=== PATIENT | female | born 1995 | race Caucasian/White ===

== ENCOUNTER 2023-10-07 15:17 | Emergency (ER) | payer OTHER, SELFPAY ==
[2023-10-07 15:45] VITALS: BP 139/85; PULSE 85; RESP 20; TEMP 37.4; O2SAT 98; BMI 28.3
--- NOTE | 2023-10-07 16:03 | ED.GENADUL1 ---
HPI - General Adult General Chief complaint: Abdominal Pain Stated complaint: Abdominal Pain, Flank Pain Time Seen by Provider: 10/07/23 15:53 Source: patient Mode of arrival: walk-in Limitations: no limitations History of Present Illness HPI narrative: Patient is a 28-year-old female who presents to the emergency department for a 4-day history of vomiting, diarrhea, intermittent side pain. She states the pain comes and goes in the bilateral flanks intermittently and changes location. She has no abdominal pain or flank pain at this time. She is unsure if she may be . She has not had any fevers, chills, cough, congestion. She has had more diarrhea than vomiting. She denies any recent travel or antibiotics. No medications taken prior to arrival today although she did take Imodium yesterday and states that her symptoms seem to be better today. Related Data Previous Rx's Medication Instructions Recorded dicyclomine 20 mg tablet 20 mg PO QID PRN abdominal pain 10/07/23 #12 tabs ondansetron 4 mg disintegrating 4 mg PO Q6H PRN nausea and 10/07/23 tablet vomiting #12 tabs Allergies Allergy/AdvReac Type Severity Reaction Status Date / Time No Known Drug Allergies Allergy Verified 10/07/23 15:49 Review of Systems ROS Constitutional Denies: fever or chills Ears, nose, mouth, and throat Denies: throat pain or neck pain Cardiovascular Denies: chest pain Respiratory Denies: shortness of breath Gastrointestinal Reports: abdominal pain, nausea, vomiting and diarrhea Genitourinary Denies: painful urination Musculoskeletal Denies: back pain Integumentary/Breast Denies: rash Neurological Denies: headache PFSH PFSH Social History Smoking status: Never smoker Exam Narrative Exam Narrative: Gen.: Awake, alert, in no distress Head: Normocephalic, atraumatic ENT: Moist mucous membranes Respiratory: No respiratory distress, lungs clear bilaterally Cardio: Regular rate and rhythm Gastrointestinal: Abdomen is soft, nondistended and nontender to palpation Extremities: Moves extremities equally Psych: Normal mood and affect Neuro: No focal neuro deficit Skin: Warm, dry, intact Constitutional Vital Signs, click to edit/add: Last Vital Signs Temp 99.3 F 10/07/23 15:45 Pulse 98 H 10/07/23 17:23 Resp 20 10/07/23 17:23 BP 127/83 10/07/23 17:23 Pulse Ox 98 10/07/23 17:23 O2 Del Method Room Air 10/07/23 17:23 Course Vital Signs Vital signs: Vital Signs Temperature 99.3 F 10/07/23 15:45 Pulse Rate 85 10/07/23 15:45 Respiratory Rate 20 10/07/23 15:45 Blood Pressure 139/85 10/07/23 15:45 Pulse Oximetry 98 10/07/23 15:45 Oxygen Delivery Method Room Air 10/07/23 15:45 Temperature 99.3 F 10/07/23 15:45 Pulse Rate 98 H 10/07/23 17:23 Respiratory Rate 20 10/07/23 17:23 Blood Pressure 127/83 10/07/23 17:23 Pulse Oximetry 98 10/07/23 17:23 Oxygen Delivery Method Room Air 10/07/23 17:23 Medical Decision Making MDM Narrative Medical decision making narrative: Medicated with IV fluids, Zofran, Levsin. Lab studies are within normal limits, test is negative and she is sent for abdominal x-rays. Abdomen is soft, benign she has no abdominal pain in the ER. She had no episodes of emesis or diarrhea in the ER. She will be discharged home with Zofran and Bentyl. Follow-up with PCP and return to the ER if symptoms change or worsen Medical Records Medical records reviewed: Yes I reviewed the patient's medical records Lab Data Lab results reviewed: Yes I reviewed the patient's lab results Labs: Lab Results 10/07/23 10/07/23 Range/Units 16:00 17:05 WBC 9.8 (4.0-11.0) 10^3/uL RBC 4.45 (4.20-5.40) 10^6/uL Hgb 13.7 (12.0-16.0) g/dL Hct 40.7 (36.0-48.0) % MCV 91.5 (81.0-99.0) fL MCH 30.8 (26.7-34.0) pg MCHC 33.7 (29.9-35.2) g/dL RDW 11.9 (11.0-15.0) % Plt Count 251 (150-450) 10^3/uL MPV 8.9 L (9.5-13.5) fL Neut % (Auto) 63.8 (43.0-75.0) % Lymph % (Auto) 27.9 (20.5-60.0) % Scurry % (Auto) 7.2 (1.7-12.0) % Eos % (Auto) 0.5 L (0.9-7.0) % Baso % (Auto) 0.4 (0.2-2.0) % Neut # (Auto) 6.2 (1.4-6.5) 10^3/uL Lymph # (Auto) 2.7 (1.2-3.8) 10^3/uL Scurry # (Auto) 0.7 (0.3-0.8) 10^3/uL Eos # (Auto) 0.1 (0.0-0.7) 10^3/uL Baso # (Auto) 0.0 (0.0-0.1) 10^3/uL Abs Immat Gran (auto) 0.02 (0.00-0.03) 10^3/uL Imm/Tot Granulo (auto) 0.2 (0.0-0.5) % Sodium 138 (136-145) mmol/L Potassium 3.2 L (3.5-5.1) mmol/L Chloride 101 (98-107) mmol/L Carbon Dioxide 30.4 (21.0-32.0) mmol/L Anion Gap 9.8 BUN 10.0 (7.0-18.0) mg/dL Creatinine 0.72 (0.55-1.02) mg/dL Est GFR ( Amer) >60 (>=60) Est GFR (Non-Af Amer) >60 (>=60) BUN/Creatinine Ratio 13.9 Glucose 115 H (74-106) mg/dL Lactate 1.2 (0.4-2.0) mmol/L Calcium 8.8 (8.5-10.1) mg/dL Total Bilirubin 0.5 (0.2-1.0) mg/dL AST 15 (15-37) U/L ALT 25 (14-59) U/L Alkaline Phosphatase 65 (46-116) U/L Total Protein 7.2 (6.4-8.2) g/dL Albumin 3.8 (3.4-5.0) g/dL Globulin 3.4 g/dL Albumin/Globulin Ratio 1.1 Lipase 23.0 (16.0-77.0) U/L Serum HCG, Qual Negative (NEGATIVE) Urine Color Lt. yellow (YELLOW) Urine Clarity Clear (CLEAR) Urine pH 7.0 (5.0-9.0) Ur Specific [place] <=1.005 A (1.005-1.025) Urine Protein Negative (NEG/TRACE) mg/dL Urine Glucose (UA) Negative (NEGATIVE) mg/dL Urine Ketones Trace A (NEGATIVE) mg/dL Urine Occult Blood Negative (NEGATIVE) Urine Nitrite Negative (NEGATIVE) Urine Bilirubin Negative (NEGATIVE) Urine Urobilinogen 0.2 (0.2-1.0) EU/dL Ur Leukocyte Esterase Negative (NEGATIVE) Imaging Data Abdominal x-ray: Attestation: I have reviewed the pertinent imaging results. Radiologist's impression: ITS Impressions Chest/Abdomen X-ray 10/07/23 16:25 IMPRESSION: No acute abnormality on radiographic exam. Electronically authenticated by: JONATAN TREVIÑO Date: 10/07/2023 17:52 Discharge Plan Discharge Chief Complaint: Abdominal Pain Clinical Impression: Abdominal pain, vomiting, and diarrhea Patient Disposition: Home, Self-Care Time of Disposition Decision: 17:58 Condition: Good Prescriptions / Home Meds: New dicyclomine 20 mg tablet 20 mg PO QID PRN (Reason: abdominal pain) Qty: 12 0RF ondansetron 4 mg tablet,disintegrating 4 mg PO Q6H PRN (Reason: nausea and vomiting) Qty: 12 0RF Instructions: Acute Nausea and Vomiting (ED), Acute Diarrhea (ED), Acute Abdominal Pain (ED) Stand Alone Forms: Portal Instructions Referrals: Jason Baez MD [Primary Care Provider] - 1 week
[2023-10-07] MEDS: 0.9 % SODIUM CHLORIDE 1,000 ML 999 ML IV (16:09)
[2023-10-07] MEDS: ONDANSETRON PF 4 MG/2 ML VIAL IV (16:09)
[2023-10-07 16:10] LABS: Basophils Percent Auto 0.4 % (0.2-2.0); Eosinophils Absolute Auto 0.1 10^3/uL (0.0-0.7); Eosinophils Percent Auto 0.5 % (0.9-7.0); Hematocrit 40.7 % (36.0-48.0); Hemoglobin 13.7 g/dL (12.0-16.0); Immature Granulocytes Abs Auto 0.02 10^3/uL (0.00-0.03); Immature Granulocytes Pct Auto 0.2 % (0.0-0.5); Lymphocytes Absolute Auto 2.7 10^3/uL (1.2-3.8); Lymphocytes Percent Auto 27.9 % (20.5-60.0); Mean Corpuscular HGB Conc 33.7 g/dL (29.9-35.2); Mean Corpuscular Hemoglobin 30.8 pg (26.7-34.0); Mean Corpuscular Volume 91.5 fL (81.0-99.0); Mean Platelet Volume 8.9 fL (9.5-13.5); Monocytes Absolute Auto 0.7 10^3/uL (0.3-0.8); Monocytes Percent Auto 7.2 % (1.7-12.0); Neutrophils Absolute Auto 6.2 10^3/uL (1.4-6.5); Neutrophils Percent Auto 63.8 % (43.0-75.0); Platelet Count 251 10^3/uL (150-450); Red Blood Count 4.45 10^6/uL (4.20-5.40); Red Cell Distribution Width 11.9 % (11.0-15.0); White Blood Count 9.8 10^3/uL (4.0-11.0)
[2023-10-07 16:22] LABS: HCG Qualitative NEGATIVE (NEGATIVE)
[2023-10-07 16:25] LABS: Alanine Aminotransferase 25 U/L (14-59); Albumin Globulin Ratio 1.1; Albumin Level 3.8 g/dL (3.4-5.0); Alkaline Phosphatase 65 U/L (46-116); Anion Gap 9.8; Aspartate Amino Transferase 15 U/L (15-37); BUN Creatinine Ratio 13.9; Bilirubin Total 0.5 mg/dL (0.2-1.0); Calcium 8.8 mg/dL (8.5-10.1); Carbon Dioxide 30.4 mmol/L (21.0-32.0); Chloride 101 mmol/L (98-107); Estimated GFR (African America >60 (>=60); Estimated GFR (Non-African Ame >60 (>=60); Globulin 3.4 g/dL; Glucose 115 mg/dL (74-106); Potassium 3.2 mmol/L (3.5-5.1); Sodium 138 mmol/L (136-145); Total Protein 7.2 g/dL (6.4-8.2)
--- NOTE | 2023-10-07 16:25 | XR_ITS ---
The [address] [address] Patient Name: ESTELLA CARRASQUILLO MRN: [id number] date: 1995 Sex: F Assigned Patient Location: ER Current Patient Location: ED.MAIN Accession/Order Number: [id number] Exam Date: 10/07/2023 17:05 Report Date: 10/07/2023 17:52 At the request of: TIEN RIVAS Procedure: XR acute abdomen series EXAM: XR acute abdomen series HISTORY: vomiting and diarrhea COMPARISON: None. TECHNIQUE: Abdominal X-ray, 1 view FINDINGS: Support devices: None. Bowel: Moderate volume colonic stool is demonstrated. No bowel dilatation. Additional findings: None. XR/XR acute abdomen series IMPRESSION: No acute abnormality on radiographic exam. Electronically authenticated by: JONATAN TREVIÑO Date: 10/07/2023 17:52
[2023-10-07 16:27] LABS: Lactate/Lactic Acid 1.2 mmol/L (0.4-2.0)
[2023-10-07] MEDS: HYOSCYAMINE SULFATE 0.125 MG TAB.SUBL SL (17:21)
[2023-10-07 17:22] LABS: Bilirubin Urine NEGATIVE (NEGATIVE); Blood Urine NEGATIVE (NEGATIVE); Clarity Urine CLEAR (CLEAR); Color Urine LT. YELLOW (YELLOW); Glucose Urine UA NEGATIVE (NEGATIVE); Ketones Urine TRACE mg/dL (NEGATIVE); Leukocyte Esterase Urine NEGATIVE (NEGATIVE); Nitrite Urine NEGATIVE (NEGATIVE); Protein Urine NEGATIVE (NEG/TRACE); Specific Gravity Urine <=1.005 (1.005-1.025); Urobilinogen Urine 0.2 EU/dL (0.2-1.0)
[2023-10-07 17:23] VITALS: BP 127/83; PULSE 98; RESP 20; O2SAT 98
[2023-10-07 17:23] LABS: Urine Microscopic Indicated NO
== END 2023-10-07 18:30 | disposition home or self-care (01) ==
PROVIDERS: Physician Assistant; Emergency Provider Emergency Medicine; PCP Family Medicine
DX: R10.9 Unspecified abdominal pain (principal); R11.10 Vomiting, unspecified; R19.7 Diarrhea, unspecified
CPT/HCPCS: 36415; 74022; 80053; 81003; 83605; 83690; 84703; 85025; 96361; 96374; 99285; J2405

== ENCOUNTER 2024-02-03 13:42 | Outpatient (OUT) | payer OTHER, SELFPAY ==
--- NOTE | 2024-02-03 13:45 | US_ITS ---
[address] [address] Patient Name: ESTELLA CARRASQUILLO MRN: [id number] date: 1995 Sex: F Assigned Patient Location: [facility] Current Patient Location: [facility] Accession/Order Number: [id number] Exam Date: 02/03/2024 13:45 Report Date: 02/03/2024 14:51 At the request of: BARBIE BRYAN Procedure: US OB transvaginal EXAMINATION: US OB transvaginal HISTORY: MISSED MENSES COMPARISON: No relevant comparison available. FINDINGS: GESTATIONAL SAC: Present and normal appearing. YOLK SAC: Present and normal appearing. POLE: Present and normal appearing. CARDIAC: Present. UTERUS: Normal size and appearance. OVARIES: Right: Normal. Left: Normal. CERVIX: 4.7 cm in length and closed. CUL-DE-SAC: Normal. OTHER: None. AGE BY LMP: 9 weeks 2 days FAROOQ BY LMP: 09/05/2024 AGE BY US CRL: 9 weeks 1 day FAROOQ BY US CRL: 09/06/2024 US/US OB transvaginal IMPRESSION: 1. Single live intrauterine . Electronically authenticated by: EULOGIO RAMOS Date: 02/03/2024 14:51
--- OUTSIDE RECORDS SUMMARY | 2024-02-03 13:48 | XMS_ITS | CCD ---
Author Organization [facility] Care Team Providers Care Utility Worker Film Processing Name Role Phone GARETH, DR STONEY Santillan Primary Care Unavailable HAY, DR DONALD Attending Unavailable HAY, DR DONALD Consulting Unavailable HAY, DR DONALD Admitting Unavailable NADERER, DR STONEY Santillan Primary Care Unavailable KARASIK, DR BAI Attending Unavailable KARASIK, DR BAI Consulting Unavailable KARASIK, DR BAI Admitting Unavailable MARKER, DR KHANNA Admitting Unavailable NADERER, DR STONEY Santillan Primary Care Unavailable MARKER, DR KHANNA Attending Unavailable MARKER, DR KHANNA Consulting Unavailable NADERER, DR STONEY Santillan Primary Care Unavailable LYLE ., CLAIR Attending Unavailable LYLE ., CLAIR Consulting Unavailable LYLE ., CLAIR Admitting Unavailable JOSÉ SANTOS Attending Unavailable NADERER, STONEY Attending Unavailable Problems Active Problems Problem Classification Problem Date Documented Da te Episodic/Chronic Other upper respiratory infections (6 sources) Acute pharyngitis, unspecified; Translations: [Streptococcal pharyngitis] Onset: 01-21-2022 Episodic Unclassified (1 source) CONTACT W/AND (SUSP) EXPOS COVID-19; Translations: [CONTACT W/AND (SUSP) EXPOS COVID-19] Onset: 06-19-2022 Past or Other Problems Problem Classification Problem Date Documented Date Episodic/Chronic Genitourinary symptoms and ill-defined conditions (1 source) Personal history of urinary (tract) infections; Translations: [PERS HX URINARY TRACT INFECTIONS] Onset: 01-21-2022 Episodic Immunizations and screening for infectious disease (4 sources) Encounter for screening for infections with a predominantly sexual mode of transmission; Translations: [ENC SCREEN INFECTIONS SEXL TRANSMS] Onset: 03-11-2022 Episodic Other ear and sense organ disorders (3 sources) Otalgia, right ear; Translations: [OTALGIA RIGHT EAR] Onset: 01-20-2022 Episodic Viral infection (1 source) Viral infection, unspecified; Translations: [VIRAL INFECTION UNSPECIFIED] Onset: 06-19-2022 Episodic Results Test Name Value Interpretation Reference Range Facil ity STREPT SCREENon 11-03-2022 STREP SCREEN A Positive Abnormal NEGATIVE [facility] Comment on above: Performed By: #### S SCRN #### [facility] [address] [address] [address] Luis Harrison Covid-19 PCR ([facility])on 05-22 SARS-CoV-2 (COVID-19) RNA KALYANI+probe Ql (Unsp spec) Not detected Normal NOT DETECTED [facility] Comment on above: Result Comment: When diagnostic testing is negative, the possibility of a false negative should be considered in the context of a patient's recent exposures and the presence of clinical signs and symptoms consistent with SARS-CoV-2. This test is not yet approved or cleared by the [place] FDA. When there are no FDA-approved or cleared tests available, and other criteria are met, FDA can make tests available under an emergency access mechanism called an Emergency Use Authorization (EUA). The EUA for this test is supported by the Clinical Support Associate of Health and Human Service's declaration that circumstances exist to justify the emergency use of in vitro diagnostics for the detection and/or diagnosis of the virus that causes COVID-19. This EUA will remain in effect for the duration of the COVID-19 declaration justifying emergency of IVDs, unless it is terminated or revoked by the FDA (after which the test may no longer be used). Performed By: #### C VDTBH #### [facility] [address] [address] [address] Luis Harrison GROUP A STREP CULTUREon 05-22 S. pyogenes Ag Ql (Unsp spec) Culture Observations: NEGATIVE FOR GROUP A STREPTOCOCCUS. Normal [facility] Comment on above: Performed By: #### G RASTCX SSCRN #### [facility] [address] [place] [address] Dr. Luis Harrison STREPT SCREENon 06-18-2022 STREP SCREEN A Negative Normal NEGATIVE [facility] Comment on above: Performed By: #### G RASTCX, SSCRN #### [facility] [address] [place] [address] Dr. Luis Harrison CHLAMYDIA/GONOCOCCUS KALYANI (SW AB/URINE/PAPon 03-13-2022 Chlamydia trachomatis, KALYANI Negative Normal Negative [facility] Comment on above: Performed By: #### C T/NGNA #### [facility] [address] [place] [address] Dr. Luis Harrison Neisseria gonorrhoeae, KALYANI Negative Normal Negative [facility] Comment on above: Performed By: #### C T/NGNA #### [facility] [address] [place] [address] Dr. Luis Harrison VAGINITIS/VAGINOSIS DNA PROB Shantanu 03-13-2022 Alysha species Negative Normal Negative [facility] Comment on above: Performed By: #### V AGINT #### [facility] [address] [place] [address] Dr. Luis Harrison Gardnerella vaginalis Negative Normal Negative [facility] Comment on above: Performed By: #### V AGINT #### [facility] [address] [place] [address] Dr. Luis Harrison Trichomonas vaginalis Negative Normal Negative [facility] Comment on above: Performed By: #### V AGINT #### [facility] [address] [place] [address] Dr. Luis Harrison CULTURE URINEon 01-20-2022 CULTURE URINE Culture Observations: No growth Normal [facility] Comment on above: Performed By: #### U RCX #### [facility] [address] [place] [address] Dr. Luis Harrison ER URINE PROFILEon Bilirubin Ql (U) Negative Normal NEGATIVE [facility] Comment on above: Performed By: #### P ABDOULAYE CUMMINGS ERUR #### [facility] [address] [place] [address] Dr. Luis Harrison Clarity (U) CLEAR Normal CLEAR [facility] Comment on above: Performed By: #### P ABDOULAYE CUMMINGS ERUR #### [facility] [address] [address] [address] Luis Harrison Color (U) LT. YELLOW Normal YELLOW [facility] Comment on above: Performed By: #### P ABDOULAYE CUMMINGS, ERUR #### [facility] [address] [place] [address] Dr. Luis PACE A micrscopic examination will be performed if indicated. Normal [facility] Comment on above: Performed By: #### P REGUMINDIICANG, ERUR #### [facility] [address] [place] [address] Dr. Luis Harrison Glucose Ql (U) Negative Normal NEGATIVE [facility] Comment on above: Performed By: #### P ABDOULAYE CUMMINGS, ERUR #### [facility] [address] [place] [address] Dr. Luis Harrison Hemoglobin Ql (U) TRACE-LYSED Abnormal NEGATIVE [facility] Comment on above: Performed By: #### P REGMINDI JuarezICRO, ERUR #### [facility] [address] [place] [address] Dr. Luis Harrison Ketones Ql (U) Negative Normal NEGATIVE [facility] Comment on above: Performed By: #### P REGUNAVARRORO, ERUR #### [facility] [address] [place] [address] Dr. Luis Harrison LEUKOCYTES Negative Normal NEGATIVE [facility] Comment on above: Performed By: #### P REGUMINDIICRO, ERUR #### [facility] [address] [place] [address] Dr. Luis Harrison Nitrite Ql (U) Negative Normal NEGATIVE [facility] Comment on above: Performed By: #### P REGUMINDIICRO, ERUR #### [facility] [address] [place] [address] Dr. Luis Harrison pH (U) 6.0 [pH] Normal 5-9 [facility] Comment on above: Performed By: #### P REGUABDOULAYE, ERUR #### [facility] [address] [place] [address] Dr. Luis Harrison SPEC GRAVITY <=1.005 Abnormal 1.005-<=1.[address] [facility] Comment on above: Performed By: #### P ABDOULAYE CUMMINGS, ERUR #### [facility] [address] [place] [address] Dr. Luis Harrison UA PROTEIN Negative Normal NEGATIVE/ TRACE [facility] Comment on above: Performed By: #### P ABDOULAYE CUMMINGS, ERUR #### [facility] [address] [place] [address] Dr. Luis Harrison UR MICRO IND INDICATED Normal [facility] Comment on above: Performed By: #### P ABDOULAYE CUMMINGS, ERUR #### [facility] [address] [place] [address] Dr. Luis Harrison Urobilinogen Qn (U) 0.2 {Maritza'U}/dL Normal 0.2 - 1. 0 [facility] Comment on above: Performed By: #### P ABDOULAYE CUMMINGS, ERUR #### [facility] [address] [place] [address] Dr. Luis Harrison GROUP A STREP CULTUREon S. pyogenes Ag Ql (Unsp spec) Culture Observations: NEGATIVE FOR GROUP A STREPTOCOCCUS. Normal [facility] Comment on above: Performed By: #### S SCRN, GRASTCX #### [facility] [address] [place] [address] Dr. Luis Harrison URon 01-20-2022 , QUAL Negative Normal NEGATIVE [facility] Comment on above: Performed By: #### S SCRN, GRASTCX #### [facility] [address] [place] [address] Dr. Luis Harrison STREPT SCREENon 01-20-2022 STREP SCREEN A Negative Normal NEGATIVE [facility] Comment on above: Performed By: #### S SCRN, GRASTCX #### [facility] [address] [place] [address] Dr. Luis Harrison URINE MICROSCOPIC ONLYon BACTERIA TRACE Abnormal NONE SEEN [facility] Comment on above: Performed By: #### S SCRN, GRASTCX #### [facility] [address] [place] [address] Dr. Luis Harrison Bacteria identified Cx Nom (U) INDICATED Normal [facility] Comment on above: Performed By: #### S SCRN, GRASTCX #### [facility] [address] [place] [address] Dr. Luis Harrison CAST NONE SEEN Normal NONE SEEN [facility] Comment on above: Performed By: #### S SCRN, GRASTCX #### [facility] [address] [place] [address] Dr. Luis Harrison Crystals LM Nom (Urine sed) NONE SEEN Normal NONE SEEN [facility] Comment on above: Performed By: #### S SCRN, GRASTCX #### [facility] [address] [place] [address] Dr. Luis Harrison Epithelial cells LM Ql (Urine sed) RARE Normal NONE SEEN /RARE [facility] Comment on above: Performed By: #### S SCRN, GRASTCX #### [facility] [address] [place] [address] Dr. Luis Harrison MUCOUS NONE SEEN Normal NONE SEEN [facility] Comment on above: Performed By: #### S SCRN, GRASTCX #### [facility] [address] [place] [address] Dr. Luis Harrison RBC 0-2 Normal 0-2 [facility] Comment on above: Performed By: #### S SCRN, GRASTCX #### [facility] [address] [place] [address] Dr. Luis Harrison WBC 0-2 Abnormal NONE SEEN [facility] Comment on above: Performed By: #### S SCRN, GRASTCX #### [facility] [address] [place] [address] Dr. Luis Harrison Encounters Encounter Date Encounter Type Care Provider Facility Start: 01-11-2024 End: 01-11-2024 ambulatory STONEY SERVIN Not Available Start: 01-07-2024 End: 01-07-2024 ambulatory JOSÉ SANTOS Not Available Start: 11-03-2022 End: 11-03-[address] STONEY SERVIN Facility:[facility] Start: 06-18-2022 End: 06-18-[address] STONEY SERVIN Facility:[facility] Start: 03-11-2022 End: 03-11-[address] STONEY SERVIN Facility:[facility] Start: 01-20-2022 End: 01-20-2022 ambulatory CLEMENCIA NICOLE Facility:[facility] Payers Date Payer Category Payer Unknown [id number] 2.16.84 [id number] 1995 Unknown [id number] 2.16.84 [id number] 1995 Unknown [id number] 2.16.84 [id number] 1995 Unknown [id number] 2.16.84 [id number] 1995 Unknown [id number] 2.16.84 [id number] 1995 Unknown [id number] 2.16.84 [id number] 1959 Unknown [id number] Summary Purpose Family History No Family History Records FoundNo Family History Records Found Advance Directives No Advanced Directives Records FoundNo Advanced Directives Records Found Additional Source Comments INFORMATION SOURCE (unrecogn ized section and content) DATE CREATED AUTHOR 11/04/2022 [facility] DATE CREATED AUTHOR [facility] FOR RECORDS PERTAINING TO PATIENTS WHO ARE OR HAVE BEEN ENROLLED IN A CHEMICAL DEPENDENCY/SUBSTANCEABUSE PROGRAM, SOME INFORMATION MAY BE OMITTED. This clinical summary was aggregated from multiple sources. Caution should be exercised in using it in the provision of clinical care. This summary normalizes information from multiple sources, and as a consequence, information in this document may materially change the coding, format and clinical context of patient data. In addition, data may be omitted in some cases. CLINICAL DECISIONS SHOULD BE BASED ON THE PRIMARY CLINICAL RECORDS. [facility]. provides no warranty or guarantee of the accuracy or completeness of information in this document.
== END 2024-02-03 13:43 | disposition home or self-care (01) ==
LOC: NOMS 13:43
PROVIDERS: PCP Family Medicine; Visit Provider Obstetrics & Gynecology
DX: Z34.91 Encounter for supervision of normal pregnancy, unspecified, first trimester (principal); Z3A.09 9 weeks gestation of pregnancy; N92.6 Irregular menstruation, unspecified
CPT/HCPCS: 76817

== ENCOUNTER 2024-02-15 20:06 | Emergency (ER) | payer OTHER, SELFPAY ==
[2024-02-15 20:09] VITALS: BP 126/68; PULSE 85; TEMP 36.6; O2SAT 98; BMI 27.6
--- OUTSIDE RECORDS SUMMARY | 2024-02-15 20:15 | XMS_ITS | CCD ---
Author Organization [facility] Team Providers Care Laborer Pole Crew Name Role Phone GARETH, DR STONEY Santillan [...] Consulting Unavailable LYLE ., CLAIR Admitting Unavailable LACONIS, JOSÉ Vazquez Attending Unavailable NADERER, STONEY Attending Unavailable Problems [...] STREP SCREEN A Positive Abnormal NEGATIVE [facility] Comment on above: Performed By: #### S SCRN #### [facility] [address] [address] [address] Luis Harrison [facility]on [facility]-22 SARS-CoV-2 (COVID-19) RNA KALYANI+probe Ql (Unsp spec) Not detected Normal NOT DETECTED [facility] Comment on above: Result Comment: When diagnostic [...] for this test is supported by the [place] of Health and Human Service's declaration that [...] Performed By: #### C VDTBH #### [facility] [address] [place] [address] Dr. Luis Harrison GROUP A STREP CULTUREon 05-22 S. pyogenes Ag Ql (Unsp spec) Culture Observations: NEGATIVE FOR GROUP A STREPTOCOCCUS. Normal [facility] Comment on above: Performed By: #### G MICKIE SSCRN #### [facility] [address] [place] [address] Luis Harrison STREPT SCREENon 06-18-2022 STREP SCREEN A Negative Normal NEGATIVE [facility] Comment on above: Performed By: #### G RASTCX, SSCRN #### [facility] [address] [place] [address] Dr. Luis Harrison CHLAMYDIA/GONOCOCCUS KALYANI (SW AB/URINE/PAPon 03-13-2022 Chlamydia trachomatis, KALYANI Negative Normal Negative [facility] Comment on above: Performed By: #### C T/NGNA #### [facility] [address] [place] [address] Dr. Luis Harrison Neisseria gonorrhoeae, KALYANI Negative Normal Negative [facility] Comment on above: Performed By: #### C T/NGNA #### [facility] [address] [place] [address] Dr. Luis Harrison VAGINITIS/VAGINOSIS DNA PROB Shantanu 03-13-2022 Alysha species Negative Normal Negative [facility] Comment on above: Performed By: #### V AGINT #### [facility] [address] [place] [address] Dr. Luis Harrison Gardnerella vaginalis Negative Normal Negative [facility] Comment on above: Performed By: #### V AGINT #### [facility] [address] [place] [address] Dr. Luis Harrison Trichomonas vaginalis Negative Normal Negative [facility] Comment on above: Performed By: #### V AGINT #### [facility] [address] [place] [address] Dr. Luis Harrison CULTURE URINEon 01-20-2022 CULTURE URINE Culture Observations: No growth Normal [facility] Comment on above: Performed By: #### U RCX #### [facility] [address] [place] [address] Dr. Luis Harrison ER URINE PROFILEon Bilirubin Ql (U) Negative Normal NEGATIVE [facility] Comment on above: Performed By: #### P ABDOULAYE CUMMINGS ERUR #### [facility] [address] [place] [address] Dr. Luis Harrison Clarity (U) CLEAR Normal CLEAR [facility] Comment on above: Performed By: #### ABDOULAYE QUISPE ERUR #### [facility] [address] [address] [address] Luis Harrison Color (U) LT. YELLOW Normal YELLOW [facility] Comment on above: Performed By: #### P ABDOULAYE CUMMINGS, ERUR #### [facility] [address] [address] [address] Luis PACE A micrscopic examination will be performed if indicated. Normal [facility] Comment on above: Performed By: #### P REGABDOULAYE Juarez, ERUR #### [facility] [address] [address] [address] Luis Harrison Glucose Ql (U) Negative Normal NEGATIVE [facility] Comment on above: Performed By: #### P REGABDOULAYE Juarez, ERUR #### [facility] [address] [address] [address] Luis Harrison Hemoglobin Ql (U) TRACE-LYSED Abnormal NEGATIVE [facility] Comment on above: Performed By: #### P REGABDOULAYE Juarez, ERUR #### [facility] [address] [address] [address] Luis Harrison Ketones Ql (U) Negative Normal NEGATIVE [facility] Comment on above: Performed By: #### P ABDOULAYE CUMMINGS, ERUR #### [facility] [address] [address] [address] Luis Harrison LEUKOCYTES Negative Normal NEGATIVE [facility] Comment on above: Performed By: #### P REGUNAVARRORO, ERUR #### [facility] [address] [address] [address] Luis Harrison Nitrite Ql (U) Negative Normal NEGATIVE [facility] Comment on above: Performed By: #### P EVERTONUABDOULAYE, ERUR #### [facility] [address] [address] [address] Luis Harrison pH (U) 6.0 [pH] Normal 5-9 [facility] Comment on above: Performed By: #### P ABDOULAYE CUMMINGS, ERUR #### [facility] [address] [address] [address] Luis Harrison SPEC GRAVITY <=1.005 Abnormal 1.005-<=1.025 [facility] Comment on above: Performed By: #### P ABDOULAYE CUMMINGS, ERUR #### [facility] [address] [place] [address] Dr. Luis Harrison UA PROTEIN Negative Normal NEGATIVE/ TRACE [facility] Comment on above: Performed By: #### P ABDOULAYE CUMMINGS, ERUR #### [facility] [address] [address] [address] Luis Harrison UR MICRO IND INDICATED Normal [facility] Comment on above: Performed By: #### P ABDOULAYE CUMMINGS, ERUR #### [facility] [address] [place] [address] Dr. Luis Harrison Urobilinogen Qn (U) 0.2 {Maritza'U}/dL Normal 0.2 - 1. 0 [facility] Comment on above: Performed By: #### P ABDOULAYE CUMMINGS, ERUR #### [facility] [address] [place] [address] Dr. Luis Harrison GROUP A STREP CULTUREon S. pyogenes Ag Ql (Unsp spec) Culture Observations: NEGATIVE FOR GROUP A STREPTOCOCCUS. Normal [facility] Comment on above: Performed By: #### S SCRN, GRASTCX #### [facility] [address] [place] [address] Dr. Luis Harrison URon 01-20-2022 , QUAL Negative Normal NEGATIVE [facility] Comment on above: Performed By: #### S SCRN, GRASTCX #### [facility] [address] [place] [address] Dr. Luis Harrison STREPT SCREENon 01-20-2022 STREP SCREEN A Negative Normal NEGATIVE [facility] Comment on above: Performed By: #### S SCRN, GRASTCX #### [facility] [address] [place] [address] Dr. Luis Harrison URINE MICROSCOPIC ONLYon BACTERIA TRACE Abnormal NONE SEEN [facility] Comment on above: Performed By: #### S SCRN, GRASTCX #### [facility] [address] [place] [address] Dr. Luis Harrison Bacteria identified Cx Nom (U) INDICATED Normal [facility] Comment on above: Performed By: #### S SCRN, GRASTCX #### [facility] [address] [place] [address] Dr. Luis Harrison CAST NONE SEEN Normal NONE SEEN [facility] Comment on above: Performed By: #### S SCRN, GRASTCX #### [facility] [address] [place] [address] Dr. Luis Harrison Crystals LM Nom (Urine sed) NONE SEEN Normal NONE SEEN [facility] Comment on above: Performed By: #### S SCRN, GRASTCX #### [facility] [address] [place] [address] Dr. Luis Harrison Epithelial cells LM Ql (Urine sed) RARE Normal NONE SEEN /RARE [facility] Comment on above: Performed By: #### S SCRN, GRASTCX #### [facility] [address] [place] [address] Dr. Luis Harrison MUCOUS NONE SEEN Normal NONE SEEN [facility] Comment on above: Performed By: #### S SCRN, GRASTCX #### [facility] [address] [place] [address] Dr. Luis Harrison RBC 0-2 Normal 0-2 [facility] Comment on above: Performed By: #### S SCRN, GRASTCX #### [facility] [address] [place] [address] Dr. Luis Harrison WBC 0-2 Abnormal NONE SEEN [facility] Comment on above: Performed By: #### S SCRN, GRASTCX #### [facility] [address] [place] [address] Dr. Luis Harrison Encounters Encounter Date Encounter Type Care Provider Facility Start: 02-03-2024 End: 02-03-2024 ambulatory JOSÉ SANTOS Not Available Start: 01-11-2024 End: 01-11-2024 ambulatory STONEY SERVIN Not Available Start: 01-07-2024 End: 01-07-2024 ambulatory JOSÉ SANTOS Not Available Start: 11-03-2022 End: 11-03-[address] STONEY SERVIN Facility:[facility] Start: 06-18-2022 End: 06-18-[address] STONEY SERVIN Facility:[facility] Start: 03-11-2022 End: 03-11-[address] STONEY SERVIN Facility:[facility] Start: 01-20-2022 End: 01-20-[address] CLEMENCIA NICOLE Facility:[facility] Payers Date Payer Category Payer Unknown [id number] 2.16.84 [id number] 1995 Unknown [id number] 2.16.84 [id number] 1995 Unknown [id number] 2.16.84 [id number] 1995 Unknown [id number] 2.16.84 [id number] 1995 Unknown [id number] 2.16.84 [id number] 1995 Unknown [id number] 2.16.84 [id number] 1995 Unknown [id number] 2.16.84 [id number] 1959 Unknown [id number] Summary Purpose Family History No Family History Records FoundNo Family History Records Found Advance Directives No Advanced Directives Records FoundNo Advanced Directives Records Found Additional Source Comments INFORMATION SOURCE (unrecogn ized section and content) DATE CREATED AUTHOR 11/04/2022 [facility] DATE CREATED AUTHOR AUTHOR'S ANDREAS ATVESNA 02/06/2024 [facility] EPIC FOR RECORDS PERTAINING TO PATIENTS WHO ARE [...] BE BASED ON THE PRIMARY CLINICAL RECORDS. [facility] [employer] [facility]. provides no warranty or guarantee of the accuracy or completeness of information in this document.
--- NOTE | 2024-02-15 20:26 | ED.GENADUL1 ---
HPI HPI - General Adult General Chief complaint: Urogenital-Female Stated complaint: UTI Time Seen by Provider: 02/15/24 20:11 Source: patient Mode of arrival: walk-in Limitations: no limitations History of Present Illness HPI narrative: 28-year-old female presents to the emergency department concerned about having urinary tract infection. Symptoms began 2 days ago that have included urinary frequency, dark urine. States she feels she needs to go and only produces a small amount. Did have some side pain on the right, but this has resolved. Patient states she is about 11 weeks . She denies any fever, chills, nausea, vomiting, back or flank pain, abdominal pain, vaginal bleeding, abdominal cramping or ashlie. 2, para 1. Quality:?As above Severity:?Mild Timing:?2 days Context: Normal setting and activity? Modifying factors:?As above Associated symptoms: None Related Data Previous Rx's ?Medication ?Instructions ?Recorded dicyclomine 20 mg tablet 20 mg PO QID PRN abdominal pain 10/07/23 #12 tabs ondansetron 4 mg disintegrating 4 mg PO Q6H PRN nausea and 10/07/23 tablet vomiting #12 tabs Allergies Allergy/AdvReac Type Severity Reaction Status Date / Time No Known Drug Allergies Allergy Verified 10/07/23 15:49 Opioid HPI Opioid Management Most Recent Opioid Data: No Data to Display Review of Systems ROS Narrative CONST: Denies fever, chills RESP: Denies cough, shortness of breath CV: Denies chest pain, palpitations GI: Denies abd pain, nausea, vomiting : + Urinary frequency, foul-smelling urine. Denies dysuria, flank pain MS: Denies back pain, myalgias PFSH PFSH Social History Smoking status: Never smoker Exam Narrative Exam Narrative: Vital signs reviewed Nurses notes noted CONST: Nontoxic, well appearing, well nourished, in no distress.? No diaphoresis.?? HENT: normocephalic, atraumatic, moist mucous membrane, no abnormalities of the nose noted, hearing normal EYES: normal appearing conjunctiva, no apparent discharge bilat NECK: normal appearance CV: normal rate, regular rhythm, no murmur RESP: normal effort, speaking in complete sentences. Lung sounds clear and equal bilat.? No wheezes, rales, rhonchi GI: normal bowel sounds, soft, no distension, nontender : no CVA tenderness MS: no edema, tenderness SKIN: no pallor NEURO: A&Ox 3, no focal findings PSYCH: normal mood, affect Constitutional Vital Signs, click to edit/add: Last Vital Signs Temp 97.9 F 02/15/24 20:09 Pulse 85 02/15/24 20:09 Resp 16 02/15/24 20:09 BP 126/68 02/15/24 20:09 Pulse Ox 98 02/15/24 20:09 O2 Del Method Room Air 02/15/24 20:09 Course Vital Signs Vital signs: Vital Signs Temperature 97.9 F 02/15/24 20:09 Pulse Rate 85 02/15/24 20:09 Respiratory Rate 16 02/15/24 20:09 Blood Pressure 126/68 02/15/24 20:09 Pulse Oximetry 98 02/15/24 20:09 Oxygen Delivery Method Room Air 02/15/24 20:09 Temperature 97.9 F 02/15/24 20:09 Pulse Rate 85 02/15/24 20:09 Respiratory Rate 16 02/15/24 20:09 Blood Pressure 126/68 02/15/24 20:09 Pulse Oximetry 98 02/15/24 20:09 Oxygen Delivery Method Room Air 02/15/24 20:09 Medical Decision Making MDM Narrative Medical decision making narrative: This is a pleasant 28-year-old female presenting to the emergency department with concern about urinary tract infection. Over the past couple days, she has had some urinary frequency, discoloration of the urine described as dark. Patient states she is about 11 weeks . She did have some right-sided flank pain, but this is resolved. Denies any fever, chills, abdominal pain, ashlie, vaginal bleeding. On arrival, afebrile, vital signs are stable. On exam, nontoxic, well-appearing patient in no distress. Heart regular rate and rhythm. Lung sounds clear and equal bilaterally. No CVA tenderness. Denies any tenderness on palpation of the abdomen. Urinalysis reveals no evidence of urinary tract infection. Urine hCG confirmed Favor nonspecific urinary frequency UTI less likely based on urinalysis Ectopic less likely based on history, physical. She has no abdominal, pelvic pain or contractions. No back pain. No vaginal bleeding. Ultrasound and further lab work was considered, but absence of signs and symptoms did not warrant. Patient remained stable during ED course Disposition ? The patient was discharged. Plan: Patient will be discharged to home. Condition at time of disposition: stable ? Advised to follow up with primary provider. Advised to return for any worsening and/or development of new, concerning signs or symptoms PLEASE NOTE: Portions of the medical record may have been produced using electronic critical care unit nurse and may contain errors with respect to translation of words which may not have been identified prior to finalization of the chart. Lab Data Lab results reviewed: Yes I reviewed the patient's lab results Labs: Lab Results 02/15/24 Range/Units 20:15 Urine Color Lt. yellow (YELLOW) Urine Clarity Clear (CLEAR) Urine pH 6.5 (5.0-9.0) Ur Specific [place] 1.020 (1.005-1.025) Urine Protein Negative (NEG/TRACE) mg/dL Urine Glucose (UA) Negative (NEGATIVE) mg/dL Urine Ketones Negative (NEGATIVE) mg/dL Urine Occult Blood Negative (NEGATIVE) Urine Nitrite Negative (NEGATIVE) Urine Bilirubin Negative (NEGATIVE) Urine Urobilinogen 0.2 (0.2-1.0) EU/dL Ur Leukocyte Esterase Negative (NEGATIVE) Urine RBC 0-2 (0-2) #/HPF Urine WBC None seen (NONE SEEN) #/HPF Ur Squamous Epith Cells Few A (NONE/RARE) #/LPF Urine Crystals None seen (None Seen) #/HPF Urine Bacteria None seen (NONE SEEN) #/HPF Urine Casts None seen (NONE SEEN) #/LPF Urine Mucus None seen (NONE SEEN) Urine HCG, Qual Positive A (NEGATIVE) Discharge Plan Discharge Stand Alone Forms: Portal Instructions Chief Complaint: Urogenital-Female Clinical Impression: Urinary frequency Qualifiers: Weeks of gestation: unspecified Qualified Code(s): Z34.90 - Encounter for supervision of normal , unspecified, unspecified trimester Patient Disposition: Home, Self-Care Time of Disposition Decision: 21:11 Mode of Transportation: Private Vehicle Prescriptions / Home Meds: No Action dicyclomine 20 mg tablet 20 mg PO QID PRN (Reason: abdominal pain) Qty: 12 0RF ondansetron 4 mg tablet,disintegrating 4 mg PO Q6H PRN (Reason: nausea and vomiting) Qty: 12 0RF Print Language: Ukrainian Instructions: Urinary Urgency and Frequency (DC) Referrals: Jason Baez MD [Primary Care Provider] - 1 week Discharge Date/Time: 02/15/24 21:33
[2024-02-15 20:31] LABS: Bilirubin Urine NEGATIVE (NEGATIVE); Blood Urine NEGATIVE (NEGATIVE); Clarity Urine CLEAR (CLEAR); Color Urine LT. YELLOW (YELLOW); Glucose Urine UA NEGATIVE (NEGATIVE); Ketones Urine NEGATIVE (NEGATIVE); Leukocyte Esterase Urine NEGATIVE (NEGATIVE); Nitrite Urine NEGATIVE (NEGATIVE); Protein Urine NEGATIVE (NEG/TRACE); Urobilinogen Urine 0.2 EU/dL (0.2-1.0); pH Urine 6.5 (5.0-9.0)
[2024-02-15 20:37] LABS: Bacteria Urine NONE SEEN #/HPF (NONE SEEN); Cast Seen? NONE SEEN #/LPF (NONE SEEN); Crystals Seen? None Seen #/HPF (None Seen); Mucus Urine NONE SEEN (NONE SEEN); RBC Urine 0-2 #/HPF (0-2); Squamous Epithelial Cell Urine FEW #/LPF (NONE/RARE); WBC Urine NONE SEEN #/HPF (NONE SEEN)
[2024-02-15 21:03] LABS: HCG Qualitative Urine* POSITIVE (NEGATIVE); Internal Control Within Normal Limits
== END 2024-02-15 21:33 | disposition home or self-care (01) ==
PROVIDERS: Physician Assistant; Emergency Provider Internal Medicine; PCP Family Medicine
DX: O26.891 Other specified pregnancy related conditions, first trimester (principal); R35.0 Frequency of micturition; Z3A.11 11 weeks gestation of pregnancy
CPT/HCPCS: 81001; 84703; 99283

== ENCOUNTER 2024-02-18 16:52 | Outpatient (OUT) | payer OTHER, SELFPAY ==
--- OUTSIDE RECORDS SUMMARY | 2024-02-18 16:57 | XMS_ITS | CCD ---
Author Organization [place] InformOn license of [facility] Care Team Providers Care Medical Records Coder Name Role Phone GARETH, DR STONEY Santillan [...] A Positive Abnormal NEGATIVE [facility] Comment on above: Performed By: #### S SCRN #### [facility] [address] [address] [address] Luis Harrison [facility]22 SARS-CoV-2 (COVID-19) RNA KALYANI+probe Ql (Unsp spec) Not detected Normal NOT DETECTED [facility] Comment on above: Result Comment: When [...] for this test is supported by the [place] of Health and Human Service's declaration that [...] used). Performed By: #### C VDTBH #### [facility] [address] [place] [address] Dr. Luis Harrison GROUP A STREP CULTUREon 05-22 S. pyogenes Ag Ql (Unsp spec) Culture Observations: NEGATIVE FOR GROUP A STREPTOCOCCUS. Normal [facility] Comment on above: Performed By: #### G MICKIE SSCRN #### [facility] [address] [place] [address] [address] [address] Luis Harrison STREPT SCREENon 06-18-2022 STREP SCREEN A Negative Normal NEGATIVE [facility] Comment on above: Performed By: #### G RASTCX, SSCRN #### [facility] [address] [place] [address] Dr. Luis Harrison CHLAMYDIA/GONOCOCCUS KALYANI (SW AB/URINE/PAPon 03-13-2022 Chlamydia trachomatis, KALYANI Negative Normal Negative [facility] Comment on above: Performed By: #### C T/NGNA #### [facility] [address] [place] [address] Dr. Luis Harrison Neisseria gonorrhoeae, KALYANI Negative Normal Negative [facility] Comment on above: Performed By: #### C T/NGNA #### [facility] [address] [place] [address] Dr. Luis Harrison VAGINITIS/VAGINOSIS DNA PROB Shantanu 03-13-2022 Alysha species Negative Normal Negative [facility] Comment on above: Performed By: #### V AGINT #### [facility] [address] [place] [address] Dr. Luis Harrison Gardnerella vaginalis Negative Normal Negative [facility] Comment on above: Performed By: #### V AGINT #### [facility] [address] [place] [address] Dr. Luis Harrison Trichomonas vaginalis Negative Normal Negative [facility] Comment on above: Performed By: #### V AGINT #### [facility] [address] [place] [address] Dr. Luis Harrison CULTURE URINEon 01-20-2022 CULTURE URINE Culture Observations: No growth Normal [facility] Comment on above: Performed By: #### U RCX #### [facility] [address] [place] [address] Dr. Luis Harrison ER URINE PROFILEon Bilirubin Ql (U) Negative Normal NEGATIVE [facility] Comment on above: Performed By: #### P ABDOULAYE CUMMINGS ERUR #### [facility] [address] [place] [address] Dr. Luis Harrison Clarity (U) CLEAR Normal CLEAR [facility] Comment on above: Performed By: #### ABDOULAYE QUISPE ERUR #### [facility] [address] [address] [address] Luis Harrison Color (U) LT. YELLOW Normal YELLOW [facility] Comment on above: Performed By: #### P ABDOULAYE CUMMINGS, ERUR #### [facility] [address] [address] [address] Luis PACE A micrscopic examination will be performed if indicated. Normal [facility] Comment on above: Performed By: #### P REGABDOULAYE Juarez, ERUR #### [facility] [address] [address] [address] Luis Harrison Glucose Ql (U) Negative Normal NEGATIVE [facility] Comment on above: Performed By: #### P REGABDOULAYE Juarez, ERUR #### [facility] [address] [address] [address] Luis Harrison Hemoglobin Ql (U) TRACE-LYSED Abnormal NEGATIVE [facility] Comment on above: Performed By: #### P REGABDOULAYE Juarez, ERUR #### [facility] [address] [address] [address] Luis Harrison Ketones Ql (U) Negative Normal NEGATIVE [facility] Comment on above: Performed By: #### P ABODULAYE CUMMINGS, ERUR #### [facility] [address] [address] [address] Luis Harrison LEUKOCYTES Negative Normal NEGATIVE [facility] Comment on above: Performed By: #### P REGUNAVARRORO, ERUR #### [facility] [address] [address] [address] Luis Harrison Nitrite Ql (U) Negative Normal NEGATIVE [facility] Comment on above: Performed By: #### P EVERTONUABDOULAYE, ERUR #### [facility] [address] [address] [address] Luis Harrison pH (U) 6.0 [pH] Normal 5-9 [facility] Comment on above: Performed By: #### P ABDOULAYE CUMMINGS, ERUR #### [facility] [address] [address] [address] Luis Harrison SPEC GRAVITY <=1.005 Abnormal 1.005-<=1.025 [facility] Comment on above: Performed By: #### P ABDOULAYE CUMMINGS, ERUR #### [facility] [address] [place] [address] Dr. Luis Harrison UA PROTEIN Negative Normal NEGATIVE/ TRACE [facility] Comment on above: Performed By: #### P ABDOULAYE CUMMINGS, ERUR #### [facility] [address] [address] [address] Luis Harrison UR MICRO IND INDICATED Normal [facility] Comment on above: Performed By: #### P ABDOULAYE CUMMINGS, ERUR #### [facility] [address] [place] [address] Dr. Luis Harrison Urobilinogen Qn (U) 0.2 {Maritza'U}/dL Normal 0.2 - 1. 0 [facility] Comment on above: Performed By: #### P ABDOULAYE CUMMINGS, ERUR #### [facility] [address] [place] [address] Dr. Luis Harrison GROUP A STREP CULTUREon S. pyogenes Ag Ql (Unsp spec) Culture Observations: NEGATIVE FOR GROUP A STREPTOCOCCUS. Normal [facility] Comment on above: Performed By: #### S SCRN, GRASTCX #### [facility] [address] [place] [address] Dr. Luis Harrison URon 01-20-2022 , QUAL Negative Normal NEGATIVE [facility] Comment on above: Performed By: #### S SCRN, GRASTCX #### [facility] [address] [place] [address] Dr. Luis Harrison STREPT SCREENon 01-20-2022 STREP SCREEN A Negative Normal NEGATIVE [facility] Comment on above: Performed By: #### S SCRN, GRASTCX #### [facility] [address] [place] [address] Dr. Luis Harrison URINE MICROSCOPIC ONLYon BACTERIA TRACE Abnormal NONE SEEN [facility] Comment on above: Performed By: #### S SCRN, GRASTCX #### [facility] [address] [place] [address] Dr. Luis Harrison Bacteria identified Cx Nom (U) INDICATED Normal [facility] Comment on above: Performed By: #### S SCRN, GRASTCX #### [facility] [address] [place] [address] Dr. Luis Hrarison CAST NONE SEEN Normal NONE SEEN [facility] Comment on above: Performed By: #### S SCRN, GRASTCX #### [facility] [address] [place] [address] Dr. Luis Harrison Crystals LM Nom (Urine sed) NONE SEEN Normal NONE SEEN [facility] Comment on above: Performed By: #### S SCRN, GRASTCX #### [facility] [address] [place] [address] Dr. Luis Harrison Epithelial cells LM Ql (Urine sed) RARE Normal NONE SEEN /RARE [facility] Comment on above: Performed By: #### S SCRN, GRASTCX #### [facility] [address] [place] [address] Dr. Luis Harrison MUCOUS NONE SEEN Normal NONE SEEN [facility] Comment on above: Performed By: #### S SCRN, GRASTCX #### [facility] [address] [place] [address] Dr. Luis Harrison RBC 0-2 Normal 0-2 [facility] Comment on above: Performed By: #### S SCRN, GRASTCX #### [facility] [address] [place] [address] Dr. Luis Harrison WBC 0-2 Abnormal NONE SEEN [facility] Comment on above: Performed By: #### S SCRN, GRASTCX #### [facility] [address] [place] [address] Dr. Luis Harrison Encounters Encounter Date Encounter [...] Facility:[facility] Payers Date Payer Category Payer Unknown [id number] 2.16.84 [id number] 1995 Unknown [id number] 2.16.84 [id number] 1995 Unknown [id number] 2.16.84 [id number] 1995 Unknown [id number] 2.16.84 [id number] 1995 Unknown [id number] 2.16.84 [id number] 1995 Unknown [id number] 2.16.84 [id number] 1995 Unknown [id number] 2.16.84 [id number] 1959 Unknown [id number] Summary Purpose Family History No Family History Records FoundNo Family History Records Found Advance Directives No Advanced Directives Records FoundNo Advanced Directives Records Found Additional Source Comments INFORMATION SOURCE (unrecogn ized section and content) DATE CREATED AUTHOR 11/04/2022 [facility] DATE CREATED AUTHOR AUTHOR'S ANDREAS ATVESNA 02/06/2024 [facility] EPIC FOR RECORDS PERTAINING [...] BE BASED ON THE PRIMARY CLINICAL RECORDS. [facility] [employer] [facility]. provides no warranty or guarantee of the accuracy or completeness of information in this document.
[2024-02-18 17:43] LABS: Estimated Average Glucose 100 mg/dL; Glycohemoglobin A1C 5.1 % (4.5-6.2)
[2024-02-18 18:17] LABS: Basophils Percent Auto 0.3 % (0.2-2.0); Eosinophils Percent Auto 0.3 % (0.9-7.0); Hematocrit 37.5 % (36.0-48.0); Hemoglobin 12.6 g/dL (12.0-16.0); Immature Granulocytes Abs Auto 0.03 10^3/uL (0.00-0.03); Immature Granulocytes Pct Auto 0.3 % (0.0-0.5); Lymphocytes Absolute Auto 2.2 10^3/uL (1.2-3.8); Lymphocytes Percent Auto 23.5 % (20.5-60.0); Mean Corpuscular HGB Conc 33.6 g/dL (29.9-35.2); Mean Corpuscular Hemoglobin 30.4 pg (26.7-34.0); Mean Corpuscular Volume 90.6 fL (81.0-99.0); Mean Platelet Volume 9.4 fL (9.5-13.5); Monocytes Absolute Auto 0.7 10^3/uL (0.3-0.8); Monocytes Percent Auto 6.9 % (1.7-12.0); Neutrophils Absolute Auto 6.5 10^3/uL (1.4-6.5); Neutrophils Percent Auto 68.7 % (43.0-75.0); Platelet Count 255 10^3/uL (150-450); Red Blood Count 4.14 10^6/uL (4.20-5.40); Red Cell Distribution Width 12.7 % (11.0-15.0); White Blood Count 9.4 10^3/uL (4.0-11.0)
[2024-02-20 08:08] LABS: HBsAg Screen Negative (Negative); HCV Ab Non Reactive (Non Reactive); HIV Ab/p24 Ag Screen Non Reactive (Non Reactive)
[2024-02-20 09:07] LABS: Rubella Antibodies, IgG 1.02 index (Immune >0.99)
[2024-02-20 12:07] LABS: Rapid Plasma Reagin, Quant Non Reactive titer (NonRea<1:1)
== END 2024-02-18 16:53 | disposition home or self-care (01) ==
LOC: LAB 16:53
PROVIDERS: PCP Family Medicine; Visit Provider Obstetrics & Gynecology
DX: Z36.0 Encounter for antenatal screening for chromosomal anomalies (principal); N92.6 Irregular menstruation, unspecified
CPT/HCPCS: 36415; 83036; 85025; 86592; 86762; 86803; 86850; 86900; 86901; 87086; 87340; 87389

== ENCOUNTER 2024-03-03 15:46 | Outpatient (OUT) | payer OTHER, SELFPAY ==
--- NOTE | 2024-03-03 15:49 | US_ITS ---
The [address] [address] Patient Name: ESTELLA CARRASQUILLO MRN: [id number] date: 1995 Sex: F Assigned Patient Location: LAB Current Patient Location: LAB Accession/Order Number: [id number] Exam Date: 03/03/2024 15:55 Report Date: 03/03/2024 17:10 At the request of: BARBIE BRYAN Procedure: US thyroid EXAM: US thyroid HISTORY: ENLARGED THYROID E04.9 COMPARISON: None. TECHNIQUE: Multiple sonographic images of the thyroid gland were obtained, supplemented with Doppler. FINDINGS: The right lobe measures 4.7 x 1.1 x 1.4 cm. Homogeneous echoes are noted throughout. No focal nodule is identified within. The left lobe measures 4.4 x 1.0 x 1.1 cm. Homogeneous echoes are noted throughout. No focal nodule is identified within. The isthmus measures 6 mm in thickness. No focal mass or abnormal fluid collection is seen surrounding the gland. US/US thyroid IMPRESSION: The thyroid gland is at the upper limits of normal in size. No focal abnormality is identified within. TI RADS 1. Electronically authenticated by: JAYESH BARNES Date: 03/03/2024 17:10
--- OUTSIDE RECORDS SUMMARY | 2024-03-03 15:52 | XMS_ITS | CCD ---
Author Organization [facility] Care Team Providers Care Paralegal Name Role Phone GARETH, DR STONEY Santillan Primary Care Unavailable HAY, DR DONALD Attending Unavailable HAY, DR ODNALD Consulting Unavailable HAY, DR DONALD Admitting Unavailable [...] Consulting Unavailable LYLE ., CLAIR Admitting Unavailable LACONIJOSÉ Monge Attending Unavailable NADERER, STONEY Attending Unavailable IRVINBARBIE VANG Attending Unavailable Problems Active Problems Problem Classification [...] STREP SCREEN A Positive Abnormal NEGATIVE [facility] Comment on above: Performed By: #### S SCRN #### [facility] [address] [address] [address] Luis Harrison Covid-19 PCR ([facility])on 05-22 SARS-CoV-2 (COVID-19) RNA KALYANI+probe Ql (Unsp spec) Not detected Normal NOT DETECTED [facility] Comment on above: Result Comment: When [...] for this test is supported by the [place] of Health and Human Service's declaration that [...] used). Performed By: #### C VDTBH #### [facility] [address] [place] [address] Dr. Luis Harrison GROUP A STREP CULTUREon 05-22 S. pyogenes Ag Ql (Unsp spec) Culture Observations: NEGATIVE FOR GROUP A STREPTOCOCCUS. Normal [facility] Comment on above: Performed By: #### G RASTCX, SSCRN #### [facility] [address] [place], [place] [address] Dr. Luis Harrison STREPT SCREENon 06-18-2022 STREP SCREEN A Negative Normal NEGATIVE [facility] Comment on above: Performed By: #### G RASTCX, SSCRN #### [facility] [address] [place] [address] Dr. Luis Harrison CHLAMYDIA/GONOCOCCUS KALYANI (SW AB/URINE/PAPon 03-13-2022 Chlamydia trachomatis, KALYANI Negative Normal Negative [facility] Comment on above: Performed By: #### C T/NGNA #### [facility] [address] [place] [address] Dr. Luis Harrison Neisseria gonorrhoeae, KALYANI Negative Normal Negative [facility] Comment on above: Performed By: #### C T/NGNA #### [facility] [address] [place] [address] Dr. Luis Harrison VAGINITIS/VAGINOSIS DNA PROB Shantanu 03-13-2022 Alysha species Negative Normal Negative [facility] Comment on above: Performed By: #### V AGINT #### [facility] [address] [place] [address] Dr. Luis Harrison Gardnerella vaginalis Negative Normal Negative [facility] Comment on above: Performed By: #### V AGINT #### [facility] [address] [place] [address] Dr. Luis Harrison Trichomonas vaginalis Negative Normal Negative [facility] Comment on above: Performed By: #### V AGINT #### [facility] [address] [place] [address] Dr. Luis Harrison CULTURE URINEon 01-20-2022 CULTURE URINE Culture Observations: No growth Normal [facility] Comment on above: Performed By: #### U RCX #### [facility] [address] [place] [address] Dr. Luis Harrison ER URINE PROFILEon Bilirubin Ql (U) Negative Normal NEGATIVE [facility] Comment on above: Performed By: #### P ABDOULAYE CUMMINGS ERUR #### [facility] [address] [place] [address] Dr. Luis Harrison Clarity (U) CLEAR Normal CLEAR [facility] Comment on above: Performed By: #### P ABDOULAYE CUMMINGS ERUR #### [facility] [address] [address] [address] Luis Harrison Color (U) LT. YELLOW Normal YELLOW [facility] Comment on above: Performed By: #### P ABDOULAYE CUMMINGS, ERUR #### [facility] [address] [address] [address] Luis PACE A micrscopic examination will be performed if indicated. Normal [facility] Comment on above: Performed By: #### P ABDOULAYE CUMMINGS, ERUR #### [facility] [address] [address] [address] Luis Harrison Glucose Ql (U) Negative Normal NEGATIVE [facility] Comment on above: Performed By: #### ABDOULAYE QUISPE, ERUR #### [facility] [address] [address] [address] Luis Harrison Hemoglobin Ql (U) TRACE-LYSED Abnormal NEGATIVE [facility] Comment on above: Performed By: #### ABDOULAYE QUISPE, ERUR #### [facility] [address] [address] [address] Luis Harrison Ketones Ql (U) Negative Normal NEGATIVE [facility] Comment on above: Performed By: #### ABDOULAYE QUISPE, ERUR #### [facility] [address] [address] [address] Luis Harrison LEUKOCYTES Negative Normal NEGATIVE [facility] Comment on above: Performed By: #### P ABODULAYE CUMMINGS, ERUR #### [facility] [address] [address] [address] Luis Harrison Nitrite Ql (U) Negative Normal NEGATIVE [facility] Comment on above: Performed By: #### P ABDOULAYE CUMMINGS, ERUR #### [facility] [address] [address] [address] Luis Harrison pH (U) 6.0 [pH] Normal 5-9 [facility] Comment on above: Performed By: #### P ABDOULAYE CUMMINGS, ERUR #### [facility] [address] [place] [address] Dr. Luis Harrison SPEC GRAVITY <=1.005 Abnormal 1.005-<=1.025 [facility] Comment on above: Performed By: #### P ABDOULAYE CUMMINGS, ERUR #### [facility] [address] [place] [address] Dr. Luis Harrison UA PROTEIN Negative Normal NEGATIVE/ TRACE [facility] Comment on above: Performed By: #### P ABDOULAYE CUMMINGS, ERUR #### [facility] [address] [place] [address] Dr. Luis Harrison UR MICRO IND INDICATED Normal [facility] Comment on above: Performed By: #### P ABDOULAYE CUMMINGS, ERUR #### [facility] [address] [place] [address] Dr. Luis Harrison Urobilinogen Qn (U) 0.2 {Maritza'U}/dL Normal 0.2 - 1. [address] [facility] Comment on above: Performed By: #### P ABDOULAYE CUMMINGS, ERUR #### [facility] [address] [place] [address] Dr. Luis Harrison GROUP A STREP CULTUREon S. pyogenes Ag Ql (Unsp spec) Culture Observations: NEGATIVE FOR GROUP A STREPTOCOCCUS. Normal [facility] Comment on above: Performed By: #### S SCRN, GRASTCX #### [facility] [address] [place] [address] Dr. Luis Harrison URon 01-20-2022 , QUAL Negative Normal NEGATIVE [facility] Comment on above: Performed By: #### S SCRN, GRASTCX #### [facility] [address] [place] [address] Dr. Luis Harrison STREPT SCREENon 01-20-2022 STREP SCREEN A Negative Normal NEGATIVE [facility] Comment on above: Performed By: #### S SCRN, GRASTCX #### [facility] [address] [place] [address] Dr. Luis Harrison URINE MICROSCOPIC ONLYon BACTERIA TRACE Abnormal NONE SEEN [facility] Comment on above: Performed By: #### S SCRN, GRASTCX #### [facility] [address] [address] [address] Luis Harrison Bacteria identified Cx Nom (U) INDICATED Normal [facility] Comment on above: Performed By: #### S SCRN, GRASTCX #### [facility] [address] [place] [address] Dr. Luis Harrison CAST NONE SEEN Normal NONE SEEN [facility] Comment on above: Performed By: #### S SCRN, GRASTCX #### [facility] [address] [address] [address] Luis Harrison Crystals LM Nom (Urine sed) NONE SEEN Normal NONE SEEN [facility] Comment on above: Performed By: #### S SCRN, GRASTCX #### [facility] [address] [place] [address] Dr. Luis Harrison Epithelial cells LM Ql (Urine sed) RARE Normal NONE SEEN /RARE [facility] Comment on above: Performed By: #### S SCRN, GRASTCX #### [facility] [address] [place] [address] Dr. Luis Harrison MUCOUS NONE SEEN Normal NONE SEEN [facility] Comment on above: Performed By: #### S SCRN, GRASTCX #### [facility] [address] [place] [address] Dr. Luis Harrison RBC 0-2 Normal 0-2 [facility] Comment on above: Performed By: #### S SCRN, GRASTCX #### [facility] [address] [place] [address] Dr. Luis Harrison WBC 0-2 Abnormal NONE SEEN [facility] Comment on above: Performed By: #### S SCRN, GRASTCX #### [facility] [address] [place] [address] Dr. Luis Harrison Encounters Encounter Date Encounter Type Care Provider Facility Start: 03-01-2024 End: 03-01-2024 ambulatory BARBIE BRYAN Not Available Start: 02-03-2024 End: 02-03-2024 ambulatory JOSÉ SANTOS [...] Facility:[facility]1 Payers Date Payer Category Payer Unknown [id number] 2.16.84 [id number] 1995 Unknown [id number] 2.16.84 [id number] 1995 Unknown [id number] 2.16.84 [id number] 1995 Unknown [id number] 2.16.84 [id number] 1995 Unknown [id number] 2.16.84 [id number] 1995 Unknown [id number] 2.16.84 [id number] 1995 Unknown [id number] 2.16.84 [id number] 1995 Unknown [id number] 2.16.84 [id number] 1959 Unknown [id number] Summary Purpose Family History No Family History Records FoundNo Family History Records Found Advance Directives No Advanced Directives Records FoundNo Advanced Directives Records Found Additional Source Comments INFORMATION SOURCE (unrecogn ized section and content) DATE CREATED AUTHOR 11/04/2022 [facility] DATE CREATED AUTHOR AUTHOR'S ORGANIZ ATION 03/03/2024 [facility] FOR RECORDS PERTAINING TO PATIENTS WHO [...] BE BASED ON THE PRIMARY CLINICAL RECORDS. [facility] provides no warranty or guarantee of the accuracy or completeness of information in this document.
[2024-03-03 17:36] LABS: Free T4 0.79 ng/dL (0.76-1.46)
[2024-03-03 17:47] LABS: Thyroid Stimulating Hormone 1.643 uIU/mL (0.358-3.740)
== END 2024-03-03 15:47 | disposition home or self-care (01) ==
LOC: LAB 15:47
PROVIDERS: PCP Family Medicine; Visit Provider Obstetrics & Gynecology
DX: E04.9 Nontoxic goiter, unspecified (principal)
CPT/HCPCS: 36415; 76536; 84439; 84443

== ENCOUNTER 2024-04-13 17:51 | Outpatient (REF) | payer OTHER, SELFPAY ==
--- OUTSIDE RECORDS SUMMARY | 2024-04-13 17:55 | XMS_ITS | CCD ---
Author Organization [facility] Care Team Providers Care Local Telephone Operator Name Role Phone GARETH, DR STONEY Santillan [...] SCREEN A Positive Abnormal NEGATIVE [facility] Comment on above: Performed By: #### S SCRN #### [facility] [address] [address] [address] Luis Harrison Covid-19 PCR (CVDTB)on 05-22 SARS-CoV-2 (COVID-19) RNA KALYANI+probe Ql (Unsp spec) Not detected Normal NOT DETECTED [facility] Comment on above: Result Comment: When diagnostic [...] for this test is supported by the [place] of Health and Human Service's declaration that [...] used). Performed By: #### C VDTBH #### [facility] [address] [place] [address] Dr. Luis Harrison GROUP A STREP CULTUREon 05-22 S. pyogenes Ag Ql (Unsp spec) Culture Observations: NEGATIVE FOR GROUP A STREPTOCOCCUS. Normal [facility] Comment on above: Performed By: #### G RASTCX, SSCRN #### [facility] [address] [place], [place] [address] Dr. Luis Harrison STREPT SCREENon 06-18-2022 STREP SCREEN A Negative Normal NEGATIVE [facility] Comment on above: Performed By: #### G RASTCX, SSCRN #### [facility] [address] [place] [address] Dr. Luis Harrison CHLAMYDIA/GONOCOCCUS KALYANI (SW AB/URINE/PAPon 03-13-2022 Chlamydia trachomatis, KALYANI Negative Normal Negative [facility] Comment on above: Performed By: #### C T/NGNA #### [facility] [address] [place] [address] Dr. Luis Harrison Neisseria gonorrhoeae, KALYANI Negative Normal Negative [facility] Comment on above: Performed By: #### C T/NGNA #### [facility] [address] [place] [address] Dr. Luis Harrison VAGINITIS/VAGINOSIS DNA PROB Shantanu 03-13-2022 Alysha species Negative Normal Negative [facility] Comment on above: Performed By: #### V AGINT #### [facility] [address] [place] [address] Dr. Luis Harrison Gardnerella vaginalis Negative Normal Negative [facility] Comment on above: Performed By: #### V AGINT #### [facility] [address] [place] [address] Dr. Luis Harrison Trichomonas vaginalis Negative Normal Negative [facility] Comment on above: Performed By: #### V AGINT #### [facility] [address] [place] [address] Dr. Luis Harrison CULTURE URINEon 01-20-2022 CULTURE URINE Culture Observations: No growth Normal [facility] Comment on above: Performed By: #### U RCX #### [facility] [address] [place] [address] Dr. Luis Harrison ER URINE PROFILEon Bilirubin Ql (U) Negative Normal NEGATIVE [facility] Comment on above: Performed By: #### P ABDOULAYE CUMMINGS ERUR #### [facility] [address] [place] [address] Dr. Luis Harrison Clarity (U) CLEAR Normal CLEAR The [facility] Comment on above: Performed By: #### P ABDOULAYE CUMMINGS ERUR #### [facility] [address] [address] [address] Luis Harrison Color (U) LT. YELLOW Normal YELLOW [facility] Comment on above: Performed By: #### P ABDOULAYE CUMMINGS, ERUR #### [facility] [address] [address] [address] Luis PACE A micrscopic examination will be performed if indicated. Normal [facility] Comment on above: Performed By: #### P ABDOULAYE CUMMINGS, ERUR #### [facility] [address] [address] [address] Luis Harrison Glucose Ql (U) Negative Normal NEGATIVE [facility] Comment on above: Performed By: #### ABDOULAYE QUISPE, ERUR #### [facility] [address] [address] [address] Luis Harrison Hemoglobin Ql (U) TRACE-LYSED Abnormal NEGATIVE [facility] Comment on above: Performed By: #### ABDOULAYE QUISPE, ERUR #### [facility] [address] [address] [address] Luis Harrison Ketones Ql (U) Negative Normal NEGATIVE [facility] Comment on above: Performed By: #### ABDOULAYE QUISPE, ERUR #### [facility] [address] [address] [address] Luis Harrison LEUKOCYTES Negative Normal NEGATIVE [facility] Comment on above: Performed By: #### P ABDOULAYE CUMMINGS, ERUR #### [facility] [address] [address] [address] Luis Harrison Nitrite Ql (U) Negative Normal NEGATIVE [facility] Comment on above: Performed By: #### P ABDOULAYE CUMMINGS, ERUR #### [facility] [address] [address] [address] Luis Harrison pH (U) 6.0 [pH] Normal 5-[address] [facility] Comment on above: Performed By: #### P ABDOULAYE CUMMINGS, ERUR #### [facility] [address] [place] [address] Dr. Luis Harrison SPEC GRAVITY <=1.005 Abnormal 1.005-<=1.[address] [facility] Comment on above: Performed By: #### P ABDOULAYE CUMMINGS, ERUR #### [facility] [address] [place] [address] Dr. Luis Harrison UA PROTEIN Negative Normal NEGATIVE/ TRACE The [facility] Comment on above: Performed By: #### P ABDOULAYE CUMMINGS, ERUR #### [facility] [address] [place] [address] Dr. Luis Harrison UR MICRO IND INDICATED Normal [facility] Comment on above: Performed By: #### P ABDOULAYE CUMMINGS, ERUR #### [facility] [address] [place] [address] Dr. Luis Harrison Urobilinogen Qn (U) 0.2 {Maritza'U}/dL Normal 0.2 - 1. [address] [facility] Comment on above: Performed By: #### P ABDOULAYE CUMMINGS, ERUR #### [facility] [address] [place] [address] Dr. Luis Harrison GROUP A STREP CULTUREon S. pyogenes Ag Ql (Unsp spec) Culture Observations: NEGATIVE FOR GROUP A STREPTOCOCCUS. Normal [facility] Comment on above: Performed By: #### S SCRN, GRASTCX #### [facility] [address] [place] [address] Dr. Luis Harrison URon 01-20-2022 , QUAL Negative Normal NEGATIVE [facility] Comment on above: Performed By: #### S SCRN, GRASTCX #### [facility] [address] [place] [address] Dr. Luis Harrison STREPT SCREENon 01-20-2022 STREP SCREEN A Negative Normal NEGATIVE [facility] Comment on above: Performed By: #### S SCRN, GRASTCX #### [facility] [address] [place] [address] Dr. Luis Harrison URINE MICROSCOPIC ONLYon BACTERIA TRACE Abnormal NONE SEEN The [facility] Comment on above: Performed By: #### S SCRN, GRASTCX #### [facility] [address] [address] [address] Luis Harrison Bacteria identified Cx Nom (U) INDICATED Normal [facility] Comment on above: Performed By: #### S SCRN, GRASTCX #### [facility] [address] [place] [address] Dr. Luis Harrison CAST NONE SEEN Normal NONE SEEN [facility] Comment on above: Performed By: #### S SCRN, GRASTCX #### [facility] [address] [address] [address] Luis Harrison Crystals LM Nom (Urine sed) NONE SEEN Normal NONE SEEN [facility] Comment on above: Performed By: #### S SCRN, GRASTCX #### [facility] [address] [place] [address] Dr. Luis Harrison Epithelial cells LM Ql (Urine sed) RARE Normal NONE SEEN /RARE [facility] Comment on above: Performed By: #### S SCRN, GRASTCX #### [facility] [address] [place] [address] Dr. Luis Harrison MUCOUS NONE SEEN Normal NONE SEEN [facility] Comment on above: Performed By: #### S SCRN, GRASTCX #### [facility] [address] [place] [address] Dr. Luis Harrison RBC 0-2 Normal 0-[address] [facility] Comment on above: Performed By: #### S SCRN, GRASTCX #### [facility] [address] [place] [address] Dr. Luis Harrison WBC 0-2 Abnormal NONE SEEN The [facility] Comment on above: Performed By: #### S SCRN, GRASTCX #### [facility] [address] [place] [address] Dr. Luis Harrison Encounters Encounter Date Encounter [...] Facility:H1 Payers Date Payer Category Payer Unknown [id number] 2.16.84 [id number] 1995 Unknown [id number] 2.16.84 [id number] 1995 Unknown [id number] 2.16.84 [id number] 1995 Unknown [id number] 2.16.84 [id number] 1995 Unknown [id number] 2.16.84 [id number] 1995 Unknown [id number] 2.16.84 [id number] 1995 Unknown [id number] 2.16.84 [id number] 1995 Unknown [id number] 2.16.84 [id number] 1959 Unknown [id number] Summary Purpose Family History No Family History Records FoundNo Family History Records Found Advance Directives No Advanced Directives Records FoundNo Advanced Directives Records Found Additional Source Comments INFORMATION SOURCE (unrecogn ized section and content) DATE CREATED AUTHOR 11/04/2022 [facility] DATE CREATED AUTHOR AUTHOR'S ORGANIZ ATION 03/03/2024 [facility]ical Specialists [facility] FOR RECORDS PERTAINING TO PATIENTS WHO ARE [...] BE BASED ON THE PRIMARY CLINICAL RECORDS. [facility]. provides no warranty or guarantee of the accuracy or completeness of information in this document.
== END 2024-04-13 17:52 | disposition home or self-care (01) ==
LOC: LAB 17:51
PROVIDERS: PCP Family Medicine; Visit Provider Physician Assistant
DX: Z01.419 Encounter for gynecological examination (general) (routine) without abnormal findings (principal)
CPT/HCPCS: 88175

== ENCOUNTER 2024-04-18 12:47 | Outpatient (OUT) | payer OTHER, SELFPAY ==
--- OUTSIDE RECORDS SUMMARY | 2024-04-18 13:12 | XMS_ITS | CCD ---
Author Organization [facility] Care Team Providers Care Gamemaster Name Role Phone GARETH, DR STONEY Santillan Primary Care Unavailable HAY, DR DONALD Attending Unavailable HAY, DR DONALD Consulting Unavailable HAY, DR DONALD Admitting Unavailable NADERER, DR STONEY Santillan Primary Care Unavailable KARASIK, DR BAI Attending Unavailable KARASIK, DR BAI Consulting Unavailable KARASIK, DR BAI Admitting Unavailable MARKER, DR KHANNA Admitting Unavailable NADERER, DR STONEY Santillan Primary Care Unavailable MARKER, DR KAHNNA Attending Unavailable MARKER, DR KHANNA Consulting Unavailable [...] STREP SCREEN A Positive Abnormal NEGATIVE [facility] Comment on above: Performed By: #### S SCRN #### [facility] [address] [address] [address] Luis Harrison Covid-19 PCR (CVDTB)on 05-22 SARS-CoV-2 (COVID-19) RNA KALYANI+probe Ql (Unsp spec) Not detected Normal NOT DETECTED [facility] Comment on above: Result Comment: When [...] for this test is supported by the [place] of Health and Human Service's declaration that [...] used). Performed By: #### C VDTBH #### [facility] [address] [place] [address] Dr. Luis Harrison GROUP A STREP CULTUREon 05-22 S. pyogenes Ag Ql (Unsp spec) Culture Observations: NEGATIVE FOR GROUP A STREPTOCOCCUS. Normal [facility] Comment on above: Performed By: #### G RASTCX, SSCRN #### [facility] [address] [place], [place] [address] Dr. Luis Harrison STREPT SCREENon 06-18-2022 STREP SCREEN A Negative Normal NEGATIVE [facility] Comment on above: Performed By: #### G RASTCX, SSCRN #### [facility] [address] [place] [address] Dr. Luis Harrison CHLAMYDIA/GONOCOCCUS KALYANI (SW AB/URINE/PAPon 03-13-2022 Chlamydia trachomatis, KALYANI Negative Normal Negative [facility] Comment on above: Performed By: #### C T/NGNA #### [facility] [address] [place] [address] Dr. Luis Harrison Neisseria gonorrhoeae, KALYANI Negative Normal Negative [facility] Comment on above: Performed By: #### C T/NGNA #### [facility] [address] [place] [address] Dr. Luis Harrison VAGINITIS/VAGINOSIS DNA PROB Shantanu 03-13-2022 Alysha species Negative Normal Negative [facility] Comment on above: Performed By: #### V AGINT #### [facility] [address] [place] [address] Dr. Luis Harrison Gardnerella vaginalis Negative Normal Negative [facility] Comment on above: Performed By: #### V AGINT #### [facility] [address] [place] [address] Dr. Luis Harrison Trichomonas vaginalis Negative Normal Negative [facility] Comment on above: Performed By: #### V AGINT #### [facility] [address] [place] [address] Dr. Luis Harrison CULTURE URINEon 01-20-2022 CULTURE URINE Culture Observations: No growth Normal [facility] Comment on above: Performed By: #### U RCX #### [facility] [address] [place] [address] Dr. Luis Harrison ER URINE PROFILEon Bilirubin Ql (U) Negative Normal NEGATIVE [facility] Comment on above: Performed By: #### P ABDOULAYE CUMMINGS ERUR #### [facility] [address] [place] [address] Dr. Luis Harrison Clarity (U) CLEAR Normal CLEAR [facility] Comment on above: Performed By: #### P ABDOULAYE CUMMINGS ERUR #### [facility] [address] [address] [address] Luis Harrison Color (U) LT. YELLOW Normal YELLOW [facility] Comment on above: Performed By: #### P ABDOULAYE CUMMINGS, ERUR #### [facility] [address] [address] [address] Luis PACE A micrscopic examination will be performed if indicated. Normal [facility] Comment on above: Performed By: #### P ABDOULAYE CUMMINGS, ERUR #### [facility] [address] [address] [address] Luis Harrison Glucose Ql (U) Negative Normal NEGATIVE [facility] Comment on above: Performed By: #### ABDOULAYE QUISPE, ERUR #### [facility] [address] [address] [address] Luis Harrison Hemoglobin Ql (U) TRACE-LYSED Abnormal NEGATIVE [facility] Comment on above: Performed By: #### ABDOULAYE QUISPE, ERUR #### [facility] [address] [address] [address] Luis Harrison Ketones Ql (U) Negative Normal NEGATIVE [facility] Comment on above: Performed By: #### ABDOULAYE QUISPE, ERUR #### [facility] [address] [address] [address] Luis Harrison LEUKOCYTES Negative Normal NEGATIVE [facility] Comment on above: Performed By: #### P ABDOULAYE CUMMINGS, ERUR #### [facility] [address] [address] [address] Luis Harrison Nitrite Ql (U) Negative Normal NEGATIVE [facility] Comment on above: Performed By: #### P ABDOULAYE CUMMINGS, ERUR #### [facility] [address] [address] [address] Luis Harrison pH (U) 6.0 [pH] Normal 5-9 [facility] Comment on above: Performed By: #### P ABDOULAYE CUMMINGS, ERUR #### [facility] [address] [place] [address] Dr. Luis Harrison SPEC GRAVITY <=1.005 Abnormal 1.005-<=1.025 [facility] Comment on above: Performed By: #### P ABDOULAYE CUMMINGS, ERUR #### [facility] [address] [place] [address] Dr. Luis Harrison UA PROTEIN Negative Normal NEGATIVE/ TRACE [facility] Comment on above: Performed By: #### P ABDOULAYE CUMMINGS, ERUR #### [facility] [address] [place] [address] Dr. Luis Harrison UR MICRO IND INDICATED Normal [facility] Comment on above: Performed By: #### P ABDOULAYE CUMMINGS, ERUR #### [facility] [address] [place] [address] Dr. Luis Harrison Urobilinogen Qn (U) 0.2 {Maritza'U}/dL Normal 0.2 - 1. 0 [facility] Comment on above: Performed By: #### P ABDOULAYE CUMMINGS, ERUR #### [facility] [address] [place] [address] Dr. Luis Harrison GROUP A STREP CULTUREon S. pyogenes Ag Ql (Unsp spec) Culture Observations: NEGATIVE FOR GROUP A STREPTOCOCCUS. Normal [facility] Comment on above: Performed By: #### S SCRN, GRASTCX #### [facility] [address] [place] [address] Dr. Luis Harrison URon 01-20-2022 , QUAL Negative Normal NEGATIVE [facility] Comment on above: Performed By: #### S SCRN, GRASTCX #### [facility] [address] [place] [address] Dr. Luis Harirson STREPT SCREENon 01-20-2022 STREP SCREEN A Negative Normal NEGATIVE [facility] Comment on above: Performed By: #### S SCRN, GRASTCX #### [facility] [address] [place] [address] Dr. Luis Harrison URINE MICROSCOPIC ONLYon BACTERIA TRACE Abnormal NONE SEEN [facility] Comment on above: Performed By: #### S SCRN, GRASTCX #### [facility] [address] [address] [address] Luis Harrison Bacteria identified Cx Nom (U) INDICATED Normal [facility] Comment on above: Performed By: #### S SCRN, GRASTCX #### [facility] [address] [place] [address] Dr. Luis Harrison CAST NONE SEEN Normal NONE SEEN [facility] Comment on above: Performed By: #### S SCRN, GRASTCX #### [facility] [address] [address] [address] Luis Harrison Crystals LM Nom (Urine sed) NONE SEEN Normal NONE SEEN [facility] Comment on above: Performed By: #### S SCRN, GRASTCX #### [facility] [address] [place] [address] Dr. Luis Harrison Epithelial cells LM Ql (Urine sed) RARE Normal NONE SEEN /RARE [facility] Comment on above: Performed By: #### S SCRN, GRASTCX #### [facility] [address] [place] [address] Dr. Luis Harrison MUCOUS NONE SEEN Normal NONE SEEN [facility] Comment on above: Performed By: #### S SCRN, GRASTCX #### [facility] [address] [place] [address] Dr. Luis Harrison RBC 0-2 Normal 0-2 [facility] Comment on above: Performed By: #### S SCRN, GRASTCX #### [facility] [address] [place] [address] Dr. Luis Harrison WBC 0-2 Abnormal NONE SEEN [facility] Comment on above: Performed By: #### S SCRN, GRASTCX #### [facility] [address] [place] [address] Dr. Luis Harrison Encounters Encounter Date Encounter [...] Facility:H1 Payers Date Payer Category Payer Unknown [id number] 2.16.84 [id number] 1995 Unknown [id number] 2.16.84 [id number] 1995 Unknown [id number] 2.16.84 [id number] 1995 Unknown [id number] 2.16.84 [id number] 1995 Unknown [id number] 2.16.84 [id number] 1995 Unknown [id number] 2.16.84 [id number] 1995 Unknown [id number] 2.16.84 [id number] 1995 Unknown [id number] 2.16.84 [id number] 1959 Unknown [id number] Summary Purpose Family History No Family History Records FoundNo Family History Records Found Advance Directives No Advanced Directives Records FoundNo Advanced Directives Records Found Additional Source Comments INFORMATION SOURCE (unrecogn ized section and content) DATE CREATED AUTHOR 11/04/2022 [facility] DATE CREATED AUTHOR AUTHOR'S ORGANIZ ATION 03/03/2024 [facility] dical Specialists [facility] FOR RECORDS PERTAINING TO PATIENTS WHO [...] BE BASED ON THE PRIMARY CLINICAL RECORDS. [facility]. provides no warranty or guarantee of the accuracy or completeness of information in this document.
[2024-04-20 16:10] LABS: AFP Value 42.4 ng/mL (.); Gest. Age on Collection Date 19.7 weeks (.); Gestat. Age Based On Ultrasound (.); Insulin Dep Diabetes No (.); Maternal Age At EDD 29.4 yr (.); OSBR Risk 1 IN 10000 (.); Results Report (.)
== END 2024-04-18 12:48 | disposition home or self-care (01) ==
LOC: LAB 12:50
PROVIDERS: PCP Family Medicine; Visit Provider Obstetrics & Gynecology
DX: Z34.92 Encounter for supervision of normal pregnancy, unspecified, second trimester (principal)
CPT/HCPCS: 36415; 82105

== ENCOUNTER 2024-04-24 11:01 | Outpatient (OUT) | payer OTHER, SELFPAY ==
--- NOTE | 2024-04-24 11:04 | US_ITS ---
[address] [address] Patient Name: ESTELLA CARRASQUILLO MRN: [facility]:[id number] date: 1995 Sex: F Assigned Patient Location: [facility] Current Patient Location: [facility] Accession/Order Number: [id number] Exam Date: 04/24/2024 11:05 Report Date: 04/24/2024 12:29 At the request of: MELVA CERDA Procedure: US OB anatomy EXAMINATION: US OB anatomy, US OB cervical length HISTORY: ANATOMY COMPARISON: Ultrasound OB transvaginal 02/03/2024 TECHNIQUE: Transabdominal sonographic examination was performed for obstetrical and evaluation. FINDINGS: Number: 1 Heart Rate: 136 bpm H.B. /min Amniotic Fluid Volume: Subjectively normal Placental Location: POSTERIOR; lower margin 5.6 cm from os. Cervix Length: 4.96 cm , closed. ANATOMY: Normal Structures -cerebellum, choroid plexus, cisterna magna, lateral cerebral ventricles, orbits, midline falx, hard palate, four-chamber heart, RVOT, LVOT, stomach, kidneys, bladder, umbilical cord insertion into abdomen, three-vessel cord, cervical spine, thoracic spine, lumbar spine, sacral spine, right upper extremity, left upper extremity, right lower extremity, left lower extremity. SUBOPTIMALLY SEEN: None ABNORMALITIES: None BIOMETRY: BPD: 4.63 cm; 20 weeks 0 days; 26 % HC: 17.67 cm; 20 weeks 1 day; 23.50 % AC: 16.47 cm; 21 weeks 4 days; 74.30 % FL: 3.61 cm; 21 weeks 3 days; 72 % EFW:376.03 g; 83 % FL/AC: 21.92 FL/BPD: 77.97 HC/AC: 1.07 GESTATIONAL AGE: Age by EDC: 20 weeks 4 days Age by current US: 20 weeks 6 days FAROOQ by current US: 2024-09-05 FAROOQ by EDC: 2024-09-07 US/US OB anatomy IMPRESSION: 1. Single live intrauterine with growth detailed above. Electronically authenticated by: EULOGIO RAMOS Date: 04/24/2024 12:29
--- NOTE | 2024-04-24 11:04 | US_ITS ---
[address] [address] Patient Name: ESTELLA CARRASQUILLO MRN: [facility]:[id number] date: 1995 Sex: F Assigned Patient Location: [facility] Current Patient Location: [facility] Accession/Order Number: [id number] Exam Date: 04/24/2024 11:05 Report Date: 04/24/2024 12:29 At the request of: MELVA CERDA Procedure: US OB cervical length EXAMINATION: US OB anatomy, US OB cervical length HISTORY: ANATOMY COMPARISON: Ultrasound OB transvaginal 02/03/2024 TECHNIQUE: Transabdominal sonographic examination was performed for obstetrical and evaluation. FINDINGS: Number: 1 Heart Rate: 136 bpm H.B. /min Amniotic Fluid Volume: Subjectively normal Placental Location: POSTERIOR; lower margin 5.6 cm from os. Cervix Length: 4.96 cm , closed. ANATOMY: Normal Structures -cerebellum, choroid plexus, cisterna magna, lateral cerebral ventricles, orbits, midline falx, hard palate, four-chamber heart, RVOT, LVOT, stomach, kidneys, bladder, umbilical cord insertion into abdomen, three-vessel cord, cervical spine, thoracic spine, lumbar spine, sacral spine, right upper extremity, left upper extremity, right lower extremity, left lower extremity. SUBOPTIMALLY SEEN: None ABNORMALITIES: None BIOMETRY: BPD: 4.63 cm; 20 weeks 0 days; 26 % HC: 17.67 cm; 20 weeks 1 day; 23.50 % AC: 16.47 cm; 21 weeks 4 days; 74.30 % FL: 3.61 cm; 21 weeks 3 days; 72 % EFW:376.03 g; 83 % FL/AC: 21.92 FL/BPD: 77.97 HC/AC: 1.07 GESTATIONAL AGE: Age by EDC: 20 weeks 4 days Age by current US: 20 weeks 6 days FAROOQ by current US: 2024-09-05 FAROOQ by EDC: 2024-09-07 US/US OB cervical length IMPRESSION: 1. Single live intrauterine with growth detailed above. Electronically authenticated by: EULOGIO RAMOS Date: 04/24/2024 12:29
--- OUTSIDE RECORDS SUMMARY | 2024-04-24 11:19 | XMS_ITS | CCD ---
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 Luis Harrison Covid-19 PCR (CVDTB)on 05-22 SARS-CoV-2 (COVID-19) RNA KALYANI+probe Ql (Unsp spec) Not detected Normal NOT DETECTED [facility] Comment on above: Result Comment: When diagnostic [...] for this test is supported by the [place] of Health and Human Service's declaration that [...] used). Performed By: #### C VDTBH #### [facility] [address] [place] [address] Dr. Luis Harrison GROUP A STREP CULTUREon 05-22 S. pyogenes Ag Ql (Unsp spec) Culture Observations: NEGATIVE FOR GROUP A STREPTOCOCCUS. Normal [facility] Comment on above: Performed By: #### G RASTCX, SSCRN #### [facility] [address] [place], [place] [address] Dr. Luis Harrison STREPT SCREENon 06-18-2022 STREP SCREEN A Negative Normal NEGATIVE [facility] Comment on above: Performed By: #### G RASTCX, SSCRN #### [facility] [address] [place] [address] Dr. Luis Harrison CHLAMYDIA/GONOCOCCUS KALYANI (SW AB/URINE/PAPon 03-13-2022 Chlamydia trachomatis, KALYANI Negative Normal Negative [facility] Comment on above: Performed By: #### C T/NGNA #### [facility] [address] [place] [address] Dr. Luis Harrison Neisseria gonorrhoeae, KALYANI Negative Normal Negative [facility] Comment on above: Performed By: #### C T/NGNA #### [facility] [address] [place] [address] Dr. Luis Harrison VAGINITIS/VAGINOSIS DNA PROB Shantanu 03-13-2022 Alysha species Negative Normal Negative [facility] Comment on above: Performed By: #### V AGINT #### [facility] [address] [place] [address] Dr. Luis Harrison Gardnerella vaginalis Negative Normal Negative [facility] Comment on above: Performed By: #### V AGINT #### [facility] [address] [place] [address] Dr. Luis Harrison Trichomonas vaginalis Negative Normal Negative [facility] Comment on above: Performed By: #### V AGINT #### [facility] [address] [place] [address] Dr. Luis Harrison CULTURE URINEon 01-20-2022 CULTURE URINE Culture Observations: No growth Normal [facility] Comment on above: Performed By: #### U RCX #### [facility] [address] [place] [address] Dr. Luis Harrison ER URINE PROFILEon Bilirubin Ql (U) Negative Normal NEGATIVE [facility] Comment on above: Performed By: #### P ABDOULAYE CUMMINGS ERUR #### [facility] [address] [place] [address] Dr. Luis Harrison Clarity (U) CLEAR Normal CLEAR [facility] Comment on above: Performed By: #### P ABDOULAYE CUMMINGS ERUR #### [facility] [address] [address] [address] Luis Harrison Color (U) LT. YELLOW Normal YELLOW [facility] Comment on above: Performed By: #### P ABDOULAYE CUMMINGS, ERUR #### [facility] [address] [address] [address] Luis PACE A micrscopic examination will be performed if indicated. Normal [facility] Comment on above: Performed By: #### P ABDOULAYE CUMMINGS, ERUR #### [facility] [address] [address] [address] Luis Harrison Glucose Ql (U) Negative Normal NEGATIVE [facility] Comment on above: Performed By: #### ABDOULAYE QUISPE, ERUR #### [facility] [address] [address] [address] Luis Harrison Hemoglobin Ql (U) TRACE-LYSED Abnormal NEGATIVE [facility] [place] Comment on above: Performed By: #### ABDOULAYE QUISPE, ERUR #### [facility] [address] [address] [address] Luis Harrison Ketones Ql (U) Negative Normal NEGATIVE [facility] Comment on above: Performed By: #### ABDOULAYE QUISPE, ERUR #### [facility] [address] [address] [address] Luis Harrison LEUKOCYTES Negative Normal NEGATIVE [facility] Comment on above: Performed By: #### P ABDOULAYE CUMMINGS, ERUR #### [facility] [address] [address] [address] Luis Harrison Nitrite Ql (U) Negative Normal NEGATIVE [facility] Comment on above: Performed By: #### P ABDOULAYE CUMMINGS, ERUR #### [facility] [address] [address] [address] Luis Harrison pH (U) 6.0 [pH] Normal 5-9 [facility] Comment on above: Performed By: #### P ABDOULAYE CUMMINGS, ERUR #### [facility] [address] [place] [address] Dr. Luis Harrison SPEC GRAVITY <=1.005 Abnormal 1.005-<=1.025 The [facility] Comment on above: Performed By: #### P ABDOULAYE CUMMINGS, ERUR #### [facility] [address] [place] [address] Dr. Luis Harrison UA PROTEIN Negative Normal NEGATIVE/ TRACE The [facility] Comment on above: Performed By: #### P ABDOULAYE CUMMINGS, ERUR #### [facility] [address] [place] [address] Dr. Luis Harrison UR MICRO IND INDICATED Normal [facility] Comment on above: Performed By: #### P ABDOULAYE CUMMINGS, ERUR #### [facility] [address] [place] [address] Dr. Luis Harrison Urobilinogen Qn (U) 0.2 {Maritza'U}/dL Normal 0.2 - 1. 0 [facility] Comment on above: Performed By: #### P ABDOULAYE CUMMINGS, ERUR #### [facility] [address] [place] [address] Dr. Luis Harrison GROUP A STREP CULTUREon S. pyogenes Ag Ql (Unsp spec) Culture Observations: NEGATIVE FOR GROUP A STREPTOCOCCUS. Normal [facility] Comment on above: Performed By: #### S SCRN, GRASTCX #### [facility] [address] [place] [address] Dr. Luis Harrison URon 01-20-2022 , QUAL Negative Normal NEGATIVE The [facility] Comment on above: Performed By: #### S SCRN, GRASTCX #### [facility] [address] [place] [address] Dr. Luis Harrison STREPT SCREENon 01-20-2022 STREP SCREEN A Negative Normal NEGATIVE [facility] Comment on above: Performed By: #### S SCRN, GRASTCX #### [facility] [address] [place] [address] Dr. Luis Harrison URINE MICROSCOPIC ONLYon BACTERIA TRACE Abnormal NONE SEEN The [facility] Comment on above: Performed By: #### S SCRN, GRASTCX #### [facility] [address] [address] [address] Luis Harrison Bacteria identified Cx Nom (U) INDICATED Normal [facility] Comment on above: Performed By: #### S SCRN, GRASTCX #### [facility] [address] [place] [address] Dr. Luis Harrison CAST NONE SEEN Normal NONE SEEN [facility] Comment on above: Performed By: #### S SCRN, GRASTCX #### [facility] [address] [address] [address] Luis Harrison Crystals LM Nom (Urine sed) NONE SEEN Normal NONE SEEN [facility] Comment on above: Performed By: #### S SCRN, GRASTCX #### [facility] [address] [place] [address] Dr. Luis Harrison Epithelial cells LM Ql (Urine sed) RARE Normal NONE SEEN /RARE [facility] Comment on above: Performed By: #### S SCRN, GRASTCX #### [facility] [address] [place] [address] Dr. Luis Harrison MUCOUS NONE SEEN Normal NONE SEEN [facility] Comment on above: Performed By: #### S SCRN, GRASTCX #### [facility] [address] [place] [address] Dr. Luis Harrison RBC 0-2 Normal 0-2 [facility] Comment on above: Performed By: #### S SCRN, GRASTCX #### [facility] [address] [place] [address] Dr. Luis Harrison WBC 0-2 Abnormal NONE SEEN [facility] Comment on above: Performed By: #### S SCRN, GRASTCX #### [facility] [address] [place] [address] Dr. Luis Harrison Encounters Encounter Date Encounter [...] Facility:[facility] Payers Date Payer Category Payer Unknown [id number] 2.16.84 [id number] 1995 Unknown [id number] 2.16.84 [id number] 1995 Unknown [id number] 2.16.84 [id number] 1995 Unknown [id number] 2.16.84 [id number] 1995 Unknown [id number] 2.16.84 [id number] 1995 Unknown [id number] 2.16.84 [id number] 1995 Unknown [id number] 2.16.84 [id number] 1995 Unknown [id number] 2.16.84 [id number] 1959 Unknown [id number] Summary Purpose Family History No Family History Records FoundNo Family History Records Found Advance Directives No Advanced Directives Records FoundNo Advanced Directives Records Found Additional Source Comments INFORMATION SOURCE (unrecogn ized section and content) DATE CREATED AUTHOR 11/04/2022 [facility] DATE CREATED AUTHOR AUTHOR'S ORGANIZ ATION 03/03/2024 [facility] dical Specialists [facility] FOR RECORDS PERTAINING TO PATIENTS WHO [...] BE BASED ON THE PRIMARY CLINICAL RECORDS. [facility]. provides no warranty or guarantee of the accuracy or completeness of information in this document.
== END 2024-04-24 11:02 | disposition home or self-care (01) ==
LOC: NOMS 11:02
PROVIDERS: PCP Family Medicine; Visit Provider Physician Assistant
DX: Z36.89 Encounter for other specified antenatal screening (principal); Z3A.20 20 weeks gestation of pregnancy
CPT/HCPCS: 76805; 76817

== ENCOUNTER 2024-06-06 12:50 | Outpatient (OUT) | payer OTHER, SELFPAY ==
--- OUTSIDE RECORDS SUMMARY | 2024-06-06 12:59 | XMS_ITS | CCD ---
Author Organization [facility] Care Team Providers Care Loss Control Engineer Name Role Phone GARETH, DR STONEY Santillan Primary Care Unavailable HAY, DR DONALD Attending Unavailable HAY, DR DONALD Consulting Unavailable HAY, DR DONALD Admitting Unavailable NADERER, DR LUA A Primary Care Unavailable KARASIK, DR BAI Attending Unavailable KARASIK, DR BAI Consulting Unavailable KARASIK, DR BAI Admitting Unavailable MARKER, DR KHANNA Admitting Unavailable NADERER, DR LUA A Primary Care Unavailable MARKER, DR KHANNA Attending Unavailable MARKER, DR KHANNA Consulting Unavailable NADERER, DR LUA A Primary Care Unavailable LYLE ., CLAIR Attending Unavailable LYLE ., CLAIR Consulting Unavailable LYLE ., CLAIR Admitting Unavailable LACONISaleem, JOSÉ Vazquez Attending Unavailable NADERER, STONEY Attending Unavailable IRVIN, BARBIE Attending Unavailable ZAIDA, MELVA Attending Unavailable IRVIN, BARBIE Attending Unavailable Problems Active Problems Problem Classification [...] STREP SCREEN A Positive Abnormal NEGATIVE [facility] Comment on above: Performed By: #### S SCRN #### [facility] [address] [place] [address] Dr. Luis Harrison Covid-19 PCR (CVDTB)on 05-22 SARS-CoV-2 (COVID-19) RNA KALYANI+probe Ql (Unsp spec) Not detected Normal NOT DETECTED [facility] Comment on above: Result Comment: When [...] for this test is supported by the [place] of Health and Human Service's declaration that [...] used). Performed By: #### C VDTBH #### [facility] [address] [place] [address] [id number] [address] Luis Harrison GROUP A STREP CULTUREon 05-22 S. pyogenes Ag Ql (Unsp spec) Culture Observations: NEGATIVE FOR GROUP A STREPTOCOCCUS. Normal [facility] Comment on above: Performed By: #### G RASTCX, SSCRN #### [facility] [address] [address] [address] Luis Harrison STREPT SCREENon 06-18-2022 STREP SCREEN A Negative Normal NEGATIVE [facility] Comment on above: Performed By: #### G RASTCX, SSCRN #### [facility] [address] [place] [address] Dr. Luis Harrison CHLAMYDIA/GONOCOCCUS KALYANI (SW AB/URINE/PAPon 03-13-2022 Chlamydia trachomatis, KALYANI Negative Normal Negative [facility] Comment on above: Performed By: #### C T/NGNA #### [facility] [address] [place] [address] Dr. Luis Harrison Neisseria gonorrhoeae, KALYANI Negative Normal Negative [facility] Comment on above: Performed By: #### C T/NGNA #### [facility] [address] [place] [address] Dr. Luis Harrison VAGINITIS/VAGINOSIS DNA PROB Shantanu 03-13-2022 Alysha species Negative Normal Negative [facility] Comment on above: Performed By: #### V AGINT #### [facility] [address] [place] [address] Dr. Luis Harrison Gardnerella vaginalis Negative Normal Negative [facility] Comment on above: Performed By: #### V AGINT #### [facility] [address] [place] [address] Dr. Luis Harrison Trichomonas vaginalis Negative Normal Negative [facility] Comment on above: Performed By: #### V AGINT #### [facility] [address] [place] [address] Dr. Luis Harrison CULTURE URINEon 01-20-2022 CULTURE URINE Culture Observations: No growth Normal [facility] Comment on above: Performed By: #### U RCX #### [facility] [address] [place] [address] Dr. Luis Harrison ER URINE PROFILEon Bilirubin Ql (U) Negative Normal NEGATIVE [facility] [place] [facility] Comment on above: Performed By: #### P REGU, UMICRO, ERUR #### [facility] [address] [place] [address] Dr. Luis Harrison Clarity (U) CLEAR Normal CLEAR [facility] Comment on above: Performed By: #### P REGU, UMICRO, ERUR #### [facility] [address] [address] [address] Luis Harrison Color (U) LT. YELLOW Normal YELLOW [facility] Comment on above: Performed By: #### P REGU, UMICRO, ERUR #### [facility] [address] [address] [address] Luis DELANEYD A micrscopic examination will be performed if indicated. Normal [facility] Comment on above: Performed By: #### P REGU, UMICRO, ERUR #### [facility] [address] [address] [address] Luis Harrison Glucose Ql (U) Negative Normal NEGATIVE [facility] Comment on above: Performed By: #### P REGU, UMICRO, ERUR #### [facility] [address] [address] [address] Luis Harrison Hemoglobin Ql (U) TRACE-LYSED Abnormal NEGATIVE [facility] Comment on above: Performed By: #### P REGU, UMICRO, ERUR #### [facility] [address] [address] [address] Luis Harrison Ketones Ql (U) Negative Normal NEGATIVE [facility] Comment on above: Performed By: #### P REGU, UMICRO, ERUR #### [facility] [address] [address] [address] Luis Harrison LEUKOCYTES Negative Normal NEGATIVE [facility] Comment on above: Performed By: #### P REGU, UMICRO, ERUR #### [facility] [address] [address] [address] Luis Harrison Nitrite Ql (U) Negative Normal NEGATIVE [facility] Comment on above: Performed By: #### P REGU, UMICRO, ERUR #### [facility] [address] [address] [address] Luis Harrison pH (U) 6.0 [pH] Normal 5-9 [facility] Comment on above: Performed By: #### P REGU, UMICRO, ERUR #### [facility] [address] [address] [address] Luis Harrison SPEC GRAVITY <=1.005 Abnormal 1.005-<=1.025 [facility] Comment on above: Performed By: #### P REGU, UMICRO, ERUR #### [facility] [address] [address] [address] Luis Harrison UA PROTEIN Negative Normal NEGATIVE/ TRACE [facility] Comment on above: Performed By: #### P REGU, UMICRO, ERUR #### [facility] [address] [place] [address] Dr. Luis Harrison UR MICRO IND INDICATED Normal [facility] Comment on above: Performed By: #### P REGU, UMICRO, ERUR #### [facility] [address] [place] [address] Dr. Luis Harrison Urobilinogen Qn (U) 0.2 {Maritza'U}/dL Normal 0.2 - 1. 0 [facility] Comment on above: Performed By: #### P REGMINDI JuarezICRO, ERUR #### [facility] [address] [place] [address] Dr. Luis Harrison GROUP A STREP CULTUREon S. pyogenes Ag Ql (Unsp spec) Culture Observations: NEGATIVE FOR GROUP A STREPTOCOCCUS. Normal [facility] Comment on above: Performed By: #### S SCRN GRASTCX #### [facility] [address] [place] [address] Dr. Luis Harrison URon 01-20-2022 , QUAL Negative Normal NEGATIVE [facility] Comment on above: Performed By: #### S SCRN GRASTCX #### [facility] [address] [place] [address] Dr. Luis Harrison STREPT SCREENon 01-20-2022 STREP SCREEN A Negative Normal NEGATIVE [facility] Comment on above: Performed By: #### S SCRN GRASTCX #### [facility] [address] [place] [address] Dr. Luis Harrison URINE MICROSCOPIC ONLYon BACTERIA TRACE Abnormal NONE SEEN [facility] Comment on above: Performed By: #### S SCRN, GRASTCX #### [facility] [address] [place] [address] Dr. Luis Harrison Bacteria identified Cx Nom (U) INDICATED Normal [facility] Comment on above: Performed By: #### S SCRN, GRASTCX #### [facility] [address] [place] [address] Dr. Luis Harrison CAST NONE SEEN Normal NONE SEEN [facility] Comment on above: Performed By: #### S SCRN, GRASTCX #### [facility] [address] [place] [address] Dr. Luis Harrison Crystals LM Nom (Urine sed) NONE SEEN Normal NONE SEEN [facility] Comment on above: Performed By: #### S SCRN, GRASTCX #### [facility] [address] [place] [address] Dr. Luis Harrison Epithelial cells LM Ql (Urine sed) RARE Normal NONE SEEN /RARE [facility] Comment on above: Performed By: #### S SCRN, GRASTCX #### [facility] [address] [place] [address] Dr. Luis Harrison MUCOUS NONE SEEN Normal NONE SEEN [facility] Comment on above: Performed By: #### S SCRN, GRASTCX #### [facility] [address] [place] [address] Dr. Luis Harrison RBC 0-2 Normal 0-2 [facility] Comment on above: Performed By: #### S SCRN, GRASTCX #### [facility] [address] [address] [address] Luis Harrison WBC 0-2 Abnormal NONE SEEN [facility] Comment on above: Performed By: #### S SCRN, GRASTCX #### [facility] [address] [place] [address] Dr. Luis Harrison Encounters Encounter Date Encounter Type Care Provider Facility Start: 05-10-2024 End: 05-10-2024 ambulatory BARBIE BRYAN Not Available Start: 04-13-2024 End: 04-13-2024 ambulatory MELVA CERDA Not Available Start: 03-01-2024 End: 03-01-2024 ambulatory BARBIE BRYAN Not Available Start: 02-03-2024 End: 02-03-2024 ambulatory JOSÉ VALERIANOMANUELSaleem Not Available Start: 01-11-2024 End: 01-11-2024 ambulatory STONEY SERVIN Not Available Start: 01-07-2024 End: 01-07-2024 ambulatory JOSÉ SANTOS Not Available Start: 11-03-2022 End: 11-03-[address] STONEY SERVIN Facility:[facility] Start: 06-18-2022 End: 06-18-[address] STONEY SERVIN Facility:[facility] Start: 03-11-2022 End: 03-11-[address] STONEY SERVIN Facility:[facility] Start: 01-20-2022 End: 01-20-[address] CLEMENCIA NICOLE Facility:[facility] Payers Date Payer Category Payer Unknown [id number] 2.16.84 [id number] 1995 Unknown [id number] 1995 Unknown [id number] 1995 Unknown [id number] [id number] 1995 Unknown [id number] 2.16.84 [id number] 1995 Unknown [id number] .16.84 [id number] 1995 Unknown [id number] .16.84 [id number] 1995 Unknown [id number] 2.16.84 [id number] 1995 Unknown [id number] 2.16.84 [id number] 1995 Unknown [id number] 2.16.84 [id number] 1959 Unknown [id number] Summary Purpose Family History No Family History Records FoundNo Family History Records Found Advance Directives No Advanced Directives Records FoundNo Advanced Directives Records Found Additional Source Comments INFORMATION SOURCE (unrecogn ized section and content) DATE CREATED AUTHOR 11/04/2022 [facility] DATE CREATED AUTHOR AUTHOR'S ANDREAS POWELL 05/12/2024 [facility] dical Specialists [facility] FOR RECORDS PERTAINING TO PATIENTS [...] BE BASED ON THE PRIMARY CLINICAL RECORDS. [employer] provides no warranty or guarantee of the accuracy or completeness of information in this document.
[2024-06-06 14:06] LABS: Basophils Percent Auto 0.3 % (0.2-2.0); Eosinophils Percent Auto 0.1 % (0.9-7.0); Hematocrit 35.9 % (36.0-48.0); Hemoglobin 11.8 g/dL (12.0-16.0); Immature Granulocytes Abs Auto 0.05 10^3/uL (0.00-0.03); Immature Granulocytes Pct Auto 0.5 % (0.0-0.5); Lymphocytes Absolute Auto 1.9 10^3/uL (1.2-3.8); Lymphocytes Percent Auto 18.6 % (20.5-60.0); Mean Corpuscular HGB Conc 32.9 g/dL (29.9-35.2); Mean Corpuscular Hemoglobin 29.9 pg (26.7-34.0); Mean Corpuscular Volume 91.1 fL (81.0-99.0); Mean Platelet Volume 9.1 fL (9.5-13.5); Monocytes Absolute Auto 0.5 10^3/uL (0.3-0.8); Monocytes Percent Auto 4.7 % (1.7-12.0); Neutrophils Absolute Auto 7.9 10^3/uL (1.4-6.5); Neutrophils Percent Auto 75.8 % (43.0-75.0); Platelet Count 202 10^3/uL (150-450); Red Blood Count 3.94 10^6/uL (4.20-5.40); Red Cell Distribution Width 13.3 % (11.0-15.0); White Blood Count 10.4 10^3/uL (4.0-11.0)
[2024-06-06 14:46] LABS: Glucose 1 Hour 169 mg/dL (<130)
== END 2024-06-06 12:51 | disposition home or self-care (01) ==
LOC: LAB 12:51
PROVIDERS: PCP Family Medicine; Visit Provider Obstetrics & Gynecology
DX: Z13.1 Encounter for screening for diabetes mellitus (principal)
CPT/HCPCS: 36415; 82950; 85025

== ENCOUNTER 2024-06-21 11:09 | Outpatient (OUT) | payer OTHER, SELFPAY ==
--- NOTE | 2024-06-21 11:13 | US_ITS ---
[address] [address] Patient Name: ESTELLA CARRASQUILLO MRN: [facility]:[id number] date: 1995 Sex: F Assigned Patient Location: [facility] Current Patient Location: [facility] Accession/Order Number: [id number] Exam Date: 06/21/2024 11:14 Report Date: 06/21/2024 11:50 At the request of: MELVA CERDA Procedure: US OB growth EXAMINATION: US OB growth HISTORY: SIZE INCONSISTENT WITH DATES COMPARISON: No relevant comparison available. FINDINGS: Heart Rate: 143 bpm Amniotic Fluid Volume: 14.1 cm, largest fluid pocket 5.6 cm Number: 1 Position: CEPHALIC BIOMETRY: BPD: 7.66 cm; 30 weeks 5 days; 89.40 % HC: 26.73 cm; 29 weeks 1 day; 24.70 % AC: 26.05 cm; 30 weeks 1 day; 81.50 % FL: 5.74 cm; 30 weeks 1 day; 70.30 % EFW: 1558.37 g; 81.50 %, 3 lbs. 5 oz. FL/AC: 22.03 FL/BPD: 74.93 HC/AC: 1.03 GESTATIONAL AGE: Age by EDC: 28 weeks 6 days FAROOQ by EDC: 2024-09-07 Age by US: 30 weeks 0 days FAROOQ by US: 2024-08-30 US/US OB growth IMPRESSION: Normal interval growth Electronically authenticated by: CAREY HUFF Date: 06/21/2024 11:50
--- OUTSIDE RECORDS SUMMARY | 2024-06-21 11:27 | XMS_ITS | CCD ---
Author Organization [facility] Care Team Providers Care Business Project Manager Name Role Phone GARETH, DR STONEY Santillan [...] MELVA Attending Unavailable IRVIN, BARBIE Attending Unavailable ZAIDA, MELVA Attending Unavailable Problems Active Problems Problem Classification [...] STREP SCREEN A Positive Abnormal NEGATIVE [facility] Comment on above: Performed By: #### S SCRN #### [facility] [address] [address] [address] Luis Harrison Covid-19 PCR ([facility])on 05-22 SARS-CoV-2 (COVID-19) RNA KALYANI+probe Ql [...] for this test is supported by the [place] of Health and Human Service's declaration that [...] #### C VDTBH #### [facility] [address], [place] [address] Dr. Luis Harrison GROUP A STREP CULTUREon 05-22 S. pyogenes Ag Ql (Unsp spec) Culture Observations: NEGATIVE FOR GROUP A STREPTOCOCCUS. Normal [facility] Comment on above: Performed By: #### G RASTCX, SSCRN #### [facility] [address], [place] [address] Dr. Luis Harrison STREPT SCREENon 06-18-2022 STREP SCREEN A Negative Normal NEGATIVE [facility] Comment on above: Performed By: #### G RASTCX, SSCRN #### [facility] [address] [place] [address] Dr. Luis Harrison CHLAMYDIA/GONOCOCCUS KALYANI (SW AB/URINE/PAPon 03-13-2022 Chlamydia trachomatis, KALYANI Negative Normal Negative [facility] Comment on above: Performed By: #### C T/NGNA #### [facility] [address] [place] [address] Dr. Luis Harrison Neisseria gonorrhoeae, KALYANI Negative Normal Negative [facility] Comment on above: Performed By: #### C T/NGNA #### [facility] [address] [place] [address] Dr. Luis Harrison VAGINITIS/VAGINOSIS DNA PROB Shantanu 03-13-2022 Alysha species Negative Normal Negative [facility] Comment on above: Performed By: #### V AGINT #### [facility] [address] [place] [address] Dr. Luis Harrison Gardnerella vaginalis Negative Normal Negative [facility] Comment on above: Performed By: #### V AGINT #### [facility] [address] [place] [address] Dr. Luis Harrison Trichomonas vaginalis Negative Normal Negative [facility] Comment on above: Performed By: #### V AGINT #### [facility] [address] [place] [address] Dr. Luis Harrison CULTURE URINEon 01-20-2022 CULTURE URINE Culture Observations: No growth Normal [facility] Comment on above: Performed By: #### U RCX #### [facility] [address] [place] [address] Dr. Luis Harrison ER URINE PROFILEon Bilirubin Ql (U) Negative Normal NEGATIVE [facility] Comment on above: Performed By: #### P REGU, UMICRO, ERUR #### [facility] [address] [place] [address] Dr. Luis Harrison Clarity (U) CLEAR Normal CLEAR [facility] Comment on above: Performed By: #### P REGU, UMICRO, ERUR #### [facility] [address] [address] [address] Luis Harrison Color (U) LT. YELLOW Normal YELLOW [facility] Comment on above: Performed By: #### P REGU, UMICRO, ERUR #### [facility] [address] [address] [address] Luis PITTSAHD A micrscopic examination will be performed if indicated. Normal [facility] Comment on above: Performed By: #### P REGU, UMICRO, ERUR #### [facility] [address] [place] [address] Dr. Luis Harrison Glucose Ql (U) Negative Normal NEGATIVE [facility] Comment on above: Performed By: #### P REGU, UMICRO, ERUR #### [facility] [address] [place] [address] Dr. Luis Harrison Hemoglobin Ql (U) TRACE-LYSED Abnormal NEGATIVE [facility] Comment on above: Performed By: #### P REGU, UMICRO, ERUR #### [facility] [address] [place] [address] Dr. Luis Harrison Ketones Ql (U) Negative Normal NEGATIVE [facility] Comment on above: Performed By: #### P REGU, UMICRO, ERUR #### [facility] [address] [address] [address] Luis Harrisno LEUKOCYTES Negative Normal NEGATIVE [facility] Comment on above: Performed By: #### P REGU, UMICRO, ERUR #### [facility] [address] [address] [address] Luis Harrison Nitrite Ql (U) Negative Normal NEGATIVE [facility] Comment on above: Performed By: #### P REGU, UMICRO, ERUR #### [facility] [address] [address] [address] Luis Harrison pH (U) 6.0 [pH] Normal 5-9 [facility] Comment on above: Performed By: #### P REGU, UMICRO, ERUR #### [facility] [address] [address] [address] Luis Harrison SPEC GRAVITY <=1.005 Abnormal 1.005-<=1.[address] [facility] Comment on above: Performed By: #### P REGU, UMICRO, ERUR #### [facility] [address] [address] [address] Luis Harrison UA PROTEIN Negative Normal NEGATIVE/ TRACE [facility] Comment on above: Performed By: #### P REGU UMICRO, ERUR #### [facility] [address] [place] [address] Dr. Luis Harrison UR MICRO IND INDICATED Normal [facility] Comment on above: Performed By: #### P REGU, UMICRO, ERUR #### [facility] [address] [place] [address] Dr. Luis Harrison Urobilinogen Qn (U) 0.2 {Maritza'U}/dL Normal 0.2 - 1. 0 [facility] Comment on above: Performed By: #### P REGMINDI JuarezICANG, ERUR #### [facility] [address] [place] [address] Dr. Luis Harrison GROUP A STREP CULTUREon S. pyogenes Ag Ql (Unsp spec) Culture Observations: NEGATIVE FOR GROUP A STREPTOCOCCUS. Normal [facility] Comment on above: Performed By: #### S SCRN GRASTCX #### [facility] [address] [place] [address] Dr. Luis Harrison URon 01-20-2022 , QUAL Negative Normal NEGATIVE [facility] Comment on above: Performed By: #### S SCRN GRASTCX #### [facility] [address] [place] [address] Dr. Luis Harrison STREPT SCREENon 01-20-2022 STREP SCREEN A Negative Normal NEGATIVE [facility] Comment on above: Performed By: #### S SCRN, GRASTCX #### [facility] [address] [address] [address] Luis Harrison URINE MICROSCOPIC ONLYon BACTERIA TRACE Abnormal NONE SEEN [facility] Comment on above: Performed By: #### S SCRN, GRASTCX #### [facility] [address] [place] [address] Dr. Luis Harrison Bacteria identified Cx Nom (U) INDICATED Normal [facility] Comment on above: Performed By: #### S SCRN, GRASTCX #### [facility] [address] [place] [address] Dr. Luis Harrison CAST NONE SEEN Normal NONE SEEN [facility] Comment on above: Performed By: #### S SCRN, GRASTCX #### [facility] [address] [place] [address] Dr. Luis Harrison Crystals LM Nom (Urine sed) NONE SEEN Normal NONE SEEN [facility] Comment on above: Performed By: #### S SCRN, GRASTCX #### [facility] [address] [place] [address] Dr. Luis Harrison Epithelial cells LM Ql (Urine sed) RARE Normal NONE SEEN /RARE [facility] Comment on above: Performed By: #### S SCRN, GRASTCX #### [facility] [address] [place] [address] Dr. Luis Harrison MUCOUS NONE SEEN Normal NONE SEEN [facility] Comment on above: Performed By: #### S SCRN, GRASTCX #### [facility] [address] [place] [address] Dr. Luis Harrison RBC 0-2 Normal 0-2 [facility] Comment on above: Performed By: #### S SCRN, GRASTCX #### [facility] [address] [address] [address] Luis Harrison WBC 0-2 Abnormal NONE SEEN [facility] Comment on above: Performed By: #### S SCRN, GRASTCX #### [facility] [address] [place] [address] Dr. Luis Harrison Encounters Encounter Date Encounter Type Care Provider Facility Start: 06-07-2024 End: 06-07-2024 ambulatory MELVA CERDA Not Available Start: 05-10-2024 End: 05-10-2024 ambulatory BARBIE MOREO Not Available Start: 04-13-2024 End: 04-13-2024 ambulatory MELVA CERDA Not Available Start: 03-01-2024 End: 03-01-2024 ambulatory BARBIE MOREO Not Available Start: 02-03-2024 End: 02-03-2024 ambulatory [...] Facility:[facility] Payers Date Payer Category Payer Unknown [id number] .. [id number] 1995 Unknown [id number] ..[id number] 1995 Unknown [id number] .. [id number] 1995 Unknown [id number] ..[id number] [id number] 1995 Unknown [id number] ..[id number] [id number] 1995 Unknown [id number] .16.84 0.1.799748.3.579.2.1259 1995 Unknown [id number] ..[id number] [id number] 1995 Unknown [id number] .16.84 [id number] 1995 Unknown [id number] 2.16.84 [id number] 1995 Unknown [id number] 2.16.84 0.1.012953.3.579.2.9 1995 Unknown [id number] 2.16.84 [id number] 1959 Unknown [id number] Summary Purpose Family History No Family History Records FoundNo Family History Records Found Advance Directives No Advanced Directives Records FoundNo Advanced Directives Records Found Additional Source Comments INFORMATION SOURCE (unrecogn ized section and content) DATE CREATED AUTHOR 11/04/2022 [facility] DATE CREATED AUTHOR AUTHORSherrill POWELL 06/09/2024 [facility] d[facility] Specialists EPIC FOR RECORDS PERTAINING TO [...] BE BASED ON THE PRIMARY CLINICAL RECORDS. [employer] provides no warranty or guarantee of the accuracy or completeness of information in this document.
== END 2024-06-21 11:10 | disposition home or self-care (01) ==
LOC: NOMS 11:09
PROVIDERS: PCP Family Medicine; Visit Provider Physician Assistant
DX: O26.843 Uterine size-date discrepancy, third trimester (principal); Z3A.30 30 weeks gestation of pregnancy
CPT/HCPCS: 76816

== ENCOUNTER 2024-06-22 08:20 | Outpatient (OUT) | payer OTHER, SELFPAY ==
--- OUTSIDE RECORDS SUMMARY | 2024-06-22 08:27 | XMS_ITS | CCD ---
Author Organization [facility] Care Team Providers Care Die Tester Name Role Phone GARETH, DR STONEY Santillan [...] STREP SCREEN A Positive Abnormal NEGATIVE [facility] Comment on above: Performed By: #### S SCRN #### [facility] [address] [address] [address] Luis Harrison Covid-19 PCR ([facility])on 05-22 SARS-CoV-2 (COVID-19) RNA KALYANI+probe Ql (Unsp spec) Not detected Normal NOT DETECTED [facility] Comment on above: Result Comment: [...] for this test is supported by the [place] of Health and Human Service's declaration that [...] used). Performed By: #### C VDTBH #### [facility] [address] [place], [place] [address] Dr. Luis Harrison GROUP A STREP CULTUREon 05-22 S. pyogenes Ag Ql (Unsp spec) Culture Observations: NEGATIVE FOR GROUP A STREPTOCOCCUS. Normal [facility] Comment on above: Performed By: #### G RASTCX, SSCRN #### [facility] [address] [place], [place] [address] Dr. Luis Harrison STREPT SCREENon 06-18-2022 STREP SCREEN A Negative Normal NEGATIVE [facility] Comment on above: Performed By: #### G RASTCX, SSCRN #### [facility] [address] [place] [address] Dr. Luis Harrison CHLAMYDIA/GONOCOCCUS KALYANI (SW AB/URINE/PAPon 03-13-2022 Chlamydia trachomatis, KALYANI Negative Normal Negative [facility] Comment on above: Performed By: #### C T/NGNA #### [facility] [address] [place] [address] Dr. Luis Harrison Neisseria gonorrhoeae, KALYANI Negative Normal Negative [facility] Comment on above: Performed By: #### C T/NGNA #### [facility] [address] [place] [address] Dr. Luis Harrison VAGINITIS/VAGINOSIS DNA PROB Shantanu 03-13-2022 Alysha species Negative Normal Negative [facility] Comment on above: Performed By: #### V AGINT #### [facility] [address] [place] [address] Dr. Luis Harrison Gardnerella vaginalis Negative Normal Negative [facility] [place] [facility] Comment on above: Performed By: #### V AGINT #### [facility] [address] [place] [address] Dr. Luis Harrison Trichomonas vaginalis Negative Normal Negative [facility] Comment on above: Performed By: #### V AGINT #### [facility] [address] [place] [address] Dr. Luis Harrison CULTURE URINEon 01-20-2022 CULTURE URINE Culture Observations: No growth Normal [facility] Comment on above: Performed By: #### U RCX #### [facility] [address] [place] [address] Dr. Luis Harrison ER URINE PROFILEon Bilirubin Ql (U) Negative Normal NEGATIVE [facility] Comment on above: Performed By: #### P REGU, UMICRO, ERUR #### [facility] [address] [place] [address] Dr. uLis Harrison Clarity (U) CLEAR Normal CLEAR [facility] Comment on above: Performed By: #### P REGU, UMICRO, ERUR #### [facility] [address] [address] [address] Luis Harrison Color (U) LT. YELLOW Normal YELLOW [facility] [place] [facility] Comment on above: Performed By: #### P REGU, UMICRO, ERUR #### [facility] [address] [address] [address] Luis PITTSAHD A micrscopic examination will be performed if indicated. Normal [facility] Comment on above: Performed By: #### P REGU, UMICRO, ERUR #### [facility] [address] [place] [address] Dr. Luis Harrison Glucose Ql (U) Negative Normal NEGATIVE [facility] Comment on above: Performed By: #### P REGU, UMICRO, ERUR #### [facility] [address] [place] [address] Dr. Luis Harrison Hemoglobin Ql (U) TRACE-LYSED Abnormal NEGATIVE [facility] Comment on above: Performed By: #### P REGU, UMICRO, ERUR #### [facility] [address] [place] [address] Dr. Luis Harrison Ketones Ql (U) Negative Normal NEGATIVE [facility] Comment on above: Performed By: #### P REGU, UMICRO, ERUR #### [facility] [address] [address] [address] Luis Harrison LEUKOCYTES Negative Normal NEGATIVE [facility] [place] [facility] Comment on above: Performed By: #### P REGU, UMICRO, ERUR #### [facility] [address] [address] [address] Luis Harrison Nitrite Ql (U) Negative Normal NEGATIVE [facility] Comment on above: Performed By: #### P REGU, UMICRO, ERUR #### [facility] [address] [address] [address] Luis Harrison pH (U) 6.0 [pH] Normal 5-9 [facility] [place] [facility] Comment on above: Performed By: #### P REGU, UMICRO, ERUR #### [facility] [address] [address] [address] Luis Harrison SPEC GRAVITY <=1.005 Abnormal 1.005-<=1.025 [facility] Comment on above: Performed By: #### P REGU, UMICRO, ERUR #### [facility] [address] [address] [address] Luis Harrison UA PROTEIN Negative Normal NEGATIVE/ TRACE [facility] Comment on above: Performed By: #### P REGU UMICRO, ERUR #### [facility] [address] [place] [address] Dr. Luis Harrison UR MICRO IND INDICATED Normal [facility] [place] [facility] Comment on above: Performed By: #### P REGU, UMICRO, ERUR #### [facility] [address] [place] [address] Dr. Luis Harrison Urobilinogen Qn (U) 0.2 {Maritza'U}/dL Normal 0.2 - 1. 0 [facility] [place] [facility] Comment on above: Performed By: #### P REGMINDI JuarezICANG, ERUR #### [facility] [address] [place] [address] Dr. Luis Harrison GROUP A STREP CULTUREon S. pyogenes Ag Ql (Unsp spec) Culture Observations: NEGATIVE FOR GROUP A STREPTOCOCCUS. Normal [facility] Comment on above: Performed By: #### S SCRN GRASTCX #### [facility] [address] [place] [address] Dr. Luis Harrison URon 01-20-2022 , QUAL Negative Normal NEGATIVE [facility] Comment on above: Performed By: #### S SCRN GRASTCX #### [facility] [address] [place] [address] Dr. Luis Harrison STREPT SCREENon 01-20-2022 STREP SCREEN A Negative Normal NEGATIVE [facility] Comment on above: Performed By: #### S SCRN, GRASTCX #### [facility] [address] [address] [address] Luis Harrison URINE MICROSCOPIC ONLYon BACTERIA TRACE Abnormal NONE SEEN [facility] Comment on above: Performed By: #### S SCRN, GRASTCX #### [facility] [address] [place] [address] Dr. Luis Harrison Bacteria identified Cx Nom (U) INDICATED Normal [facility] Comment on above: Performed By: #### S SCRN, GRASTCX #### [facility] [address] [place] [address] Dr. Luis Harrison CAST NONE SEEN Normal NONE SEEN [facility] Comment on above: Performed By: #### S SCRN, GRASTCX #### [facility] [address] [place] [address] Dr. Luis Harrison Crystals LM Nom (Urine sed) NONE SEEN Normal NONE SEEN [facility] Comment on above: Performed By: #### S SCRN, GRASTCX #### [facility] [address] [place] [address] Dr. Luis Harrison Epithelial cells LM Ql (Urine sed) RARE Normal NONE SEEN /RARE [facility] Comment on above: Performed By: #### S SCRN, GRASTCX #### [facility] [address] [place] [address] Dr. Luis Harrison MUCOUS NONE SEEN Normal NONE SEEN [facility] Comment on above: Performed By: #### S SCRN, GRASTCX #### [facility] [address] [place] [address] Dr. Luis Harrison RBC 0-2 Normal 0-2 [facility] Comment on above: Performed By: #### S SCRN, GRASTCX #### [facility] [address] [address] [address] Luis Harrison WBC 0-2 Abnormal NONE SEEN [facility] Comment on above: Performed By: #### S SCRN, GRASTCX #### [facility] [address] [place] [address] Dr. Luis Harrison Encounters Encounter Date Encounter [...] Facility:[facility] Payers Date Payer Category Payer Unknown [id number] .. [id number] 1995 Unknown [id number] ..[id number] [id number] 1995 Unknown [id number] .. [id number] 1995 Unknown [id number] ..[id number] [id number] 1995 Unknown [id number] ..[id number] 0.1.367818.3.579.2.1259 1995 Unknown [id number] .16.84 0.1.251252.3.579.2.1259 1995 Unknown [id number] ..[id number] 0.1.127464.3.579.2.1259 1995 Unknown [id number] .16.84 0.1.731355.3.579.2.1259 1995 Unknown [id number] 2.16.84 0.1.403890.3.579.2.1258 1995 Unknown [id number] 2.16.84 0.1.981735.3.579.2.9 1995 Unknown [id number] 2.16.84 0.1.764709.3.579.2.1259 1959 Unknown [id number] Summary Purpose Family History No Family History Records FoundNo Family History Records Found Advance Directives No Advanced Directives Records FoundNo Advanced Directives Records Found Additional Source Comments INFORMATION SOURCE (unrecogn ized section and content) DATE CREATED AUTHOR 11/04/2022 [facility] DATE CREATED AUTHOR AUTHORSherrill POWELL 06/09/2024 [facility]ical Specialists EPIC FOR RECORDS PERTAINING [...] BE BASED ON THE PRIMARY CLINICAL RECORDS. [employer] provides no warranty or guarantee of the accuracy or completeness of information in this document.
== END 2024-06-22 11:45 | disposition home or self-care (01) ==
LOC: FBCO 08:22
PROVIDERS: PCP Family Medicine; Visit Provider Obstetrics & Gynecology
DX: O24.419 Gestational diabetes mellitus in pregnancy, unspecified control (principal)
CPT/HCPCS: G0109

== ENCOUNTER 2024-07-17 07:12 | Outpatient (OUT) | payer OTHER, SELFPAY ==
--- OUTSIDE RECORDS SUMMARY | 2024-07-17 07:16 | XMS_ITS | CCD ---
Author Organization [facility] Care Team Providers Care Hospital Coordinator Name Role Phone DR JASON SERVIN Primary Care Unavailable HAY, DR DONALD Attending Unavailable HAY, DR DONALD Consulting Unavailable HAY, DR DONALD Admitting Unavailable NADERETaylor, DR JASON Santillan Primary Care Unavailable KARASIK, DR BAI Attending Unavailable KARASIK, DR BAI Consulting Unavailable KARASIK, DR BAI Admitting Unavailable MARKER, DR KHANNA Admitting Unavailable NADERER, DR JASON Santillan Primary Care Unavailable MARKER, DR KHANNA Attending Unavailable MARKER, DR KHANNA Consulting Unavailable NADERETaylor, DR JASON Santillan Primary Care Unavailable LYLE ., CLAIR Attending Unavailable LYLE ., CLAIR Consulting Unavailable LYLE ., CLAIR Admitting Unavailable Jason Servin MD Primary Care Provider Jason Servin MD Unavailable JOSÉ SANTOS Attending Unavailable GARETH, JASON Attending Unavailable KAYLYN, BARBIE Attending Unavailable ZAIDA, HANNAH Attending Unavailable KAYLYN, BARBIE Attending Unavailable ZAIDA, HANNAH Attending Unavailable KAYLYN, BARBIE Attending Unavailable ZAIDA, HANNAH Attending Unavailable Medications Current Medications Medication Drug Class(es) Dates Sig (Normalized) Sig (Original) Blood Glucose Monitoring Suppl (D-Care Glucometer) w/Device kit (5 sources) Start: 06-07-2024 End: 06-07-2025 Blood Glucose Monitoring Suppl (D-Care Glucometer) w/Device kit Indications: Elevated glucose tolerance test , Gestational diabetes mellitus (GDM), antepartum, gestational diabetes method of control unspecified 1 kit Daily Use four times daily to check FSBS. In the morning prior to breakfast & 1 hour after each meal for a total of 4times daily. 1 kit 06/07/2024 06/07/2025 Active isopropyl alcohol 0.7 ml/ml medicated pad (5 sources) Start: 06-07-2024 Alcohol Swabs (Alcohol Prep Pad) 70 % pads Indications: Elevated glucose tolerance test , Gestational diabetes mellitus (GDM), antepartum, gestational diabetes method of control unspecified Apply 1 Pad topically Daily Use four times daily to check FSBS. 150 each 3 06/07/2024 Active ondansetron 4 mg disintegrating oral tablet (5 sources) Serotonin-3 Receptor Antagonist Start: 05-16-2024 ondansetron ODT (Zofran-ODT) 4 MG disintegrating tablet Indications: Vomiting of , unspecified DISSOLVE 1 TABLET UNDER TONGUE EVERY 6 HOURS IF NEEDED FOR NAUSEA OR VOMITING 30 tablet 3 05/16/2024 Active Vit-Fe Fumarate-FA ( Plus/Iron) 27-1 MG tablet (5 sources) Start: 03-01-2024 End: 03-01-2025 take 1 tablet by mouth once daily Vit-Fe Fumarate-FA ( Plus/Iron) 27-1 MG tablet Indications: First trimester Take 1 tablet by mouth Daily 90 tablet 2 03/01/2024 03/01/2025 Active valACYclovir 1000 mg oral tablet (5 sources) Herpesvirus Nucleoside Analog DNA Polymerase Inhibitor, Herpes Simplex Virus Nucleoside Analog DNA Polymerase Inhibitor, Herpes Zoster Virus Nucleoside Analog DNA Polymerase Inhibitor Start: 12-22-2023 take 1 tablet by mouth once daily valACYclovir (Valtrex) 1 g tablet Indications: Herpes genitalis in women TAKE 1 TABLET BY MOUTH EVERY DAY 90 tablet 2 12/22/2023 Active Problems Active Problems Problem Classification Problem Date Documented Da te Episodic/Chronic Anxiety disorders (5 sources) Generalized anxiety disorder; Translations: [Generalized anxiety disorder] Onset: 01-11-2024 01-11-2024 Chronic Asthma (5 sources) Mild intermittent asthma; Translations: [Mild intermittent asthma, uncomplicated] Onset: 01-11-2024 01-11-2024 Chronic Diabetes or abnormal glucose tolerance complicating ; childbirth; or the puerperium (4 sources) Gestational diabetes mellitus; Translations: [Gestational diabetes mellitus in , diet controlled] 06-21-2024 Episodic Other nervous system disorders (5 sources) Bilateral carpal tunnel syndrome; Translations: [Carpal tunnel syndrome, bilateral upper limbs] Onset: 01-11-2024 01-11-2024 Chronic Other and delivery including normal (4 sources) Third trimester ; Translations: [Encounter for supervision of normal , unspecified, third trimester] 06-21-2024 Episodic Other upper respiratory disease (5 sources) Allergic rhinitis due to pollen; Translations: [Allergic rhinitis due to pollen] Onset: 01-11-2024 01-11-2024 Chronic Other upper respiratory infections (6 sources) Acute pharyngitis, unspecified; Translations: [Streptococcal pharyngitis] Onset: 01-21-2022 Episodic Residual codes; unclassified (2 sources) Gestation period, 28 weeks; Translations: [28 weeks gestation of ] 06-21-2024 Episodic Thyroid disorders (5 sources) Goiter; Translations: [Iodine-deficiency related diffuse (endemic) goiter] Onset: 01-11-2024 01-11-2024 Chronic Unclassified (1 source) CONTACT W/AND (SUSP) EXPOS COVID-19; Translations: [CONTACT W/AND (SUSP) EXPOS COVID-19] Onset: 06-19-2022 Viral infection (5 sources) Herpes simplex of female genitalia; Translations: [Herpesviral infection of other urogenital tract] Onset: 01-11-2024 01-11-2024 Chronic Past or Other Problems Problem Classification Problem Date Documented Date Episodic/Chronic Abdominal hernia (5 sources) Umbilical hernia; Translations: [Umbilical hernia without obstruction or gangrene] Onset: 01-11-2024 01-11-2024 Episodic Genitourinary symptoms and ill-defined conditions (1 source) Personal history of urinary (tract) infections; Translations: [PERS HX URINARY TRACT INFECTIONS] Onset: 01-21-2022 Episodic Immunizations and screening for infectious disease (4 sources) Encounter for screening for infections with a predominantly sexual mode of transmission; Translations: [ENC SCREEN INFECTIONS SEXL TRANSMS] Onset: 03-11-2022 Episodic Inflammation; infection of eye (except that caused by tuberculosis or sexually transmitteddisease) (10 sources) Blepharitis of left upper eyelid; Translations: [Unspecified blepharitis left upper eyelid] Onset: 01-11-2024 01-11-2024 Episodic Other and unspecified benign neoplasm (5 sources) Melanocytic nevus; Translations: [Melanocytic nevi, unspecified] Onset: 01-11-2024 01-11-2024 Episodic Other complications of (5 sources) Vomiting of , unspecified; Translations: [Unspecified vomiting of , unspecified as to episode of care or not applicable] Onset: 01-11-2024 01-11-2024 Episodic Other ear and sense organ disorders (3 sources) Otalgia, right ear; Translations: [OTALGIA RIGHT EAR] Onset: 01-20-2022 Episodic Viral infection (1 source) Viral infection, unspecified; Translations: [VIRAL INFECTION UNSPECIFIED] Onset: 06-19-2022 Episodic Results Test Name Value Interpretation Reference Range Facil ity Urinalysis macro (dipstick) panel (U)on 06-21-2024 Bilirubin, UA Negative Negative - 4(70) +++ mg/dL [facility] Blood, UA Negative Negative - 50 Jackson/mcL [facility] Clarity, UA Clear [facility] Color, UA Yellow [facility] Glucose, UA Negative Negative - 1999(110) ++++ mg/dL [facility] Interpretation and review of laboratory results Normal [facility] Ketones, UA Negative Negative - 160(16) ++++ mg/dL [facility] Leukocytes, UA Negative Negative - 500+++ Rosana/mcL [facility] Nitrite, UA Negative Negative - Positive [facility] pH, UA 6.5 5 - 9 [facility] e Protein, UA Negative Negative - 1999(20) ++++ mg/dL [facility] Spec Grav, UA 1.010 1 - 1.03 [facility] Urobilinogen, UA 0.2 0.2 - 12 mg/dL [facility] STREPT SCREENon 11-03-2022 STREP SCREEN A Positive Abnormal NEGATIVE [facility] Comment on above: Performed By: #### S SCRN #### [facility] [address] [address] [address] Luis Harrison Covid-19 PCR ([facility]on 05-22 SARS-CoV-2 (COVID-19) RNA KALYANI+probe Ql (Unsp spec) Not detected Normal NOT DETECTED [facility] Comment on above: Result Comment: When [...] for this test is supported by the Event Producer of Health and Human Service's declaration that [...] used). Performed By: #### C VDTBH #### [facility] [address] [place] [address] Dr. Luis Harrison GROUP A STREP CULTUREon 05-22 S. pyogenes Ag Ql (Unsp spec) Culture Observations: NEGATIVE FOR GROUP A STREPTOCOCCUS. Normal [facility] Comment on above: Performed By: #### G RASTCX, SSCRN #### [facility] [address] [place] [address] Dr. Luis Harrison STREPT SCREENon 06-18-2022 STREP SCREEN A Negative Normal NEGATIVE [facility] Comment on above: Performed By: #### G RASTCX, SSCRN #### [facility] [address] [place] [address] Dr. Luis Harrison CHLAMYDIA/GONOCOCCUS KALYANI (SW AB/URINE/PAPon 03-13-2022 Chlamydia trachomatis, KALYANI Negative Normal Negative [facility] Comment on above: Performed By: #### C T/NGNA #### [facility] [address] [place] [address] Dr. Luis Harrison Neisseria gonorrhoeae, KALYANI Negative Normal Negative [facility] Comment on above: Performed By: #### C T/NGNA #### [facility] [address] [place] [address] Dr. Luis Harrison VAGINITIS/VAGINOSIS DNA PROB Shantanu 03-13-2022 Alysha species Negative Normal Negative [facility] Comment on above: Performed By: #### V AGINT #### [facility] [address] [place] [address] Dr. Luis Harrison Gardnerella vaginalis Negative Normal Negative [facility] Comment on above: Performed By: #### V AGINT #### [facility] [address] [place] [address] Dr. Luis Harrison Trichomonas vaginalis Negative Normal Negative [facility] Comment on above: Performed By: #### V AGINT #### [facility] [address] [place] [address] Dr. Luis Harrison CULTURE URINEon 01-20-2022 CULTURE URINE Culture Observations: No growth Normal [facility] Comment on above: Performed By: #### U RCX #### [facility] [address] [place] [address] Dr. Luis Harrison ER URINE PROFILEon Bilirubin Ql (U) Negative Normal NEGATIVE [facility] Comment on above: Performed By: #### P ABDOULAYE CUMMINGS, ERUR #### [facility] [address] [place] [address] Dr. Luis Harrison Clarity (U) CLEAR Normal CLEAR [facility] Comment on above: Performed By: #### P ABDOULAYE CUMMINGS, ERUR #### [facility] [address] [place] [address] Dr. Luis Harrison Color (U) LT. YELLOW Normal YELLOW [facility] Comment on above: Performed By: #### P ABDOULAYE CUMMINGS, ERUR #### [facility] [address] [place] [address] Dr. Luis PACE A micrscopic examination will be performed if indicated. Normal [facility] Comment on above: Performed By: #### P ABDOULAYE CUMMINGS, ERUR #### [facility] [address] [place] [address] Dr. Luis Harrison Glucose Ql (U) Negative Normal NEGATIVE [facility] Comment on above: Performed By: #### P ABDOULAYE CUMMINGS, ERUR #### [facility] [address] [place] [address] Dr. Luis Harrison Hemoglobin Ql (U) TRACE-LYSED Abnormal NEGATIVE [facility] Comment on above: Performed By: #### P REGU, UMICRO, ERUR #### [facility] [address] [place] [address] Dr. Luis Harrison Ketones Ql (U) Negative Normal NEGATIVE [facility] Comment on above: Performed By: #### P REGU, UMICRO, ERUR #### [facility] [address] [place] [address] Dr. Luis Harrsion LEUKOCYTES Negative Normal NEGATIVE [facility] Comment on above: Performed By: #### P REGU, UMICRO, ERUR #### [facility] [address] [place] [address] Dr. Luis Harrison Nitrite Ql (U) Negative Normal NEGATIVE [facility] Comment on above: Performed By: #### P REGU, UMICRO, ERUR #### [facility] [address] [place] [address] Dr. Luis Harrison pH (U) 6.0 [pH] Normal 5-9 [facility] Comment on above: Performed By: #### P REGU, UMICRO, ERUR #### [facility] [address] [place] [address] Dr. Luis Harrison SPEC GRAVITY <=1.005 Abnormal 1.005-<=1.025 [facility] Comment on above: Performed By: #### P REGU, UMICRO, ERUR #### [facility] [address] [place] [address] Dr. Luis Harrison UA PROTEIN Negative Normal NEGATIVE/ TRACE [facility] Comment on above: Performed By: #### P REGU, UMICRO, ERUR #### [facility] [address] [place] [address] Dr. Luis Harrison UR MICRO IND INDICATED Normal [facility] Comment on above: Performed By: #### P REGU, UMICRO, ERUR #### [facility] [address] [place] [address] Dr. Luis Harrison Urobilinogen Qn (U) 0.2 {Maritza'U}/dL Normal 0.2 - 1. 0 [facility] Comment on above: Performed By: #### P EVERTONUABDOULAYE, ERUR #### [facility] [address] [address] [address] Luis Harrison GROUP A STREP CULTUREon S. pyogenes Ag Ql (Unsp spec) Culture Observations: NEGATIVE FOR GROUP A STREPTOCOCCUS. Normal [facility] Comment on above: Performed By: #### S SCRN, GRASTCX #### [facility] [address] [place] [address] Dr. Luis Harrison URon 01-20-2022 , QUAL Negative Normal NEGATIVE [facility] Comment on above: Performed By: #### S SCRN, GRASTCX #### [facility] [address] [place] [address] Dr. Luis Harrison STREPT SCREENon 01-20-2022 STREP SCREEN A Negative Normal NEGATIVE [facility] Comment on above: Performed By: #### S SCRN, GRASTCX #### [facility] [address] [place] [address] Dr. Luis Harrison URINE MICROSCOPIC ONLYon BACTERIA TRACE Abnormal NONE SEEN [facility] Comment on above: Performed By: #### S SCRN, GRASTCX #### [facility] [address] [place] [address] Dr. Luis Harrison Bacteria identified Cx Nom (U) INDICATED Normal [facility] Comment on above: Performed By: #### S SCRN, GRASTCX #### [facility] [address] [place] [address] Dr. Luis Harrison CAST NONE SEEN Normal NONE SEEN [facility] Comment on above: Performed By: #### S SCRN, GRASTCX #### [facility] [address] [place] [address] Dr. Luis Harrison Crystals LM Nom (Urine sed) NONE SEEN Normal NONE SEEN [facility] Comment on above: Performed By: #### S SCRN, GRASTCX #### [facility] [address] [place] [address] Dr. Luis Harrison Epithelial cells LM Ql (Urine sed) RARE Normal NONE SEEN /RARE [facility] Comment on above: Performed By: #### S SCRN, GRASTCX #### [facility] [address] [place] [address] Dr. Luis Harrison MUCOUS NONE SEEN Normal NONE SEEN [facility] Comment on above: Performed By: #### S SCRN, GRASTCX #### [facility] [address] [place] [address] Dr. Luis Harrison RBC 0-2 Normal 0-2 [facility] Comment on above: Performed By: #### S SCRN, GRASTCX #### [facility] [address] [place] [address] Dr. Luis Harrison WBC 0-2 Abnormal NONE SEEN [facility] Comment on above: Performed By: #### S SCRN, GRASTCX #### [facility] [address] [place] [address] Dr. Luis Harrison Vital Signs Date Time Vital Sign Value Performing Clinician Faci lity 06-21-2024 11:48-0400 Body mass index (BMI) [Ratio] 30.6 kg/m2 Push IO Work Phone: [facility] 06-21-2024 11:48-0400 Body weight 78.36 kg Push IO Work Phone: [facility] 06-21-2024 11:48-0400 Diastolic blood pressure 76 mm[Hg] BarbieDispop Work Phone: [facility] 06-21-2024 11:48-0400 Systolic blood pressure 112 mm[Hg] BarbieDispop Work Phone: [facility] Healthcare Encounters Encounter Date Encounter Type Care Provider Facility Start: 07-05-2024 End: 07-05-2024 ambulatory HANNAH CERDA Not Available Start: 07-05-2024 End: 07-05-2024 Office outpatient visit 15 minutes Hannah Cerda PA Work Phone: [facility] Comment on above: Third trimester preg otis; Gestational diabetes mellitus (GDM), antepartum, gestational diabetes method of control unspecified Start: 06-21-2024 End: 06-21-2024 Bamboo flowsheet Barbie Kaylyn DO Work Phone: [facility] Start: 06-21-2024 End: 06-21-2024 Bamboo flowsheet Barbie Kalyyn DO Work Phone: [facility] Start: 06-21-2024 End: 06-21-2024 ambulatory BARBIE KAYLYN Not Available Start: 06-21-2024 End: 06-21-2024 Office outpatient visit 15 minutes Barbie Kaylyn DO Work Phone: [facility] Comment on above: 28 weeks gestation o f ; Third trimester ; Diet controlled gestational diabetes mellitus (GDM) in third trimester Start: 06-07-2024 End: 06-07-2024 ambulatory HANNAH CERDA Not Available Start: 05-10-2024 End: 05-10-2024 ambulatory BARBIE KAYLYN Not Available Start: 04-13-2024 End: 04-13-2024 ambulatory HANNAH CERDA Not Available Start: 03-01-2024 End: 03-01-2024 ambulatory BARBIE KAYLYN Not Available Start: 02-03-2024 End: 02-03-2024 ambulatory JOSÉ SANTOS Not Available Start: 01-11-2024 End: 01-11-2024 ambulatory JASON SERVIN Not Available Start: 01-07-2024 End: 01-07-2024 ambulatory JOSÉ SANTOS Not Available Start: 11-03-2022 End: 11-03-[address] JASON SERVIN Facility:[facility] Start: 06-18-2022 End: 06-18-[address] JASON SERVIN Facility:[facility] Start: 03-11-2022 End: 03-11-[address] JASON SERVIN Facility:[facility] Start: 01-20-2022 End: 01-20-[address] CLEMENCIA NICOLE Facility:[facility] Procedures Date Procedure Procedure Detail Performing Clinician Start: 06-21-2024 Urnls dip stick/tabl et rgnt non-auto w/o micrscp Barbie Kaylyn DO Work Phone: Plan of Treatment Date Care Activity Detail Author Start: 07-19-2024 End: 07-19-2024 Professional / ancillary services management 07/19/2024 1:00 PM EDT Ancillary Procedure [facility] [address] [place] [address] [facility] Start: 07-18-2024 End: 07-18-2024 Patient encounter procedure 07/18/2024 2:20 PM EDT Routine [facility] [address] [place] [id number] Hannah Cerda PA [address], [place] [id number] [facility] Start: 07-18-2024 End: 07-18-2024 Professional / ancillary services management 07/18/2024 1:00 PM EDT Ancillary Procedure [facility] [address] [place] [address] [facility] Start: 07-05-2024 End: 07-05-2025 US biophysical profile w non stress test US biophysical profile w non stress test Imaging Routine Gestational diabetes mellitus (GDM), antepartum, gestational diabetes method of control unspecified Expected: 07/05/2024 (Approximate), Expires: 07/05/2025 [facility] Work Phone: Comment on above: Expected: 07/05/2024 (Approximate), Expires: 07/05/2025 Start: 07-05-2024 End: 07-05-2024 Patient encounter procedure 07/05/2024 1:20 PM EDT Routine [facility] [address] [place] [address] Hannah Cerda, PA [address], [place] [id number] [facility] Start: 06-21-2024 End: 06-21-2025 US for US OB SCAN FOR GROWTH Imaging Routine Diet controlled gestational diabetes mellitus (GDM) in third trimester Expected: 06/21/2024 (Approximate), Expires: 06/21/2025 [facility] Work Phone: Comment on above: Expected: 06/21/2024 (Approximate), Expires: 06/21/2025 Start: 05-21-2024 Influenza vaccination Influenza Vacc ine (#1) [facility] Payers Date Payer Category Payer Medicaid [employer] [place] [employer] [id number] 2017-Present [address] [place] [id number] 2017 Medicaid (Managed Care) [facility] MEDICAID [id number] 1995 Unknown [id number]. 593 1995 Unknown [id number] [id number]. 593 1995 Unknown [id number] [id number]. 593 1995 Unknown [id number] [id number]. 593 1995 Unknown [id number] [id number]. 1259 1995 Unknown [id number] [id number]. 1258 1995 Unknown [id number] [id number]. 1258 1995 Unknown [id number] [id number]. 1258 1995 Unknown [id number] [id number]. 1258 1995 Unknown [id number] [id number]. 1258 1995 Unknown [id number] [id number]. 1258 1995 Unknown [id number] [id number]. 1258 1995 Unknown [id number] [id number]. 1259 1959 Unknown [id number] Social History Date Type Detail Facility Start: 01-07-2024 Tobacco smoking status [facility] Never sm oked tobacco [facility] Start: 01-07-2024 Tobacco use and exposure Smoke less tobacco non-user [facility] Start: 06-07-2024 End: 07-05-2024 Alcoholic beverage intake Lifetime non-drinker (finding) [facility] Start: 01-11-2024 History of Social function [facility] Start: 01-11-2024 Social connection an d isolation panel [facility] Do you belong to any clubs or organizations such as restorationist groups, unions, fraternal or athletic groups, or school groups? No [facility] Are you now , , , , never or living with a partner? Never [facility] How often to you hav e a drink containing alcohol? Never [facility] How many standard dr inks containing alcohol do you have on a typical day? Patient does not drink [facility] How hard is it for y ou to pay for the very basics like food, housing, medical care, and heating Not very hard [facility] Do you feel stress - tense, restless, nervous, or anxious, or unable to sleep at night because your mind is troubled all the time - these days [OSQ] Only a little [facility] (I/We) worried wheth er (my/our) food would run out before (I/we) got money to buy more. Never true [facility] Start: 12-16-2023 [facility] Start: 1995 Sex assigned at Not on file [facility] Medical Equipment Procedure Code Equipment Code Equipment Origin al Text Equipment Identifier Dates 1 strip by In Vi tro route Daily Use in the morning prior to breakfast, 1 hour after each meal for a total of 4times daily. [id number] Start: 06-07-2024 End: 07-07-2024 1 each by In Vit ro route Daily Use to check FSBS four times daily [id number] Start: 06-07-2024 End: 07-07-2024 History of Present illness Narrative 07-05-2024 NARENDRA Christensen - 07/05/2024 1:20 PM EDT Note Date & Type Note Facility 07-05-2024 History of Presen t illness Narrative Reason for Appointment: Patient ID: Claribel Buckner is a 29 y.o. female who presents for Routine Visit Patient presents today for Return OB appointment. MEDICATIONS Current Outpatient Medications Medication Instructions Alcohol Swabs (Alcohol Prep Pad) 70 % pads 1 Pad, Topical, Daily, Use four times daily to check FSBS. Blood Glucose Monitoring Suppl (D-Care Glucometer) w/Device kit 1 kit, Does not apply, Daily, Use four times daily to check FSBS. In the morning prior to breakfast & 1 hour after each meal for a total of 4times daily. Glucose Blood (Blood Glucose Test) strip 1 strip, In Vitro, Daily, Use in the morning prior to breakfast, 1 hour after each meal for a total of 4times daily. Lancets Ultra Thin misc 1 each, In Vitro, Daily, Use to check FSBS four times daily ondansetron ODT (Zofran-ODT) 4 MG disintegrating tablet DISSOLVE 1 TABLET UNDER TONGUE EVERY 6 HOURS IF NEEDED FOR NAUSEA OR VOMITING Vit-Fe Fumarate-FA ( Plus/Iron) 27-1 MG tablet 1 tablet, Oral, Daily valACYclovir (VALTREX) 1,000 mg, Oral, Daily ALLERGIES No Known Allergies PROBLEMS Active Ambulatory Problems Diagnosis Date Noted Bilateral carpal tunnel syndrome 01/11/2024 Generalized anxiety disorder ([facility] [facility]) 01/11/2024 Genital herpes in women 01/11/2024 Mild intermittent asthma without complication ([facility]) 01/11/2024 Multiple pigmented nevi 01/11/2024 Thyromegaly ([facility]) 01/11/2024 Umbilical hernia without obstruction or gangrene 01/11/2024 Blepharitis of left upper eyelid 01/11/2024 Seasonal allergic rhinitis due to pollen 01/11/2024 Allergic conjunctivitis 01/11/2024 Nausea and vomiting in 01/11/2024 Resolved Ambulatory Problems Diagnosis Date Noted No Resolved Ambulatory Problems No Additional Past Medical History HISTORY PAST MEDICAL HISTORY SOCIAL HISTORY History reviewed. No pertinent past medical history. Social History Tobacco Use Smoking status: Never Smokeless tobacco: Never Substance Use Topics Alcohol use: Never Drug use: Never FAMILY HISTORY Family History Problem Relation Name Age of Onset Bipolar disorder Mother Diabetes Other SURGICAL HISTORY Past Surgical History: Procedure Laterality Date UMBILICAL HERNIA REPAIR REVIEW OF SYSTEMS Review of Systems: Review of Systems Constitutional: Negative. HENT: Negative. Eyes: Negative. Respiratory: Negative. Cardiovascular: Negative. Gastrointestinal: Negative. Genitourinary: Negative. Musculoskeletal: Negative. Skin: Negative. Neurological: Negative. All other systems reviewed and are negative. Hematological: Negative. Endocrine: Negative. Allergic/Immunologic: Negative. OBJECTIVE Objective: Physical Exam Constitutional: Appearance: Normal appearance. She is normal weight. HENT: Head: Normocephalic. Cardiovascular: Rate and Rhythm: Normal rate. Pulses: Normal pulses. Pulmonary: Effort: Pulmonary effort is normal. Breath sounds: Normal breath sounds. Abdominal: Palpations: Abdomen is soft. Musculoskeletal: General: Normal range of motion. Neurological: General: No focal deficit present. Mental Status: She is alert and oriented to person, place, and time. Psychiatric: Mood and Affect: Mood normal. Behavior: Behavior normal. Thought Content: Thought content normal. Judgment: Judgment normal. Vitals and nursing note reviewed. Vitals: Estimated body mass index is 30.6 kg/m as calculated from the following: Height as of 01/11/24: 5' 3 . Weight as of 06/21/24: 172 lb 12 oz. BP: Patient's last menstrual period was 12/02/2023. ASSESSMENT & PLAN ICD-10-CM 1. Third trimester Z34.93 2. Gestational diabetes mellitus (GDM), antepartum, gestational diabetes method of control unspecified O24.419 US biophysical profile w non stress test Return OB: Patient presents today for a routine obstetrics appointment. Patient is currently 30w6d . Patient states she is doing well but has complaints of being tired due to current . Patient has verbalizes frequent movement. labor precautions was discussed/given and patient was instructed to perform kick counts three times a day. Orders Placed This Encounter Procedures US biophysical profile w non stress test Follow Up: Patient is to return to office in 2 week for routine OB appointment. Documented by NRAENDRA Christensen on behalf of: NARENDRA Christensen documented in this encounter [facility] History of Present illness Narrative 06-21-2024 Umm Shultzalex, RITA - 06/21/2024 11:30 AM EDT Note Date & Type Note Facility 06-21-2024 History of Presen t illness Narrative Reason for Appointment: Patient ID: Claribel Buckner is a 29 y.o. female who presents for No chief complaint on file. Patient presents today for Return OB appointment. MEDICATIONS Current Outpatient Medications Medication Instructions Alcohol Swabs (Alcohol Prep Pad) 70 % pads 1 Pad, Topical, Daily, Use four times daily to check FSBS. Blood Glucose Monitoring Suppl (D-Care Glucometer) w/Device kit 1 kit, Does not apply, Daily, Use four times daily to check FSBS. In the morning prior to breakfast & 1 hour after each meal for a total of 4times daily. Glucose Blood (Blood Glucose Test) strip 1 strip, In Vitro, Daily, Use in the morning prior to breakfast, 1 hour after each meal for a total of 4times daily. Lancets Ultra Thin misc 1 each, In Vitro, Daily, Use to check FSBS four times daily ondansetron ODT (Zofran-ODT) 4 MG disintegrating tablet DISSOLVE 1 TABLET UNDER TONGUE EVERY 6 HOURS IF NEEDED FOR NAUSEA OR VOMITING Vit-Fe Fumarate-FA ( Plus/Iron) 27-1 MG tablet 1 tablet, Oral, Daily valACYclovir (VALTREX) 1,000 mg, Oral, Daily ALLERGIES No Known Allergies PROBLEMS Active Ambulatory Problems Diagnosis Date Noted Bilateral carpal tunnel syndrome 01/11/2024 Generalized anxiety disorder ([facility]) 01/11/2024 Genital herpes in women 01/11/2024 Mild intermittent asthma without complication ([facility]) 01/11/2024 Multiple pigmented nevi 01/11/2024 Thyromegaly ([facility]) 01/11/2024 Umbilical hernia without obstruction or gangrene 01/11/2024 Blepharitis of left upper eyelid 01/11/2024 Seasonal allergic rhinitis due to pollen 01/11/2024 Allergic conjunctivitis 01/11/2024 Nausea and vomiting in 01/11/2024 Resolved Ambulatory Problems Diagnosis Date Noted No Resolved Ambulatory Problems No Additional Past Medical History HISTORY PAST MEDICAL HISTORY SOCIAL HISTORY History reviewed. No pertinent past medical history. Social History Tobacco Use Smoking status: Never Smokeless tobacco: Never Substance Use Topics Alcohol use: Never Drug use: Never FAMILY HISTORY Family History Problem Relation Name Age of Onset Bipolar disorder Mother Diabetes Other SURGICAL HISTORY Past Surgical History: Procedure Laterality Date UMBILICAL HERNIA REPAIR REVIEW OF SYSTEMS Review of Systems: Review of Systems Constitutional: Negative. HENT: Negative. Eyes: Negative. Respiratory: Negative. Cardiovascular: Negative. Gastrointestinal: Negative. Genitourinary: Negative. Musculoskeletal: Negative. Skin: Negative. Neurological: Negative. All other systems reviewed and are negative. Hematological: Negative. Endocrine: Negative. Allergic/Immunologic: Negative. OBJECTIVE Objective: Physical Exam Constitutional: Appearance: Normal appearance. She is well-developed. Cardiovascular: Rate and Rhythm: Normal rate and regular rhythm. Pulmonary: Effort: Pulmonary effort is normal. Breath sounds: Normal breath sounds. Abdominal: General: Bowel sounds are normal. There is no distension. Palpations: Abdomen is soft. Tenderness: There is no abdominal tenderness. There is no guarding or rebound. Musculoskeletal: General: No swelling. Normal range of motion. Right lower leg: No edema. Left lower leg: No edema. Neurological: Mental Status: She is alert and oriented to person, place, and time. Skin: General: Skin is warm and dry. Psychiatric: Mood and Affect: Mood normal. Behavior: Behavior normal. Vitals and nursing note reviewed. Exam conducted with a frame straightener present. Vitals: Estimated body mass index is 30.6 kg/m as calculated from the following: Height as of 4/23/24: 5' 3 . Weight as of this encounter: 172 lb 12 oz. BP: 112/76 Patient's last menstrual period was 12/02/2023. ASSESSMENT & PLAN ICD-10-CM 1. 28 weeks gestation of Z3A.28 POCT urinalysis dipstick manually resulted 2. Third trimester Z34.93 POCT urinalysis dipstick manually resulted Return OB: Patient presents today for a routine obstetrics appointment. Patient is currently 28w6d . Patient states she is doing well but has complaints of being tired due to current . Patient has verbalizes frequent movement. labor precautions was discussed/given and patient was instructed to perform kick counts three times a day. Orders Placed This Encounter Procedures POCT urinalysis dipstick manually resulted Follow Up: Patient is to return to office in 2 week for routine OB appointment. Documented by Umm Elizondo LPN on behalf of: Barbie Patiño DO documented in this encounter [facility] Evaluation note Note Date & Type Note Facility Evaluation note Diagnosis 28 weeks gestation of Third trimester state, incidental Diet controlled gestational diabetes mellitus (GDM) in third trimester documented in this encounter [facility] Evaluation note Note Date & Type Note Facility Evaluation note Diagnosis Blepharitis of left upper eyelid, unspecified type- Primary Allergic conjunctivitis of both eyes Other chronic allergic conjunctivitis Nausea and vomiting in Unspecified vomiting of , unspecified as to episode of care Seasonal allergic rhinitis due to pollen Third trimester state, incidental Gestational diabetes mellitus (GDM), antepartum, gestational diabetes method of control unspecified documented in this encounter [facility] Summary Purpose Family History No Family History Records FoundNo Family History Records Found Advance Directives No Advanced Directives Records FoundNo Advanced Directives Records Found Additional Source Comments INFORMATION SOURCE (unrecogn ized section and content) DATE CREATED AUTHOR 11/04/2022 [employer] DATE CREATED AUTHOR AUTHOR'S ORGANIZ ATION 07/07/2024 [facility] EPIC Care Teams (unrecognized sec tion and content) Hospital Coordinator Relationship Specialty Start Date End Date Jason Servin MD [address] [place] [address] [facility] 01/11/24 Jason Servin MD [address] [place] [phone] [facility] 12/20/23 Hospital Coordinator Relationship Specialty Start Date End Date Jason Servin MD [address] [place] [phone] [facility] 01/11/24 Jason Servin MD [address] [place] [phone] [facility] 12/20/23 Hospital Coordinator Relationship Specialty Start Date End Date Jason Servin MD [address] [place] [phone] [facility] 01/11/24 Jason Servin MD [address] [place] [phone] [facility] 12/20/23 Reason for Visit (unrecogniz ed section and content) Reason Comments Routine Visit FOR RECORDS PERTAINING TO PATIENTS WHO ARE [...] BE BASED ON THE PRIMARY CLINICAL RECORDS. [facility] [employer] [facility]. provides no warranty or guarantee of the accuracy or completeness of information in this document.
[2024-07-17 16:13] VITALS: BP 116/67; PULSE 88
--- NOTE | 2024-07-17 17:15 | US_ITS ---
[address] [address] Patient Name: ESTELLA CARRASQUILLO MRN: [facility]:[id number] date: 1995 Sex: F Assigned Patient Location: [facility] Current Patient Location: Accession/Order Number: [id number] Exam Date: 07/17/2024 17:20 Report Date: 07/18/2024 06:34 At the request of: BARBIE BRYAN Procedure: US OB BPP w non-stress EXAMINATION: US OB BPP w non-stress HISTORY:DIET CONTROLLED GDM O24.410 COMPARISON: Ultrasound OB growth 06/21/2024 TECHNIQUE: Ultrasound biophysical profile was performed in the radiology department. BREATHING MOVEMENTS: 2 GROSS BODY MOVEMENTS: 0 TONE: 2 QUALITATIVE AMNIOTIC FLUID VOLUME: 2 PRESENTATION: CEPHALIC HEART RATE: 156.98 bpm AMNIOTIC FLUID VOLUME: 11.91 cm GESTATIONAL AGE: 32 weeks 4 days US/US OB BPP w non-stress IMPRESSION: Total biophysical profile score: 6 Electronically authenticated by: EULOGIO RAMOS Date: 07/18/2024 06:34
== END 2024-07-17 18:10 | disposition home or self-care (01) ==
LOC: US 07:13 → FBC 16:06
PROVIDERS: PCP Family Medicine; Visit Provider Obstetrics & Gynecology
DX: O24.419 Gestational diabetes mellitus in pregnancy, unspecified control (principal); Z3A.32 32 weeks gestation of pregnancy
CPT/HCPCS: 76818

== ENCOUNTER 2024-07-18 13:01 | Outpatient (OUT) | payer OTHER, SELFPAY ==
--- NOTE | 2024-07-18 13:03 | US_ITS ---
[address] [address] Patient Name: ESTELLA CARRASQUILLO MRN: [id number] date: 1995 Sex: F Assigned Patient Location: [facility] Current Patient Location: Accession/Order Number: [id number] Exam Date: 07/18/2024 13:03 Report Date: 07/19/2024 05:14 At the request of: BARBIE BRYAN Procedure: US OB growth EXAMINATION: US OB growth HISTORY: GESTATIONAL DIABETES COMPARISON: Ultrasound OB growth 06/21/2024 FINDINGS: Heart Rate: 152 bpm Amniotic Fluid Volume: 14.2 cm; normal range. Number: 1 Position: CEPHALIC BIOMETRY: BPD: 8.55 cm; 34 weeks 3 days; 88 % HC: 29.94 cm; 33 weeks 1 day; 24.40 % AC: 28.80 cm; 32 weeks 6 days; 53.30 % FL: 6.34 cm; 32 weeks 5 days; 39.50 % EFW: 2204.70 g; 48.80 % FL/AC: 22.01 FL/BPD: 74.15 HC/AC: 1.04 GESTATIONAL AGE: Age by EDC: 32 weeks 5 days FAROOQ by EDC: 2024-09-07 Age by US: 32 weeks 6 days FAROOQ by US: 2024-09-06 US/US OB growth IMPRESSION: 1. Single live intrauterine with growth detailed above. Electronically authenticated by: EULOGIO RAMOS Date: 07/19/2024 05:14
--- OUTSIDE RECORDS SUMMARY | 2024-07-18 13:23 | XMS_ITS | CCD ---
Author Organization [facility] Care Team Providers Care Nurse Examiner Name Role Phone DR JASON SERVIN Primary [...] Unavailable Jason Servin MD Primary Care Provider [phone] Jason Servin MD Unavailable JOSÉ SANTOS Attending [...] UA Negative Negative - 4(70) +++ mg/dL [facility] Blood, UA Negative Negative - 50 Jackson/mcL [facility] Clarity, UA Clear [facility] re Color, UA Yellow [facility] Healthcar e Glucose, UA Negative Negative - 1999(110) ++++ mg/dL [facility] Interpretation and review of laboratory results Normal [facility] Ketones, UA Negative Negative - 160(16) ++++ mg/dL [facility] Leukocytes, UA Negative Negative - 500+++ Rosana/mcL [facility] Nitrite, UA Negative Negative - Positive [facility] pH, UA 6.5 5 - 9 [facility] e Protein, UA Negative Negative - 1999(20) ++++ mg/dL [facility] Spec Grav, UA 1.010 1 - 1.03 [facility] Urobilinogen, UA 0.2 0.2 - 12 mg/dL [facility] Health[facility] e STREPT SCREENon 11-03-2022 STREP SCREEN A Positive Abnormal NEGATIVE [facility] Comment on above: Performed By: #### S SCRN #### [facility] [address] [address] [address] Luis Harrison [facility]on 05-22 SARS-CoV-2 (COVID-19) RNA KALYANI+probe Ql (Unsp spec) Not detected Normal NOT DETECTED [facility] Comment on above: Result Comment: When [...] for this test is supported by the [employer] of Health and Human Service's declaration that [...] used). Performed By: #### C VDTBH #### [facility] [address] [place] [address] Dr. Luis Harrison GROUP A STREP CULTUREon 05-22 S. pyogenes Ag Ql (Unsp spec) Culture Observations: NEGATIVE FOR GROUP A STREPTOCOCCUS. Normal [facility] Comment on above: Performed By: #### G RASTCX, SSCRN #### [facility] [address] [place] [address] Dr. Luis Harrison STREPT SCREENon 06-18-2022 STREP SCREEN A Negative Normal NEGATIVE [facility] Comment on above: Performed By: #### G RASTCX, SSCRN #### [facility] [address] [place] [address] Dr. Luis Harrison CHLAMYDIA/GONOCOCCUS KALYANI (SW AB/URINE/PAPon 03-13-2022 Chlamydia trachomatis, KALYANI Negative Normal Negative [facility] Comment on above: Performed By: #### C T/NGNA #### [facility] [address] [place] [address] Dr. Luis Harrison Neisseria gonorrhoeae, KALYANI Negative Normal Negative [facility] Comment on above: Performed By: #### C T/NGNA #### [facility] [address] [place] [address] Dr. Luis Harrison VAGINITIS/VAGINOSIS DNA PROB Shantanu 03-13-2022 Alysha species Negative Normal Negative [facility] Comment on above: Performed By: #### V AGINT #### [facility] [address] [place] [address] Dr. Luis Harrison Gardnerella vaginalis Negative Normal Negative [facility] Comment on above: Performed By: #### V AGINT #### [facility] [address] [place] [address] Dr. Luis Harrison Trichomonas vaginalis Negative Normal Negative [facility] Comment on above: Performed By: #### V AGINT #### [facility] [address] [place] [address] Dr. Luis Harrison CULTURE URINEon 01-20-2022 CULTURE URINE Culture Observations: No growth Normal [facility] Comment on above: Performed By: #### U RCX #### [facility] [address] [place] [address] Dr. Luis Harrison ER URINE PROFILEon Bilirubin Ql (U) Negative Normal NEGATIVE [facility] Comment on above: Performed By: #### P ABDOULAYE CUMMINGS, ERUR #### [facility] [address] [place] [address] Dr. Luis Harrison Clarity (U) CLEAR Normal CLEAR [facility] Comment on above: Performed By: #### P ABDOULAYE CUMMINGS, ERUR #### [facility] [address] [place] [address] Dr. Luis Harrison Color (U) LT. YELLOW Normal YELLOW [facility] Comment on above: Performed By: #### P ABDOULAYE CUMMINGS, ERUR #### [facility] [address] [place] [address] Dr. Luis PACE A micrscopic examination will be performed if indicated. Normal [facility] Comment on above: Performed By: #### P ABDOULAYE CUMMINGS, ERUR #### [facility] [address] [place] [address] Dr. Luis Harrison Glucose Ql (U) Negative Normal NEGATIVE [facility] Comment on above: Performed By: #### P ABDOULAYE CUMMINGS, ERUR #### [facility] [address] [place] [address] Dr. Luis Harrison Hemoglobin Ql (U) TRACE-LYSED Abnormal NEGATIVE [facility] Comment on above: Performed By: #### P REGU, UMICRO, ERUR #### [facility] [address] [place] [address] Dr. Luis Harrison Ketones Ql (U) Negative [facility] Comment on above: Performed By: #### P REGU, UMICRO, ERUR #### [facility] [address] [place] [address] Dr. Luis Harrison LEUKOCYTES Negative Normal NEGATIVE [facility] Comment on above: Performed By: #### P REGU, UMICRO, ERUR #### [facility] [address] [place] [address] Dr. Luis Harrison Nitrite Ql (U) Negative [facility] Comment on above: Performed By: #### P REGU, UMICRO, ERUR #### [facility] [address] [place] [address] Dr. Luis Harrison pH (U) 6.0 [pH] Normal 5-9 [facility] Comment on above: Performed By: #### P REGU, UMICRO, ERUR #### [facility] [address] [place] [address] Dr. Luis Harrison SPEC GRAVITY <=1.005 Abnormal 1.005-<=1.025 [facility] Comment on above: Performed By: #### P REGU, UMICRO, ERUR #### [facility] [address] [place] [address] Dr. Luis Harrison UA PROTEIN Negative Normal NEGATIVE/ TRACE [facility] Comment on above: Performed By: #### P REGU, UMICRO, ERUR #### [facility] [address] [place] [address] Dr. Luis Harrison UR MICRO IND INDICATED Normal [facility] Comment on above: Performed By: #### P REGU, UMICRO, ERUR #### [facility] [address] [place] [address] Dr. Luis Harrison Urobilinogen Qn (U) 0.2 {Maritza'U}/dL Normal 0.2 - 1. 0 [facility] Comment on above: Performed By: #### P EVERTONUADBOULAYE, ERUR #### [facility] [address] [address] [address] Luis Harrison GROUP A STREP CULTUREon S. pyogenes Ag Ql (Unsp spec) Culture Observations: NEGATIVE FOR GROUP A STREPTOCOCCUS. Normal [facility] Comment on above: Performed By: #### S SCRN, GRASTCX #### [facility] [address] [place] [address] Dr. Luis Harrison URon 01-20-2022 , QUAL Negative Normal NEGATIVE [facility] Comment on above: Performed By: #### S SCRN, GRASTCX #### [facility] [address] [place] [address] Dr. Luis Harrison STREPT SCREENon 01-20-2022 STREP SCREEN A Negative Normal NEGATIVE [facility] Comment on above: Performed By: #### S SCRN, GRASTCX #### [facility] [address] [place] [address] Dr. Luis Harrison URINE MICROSCOPIC ONLYon BACTERIA TRACE Abnormal NONE SEEN [facility] Comment on above: Performed By: #### S SCRN, GRASTCX #### [facility] [address] [place] [address] Dr. Luis Harrison Bacteria identified Cx Nom (U) INDICATED Normal [facility] Comment on above: Performed By: #### S SCRN, GRASTCX #### [facility] [address] [place] [address] Dr. Luis Harrison CAST NONE SEEN Normal NONE SEEN [facility] Comment on above: Performed By: #### S SCRN, GRASTCX #### [facility] [address] [place] [address] Dr. Luis Harrison Crystals LM Nom (Urine sed) NONE SEEN Normal NONE SEEN [facility] Comment on above: Performed By: #### S SCRN, GRASTCX #### [facility] [address] [place] [address] Dr. Luis Harrison Epithelial cells LM Ql (Urine sed) RARE Normal NONE SEEN /RARE [facility] Comment on above: Performed By: #### S SCRN, GRASTCX #### [facility] [address] [place] [address] Dr. Lusi Harrison MUCOUS NONE SEEN Normal NONE SEEN [facility] Comment on above: Performed By: #### S SCRN, GRASTCX #### [facility] [address] [place] [address] Dr. Luis Harrison RBC 0-2 Normal 0-2 [facility] Comment on above: Performed By: #### S SCRN, GRASTCX #### [facility] [address] [place] [address] Dr. Luis Harrison WBC 0-2 Abnormal NONE SEEN [facility] Comment on above: Performed By: #### S SCRN, GRASTCX #### [facility] [address] [place] [address] Dr. Luis Harrison Vital Signs Date Time Vital Sign Value Performing Clinician Faci lity 06-21-2024 11:48-0400 Body mass index (BMI) [Ratio] 30.6 kg/m2 [place] Work Phone: [facility] 06-21-2024 11:48-0400 Body weight 78.36 kg Lolay Work Phone: [facility] 06-21-2024 11:48-0400 Diastolic blood pressure 76 mm[Hg] [employer] Work Phone: [facility] 06-21-2024 11:48-0400 Systolic blood pressure 112 mm[Hg] [employer] Work Phone: [facility] Healthcare Encounters Encounter Date Encounter Type Care Provider Facility Start: 07-05-2024 End: 07-05-2024 ambulatory HANNAH CERDA Not Available Start: 07-05-2024 End: 07-05-2024 Office outpatient visit 15 minutes Hannah Cerda PA Work Phone: [facility] Comment on above: Third trimester [...] Procedure [facility] [address] [place] [address] [facility] Start: 07-18-2024 End: 07-18-2024 Patient encounter procedure 07/18/2024 2:20 PM EDT Routine [facility] [address] [place] [id number] Hannah Cerda PA [address] [place], [place] [id number] [facility] Start: 07-18-2024 End: 07-18-2024 Professional / ancillary services management 07/18/2024 1:00 PM EDT Ancillary Procedure [facility] [address] [place] [address] [facility] Start: 07-05-2024 End: [...] Routine [facility] [address] [place] [address] Hannah Cerda, PA [address] [place], [place] [id number] [facility] Start: 06-21-2024 End: 06-21-2025 [...] [employer] [place] [id number] 2017-Present [address] [place] [id number] 2017 Medicaid (Managed Care) [facility] MEDICAID [id number] 1995 Unknown [id number] [id number]. 593 1995 Unknown [id number] 2.16840.1.934502.3.579.2. 593 1995 Unknown [id number] 2.16840.1.489239.3.579.2. 593 1995 Unknown [id number] 2.16840.1.863315.3.579.2. 593 1995 Unknown [id number] 2.16.840.1.869540.3.579.2. 1259 1995 Unknown [id number] 2.16840.1.444557.3.579.2. 1258 1995 Unknown [id number] 2.16.840.1.287843.3.579.2. 1258 1995 Unknown [id number] 2.16.840.1.347512.3.579.2. 1258 1995 Unknown [id number] 2.16.840.1.318550.3.579.2. 1258 1995 Unknown [id number] 2.16.840.1.461040.3.579.2. 1258 1995 Unknown [id number] 2.16.840.1.012825.3.579.2. 1258 1995 Unknown [id number] 2.16.840.1.982280.3.579.2. 1258 1995 Unknown [id number] 2.16.840.1.081023.3.579.2. 1259 1959 Unknown [id number] Social History Date Type Detail Facility Start: 01-07-2024 Tobacco smoking status [facility] Never sm oked tobacco [facility] Start: 01-07-2024 Tobacco use and exposure Smoke less tobacco non-user [facility] Start: 06-07-2024 End: 07-05-2024 Alcoholic beverage intake Lifetime non-drinker (finding) [facility] Start: 01-11-2024 History of Social function [facility] Start: 01-11-2024 Social connection an d isolation panel [facility] Do you belong to any clubs or organizations such as rastafarian groups, unions, fraternal or athletic groups, or [...] meal for a total of 4times daily. [id number] Start: 06-07-2024 End: 07-07-2024 1 each by In Vit ro route Daily Use to check FSBS four times daily [id number] Start: 06-07-2024 End: 07-07-2024 History of Present [...] carpal tunnel syndrome 01/11/2024 Generalized anxiety disorder ([facility]) 01/11/2024 Genital herpes in women 01/11/2024 Mild intermittent asthma without complication ([facility]) 01/11/2024 Multiple pigmented nevi 01/11/2024 Thyromegaly ([facility]) 01/11/2024 Umbilical hernia without obstruction or [...] week for routine OB appointment. Documented by NARENDRA Christensen on behalf of: NARENDRA Christensen documented [...] carpal tunnel syndrome 01/11/2024 Generalized anxiety disorder ([facility]) 01/11/2024 Genital herpes in women 01/11/2024 Mild intermittent asthma without complication ([facility]) 01/11/2024 Multiple pigmented nevi 01/11/2024 Thyromegaly ([facility]) 01/11/2024 Umbilical hernia without obstruction or [...] nursing note reviewed. Exam conducted with a jacquard plate maker present. Vitals: Estimated body mass index is [...] DATE CREATED AUTHOR AUTHOR'S ORGANIZ ATION 07/07/2024 [facility] [employer] Care Teams (unrecognized sec tion and content) Nurse Examiner Relationship Specialty Start Date End Date Jason Servin MD [address] [place] [address] [facility] 01/11/24 Jason Servin MD [address] [place] [address] [facility] 12/20/23 Nurse Examiner Relationship Specialty Start Date End Date Jason Servin MD [address] [place] [address] [facility] 01/11/24 Jason Servin MD [address] [place] [address] [facility] 12/20/23 Nurse Examiner Relationship Specialty Start Date End Date Jason Servin MD [address] [place] [address] [facility] 01/11/24 Jason Servin MD [address] [place] [address] [facility] 12/20/23 Reason for Visit (unrecogniz ed section [...] BE BASED ON THE PRIMARY CLINICAL RECORDS. [facility] [employer] [facility]. provides no warranty or guarantee of the accuracy or completeness of information in this document.
== END 2024-07-18 13:02 | disposition home or self-care (01) ==
LOC: NOMS 13:01
PROVIDERS: PCP Family Medicine; Visit Provider Obstetrics & Gynecology
DX: O24.410 Gestational diabetes mellitus in pregnancy, diet controlled (principal); Z3A.32 32 weeks gestation of pregnancy
CPT/HCPCS: 76816

== ENCOUNTER 2024-07-20 07:07 | Outpatient (OUT) | payer OTHER, SELFPAY ==
--- OUTSIDE RECORDS SUMMARY | 2024-07-20 07:09 | XMS_ITS | CCD ---
Author Organization [facility] Care Team Providers Care Press Breaker Name Role Phone DR JASON SERVIN Primary Care Unavailable HAY, DR DONALD Attending Unavailable HAY, DR DONALD Consulting Unavailable HAY, DR DONALD Admitting Unavailable NADERER, DR JASON Santillan Primary Care Unavailable KARASIK, [...] Servin MD Unavailable JOSÉ SANTOS Attending Unavailable FIFIERETaylor, JASON Attending Unavailable KAYLYN, BARBIE Attending Unavailable ZAIDA, HANNAH Attending Unavailable KAYLYN, BARBIE Attending Unavailable ZAIDA, HANNAH Attending Unavailable KAYLYN, BARBIE Attending Unavailable ZAIDA, HANNAH Attending Unavailable ZAIDA, HANNAH Attending Unavailable Medications Current Medications Medication Drug Class(es) Dates Sig (Normalized) Sig (Original) Blood Glucose Monitoring Suppl ([employer] Glucometer) w/Device kit (7 sources) Start: 06-07-2024 End: 06-07-2025 Blood Glucose [...] Active isopropyl alcohol 0.7 ml/ml medicated pad (7 sources) Start: 06-07-2024 Alcohol Swabs (Alcohol Prep Pad) 70 % pads Indications: Elevated glucose tolerance test , Gestational diabetes mellitus (GDM), antepartum, gestational diabetes method of control unspecified Apply 1 Pad topically Daily Use four times daily to check FSBS. 150 each 3 06/07/2024 Active ondansetron 4 mg disintegrating oral tablet (7 sources) Serotonin-3 Receptor Antagonist Start: 05-16-2024 ondansetron ODT (Zofran-ODT) 4 MG disintegrating tablet Indications: Vomiting of , unspecified DISSOLVE 1 TABLET UNDER TONGUE EVERY 6 HOURS IF NEEDED FOR NAUSEA OR VOMITING 30 tablet 3 05/16/2024 Active Vit-Fe Fumarate-FA ( Plus/Iron) 27-1 MG tablet (7 sources) Start: 03-01-2024 End: 03-01-2025 take 1 tablet by mouth once daily Vit-Fe Fumarate-FA ( Plus/Iron) 27-1 MG tablet Indications: First trimester Take 1 tablet by mouth Daily 90 tablet 2 03/01/2024 03/01/2025 Active valACYclovir 1000 mg oral tablet (7 sources) Herpesvirus Nucleoside Analog DNA Polymerase Inhibitor, [...] Date Documented Da te Episodic/Chronic Anxiety disorders (7 sources) Generalized anxiety disorder; Translations: [Generalized anxiety disorder] Onset: 01-11-2024 01-11-2024 Chronic Asthma (7 sources) Mild intermittent asthma; Translations: [Mild intermittent asthma, uncomplicated] Onset: 01-11-2024 01-11-2024 Chronic Diabetes or abnormal glucose tolerance complicating ; childbirth; or the puerperium (4 sources) Gestational diabetes mellitus; Translations: [Gestational diabetes mellitus in , diet controlled] 06-21-2024 Episodic Other nervous system disorders (7 sources) Bilateral carpal tunnel syndrome; Translations: [Carpal tunnel syndrome, bilateral upper limbs] Onset: 01-11-2024 01-11-2024 Chronic Other and delivery including normal (6 sources) Third trimester ; Translations: [Encounter for supervision of normal , unspecified, third trimester] 06-21-2024 Episodic Other upper respiratory disease (7 sources) Allergic rhinitis due to pollen; Translations: [Allergic rhinitis due to pollen] Onset: 01-11-2024 01-11-2024 Chronic Other upper respiratory infections (6 sources) Acute pharyngitis, unspecified; Translations: [Streptococcal pharyngitis] Onset: 01-21-2022 Episodic Residual codes; unclassified (2 sources) Gestation period, 28 weeks; Translations: [28 weeks gestation of ] 06-21-2024 Episodic Residual codes; unclassified (2 sources) Gestation period, 32 weeks; Translations: [32 weeks gestation of ] 07-18-2024 Episodic Thyroid disorders (7 sources) Goiter; Translations: [Iodine-deficiency related diffuse (endemic) goiter] Onset: 01-11-2024 01-11-2024 Chronic Unclassified (1 source) CONTACT W/AND (SUSP) EXPOS COVID-19; Translations: [CONTACT W/AND (SUSP) EXPOS COVID-19] Onset: 06-19-2022 Viral infection (7 sources) Herpes simplex of female genitalia; Translations: [Herpesviral infection of other urogenital tract] Onset: 01-11-2024 01-11-2024 Chronic Past or Other Problems Problem Classification Problem Date Documented Date Episodic/Chronic Abdominal hernia (7 sources) Umbilical hernia; Translations: [Umbilical hernia without [...] that caused by tuberculosis or sexually transmitteddisease) (14 sources) Blepharitis of left upper eyelid; Translations: [Unspecified blepharitis left upper eyelid] Onset: 01-11-2024 01-11-2024 Episodic Other and unspecified benign neoplasm (7 sources) Melanocytic nevus; Translations: [Melanocytic nevi, unspecified] Onset: 01-11-2024 01-11-2024 Episodic Other complications of (7 sources) Vomiting of , unspecified; Translations: [Unspecified [...] Facil ity Urinalysis macro (dipstick) panel (U)on 07-18-2024 Bilirubin, UA Negative Negative - 4(70) +++ mg/dL [facility] Blood, UA Negative Negative - 50 Jackson/mcL [facility] Clarity, UA Clear [facility] re Color, UA Yellow [facility] Glucose, UA Negative Negative - 1999(110) ++++ mg/dL [facility] Interpretation and review of laboratory results Normal [facility] Ketones, UA Negative Negative - 160(16) ++++ mg/dL [facility] Leukocytes, UA Negative Negative - 500+++ Rosana/mcL [facility] Nitrite, UA Negative Negative - Positive [facility] pH, UA 7 5 - 9 [facility] e Protein, UA Negative Negative - 1999(20) ++++ mg/dL [facility] Spec Grav, UA 1.02 1 - 1.03 [facility] Urobilinogen, UA 0.2 0.2 - 12 mg/dL [facility] Urinalysis macro (dipstick) panel (U)on 06-21-2024 Bilirubin, UA Negative Negative - 4(70) +++ mg/dL [facility] Blood, UA Negative Negative - 50 Jackson/mcL [facility] Clarity, UA Clear [facility] re Color, UA Yellow [facility] Glucose, UA Negative Negative - 1999(110) ++++ mg/dL [facility] Interpretation and review of laboratory results Normal [facility] Ketones, UA Negative Negative - 160(16) ++++ mg/dL [facility] Leukocytes, UA Negative Negative - 500+++ Rosana/mcL [facility] Nitrite, UA Negative Negative - Positive [facility] pH, UA 6.5 5 - 9 [facility], [facility]A Negative Negative - 2000(20) ++++ mg/dL [facility] Spec Grav, UA 1.010 1 - 1.03 [facility] care Urobilinogen, UA 0.2 0.2 - 12 mg/dL [facility] STREPT SCREENon 11-03-2022 STREP SCREEN A Positive Abnormal NEGATIVE [facility] Comment on above: Performed By: #### S SCRN #### [facility] [address], [place] [address] Dr. Luis Harrison Covid-19 PCR ([facility])on 05-22 SARS-CoV-2 (COVID-19) RNA KALYANI+probe Ql (Unsp spec) Not detected Normal NOT DETECTED [facility] Comment on above: Result Comment: When [...] for this test is supported by the [place] of Health and Human Service's declaration that [...] used). Performed By: #### C VDTBH #### [facility] [address], [place] [address] Dr. Luis Harrison GROUP A STREP CULTUREon 05-22 S. pyogenes Ag Ql (Unsp spec) Culture Observations: NEGATIVE FOR GROUP A STREPTOCOCCUS. Normal [facility] Comment on above: Performed By: #### G RASTCX, SSCRN #### [facility] [address] [place] [address] Dr. Luis Harrison STREPT SCREENon 06-18-2022 STREP SCREEN A Negative Normal NEGATIVE [facility] Comment on above: Performed By: #### G RASTCX, SSCRN #### [facility] [address] [place] [address] Dr. Luis Harrison CHLAMYDIA/GONOCOCCUS KALYANI (SW AB/URINE/PAPon 03-13-2022 Chlamydia trachomatis, KALYANI Negative Normal Negative [facility] Comment on above: Performed By: #### C T/NGNA #### [facility] [address] [place] [address] Dr. Luis Harrison Neisseria gonorrhoeae, KALYANI Negative Normal Negative [facility] Comment on above: Performed By: #### C T/NGNA #### [facility] [address] [place] [address] Dr. Luis Harrison VAGINITIS/VAGINOSIS DNA PROB Shantanu 03-13-2022 Alysha species Negative Normal Negative [facility] Comment on above: Performed By: #### V AGINT #### [facility] [address] [place] [address] Dr. Luis Harrison Gardnerella vaginalis Negative Normal Negative [facility] Comment on above: Performed By: #### V AGINT #### [facility] [address] [place] [address] Dr. Luis Harrison Trichomonas vaginalis Negative Normal Negative [facility] Comment on above: Performed By: #### V AGINT #### [facility] [address] [place] [address] Dr. Luis Harrison CULTURE URINEon 01-20-2022 CULTURE URINE Culture Observations: No growth Normal [facility] Comment on above: Performed By: #### U RCX #### [facility] [address] [place] [address] Dr. Luis Harrison ER URINE PROFILEon Bilirubin Ql (U) Negative Normal NEGATIVE [facility] Comment on above: Performed By: #### P REGUABDOULAYE, ERUR #### [facility] [address] [place] [address] [address] Luis Harrison Clarity (U) CLEAR Normal CLEAR [facility] Comment on above: Performed By: #### P ABDOULAYE CUMMINGS, ERUR #### [facility] [address] [address] [address] Luis Harrison Color (U) LT. YELLOW Normal YELLOW [facility] Comment on above: Performed By: #### P ABDOULAYE CUMMINGS, ERUR #### [facility] [address] [address] [address] Luis PACE A micrscopic examination will be performed if indicated. Normal [facility] Comment on above: Performed By: #### ABDOULAYE QUISPE, ERUR #### [facility] [address] [place] [place] [address] Dr. Luis Harrison Glucose Ql (U) Negative Normal NEGATIVE [facility] Comment on above: Performed By: #### P ABDOULAYE CUMMINGS, ERUR #### [facility] [address] [place] [address] Dr. Luis Harrison Hemoglobin Ql (U) TRACE-LYSED Abnormal NEGATIVE [facility] Comment on above: Performed By: #### P ABDOULAYE CUMMINGS, ERUR #### [facility] [address] [place] [place] [address] Dr. Luis Harrison Ketones Ql (U) Negative Normal NEGATIVE [facility] Comment on above: Performed By: #### P NAVARRO CUMMINGSRO, ERUR #### [facility] [address] [address] [address] Luis Harrison LEUKOCYTES Negative Normal NEGATIVE [facility] Comment on above: Performed By: #### P REGUMINDIICRO, ERUR #### [facility] [address] [place] [address] Dr. Luis Harrison Nitrite Ql (U) Negative Normal NEGATIVE [facility] Comment on above: Performed By: #### P REGUABDOULAYE, ERUR #### [facility] [address] [place] [place] [address] Dr. Luis Harrison pH (U) 6.0 [pH] Normal 5-9 [facility] Comment on above: Performed By: #### P ABDOULAYE CUMMINGS ERUR #### [facility] [address] [place] [address] Dr. Luis Harrison SPEC GRAVITY <=1.005 Abnormal 1.005-<=1.025 [facility] Comment on above: Performed By: #### P ABDOULAYE CUMMINGS, ERUR #### [facility] [address] [address] [address] Luis Harrison UA PROTEIN Negative Normal NEGATIVE/ TRACE [facility] Comment on above: Performed By: #### P ABDOULAYE CUMMINGS ERUR #### [facility] [address] [place] [place] [address] Dr. Luis Harrison UR MICRO IND INDICATED Normal [facility] Comment on above: Performed By: #### ABDOULAYE QUISPE, HONGR #### [facility] [address] [place] [place] [address] Dr. Luis Harrison Urobilinogen Qn (U) 0.2 {Maritza'U}/dL Normal 0.2 - 1. 0 [facility] Comment on above: Performed By: #### ABDOULAYE QUISPE ERUR #### [facility] [address] [place] [address] Dr. Luis Harrison GROUP A STREP CULTUREon S. pyogenes Ag Ql (Unsp spec) Culture Observations: NEGATIVE FOR GROUP A STREPTOCOCCUS. Normal [facility] Comment on above: Performed By: #### S SCRN, GRASTCX #### [facility] [address] [place] [place] [address] Dr. Luis Harrison URon 01-20-2022 , QUAL Negative Normal NEGATIVE [facility] Comment on above: Performed By: #### S SCRN, GRASTCX #### [facility] [address] [place] [place] [address] Dr. Luis Harrison STREPT SCREENon 01-20-2022 STREP SCREEN A Negative Normal NEGATIVE [facility] Comment on above: Performed By: #### S SCRN, GRASTCX #### [facility] [address] [place] [address] Dr. Luis Harrison URINE MICROSCOPIC ONLYon BACTERIA TRACE Abnormal NONE SEEN [facility] Comment on above: Performed By: #### S SCRN, GRASTCX #### [facility] [address] [place] [address] Dr. Luis Harrison Bacteria identified Cx Nom (U) INDICATED Normal [facility] Comment on above: Performed By: #### S SCRN, GRASTCX #### [facility] [address] [place] [address] Dr. Luis Harrison CAST NONE SEEN Normal NONE SEEN [facility] Comment on above: Performed By: #### S SCRN, GRASTCX #### [facility] [address] [place] [address] Dr. Luis Harrison Crystals LM Nom (Urine sed) NONE SEEN Normal NONE SEEN [facility] Comment on above: Performed By: #### S SCRN, GRASTCX #### [facility] [address] [place] [address] Dr. Luis Harrison Epithelial cells LM Ql (Urine sed) RARE Normal NONE SEEN /RARE [facility] Comment on above: Performed By: #### S SCRN, GRASTCX #### [facility] [address] [place] [address] Dr. Luis Harrison MUCOUS NONE SEEN Normal NONE SEEN [facility] Comment on above: Performed By: #### S SCRN, GRASTCX #### [facility] [address] [place] [address] Dr. Luis Harrison RBC 0-2 Normal 0-2 [facility] Comment on above: Performed By: #### S SCRN, GRASTCX #### [facility] [address] [place] [address] Dr. Luis Harrison WBC 0-2 Abnormal NONE SEEN [facility] Comment on above: Performed By: #### S SCRN, GRASTCX #### [facility] [address] [place] [address] Dr. Luis Harrison Vital Signs Date Time Vital Sign Value Performing Clinician Faci lity 07-18-2024 13:46-0400 Body mass index (BMI) [Ratio] 30.65 kg/m2 Hannah MACKEY Work Phone: [facility] 07-18-2024 13:46-0400 Body weight 78.47 kg Hannah MACKEY Work Phone: [facility] 07-18-2024 13:46-0400 Diastolic blood pressure 68 mm[Hg] Hannah MACKEY Work Phone: [facility] 07-18-2024 13:46-0400 Systolic blood pressure 112 mm[Hg] Hannah MACKEY Work Phone: [facility] 06-21-2024 11:48-0400 Body mass index (BMI) [Ratio] 30.6 kg/m2 Barbie Kaylyn DO Work Phone: [facility] 06-21-2024 11:48-0400 Body weight 78.36 kg Barbie Kaylyn DO Work Phone: [facility] 06-21-2024 11:48-0400 Diastolic blood pressure 76 mm[Hg] Barbie Kaylyn DO Work Phone: [facility] 06-21-2024 11:48-0400 Systolic blood pressure 112 mm[Hg] Barbie Kaylyn DO Work Phone: [facility] Healthcare Encounters Encounter Date Encounter Type Care Provider Facility Start: 07-18-2024 End: 07-18-2024 Office outpatient visit 15 minutes Hannah MACKEY Work Phone: [facility] Comment on above: Third trimester preg otis; 32 weeks gestation of Start: 07-18-2024 End: 07-18-2024 ambulatory HANNAH CERDA Not Available Start: 07-05-2024 End: 07-05-2024 ambulatory HANNAH CERDA Not Available Start: 07-05-2024 End: 07-05-2024 Office outpatient visit 15 minutes Hannah MACKEY Work Phone: [facility] [...] Date Procedure Procedure Detail Performing Clinician Start: 07-18-2024 Urnls dip stick/tabl et rgnt non-auto w/o micrscp Hannah Cerda PA Work Phone: Start: 06-21-2024 Urnls dip stick/tabl et rgnt non-auto w/o micrscp Barbie Patiño DO Work Phone: Plan of Treatment Date Care Activity Detail Author Start: 08-14-2024 End: 08-14-2024 Professional / ancillary services management 08/14/2024 3:00 PM EST Ancillary Procedure [facility] [address] [facility] [place] [address] [facility] Start: 08-03-2024 End: 08-03-2024 Patient encounter procedure 08/03/2024 11:40 AM EST Routine [facility] [address] [place] [address] Barbie Patiño, DO [address] [place], [place] [id number] [facility] Start: 07-19-2024 End: 07-19-2024 Professional / ancillary services management 07/19/2024 1:00 PM EDT Ancillary Procedure [facility] [address] [place] [address] [facility] Start: 07-18-2024 End: 07-18-2024 Patient encounter procedure 07/18/2024 2:20 PM EDT Routine [facility] [address] [place] [address] Hannah Cerda PA [address] [place], [place] [id number] [facility] Start: 07-18-2024 End: 07-18-2024 Professional / ancillary services management 07/18/2024 1:00 PM EDT Ancillary Procedure [facility] [address] [place] [address] [facility] Start: 07-05-2024 End: [...] PM EDT Routine [facility] [address] [facility] [id number] Hannah Cerda PA [address] [place] [address] [facility] Start: 06-21-2024 End: 06-21-2025 US for US OB SCAN FOR GROWTH Imaging Routine Diet controlled gestational diabetes mellitus (GDM) in third trimester Expected: 06/21/2024 (Approximate), Expires: 06/21/2025 [facility] Work Phone: Comment on above: Expected: 06/21/2024 (Approximate), Expires: 06/21/2025 Start: 05-21-2024 Influenza vaccination Influenza Vacc ine (#1) [facility] Healthcare Payers Date Payer Category Payer Medicaid [employer] [place] [employer] [id number] 2017-Present [address] [place] [id number] 2017 Medicaid (Managed Care) [facility] MEDICAID [id number] 1995 Unknown [id number] [id number]. 593 1995 Unknown [id number] [id number]. 593 1995 Unknown [id number] 2.16.840.1.026281.3.579.2. 593 1995 Unknown [id number] 2.16.840.1.141462.3.579.2. 593 1995 Unknown [id number] 2.16.840.1.112890.3.579.2. 1258 1995 Unknown [id number] 2.16.840.1.786167.3.579.2. 9 1995 Unknown [id number] [id number]. 1258 1995 Unknown [id number] 2.16.840.1.028424.3.579.2. 1258 1995 Unknown [id number] 2.16.840.1.828550.3.579.2. 1258 1995 Unknown [id number] 2.16.840.1.000726.3.579.2. 9 1995 Unknown [id number] [id number]. 1258 1995 Unknown [id number] 2.16.840.1.085039.3.579.2. 1258 1995 Unknown [id number] 2.16.840.1.070364.3.579.2. 1258 1995 Unknown [id number] [id number]. 1259 1959 Unknown [id number] Social History Date Type Detail Facility Start: 01-07-2024 Tobacco smoking status AKIS Never sm oked tobacco [facility] Start: 01-07-2024 Tobacco use and exposure Smoke less tobacco non-user [facility] Start: 06-07-2024 End: 07-18-2024 Alcoholic beverage intake Lifetime non-drinker (finding) [facility] Start: 01-11-2024 History of Social function [facility] Start: 01-11-2024 Social connection an d isolation panel [facility] Do you belong to any clubs or organizations such as gnosticist groups, unions, fraternal or athletic groups, or [...] Only a little [facility] (I/We) worried whenilay er (my/our) food would run out before (I/we) got money to buy more. Never true [facility] Start: 12-16-2023 [facility] Start: 1995 Sex assigned at Not on file [facility] Medical Equipment Procedure Code Equipment Code Equipment Origin al Text Equipment Identifier Dates 1 strip by In Vi tro route Daily Use in the morning prior to breakfast, 1 hour after each meal for a total of 4times daily. [id number] Start: 06-07-2024 End: 07-07-2024 1 each by In Vit ro route Daily Use to check FSBS four times daily [id number] Start: 06-07-2024 End: 07-07-2024 History of Present illness Narrative 07-18-2024 NARENDRA Christensen - 07/18/2024 2:20 PM EDT Note Date & Type Note Facility 07-18-2024 History of Presen t illness Narrative Reason for Appointment: Patient ID: Claribel Buckner is a 29 y.o. female who presents for Routine Visit Patient presents today for Return OB appointment. MEDICATIONS Current Outpatient Medications Medication Instructions Alcohol Swabs (Alcohol Prep Pad) 70 % pads 1 Pad, Topical, Daily, Use four times daily to check FSBS. Blood Glucose Monitoring Suppl ([employer] Glucometer) w/Device kit 1 kit, Does not apply, Daily, Use four times daily to check FSBS. In the morning prior to breakfast & 1 hour after each meal for a total of 4times daily. ondansetron ODT (Zofran-ODT) 4 MG disintegrating tablet DISSOLVE 1 TABLET UNDER TONGUE EVERY 6 HOURS IF NEEDED FOR NAUSEA OR VOMITING Vit-Fe Fumarate-FA ( Plus/Iron) 27-1 MG tablet 1 tablet, Oral, Daily valACYclovir (VALTREX) 1,000 mg, Oral, Daily ALLERGIES No Known Allergies PROBLEMS Active Ambulatory Problems Diagnosis Date Noted Bilateral carpal tunnel syndrome 01/11/2024 Generalized anxiety disorder (CMS/HCC) 01/11/2024 Genital herpes in women 01/11/2024 Mild intermittent asthma without complication ([facility]) 01/11/2024 Multiple pigmented nevi 01/11/2024 Thyromegaly ([facility]/HCC) 01/11/2024 Umbilical hernia without obstruction or gangrene [...] reviewed. Vitals: Estimated body mass index is 30.65 kg/m as calculated from the following: Height as of 01/11/24: 5' 3 . Weight as of this encounter: 173 lb. BP: 112/68 Patient's last menstrual period was 12/02/2023. ASSESSMENT & PLAN ICD-10-CM 1. Third trimester Z34.93 POCT urinalysis dipstick manually resulted 2. 32 weeks gestation of Z3A.32 Return OB: Patient presents today for a routine obstetrics appointment. Patient is currently 32w5d . Patient states she is doing well [...] week for routine OB appointment. Documented by Gill De Luna on behalf of: NARENDRA Christensen documented in this encounter [facility] History of Present illness Narrative 07-05-2024 NARENDRA [...] carpal tunnel syndrome 01/11/2024 Generalized anxiety disorder (CMS/HCC) 01/11/2024 Genital herpes in women 01/11/2024 Mild intermittent asthma without complication (CMS/HCC) 01/11/2024 Multiple pigmented nevi 01/11/2024 Thyromegaly (CMS/HCC) 01/11/2024 Umbilical hernia without obstruction or gangrene [...] History of Present illness Narrative 06-21-2024 Umm Elizondo LPN - 06/21/2024 11:30 AM EDT Note Date [...] carpal tunnel syndrome 01/11/2024 Generalized anxiety disorder ([facility]) 01/11/2024 Genital herpes in women 01/11/2024 Mild intermittent asthma without complication ([facility]) 01/11/2024 Multiple pigmented nevi 01/11/2024 Thyromegaly ([facility]) 01/11/2024 Umbilical hernia without obstruction or [...] nursing note reviewed. Exam conducted with a potato seed cutter present. Vitals: Estimated body mass index is 30.6 kg/m as calculated from the following: Height as of 01/11/24: 5' 3 . Weight as of this [...] unspecified documented in this encounter [facility] Evaluation note Note Date & Type Note Facility Evaluation note Diagnosis Blepharitis of left upper eyelid, unspecified type- Primary Allergic conjunctivitis of both eyes Other chronic allergic conjunctivitis Nausea and vomiting in Unspecified vomiting of , unspecified as to episode of care Seasonal allergic rhinitis due to pollen Third trimester state, incidental 32 weeks gestation of documented in this encounter [facility] Summary Purpose Family History No Family History Records FoundNo Family History Records Found Advance Directives No Advanced Directives Records FoundNo Advanced Directives Records Found Additional Source Comments INFORMATION SOURCE (unrecogn ized section and content) DATE CREATED AUTHOR 11/04/2022 [facility] DATE CREATED AUTHOR AUTHOR'S ORGANIZ ATION 07/20/2024 [facility] Care Teams (unrecognized sec tion and content) Press Breaker Relationship Specialty Start Date End Date Jason Servin MD [address] [place] [address] PCP - General Family Medicine 01/11/24 Jason Servin MD [address] [place] [address] PCP - [facility] 12/20/23 Press Breaker Relationship Specialty Start Date End Date Jason Servin MD [address] [place] [address] PCP - General Family Medicine 01/11/24 Jason Servin MD [address] [place] [address] PCP - [facility] 12/20/23 Press Breaker Relationship Specialty Start Date End Date Jason Servin MD [address] [place] [address] PCP - [facility] 01/11/24 Jason Servin MD [address] [place] [address] [facility] 12/20/23 Press Breaker Relationship Specialty Start Date End Date Jason Servin MD [address] [place] [address] PCP - [facility] 01/11/24 Jason Servin MD [address] [place] [address] [facility] - [facility] 12/20/23 Reason for Visit (unrecogniz ed section [...] BE BASED ON THE PRIMARY CLINICAL RECORDS. [facility]. provides no warranty or guarantee of the accuracy or completeness of information in this document.
--- NOTE | 2024-07-20 16:14 | US_ITS ---
[address] [address] Patient Name: ESTELLA CARRASQUILLO MRN: [id number] date: 1995 Sex: F Assigned Patient Location: [facility] Current Patient Location: Accession/Order Number: [id number] Exam Date: 07/20/2024 16:20 Report Date: 07/21/2024 08:01 At the request of: BARBIE BRYAN Procedure: US OB BPP w non-stress EXAMINATION: US OB BPP w non-stress HISTORY: REPEAT BPP 02/25 FOR MOVEMENT ON 07/17 COMPARISON: No relevant comparison available. TECHNIQUE: Ultrasound biophysical profile was performed in the radiology department. non-reactive stress testing was performed by nursing staff in the birthing center. FINDINGS: BREATHING MOVEMENTS: 2 GROSS BODY MOVEMENTS: 2 TONE: 2 QUALITATIVE AMNIOTIC FLUID VOLUME: 2 PRESENTATION: CEPHALIC HEART RATE: 148.35 bpm AMNIOTIC FLUID VOLUME: 12.1cm GESTATIONAL AGE: 33 weeks, 0 days US/US OB BPP w non-stress IMPRESSION: Total biophysical profile score: 8 Electronically authenticated by: CAREY HUFF Date: 07/21/2024 08:01
[2024-07-20 17:24] VITALS: BP 102/58; PULSE 93
== END 2024-07-20 18:12 | disposition home or self-care (01) ==
LOC: US 07:07 → FBC 16:11
PROVIDERS: PCP Family Medicine; Visit Provider Obstetrics & Gynecology
DX: O24.419 Gestational diabetes mellitus in pregnancy, unspecified control (principal); Z3A.33 33 weeks gestation of pregnancy
CPT/HCPCS: 76818

== ENCOUNTER 2024-07-23 19:02 | Emergency (ER) | payer OTHER, SELFPAY ==
[2024-07-23 19:08] VITALS: BP 146/82; PULSE 109; TEMP 36.8; O2SAT 98; BMI 30.6
--- OUTSIDE RECORDS SUMMARY | 2024-07-23 19:09 | XMS_ITS | CCD ---
Author Organization [facility] Care Team Providers Care Director Specialty Name Role Phone DR JASON SERVIN Primary [...] UA Negative Negative - 4(70) +++ mg/dL [facility] Blood, UA Negative Negative - 50 Jackson/mcL [facility] Clarity, UA Clear [facility] re Color, UA Yellow [facility] Glucose, UA Negative Negative - 1999(110) ++++ mg/dL [facility] Interpretation and review of laboratory results Normal [facility] Ketones, UA Negative Negative - 160(16) ++++ mg/dL [facility] Leukocytes, UA Negative Negative - 500+++ Rosana/mcL [facility] Nitrite, UA Negative Negative - Positive [facility] pH, UA 7 5 - 9 [facility] Protein, UA Negative Negative - 1999(20) ++++ mg/dL [facility] Spec Grav, UA 1.02 1 - 1.[address] [facility] Urobilinogen, UA 0.2 0.2 - 12 mg/dL [facility] Urinalysis macro (dipstick) panel (U)on 06-21-2024 Bilirubin, UA Negative Negative - 4(70) +++ mg/dL [facility] Blood, UA Negative Negative - 50 Jackson/mcL [facility] Clarity, UA Clear [facility] Health[facility] re Color, UA Yellow [facility] Glucose, UA Negative Negative - 1999(110) ++++ mg/dL [facility] Interpretation and review of laboratory results Normal [facility] Ketones, UA Negative Negative - 160(16) ++++ mg/dL [facility] Leukocytes, UA Negative Negative - 500+++ Rosana/mcL [facility] Nitrite, UA Negative Negative - Positive [facility] pH, UA 6.5 5 - 9 [facility], UA Negative Negative - 2000(20) ++++ mg/dL [facility] Spec Grav, UA 1.010 1 - 1.03 [facility] care Urobilinogen, UA 0.2 0.2 - 12 mg/dL [facility] STREPT SCREENon 11-03-2022 STREP SCREEN A Positive Abnormal NEGATIVE [facility] Comment on above: Performed By: #### S SCRN #### [facility] [address] [place], [place] [address] Dr. Luis Harrison Covid-19 PCR ([facility])on 05-22 SARS-CoV-2 (COVID-19) RNA KALYANI+probe Ql (Unsp spec) Not detected Normal NOT DETECTED [facility] Comment on above: Result Comment: When [...] for this test is supported by the [place] of Health and Human Service's declaration that [...] used). Performed By: #### C VDTBH #### [facility] [address] [place], [place] [address] Dr. Luis Harrison GROUP A STREP CULTUREon 05-22 S. pyogenes Ag Ql (Unsp spec) Culture Observations: NEGATIVE FOR GROUP A STREPTOCOCCUS. Normal [facility] Comment on above: Performed By: #### G RASTCX, SSCRN #### [facility] [address] [place] [address] Dr. Luis Harrison STREPT SCREENon 06-18-2022 STREP SCREEN A Negative Normal NEGATIVE [facility] Comment on above: Performed By: #### G RASTCX, SSCRN #### [facility] [address] [place] [address] Dr. Luis Harrison CHLAMYDIA/GONOCOCCUS KALYANI (SW AB/URINE/PAPon 03-13-2022 Chlamydia trachomatis, KALYANI Negative Normal Negative [facility] Comment on above: Performed By: #### C T/NGNA #### [facility] [address] [place] [address] Dr. Luis Harrison Neisseria gonorrhoeae, KALYANI Negative Normal Negative [facility] Comment on above: Performed By: #### C T/NGNA #### [facility] [address] [place] [address] Dr. Luis Harrison VAGINITIS/VAGINOSIS DNA PROB Shantanu 03-13-2022 Alysha species Negative Normal Negative [facility] Comment on above: Performed By: #### V AGINT #### [facility] [address] [place] [address] Dr. Luis Harrison Gardnerella vaginalis Negative Normal Negative [facility] Comment on above: Performed By: #### V AGINT #### [facility] [address] [place] [address] Dr. Luis Harrison Trichomonas vaginalis Negative Normal Negative [facility] Comment on above: Performed By: #### V AGINT #### [facility] [address] [place] [address] Dr. Luis Harrison CULTURE URINEon 01-20-2022 CULTURE URINE Culture Observations: No growth Normal [facility] Comment on above: Performed By: #### U RCX #### [facility] [address] [place] [address] Dr. Luis Harrison ER URINE PROFILEon Bilirubin Ql (U) Negative Normal NEGATIVE [facility] Comment on above: Performed By: #### P REGUABDOULAYE, ERUR #### [facility] [address] [place] [address] [address] Luis Hrarison Clarity (U) CLEAR Normal CLEAR [facility] Comment on above: Performed By: #### P ABDOULAYE CUMMINGS, ERUR #### [facility] [address] [place] [address] [address] Luis Harrison Color (U) LT. YELLOW Normal YELLOW [facility] Comment on above: Performed By: #### P ABDOULAYE CUMMINGS, ERUR #### [facility] [address] [place] [address] [address] Luis PACE A micrscopic examination will be performed if indicated. Normal [facility] Comment on above: Performed By: #### ABDOULAYE QUISPE, ERUR #### [facility] [address] [place] [address] Dr. Luis Harrison Glucose Ql (U) Negative Normal NEGATIVE [facility] Comment on above: Performed By: #### P ABDOULAYE CUMMINGS, ERUR #### [facility] [address] [place] [address] Dr. Luis Harrison Hemoglobin Ql (U) TRACE-LYSED Abnormal NEGATIVE [facility] Comment on above: Performed By: #### P ABDOULAYE CUMMINGS, ERUR #### [facility] [address] [place] [address] Dr. Luis Harrison Ketones Ql (U) Negative Normal NEGATIVE [facility] Comment on above: Performed By: #### P NAVARRO CUMMINGSRO, ERUR #### [facility] [address] [place] [address] [address] Luis Harrison LEUKOCYTES Negative Normal NEGATIVE [facility] Comment on above: Performed By: #### P REGUMINDIICRO, ERUR #### [facility] [address] [place] [address] Dr. Luis Harrison Nitrite Ql (U) Negative Normal NEGATIVE [facility] Comment on above: Performed By: #### P REGUABDOULAYE, ERUR #### [facility] [address] [place] [address] Dr. Luis Harrison pH (U) 6.0 [pH] Normal 5-9 [facility] Comment on above: Performed By: #### P ABDOULAYE CUMMINGS ERUR #### [facility] [address] [place] [address] Dr. Luis Harrison SPEC GRAVITY <=1.005 Abnormal 1.005-<=1.025 [facility] Comment on above: Performed By: #### P ABDOULAYE CUMMINGS, ERUR #### [facility] [address] [place] [address] [address] Luis Harrison UA PROTEIN Negative Normal NEGATIVE/ TRACE [facility] Comment on above: Performed By: #### P ABDOULAYE CUMMINGS ERUR #### [facility] [address] [place] [address] Dr. Luis Harrison UR MICRO IND INDICATED Normal [facility] Comment on above: Performed By: #### ABDOULAYE QUISPE, HONGR #### [facility] [address] [place] [address] Dr. Luis Harrison Urobilinogen Qn (U) 0.2 {Maritza'U}/dL Normal 0.2 - 1. 0 [facility] Comment on above: Performed By: #### ABDOULAYE QUISPE ERUR #### [facility] [address] [place] [address] Dr. Luis Harrison GROUP A STREP CULTUREon S. pyogenes Ag Ql (Unsp spec) Culture Observations: NEGATIVE FOR GROUP A STREPTOCOCCUS. Normal [facility] Comment on above: Performed By: #### S SCRN, GRASTCX #### [facility] [address] [place] [address] Dr. Luis Harrison URon 01-20-2022 , QUAL Negative Normal NEGATIVE [facility] Comment on above: Performed By: #### S SCRN, GRASTCX #### [facility] [address] [place] [address] Dr. Luis Harrison STREPT SCREENon 01-20-2022 STREP SCREEN A Negative Normal NEGATIVE [facility] Comment on above: Performed By: #### S SCRN, GRASTCX #### [facility] [address] [place] [address] Dr. Luis Harrison URINE MICROSCOPIC ONLYon BACTERIA TRACE Abnormal NONE SEEN [facility] Comment on above: Performed By: #### S SCRN, GRASTCX #### [facility] [address] [place] [address] Dr. Luis Harrison Bacteria identified Cx Nom (U) INDICATED Normal [facility] Comment on above: Performed By: #### S SCRN, GRASTCX #### [facility] [address] [place] [address] Dr. Luis Harrison CAST NONE SEEN Normal NONE SEEN [facility] Comment on above: Performed By: #### S SCRN, GRASTCX #### [facility] [address] [place] [address] Dr. Luis Harrison Crystals LM Nom (Urine sed) NONE SEEN Normal NONE SEEN [facility] Comment on above: Performed By: #### S SCRN, GRASTCX #### [facility] [address] [place] [address] Dr. Luis Harrison Epithelial cells LM Ql (Urine sed) RARE Normal NONE SEEN /RARE [facility] Comment on above: Performed By: #### S SCRN, GRASTCX #### [facility] [address] [place] [address] Dr. Luis Harrison MUCOUS NONE SEEN Normal NONE SEEN [facility] Comment on above: Performed By: #### S SCRN, GRASTCX #### [facility] [address] [place] [address] Dr. Luis Harrison RBC 0-2 Normal 0-2 [facility] Comment on above: Performed By: #### S SCRN, GRASTCX #### [facility] [address] [place] [address] Dr. Luis Harrison WBC 0-2 Abnormal NONE SEEN [facility] Comment on above: Performed By: #### S SCRN, GRASTCX #### [facility] [address] [place] [address] Dr. Luis Harrison Vital Signs Date Time Vital Sign Value Performing Clinician Faci lity 07-18-2024 13:46-0400 Body mass index (BMI) [Ratio] 30.65 kg/m2 Hannah MACKEY Work Phone: [facility] 07-18-2024 13:46-0400 Body weight 78.47 kg Hannah MACKEY Work Phone: [facility] 07-18-2024 13:46-0400 Diastolic blood pressure 68 mm[Hg] Hannah MACKEY Work Phone: [facility] 07-18-2024 13:46-0400 Systolic blood pressure 112 mm[Hg] Hannah MACKEY Work Phone: [facility] 06-21-2024 11:48-0400 Body mass index (BMI) [Ratio] 30.6 kg/m2 Barbie Kaylyn DO Work Phone: [facility] 06-21-2024 11:48-0400 Body weight 78.36 kg Barbie Kaylyn DO Work Phone: [facility] 06-21-2024 11:48-0400 Diastolic blood pressure 76 mm[Hg] Barbie Kaylyn DO Work Phone: [facility] 06-21-2024 11:48-0400 Systolic blood pressure 112 mm[Hg] Barbie Kaylyn DO Work Phone: [facility] Healthcare Encounters Encounter Date Encounter Type Care Provider Facility Start: 07-18-2024 End: 07-18-2024 Office outpatient visit 15 minutes Hannah MACKEY Work Phone: [facility] BCP OB Comment on above: Third trimester preg otis; 32 weeks gestation of Start: 07-18-2024 End: 07-18-2024 ambulatory HANNAH CERDA Not Available Start: 07-05-2024 End: 07-05-2024 ambulatory HANNAH CERDA Not Available Start: 07-05-2024 End: 07-05-2024 Office outpatient visit 15 minutes Hannah MACKEY Work Phone: [facility] BCP OB Comment on above: Third [...] EST Ancillary Procedure [facility] [address] [facility] [place] [address] [facility] Start: 08-03-2024 End: 08-03-2024 Patient encounter procedure 08/03/2024 11:40 AM EST Routine [facility] [address] [place] [address] Barbie Patiño, DO [address] [place], [place] [id number] [facility] Start: 07-19-2024 End: 07-19-2024 Professional / ancillary services management 07/19/2024 1:00 PM EDT Ancillary Procedure [facility] [address] [place] [address] [facility] Start: 07-18-2024 End: 07-18-2024 Patient encounter procedure 07/18/2024 2:20 PM EDT Routine [facility] [address] [place] [address] Hannah Cerda PA [address] [place], [place] [id number] [facility] Start: 07-18-2024 End: 07-18-2024 [...] PM EDT Routine [facility] [address] [place] [address] Hannah Cerda PA [address] [place] [address] [facility] Start: 06-21-2024 End: 06-21-2025 US for US OB SCAN FOR GROWTH Imaging Routine Diet controlled gestational diabetes mellitus (GDM) in third trimester Expected: 06/21/2024 (Approximate), Expires: 06/21/2025 [facility] Work Phone: Comment on above: Expected: 06/21/2024 (Approximate), Expires: 06/21/2025 Start: 05-21-2024 Influenza vaccination Influenza Vacc ine (#1) [facility] Healthcare Payers Date Payer Category Payer Medicaid [employer] [place] [employer] [id number] 2017-Present [address] [place] [id number] 2017 Medicaid (Managed Care) [facility] MEDICAID [id number] 1995 Unknown [id number] [id number]. 593 1995 Unknown [id number] 2.16.840.1.027587.3.579.2. 593 1995 Unknown [id number] 2.16.840.1.577839.3.579.2. 593 1995 Unknown [id number] 2.16.840.1.280617.3.579.2. 593 1995 Unknown [id number] 2.16.840.1.560081.3.579.2. 1258 1995 Unknown [id number] 2.16.840.1.734620.3.579.2. 9 1995 Unknown [id number] 2.16840.1.094687.3.579.2. 1258 1995 Unknown [id number] 2.16.840.1.369160.3.579.2. 1258 1995 Unknown [id number] 2.16.840.1.530736.3.579.2. 1258 1995 Unknown [id number] 2.16.840.1.941082.3.579.2. 9 1995 Unknown [id number] 2.16840.1.615358.3.579.2. 1258 1995 Unknown [id number] 2.16.840.1.306823.3.579.2. 1258 1995 Unknown [id number] 2.16.840.1.921204.3.579.2. 1258 1995 Unknown [id number] 2.16.840.1.569289.3.579.2. 1259 1959 Unknown [id number] Social History Date Type Detail Facility Start: 01-07-2024 Tobacco smoking status WYIS Never sm oked tobacco [facility] Start: [...] meal for a total of 4times daily. [id number] Start: 06-07-2024 End: 07-07-2024 1 each by In Vit ro route Daily Use to check FSBS four times daily [id number] Start: 06-07-2024 End: 07-07-2024 History of Present [...] to check FSBS. Blood Glucose Monitoring Suppl (NanoCellect Glucometer) w/Device kit 1 kit, Does not [...] women 01/11/2024 Mild intermittent asthma without complication ([facility]) 01/11/2024 Multiple pigmented nevi 01/11/2024 Thyromegaly ([facility]) 01/11/2024 Umbilical hernia without obstruction or [...] carpal tunnel syndrome 01/11/2024 Generalized anxiety disorder ([facility]) 01/11/2024 Genital herpes in women 01/11/2024 Mild intermittent asthma without complication ([facility]) 01/11/2024 Multiple pigmented nevi 01/11/2024 Thyromegaly ([facility]) 01/11/2024 Umbilical hernia without obstruction or gangrene [...] nursing note reviewed. Exam conducted with a as400 consultant present. Vitals: Estimated body mass index is [...] DATE CREATED AUTHOR AUTHOR'S ORGANIZ ATION 07/20/2024 [facility] dical Specialists [facility] Care Teams (unrecognized sec tion and content) Director Specialty Relationship Specialty Start Date End Date Jason Servin MD [address] [place] [address] PCP - General Family Medicine 01/11/24 Jason Servin MD [address] [place] [address] PCP - [facility] 12/20/23 Director Specialty Relationship Specialty Start Date End Date Jason Servin MD [address] [place] [address] PCP - General Family Medicine 01/11/24 Jason Servin MD [address] [place] [address] PCP - [facility] 12/20/23 Director Specialty Relationship Specialty Start Date End Date Jason Servin MD [address] [place] [address] PCP - [facility] 01/11/24 Jason Servin MD [address] [place] [address] [facility] 12/20/23 Director Specialty Relationship Specialty Start Date End Date Jason Servin MD [address] [place] [address] PCP - [facility] 01/11/24 Jason Servin MD [address] [place] [address] [facility] - [facility] 12/20/23 Reason for Visit (unrecogniz [...] BE BASED ON THE PRIMARY CLINICAL RECORDS. [facility]. provides no warranty or guarantee of the accuracy or completeness of information in this document.
--- NOTE | 2024-07-23 19:19 | ED.EYEPROB1 ---
HPI - Eye Problem General Chief complaint: Eye Problems Stated complaint: eye problem Time Seen by Provider: 07/23/24 19:21 Mode of arrival: walk-in Limitations: no limitations History of Present Illness HPI Narrative: This 29-year-old female Presents for evaluation of right eye discomfort. The patient states she woke up several days ago with some Swelling of her lower lid. She does not wear contacts or corrective lenses. She denies any visual changes. Since that time she has developed a tender swelling at the medial aspect of the left lower eyelid consistent with a [place]. She denies that there has been any purulent drainage. She has not had a fever. She has no pain with extraocular movement. She is 8 months but denies any related complaints at this time Related Data Home Medications ?Medication ?Instructions ?Recorded ?Confirmed vitamin with calcium tab 07/23/24 no.72-iron 27 mg-folic acid 1 mg tablet (M- Plus) Previous Rx's ?Medication ?Instructions ?Recorded dicyclomine 20 mg tablet 20 mg PO QID PRN abdominal pain 10/07/23 #12 tabs ondansetron 4 mg disintegrating 4 mg PO Q6H PRN nausea and 10/07/23 tablet vomiting #12 tabs Allergies Allergy/AdvReac Type Severity Reaction Status Date / Time No Known Drug Allergies Allergy Verified 10/07/23 15:49 Review of Systems ROS Status of ROS 10 or more systems reviewed and unremarkable except as noted in history and below PFSH [facility] Social History Smoking status: Never smoker Little interest or pleasure in doing things: not at all Feeling down, depressed, or hopeless: not at all Exam Narrative Exam Narrative: Vital signs and Nursing Notes reviewed:Patient is afebrile, she is mildly tachycardic with a pulse of 109, blood pressure is elevated at 146/82, she is not hypoxic with pulse ox of 98% on room air General: Awake, alert, oriented, no acute distress, lying comfortably on the stretcher HEENT: Normocephalic atraumatic, mucous membranes are moist and pink, There is mild redness and swelling to the right lower eyelid specifically at the medial aspect of the lower eyelid. There is no conjunctival injection, she has clear tearing. Extraocular muscles are intact without discomfort findings are consistent with a hordoleum Chest: Lungs are clear to auscultation with good air entry, there is no wheezing rhonchi or rales appreciated no accessory muscle use, patient is speaking in complete sentences-no chest wall tenderness to palpation CVS: Regular rate and rhythm S1-S2 At 86 on my exam, no murmurs rubs or gallops, pulses are brisk and equal bilaterally ABD: Gravid, non tender Extremities: Moving all extremities, no lower extremity tenderness or swelling noted, negative Homans' sign, pulses are brisk and equal bilaterally Skin: Normal in appearance without rash,pallor, petechiae or purpura Neuro: No focal deficits Constitutional Vital Signs, click to edit/add: Last Vital Signs Temp 98.3 F 07/23/24 19:08 Pulse 109 H 07/23/24 19:08 Resp 19 07/23/24 19:08 BP 146/82 H 07/23/24 19:08 Pulse Ox 98 07/23/24 19:08 O2 Del Method Room Air 07/23/24 19:08 Course Vital Signs Vital signs: Vital Signs Temperature 98.3 F 07/23/24 19:08 Pulse Rate 109 H 07/23/24 19:08 Respiratory Rate 19 07/23/24 19:08 Blood Pressure 146/82 H 07/23/24 19:08 Pulse Oximetry 98 07/23/24 19:08 Oxygen Delivery Method Room Air 07/23/24 19:08 Temperature 98.3 F 07/23/24 19:08 Pulse Rate 109 H 07/23/24 19:08 Respiratory Rate 19 07/23/24 19:08 Blood Pressure 146/82 H 07/23/24 19:08 Pulse Oximetry 98 07/23/24 19:08 Oxygen Delivery Method Room Air 07/23/24 19:08 MDM - Eye Problem MDM Narrative Medical decision making narrative: This 29-year-old female who is 8 months presents for evaluation of a tender swelling to the medial aspect of her right lower eyelid consistent with a stye. She had a similar episode in the past. She does not wear contacts or corrective lenses. Her vision is intact. She states that she has some itching and burning in this area but has not had any purulent drainage. She was medicated emergency department with erythromycin ointment and I suggested that she use warm compresses in addition to the erythromycin ointment. Discharge Plan Discharge Chief Complaint: Eye Problems Clinical Impression: Hordeolum externum (stye) Patient Disposition: Home, Self-Care Time of Disposition Decision: 19:38 Condition: Good Prescriptions / Home Meds: No Action M- Plus 27 mg iron- 1 mg tablet dicyclomine 20 mg tablet 20 mg PO QID PRN (Reason: abdominal pain) Qty: 12 0RF ondansetron 4 mg tablet,disintegrating 4 mg PO Q6H PRN (Reason: nausea and vomiting) Qty: 12 0RF Print Language: Portuguese Instructions: Hany (ED) Referrals: Jason Baez MD [Primary Care Provider] - 1 week Discharge Date/Time: 07/23/24 19:55
[2024-07-23] MEDS: ERYTHROMYCIN OP OINT 0.5% 1 GM TUBE OP (19:50)
== END 2024-07-23 19:55 | disposition home or self-care (01) ==
PROVIDERS: Emergency Provider Emergency Medicine; PCP Family Medicine
DX: O99.891 Other specified diseases and conditions complicating pregnancy (principal); H00.012 Hordeolum externum right lower eyelid; Z3A.00 Weeks of gestation of pregnancy not specified
CPT/HCPCS: 99282

== ENCOUNTER 2024-07-24 08:46 | Outpatient (OUT) | payer OTHER, SELFPAY ==
--- OUTSIDE RECORDS SUMMARY | 2024-07-23 23:54 | XMS_ITS | CCD ---
Author Organization [facility] Care Team Providers Care Junior Graphic Designer Name Role Phone DR JASON SERVIN Primary [...] Unavailable Jason Servin MD Primary Care Provider [phone] Jason Servin MD Unavailable JOSÉ SANTOS Attending [...] UA Negative Negative - 4(70) +++ mg/dL [facility] Blood, UA Negative Negative - 50 Jackosn/mcL [facility] Clarity, UA Clear [facility] Color, UA Yellow [facility] Glucose, UA Negative Negative - 1999(110) ++++ mg/dL [facility] Interpretation and review of laboratory results Normal [facility] Ketones, UA Negative Negative - 160(16) ++++ mg/dL [facility] Leukocytes, UA Negative Negative - 500+++ Rosana/mcL [facility] Nitrite, UA Negative Negative - Positive [facility] pH, UA 7 5 - 9 [facility] e Protein, UA Negative Negative - 1999(20) ++++ mg/dL [facility] Spec Grav, UA 1.02 1 - 1.03 [facility] Urobilinogen, UA 0.2 0.2 - 12 mg/dL [facility] Urinalysis macro (dipstick) panel (U)on 06-21-2024 Bilirubin, UA Negative Negative - 4(70) +++ mg/dL [facility] Blood, UA Negative Negative - 50 Jackson/mcL [facility] Clarity, UA Clear [facility] Color, UA Yellow [facility] Glucose, UA Negative Negative - 1999(110) ++++ mg/dL [facility] Interpretation and review of laboratory results Normal [facility] Ketones, UA Negative Negative - 160(16) ++++ mg/dL [facility] Leukocytes, UA Negative Negative - 500+++ Rosana/mcL [facility] Nitrite, UA Negative Negative - Positive [facility] pH, UA 6.5 5 - 9 [facility] Protein, UA Negative Negative - 2000(20) ++++ mg/dL [facility] Spec Grav, UA 1.010 1 - 1.03 [facility] care Urobilinogen, UA 0.2 0.2 - 12 mg/dL [facility] STREPT SCREENon 11-03-2022 STREP SCREEN A Positive Abnormal NEGATIVE [facility] Comment on above: Performed By: #### S SCRN #### [facility] [address] [place], [place] [address] Dr. Luis Harrison Covid-19 PCR ([facility])on 05-22 SARS-CoV-2 (COVID-19) RNA KALYANI+probe Ql (Unsp spec) Not detected Normal NOT DETECTED [facility] Comment on above: Result Comment: [...] for this test is supported by the [place] of Health and Human Service's declaration that [...] used). Performed By: #### C VDTBH #### [facility] [address] [place], [place] [address] Dr. Luis Harrison GROUP A STREP CULTUREon 05-22 S. pyogenes Ag Ql (Unsp spec) Culture Observations: NEGATIVE FOR GROUP A STREPTOCOCCUS. Normal [facility] Comment on above: Performed By: #### G RASTCX, SSCRN #### [facility] [address] [place] [address] Dr. Luis Harrison STREPT SCREENon 06-18-2022 STREP SCREEN A Negative Normal NEGATIVE [facility] Comment on above: Performed By: #### G RASTCX, SSCRN #### [facility] [address] [place] [address] Dr. Luis Harrison CHLAMYDIA/GONOCOCCUS KALYANI (SW AB/URINE/PAPon 03-13-2022 Chlamydia trachomatis, KALYANI Negative Normal Negative [facility] Comment on above: Performed By: #### C T/NGNA #### [facility] [address] [place] [address] Dr. Luis Harrison Neisseria gonorrhoeae, KALYANI Negative Normal Negative [facility] Comment on above: Performed By: #### C T/NGNA #### [facility] [address] [place] [address] Dr. Luis Harrison VAGINITIS/VAGINOSIS DNA PROB Shantanu 03-13-2022 Alysha species Negative Normal Negative [facility] Comment on above: Performed By: #### V AGINT #### [facility] [address] [place] [address] Dr. Luis Harrison Gardnerella vaginalis Negative Normal Negative [facility] Comment on above: Performed By: #### V AGINT #### [facility] [address] [place] [address] Dr. Luis Harrison Trichomonas vaginalis Negative Normal Negative [facility] Comment on above: Performed By: #### V AGINT #### [facility] [address] [place] [address] Dr. Luis Harrison CULTURE URINEon 01-20-2022 CULTURE URINE Culture Observations: No growth Normal [facility] Comment on above: Performed By: #### U RCX #### [facility] [address] [place] [address] Dr. Luis Harrison ER URINE PROFILEon Bilirubin Ql (U) Negative Normal NEGATIVE [facility] Comment on above: Performed By: #### P REGUABDOULAYE, ERUR #### [facility] [address] [place] [address] [address] Luis Harrison Clarity (U) CLEAR Normal CLEAR [facility] Comment on above: Performed By: #### P ABDOULYAE CUMMINGS, ERUR #### [facility] [address] [place] [address] [address] Luis Harrison Color (U) LT. YELLOW Normal YELLOW [facility] Comment on above: Performed By: #### P ABDOULAYE CUMMINGS, ERUR #### [facility] [address] [place] [address] [address] Luis PACE A micrscopic examination will be performed if indicated. Normal [facility] Comment on above: Performed By: #### ABDOULAYE QUISPE, ERUR #### [facility] [address] [place] [address] Dr. Luis Harrison Glucose Ql (U) Negative Normal NEGATIVE [facility] Comment on above: Performed By: #### P ABDOULAYE CUMMINGS, ERUR #### [facility] [address] [place] [address] Dr. Luis Harrison Hemoglobin Ql (U) TRACE-LYSED Abnormal NEGATIVE [facility] Comment on above: Performed By: #### P ABDOULAYE CUMMINGS, ERUR #### [facility] [address] [place] [address] Dr. Luis Harrison Ketones Ql (U) Negative Normal NEGATIVE [facility] Comment on above: Performed By: #### P NAVARRO CUMMINGSRO, ERUR #### [facility] [address] [address] [address] Luis Harrison LEUKOCYTES Negative Normal NEGATIVE [facility] Comment on above: Performed By: #### P REGUMINDIICRO, ERUR #### [facility] [address] [place] [address] Dr. Luis Harrison Nitrite Ql (U) Negative Normal NEGATIVE [facility] Comment on above: Performed By: #### P REGUABDOULAYE, ERUR #### [facility] [address] [place] [address] Dr. Luis Harrison pH (U) 6.0 [pH] Normal 5-9 [facility] Comment on above: Performed By: #### P ABDOULAYE CUMMINGS ERUR #### [facility] [address] [place] [address] Dr. Luis Harrison SPEC GRAVITY <=1.005 Abnormal 1.005-<=1.025 [facility] Comment on above: Performed By: #### P ABDOULAYE CUMMINGS, ERUR #### [facility] [address] [address] [address] Luis Harrison UA PROTEIN Negative Normal NEGATIVE/ TRACE [facility] Comment on above: Performed By: #### P ABDOULAYE CUMMINGS ERUR #### [facility] [address] [place] [address] Dr. Luis Harrison UR MICRO IND INDICATED Normal [facility] Comment on above: Performed By: #### ABDOULAYE QUISPE, HONGR #### [facility] [address] [place] [address] Dr. Luis Harrison Urobilinogen Qn (U) 0.2 {Maritza'U}/dL Normal 0.2 - 1. 0 [facility] Comment on above: Performed By: #### ABDOULAYE QUISPE ERUR #### [facility] [address] [place] [address] Dr. Lusi Harrison GROUP A STREP CULTUREon S. pyogenes Ag Ql (Unsp spec) Culture Observations: NEGATIVE FOR GROUP A STREPTOCOCCUS. Normal [facility] Comment on above: Performed By: #### S SCRN, GRASTCX #### [facility] [address] [place] [address] Dr. Luis Harrison URon 01-20-2022 , QUAL Negative Normal NEGATIVE [facility] Comment on above: Performed By: #### S SCRN, GRASTCX #### [facility] [address] [place] [address] Dr. Luis Harrison STREPT SCREENon 01-20-2022 STREP SCREEN A Negative Normal NEGATIVE [facility] Comment on above: Performed By: #### S SCRN, GRASTCX #### [facility] [address] [place] [address] Dr. Luis Harrison URINE MICROSCOPIC ONLYon BACTERIA TRACE Abnormal NONE SEEN The [facility] Comment on above: Performed By: #### S SCRN, GRASTCX #### [facility] [address] [place] [address] Dr. Luis Harrison Bacteria identified Cx Nom (U) INDICATED Normal [facility] Comment on above: Performed By: #### S SCRN, GRASTCX #### [facility] [address] [place] [address] Dr. Luis Harrison CAST NONE SEEN Normal NONE SEEN [facility] Comment on above: Performed By: #### S SCRN, GRASTCX #### [facility] [address] [place] [address] Dr. Luis Harrison Crystals LM Nom (Urine sed) NONE SEEN Normal NONE SEEN [facility] Comment on above: Performed By: #### S SCRN, GRASTCX #### [facility] [address] [place] [address] Dr. Luis Harrison Epithelial cells LM Ql (Urine sed) RARE Normal NONE SEEN /RARE [facility] Comment on above: Performed By: #### S SCRN, GRASTCX #### [facility] [address] [place] [address] Dr. Luis Harrison MUCOUS NONE SEEN Normal NONE SEEN [facility] Comment on above: Performed By: #### S SCRN, GRASTCX #### [facility] [address] [place] [address] Dr. Luis Harrison RBC 0-2 Normal 0-2 [facility] Comment on above: Performed By: #### S SCRN, GRASTCX #### [facility] [address] [place] [address] Dr. Luis Harrison WBC 0-2 Abnormal NONE SEEN [facility] Comment on above: Performed By: #### S SCRN, GRASTCX #### [facility] [address] [place] [address] Dr. Luis Harrison Vital Signs Date Time Vital Sign Value Performing Clinician Faci lity 07-18-2024 13:46-0400 Body mass index (BMI) [Ratio] 30.65 kg/m2 Hannah MACKEY Work Phone: [facility] 07-18-2024 13:46-0400 Body weight 78.47 kg Hannah MACKEY Work Phone: [facility] 07-18-2024 13:46-0400 Diastolic blood pressure 68 mm[Hg] Hannah MACKEY Work Phone: [facility] 07-18-2024 13:46-0400 Systolic blood pressure 112 mm[Hg] Hannah MACKEY Work Phone: [facility] 06-21-2024 11:48-0400 Body mass index (BMI) [Ratio] 30.6 kg/m2 Barbie Kaylyn DO Work Phone: [facility] 06-21-2024 11:48-0400 Body weight 78.36 kg Barbie Kaylyn DO Work Phone: [facility] 06-21-2024 11:48-0400 Diastolic blood pressure 76 mm[Hg] Barbie Kaylyn DO Work Phone: [facility] 06-21-2024 11:48-0400 Systolic blood pressure 112 mm[Hg] Barbie Kaylyn DO Work Phone: [facility] Healthcare Encounters Encounter Date Encounter Type Care Provider Facility Start: 07-18-2024 End: 07-18-2024 Office outpatient visit 15 minutes Hannah MACKEY Work Phone: [facility] Comment on above: Third trimester preg otis; 32 weeks gestation of Start: 07-18-2024 End: 07-18-2024 ambulatory HANNAH CERDA Not Available Start: 07-05-2024 End: 07-05-2024 ambulatory HANNAH CERDA Not Available Start: 07-05-2024 End: 07-05-2024 Office outpatient visit 15 minutes Hannah MACKEY Work Phone: [facility] Comment on above: [...] Available Start: 05-10-2024 End: 05-10-2024 ambulatory BARBIE KAYYLN Not Available Start: 04-13-2024 End: 04-13-2024 ambulatory [...] EST Ancillary Procedure [facility] [address] [facility] [place] [address] [facility] Start: 08-03-2024 End: 08-03-2024 Patient encounter procedure 08/03/2024 11:40 AM EST Routine [facility] [address] [place] [address] Barbie Patiño, DO [address] [place], [place] [id number] [facility] Start: 07-19-2024 End: 07-19-2024 Professional / ancillary services management 07/19/2024 1:00 PM EDT Ancillary Procedure [facility] [address] [place] [address] [facility] Start: 07-18-2024 End: 07-18-2024 Patient encounter procedure 07/18/2024 2:20 PM EDT Routine [facility] [address] [place] [address] Hannah Cerda PA [address] [place], [place] [id number] [facility] Start: 07-18-2024 End: 07-18-2024 [...] PM EDT Routine [facility] [address] [place] [address] Hannah Cerda PA [address] [place] [address] [facility] Start: 06-21-2024 End: 06-21-2025 US for US OB SCAN FOR GROWTH Imaging Routine Diet controlled gestational diabetes mellitus (GDM) in third trimester Expected: 06/21/2024 (Approximate), Expires: 06/21/2025 [facility] Work Phone: Comment on above: Expected: 06/21/2024 (Approximate), Expires: 06/21/2025 Start: 05-21-2024 Influenza vaccination Influenza Vacc ine (#1) [facility] Healthcare Payers Date Payer Category Payer Medicaid [employer] [place] [id number] 2017-Present [address] [place] [id number] 2017 Medicaid (Managed Care) [facility] MEDICAID [id number] 1995 Unknown [id number] [id number]. 593 1995 Unknown [id number] 2.16.840.1.527299.3.579.2. 593 1995 Unknown [id number] 2.16.840.1.577026.3.579.2. 593 1995 Unknown [id number] 2.16.840.1.738014.3.579.2. 593 1995 Unknown [id number] 2.16.840.1.443902.3.579.2. 1258 1995 Unknown [id number] 2.16.840.1.982819.3.579.2. 9 1995 Unknown [id number] 2.16840.1.930928.3.579.2. 1258 1995 Unknown [id number] 2.16.840.1.155902.3.579.2. 1258 1995 Unknown [id number] 2.16.840.1.793313.3.579.2. 1258 1995 Unknown [id number] 2.16.840.1.859907.3.579.2. 9 1995 Unknown [id number] 2.16840.1.265060.3.579.2. 1258 1995 Unknown [id number] 2.16.840.1.474002.3.579.2. 1258 1995 Unknown [id number] 2.16.840.1.987933.3.579.2. 1258 1995 Unknown [id number] 2.16.840.1.326314.3.579.2. 1259 1959 Unknown [id number] Social History Date Type Detail Facility Start: 01-07-2024 Tobacco smoking status WAIS Never sm oked tobacco [facility] Start: 01-07-2024 Tobacco use and exposure Smoke less tobacco non-user [facility] Start: 06-07-2024 End: 07-18-2024 Alcoholic beverage intake Lifetime non-drinker (finding) [facility] Start: 01-11-2024 History of Social function [facility] Start: 01-11-2024 Social connection an d isolation panel [facility] Do you belong to any clubs or organizations such as voodoo groups, unions, fraternal or athletic groups, or [...] meal for a total of 4times daily. [id number] Start: 06-07-2024 End: 07-07-2024 1 each by In Vit ro route Daily Use to check FSBS four times daily [id number] Start: 06-07-2024 End: 07-07-2024 History of Present [...] to check FSBS. Blood Glucose Monitoring Suppl ([employer] Glucometer) w/Device kit 1 kit, Does not [...] women 01/11/2024 Mild intermittent asthma without complication ([facility]) 01/11/2024 Multiple pigmented nevi 01/11/2024 Thyromegaly ([facility]) 01/11/2024 Umbilical hernia without obstruction or gangrene [...] carpal tunnel syndrome 01/11/2024 Generalized anxiety disorder ([facility]) 01/11/2024 Genital herpes in women 01/11/2024 Mild intermittent asthma without complication ([facility]) 01/11/2024 Multiple pigmented nevi 01/11/2024 Thyromegaly ([facility]) 01/11/2024 Umbilical hernia without obstruction [...] nursing note reviewed. Exam conducted with a leather belt maker present. Vitals: Estimated body mass index [...] DATE CREATED AUTHOR AUTHOR'S ORGANIZ ATION 07/20/2024 [facility] Care Teams (unrecognized sec tion and content) Junior Graphic Designer Relationship Specialty Start Date End Date Jason Servin MD [address] [place] [address] PCP - General Family Medicine 01/11/24 Jason Servin MD [address] [place] [address] PCP - [facility] 12/20/23 Junior Graphic Designer Relationship Specialty Start Date End Date Jason Servin MD [address] [place] [address] PCP - General Family Medicine 01/11/24 Jason Servin MD [address] [place] [address] PCP - [facility] 12/20/23 Junior Graphic Designer Relationship Specialty Start Date End Date Jason Servin MD [address] [place] [address] PCP - [facility] 01/11/24 Jason Servin MD [address] [place] [address] [facility] 12/20/23 Junior Graphic Designer Relationship Specialty Start Date End Date Jason Servin MD [address] [place] [address] PCP - [facility] 01/11/24 Jason Servin MD [address] [place] [address] [facility] - [facility] 12/20/23 Reason for Visit (unrecogniz ed [...] ON THE PRIMARY CLINICAL RECORDS. [facility]. provides no warranty or guarantee of the accuracy or completeness of information in this document.
[2024-07-24 16:34] VITALS: BP 125/79; PULSE 101
--- NOTE | 2024-07-24 16:57 | US_ITS ---
[address] [address] Patient Name: ESTELLA CARRASQUILLO MRN: [facility]:[id number] date: 1995 Sex: F Assigned Patient Location: [facility] Current Patient Location: Accession/Order Number: [id number] Exam Date: 07/24/2024 17:00 Report Date: 07/25/2024 07:09 At the request of: BARBIE BRYAN Procedure: US OB BPP w non-stress EXAMINATION: US OB BPP w non-stress HISTORY: GESTATIONAL DIABETES MELLITUS O24.419 COMPARISON: No relevant comparison available. TECHNIQUE: Ultrasound biophysical profile was performed in the radiology department. non-reactive stress testing was performed by nursing staff in the birthing center. FINDINGS: BREATHING MOVEMENTS: 2 GROSS BODY MOVEMENTS: 2 TONE: 2 QUALITATIVE AMNIOTIC FLUID VOLUME: 2 PRESENTATION: CEPHALIC HEART RATE: 139.90 bpm AMNIOTIC FLUID VOLUME: 13.6 cm GESTATIONAL AGE: 33 weeks 4 days US/US OB BPP w non-stress IMPRESSION: Total biophysical profile score: 8 Electronically authenticated by: CAREY HUFF Date: 07/25/2024 07:09
== END 2024-07-24 17:54 | disposition home or self-care (01) ==
LOC: US 08:46 → FBC 16:28
PROVIDERS: PCP Family Medicine; Visit Provider Obstetrics & Gynecology
DX: O47.03 False labor before 37 completed weeks of gestation, third trimester (principal); O24.419 Gestational diabetes mellitus in pregnancy, unspecified control; Z3A.33 33 weeks gestation of pregnancy
CPT/HCPCS: 76818

== ENCOUNTER 2024-07-27 07:05 | Outpatient (OUT) | payer OTHER, SELFPAY ==
--- OUTSIDE RECORDS SUMMARY | 2024-07-27 07:06 | XMS_ITS | CCD ---
Author Organization [facility] Care Team Providers Care Commercial Finance Analyst Name Role Phone DR JASON SERVIN Primary Care Unavailable HAY, DR DONALD Attending Unavailable HAY, DR DONALD Consulting Unavailable HAY, DR DONALD Admitting Unavailable NADERER, DR JASON Santillan Primary Care Unavailable KARASIK, DR BAI Attending Unavailable KARASIK, DR BAI Consulting Unavailable KARASIK, DR BIA Admitting Unavailable MARKER, DR KHANNA Admitting Unavailable [...] UA Negative Negative - 4(70) +++ mg/dL [facility] Blood, UA Negative Negative - 50 Jackson/mcL [facility] Clarity, UA Clear [facility] Healthca re Color, UA Yellow [facility] Health[facility] Glucose, UA Negative Negative - 1999(110) ++++ mg/dL [facility] Interpretation and review of laboratory results Normal [facility] Ketones, UA Negative Negative - 160(16) ++++ mg/dL [facility] Leukocytes, UA Negative Negative - 500+++ Rosana/mcL [facility] Nitrite, UA Negative Negative - Positive [facility] pH, UA 7 5 - 9 [facility] Protein, UA Negative Negative - 1999(20) ++++ mg/dL [facility] Spec Grav, UA 1.02 1 - 1.03 [facility] Urobilinogen, UA 0.2 0.2 - 12 mg/dL [facility] Urinalysis macro (dipstick) panel (U)on 06-21-2024 Bilirubin, UA Negative Negative - 4(70) +++ mg/dL [facility] Blood, UA Negative Negative - 50 Jackson/mcL [facility] Clarity, UA Clear [facility] Healthca re Color, UA Yellow [facility] Glucose, UA Negative Negative - 1999(110) ++++ mg/dL [facility] Interpretation and review of laboratory results Normal [facility] Ketones, UA Negative Negative - 160(16) ++++ mg/dL [facility] Leukocytes, UA Negative Negative - 500+++ Rosana/mcL [facility] Nitrite, UA Negative Negative - Positive [facility] pH, UA 6.5 5 - [facility], [facility] Negative Negative - 2000(20) ++++ mg/dL [facility] Spec Grav, UA 1.010 1 - 1.03 [facility] care Urobilinogen, UA 0.2 0.2 - 12 mg/dL [facility] STREPT SCREENon 11-03-2022 STREP SCREEN A Positive Abnormal NEGATIVE [facility] Comment on above: Performed By: #### S SCRN #### [facility] [address], [place] [address] Dr. Luis Harrison Covid-19 PCR ([facility])on 05-22 SARS-CoV-2 (COVID-19) RNA KALYANI+probe Ql (Unsp spec) Not detected Normal NOT DETECTED [facility] Comment on above: Result Comment: When [...] for this test is supported by the [place] of Health and Human Service's declaration that [...] Performed By: #### C VDTBH #### [facility] [address], [place] [address] Dr. Luis Harrison GROUP A STREP CULTUREon 05-22 S. pyogenes Ag Ql (Unsp spec) Culture Observations: NEGATIVE FOR GROUP A STREPTOCOCCUS. Normal [facility] Comment on above: Performed By: #### G RASTCX, SSCRN #### [facility] [address] [place] [address] Dr. Lius Harrison STREPT SCREENon 06-18-2022 STREP SCREEN A Negative Normal NEGATIVE [facility] Comment on above: Performed By: #### G RASTCX, SSCRN #### [facility] [address] [place] [address] Dr. Luis Harrison CHLAMYDIA/GONOCOCCUS KALYANI (SW AB/URINE/PAPon 03-13-2022 Chlamydia trachomatis, KALYANI Negative Normal Negative [facility] Comment on above: Performed By: #### C T/NGNA #### [facility] [address] [place] [address] Dr. Luis Harrison Neisseria gonorrhoeae, KALYANI Negative Normal Negative [facility] Comment on above: Performed By: #### C T/NGNA #### [facility] [address] [place] [address] Dr. Luis Harrison VAGINITIS/VAGINOSIS DNA PROB Shantanu 03-13-2022 Alysha species Negative Normal Negative [facility] Comment on above: Performed By: #### V AGINT #### [facility] [address] [place] [address] Dr. Luis Harrison Gardnerella vaginalis Negative Normal Negative [facility] Comment on above: Performed By: #### V AGINT #### [facility] [address] [place] [address] Dr. Luis Harrison Trichomonas vaginalis Negative Normal Negative [facility] Comment on above: Performed By: #### V AGINT #### [facility] [address] [place] [address] Dr. Luis Harrison CULTURE URINEon 01-20-2022 CULTURE URINE Culture Observations: No growth Normal [facility] Comment on above: Performed By: #### U RCX #### [facility] [address] [place] [address] Dr. Luis Harrison ER URINE PROFILEon Bilirubin Ql (U) Negative Normal NEGATIVE [facility] Comment on above: Performed By: #### P REGUABDOULAYE, ERUR #### [facility] [address] [place] [address] [address] Luis Harrison Clarity (U) CLEAR Normal CLEAR [facility] Comment on above: Performed By: #### P ABDOULAYE CUMMINGS, ERUR #### [facility] [address] [address] [address] Luis Harrison Color (U) LT. YELLOW Normal YELLOW [facility] Comment on above: Performed By: #### P ABDOULAYE CUMMINGS, ERUR #### [facility] [address] [address] [address] Luis PACE A micrscopic examination will be performed if indicated. Normal [facility] Comment on above: Performed By: #### ABDOULAYE QUISPE, ERUR #### [facility] [address] [place] [address] Dr. Luis Harrison Glucose Ql (U) Negative Normal NEGATIVE [facility] Comment on above: Performed By: #### P ABDOULAYE CUMMINGS, ERUR #### [facility] [address] [place] [address] Dr. Luis Harrison Hemoglobin Ql (U) TRACE-LYSED Abnormal NEGATIVE [facility] Comment on above: Performed By: #### P ABDOULAYE CUMMINGS, ERUR #### [facility] [address] [place] [address] Dr. Luis Harrison Ketones Ql (U) Negative Normal NEGATIVE [facility] Comment on above: Performed By: #### P NAVARRO CUMMINGSRO, ERUR #### [facility] [address] [address] [address] Luis Harrison LEUKOCYTES Negative Normal NEGATIVE [facility] Comment on above: Performed By: #### P REGUMINDIICRO, ERUR #### [facility] [address] [place] [address] Dr. Luis Harrison Nitrite Ql (U) Negative Normal NEGATIVE [facility] Comment on above: Performed By: #### P REGUABDOULAYE, ERUR #### [facility] [address] [place] [address] Dr. Luis Harrison pH (U) 6.0 [pH] Normal 5-9 [facility] Comment on above: Performed By: #### P ABDOULAYE CUMMINGS ERUR #### [facility] [address] [place] [address] Dr. Luis Harrison SPEC GRAVITY <=1.005 Abnormal 1.005-<=1.[address] [facility] Comment on above: Performed By: #### P ABDOULAYE CUMMINGS, ERUR #### [facility] [address] [address] [address] Luis Harrison UA PROTEIN Negative Normal NEGATIVE/ TRACE [facility] Comment on above: Performed By: #### P ABDOULAYE CUMMINGS ERUR #### [facility] [address] [place] [address] Dr. Luis Harrison UR MICRO IND INDICATED Normal [facility] Comment on above: Performed By: #### ABDOULAYE QUISPE, HONGR #### [facility] [address] [place] [address] Dr. Luis Harrison Urobilinogen Qn (U) 0.2 {Maritza'U}/dL Normal 0.2 - 1. 0 [facility] Comment on above: Performed By: #### ABDOULAYE QUISPE ERUR #### [facility] [address] [place] [address] Dr. Luis Harrison GROUP A STREP CULTUREon S. pyogenes Ag Ql (Unsp spec) Culture Observations: NEGATIVE FOR GROUP A STREPTOCOCCUS. Normal [facility] Comment on above: Performed By: #### S SCRN, GRASTCX #### [facility] [address] [place] [address] Dr. Luis Harrison URon 01-20-2022 , QUAL Negative Normal NEGATIVE [facility] Comment on above: Performed By: #### S SCRN, GRASTCX #### [facility] [address] [place] [address] Dr. Luis Harrison STREPT SCREENon 01-20-2022 STREP SCREEN A Negative Normal NEGATIVE [facility] Comment on above: Performed By: #### S SCRN, GRASTCX #### [facility] [address] [place] [address] Dr. Luis Harrison URINE MICROSCOPIC ONLYon BACTERIA TRACE Abnormal NONE SEEN [facility] Comment on above: Performed By: #### S SCRN, GRASTCX #### [facility] [address] [place] [address] Dr. Luis Harrison Bacteria identified Cx Nom (U) INDICATED Normal [facility] Comment on above: Performed By: #### S SCRN, GRASTCX #### [facility] [address] [place] [address] Dr. Luis Harrison CAST NONE SEEN Normal NONE SEEN [facility] Comment on above: Performed By: #### S SCRN, GRASTCX #### [facility] [address] [place] [address] Dr. Luis Harrison Crystals LM Nom (Urine sed) NONE SEEN Normal NONE SEEN [facility] Comment on above: Performed By: #### S SCRN, GRASTCX #### [facility] [address] [place] [address] Dr. Luis Harrison Epithelial cells LM Ql (Urine sed) RARE Normal NONE SEEN /RARE [facility] Comment on above: Performed By: #### S SCRN, GRASTCX #### [facility] [address] [place] [address] Dr. Luis Harrison MUCOUS NONE SEEN Normal NONE SEEN [facility] Comment on above: Performed By: #### S SCRN, GRASTCX #### [facility] [address] [place] [address] Dr. Luis Harrison RBC 0-2 Normal 0-2 [facility] Comment on above: Performed By: #### S SCRN, GRASTCX #### [facility] [address] [place] [address] Dr. Luis Harrison WBC 0-2 Abnormal NONE SEEN [facility] Comment on above: Performed By: #### S SCRN, GRASTCX #### [facility] [address] [place] [address] Dr. Luis Harrison Vital Signs Date Time Vital Sign Value Performing Clinician Faci lity 07-18-2024 13:46-0400 Body mass index (BMI) [Ratio] 30.65 kg/m2 Hannah MACKEY Work Phone: [facility] 07-18-2024 13:46-0400 Body weight 78.47 kg Hannah MACKEY Work Phone: [facility] 07-18-2024 13:46-0400 Diastolic blood pressure 68 mm[Hg] Hannah MACKEY Work Phone: [facility] 07-18-2024 13:46-0400 Systolic blood pressure 112 mm[Hg] Hannah MACKEY Work Phone: [facility] 06-21-2024 11:48-0400 Body mass index (BMI) [Ratio] 30.6 kg/m2 Barbie Kaylyn DO Work Phone: [facility] 06-21-2024 11:48-0400 Body weight 78.36 kg Barbie Kaylyn DO Work Phone: [facility] 06-21-2024 11:48-0400 Diastolic blood pressure 76 mm[Hg] Barbie Kaylyn DO Work Phone: [facility] 06-21-2024 11:48-0400 Systolic blood pressure 112 mm[Hg] Barbie Kaylyn DO Work Phone: [facility] Healthcare Encounters Encounter Date Encounter Type Care Provider Facility Start: 07-18-2024 End: 07-18-2024 Office outpatient visit 15 minutes Hannah MACKEY Work Phone: [facility] Comment on above: Third trimester preg otis; 32 weeks gestation of Start: 07-18-2024 End: 07-18-2024 ambulatory HANNAH CERDA Not Available Start: 07-05-2024 End: 07-05-2024 ambulatory HANNAH CERDA Not Available Start: 07-05-2024 End: 07-05-2024 Office outpatient visit 15 minutes Hannah MACKEY Work Phone: [facility] Comment on above: Third [...] EST Ancillary Procedure [facility] [address] [facility] [place] [address] [facility] Start: 08-03-2024 End: 08-03-2024 Patient encounter procedure 08/03/2024 11:40 AM EST Routine [facility] [address] [place] [address] Barbie Patiño, DO [address] [place], [place] [id number] [facility] Start: 07-19-2024 End: 07-19-2024 Professional / ancillary services management 07/19/2024 1:00 PM EDT Ancillary Procedure [facility] [address] [place] [address] [facility] Start: 07-18-2024 End: 07-18-2024 Patient encounter procedure 07/18/2024 2:20 PM EDT Routine [facility] [address] [place] [address] Hannah Cerda PA [address] [place], [place] [id number] [facility] Start: 07-18-2024 End: 07-18-2024 [...] EDT Routine [facility] [address] [place] [id number] Hannah Cerda PA [address] [place] [address] [facility] Start: 06-21-2024 End: 06-21-2025 US for US OB SCAN FOR GROWTH Imaging Routine Diet controlled gestational diabetes mellitus (GDM) in third trimester Expected: 06/21/2024 (Approximate), Expires: 06/21/2025 [facility] Work Phone: Comment on above: Expected: 06/21/2024 (Approximate), Expires: 06/21/2025 Start: 05-21-2024 Influenza vaccination Influenza Vacc ine (#1) [facility] Healthcare Payers Date Payer Category Payer Medicaid [employer] [place] [employer] [id number] 2017-Present [address] [place] [id number] 2017 Medicaid (Managed Care) [facility] MEDICAID [id number] 1995 Unknown [id number] [id number]. 593 1995 Unknown [id number] 2.16.840.1.794675.3.579.2. 593 1995 Unknown [id number] 2.16.840.1.856039.3.579.2. 593 1995 Unknown [id number] 2.16.840.1.411950.3.579.2. 593 1995 Unknown [id number] 2.16.840.1.668205.3.579.2. 1258 1995 Unknown [id number] 2.16.840.1.058562.3.579.2. 9 1995 Unknown [id number] 2.16840.1.188428.3.579.2. 1258 1995 Unknown [id number] 2.16.840.1.260515.3.579.2. 1258 1995 Unknown [id number] 2.16.840.1.683910.3.579.2. 1258 1995 Unknown [id number] 2.16.840.1.810733.3.579.2. 9 1995 Unknown [id number] 2.16840.1.958849.3.579.2. 1258 1995 Unknown [id number] 2.16.840.1.285633.3.579.2. 1258 1995 Unknown [id number] 2.16.840.1.580251.3.579.2. 1258 1995 Unknown [id number] 2.16.840.1.035227.3.579.2. 1259 1959 Unknown [id number] Social History Date Type Detail Facility Start: 01-07-2024 Tobacco smoking status LAIS Never sm oked tobacco [facility] Start: 01-07-2024 Tobacco use and exposure Smoke less tobacco non-user [facility] Start: 06-07-2024 End: 07-18-2024 Alcoholic beverage intake Lifetime non-drinker (finding) [facility] Start: 01-11-2024 History of Social function [facility] Start: 01-11-2024 Social connection an d isolation panel [facility] Do you belong to any clubs or organizations such as pentecostalism groups, unions, fraternal or athletic groups, or [...] meal for a total of 4times daily. [id number] Start: 06-07-2024 End: 07-07-2024 1 each by In Vit ro route Daily Use to check FSBS four times daily [id number] Start: 06-07-2024 End: 07-07-2024 History of Present [...] to check FSBS. Blood Glucose Monitoring Suppl ([employer] Glucometer) w/Device kit 1 kit, Does not [...] women 01/11/2024 Mild intermittent asthma without complication ([facility]) 01/11/2024 Multiple pigmented nevi 01/11/2024 Thyromegaly ([facility]) 01/11/2024 Umbilical hernia without obstruction or [...] carpal tunnel syndrome 01/11/2024 Generalized anxiety disorder ([facility]) 01/11/2024 Genital herpes in women 01/11/2024 Mild intermittent asthma without complication ([facility]) 01/11/2024 Multiple pigmented nevi 01/11/2024 Thyromegaly ([facility]) 01/11/2024 Umbilical hernia without obstruction or gangrene [...] nursing note reviewed. Exam conducted with a certified master safe technician present. Vitals: Estimated body mass index is [...] DATE CREATED AUTHOR AUTHOR'S ORGANIZ ATION 07/20/2024 [facility] Care Teams (unrecognized sec tion and content) Commercial Finance Analyst Relationship Specialty Start Date End Date Jason Servin MD [address] [place] [phone] PCP - General Family Medicine 01/11/24 Jason Servin MD [address] [place] [address] PCP - [facility] 12/20/23 Commercial Finance Analyst Relationship Specialty Start Date End Date Jason Servin MD [address] [place] [phone] PCP - General Family Medicine 01/11/24 Jason Servin MD [address] [place] [address] PCP - [facility] 12/20/23 Commercial Finance Analyst Relationship Specialty Start Date End Date Jason Servin MD [address] [place] [phone] [facility] 01/11/24 Jason Servin MD [address] [place] [phone] [facility] 12/20/23 Commercial Finance Analyst Relationship Specialty Start Date End Date Jason Servin MD [address] [place] [address] PCP - [facility] 01/11/24 Jason Servin MD [address] [place] [address] [facility] - [facility] 12/20/23 Reason for Visit (unrecogniz ed [...] BE BASED ON THE PRIMARY CLINICAL RECORDS. [facility]. provides no warranty or guarantee of the accuracy or completeness of information in this document.
[2024-07-27 16:15] VITALS: BP 125/84; PULSE 100
== END 2024-07-27 16:50 | disposition home or self-care (01) ==
LOC: FBCO 07:05 → FBC 16:09
PROVIDERS: PCP Family Medicine; Visit Provider Obstetrics & Gynecology
DX: O24.419 Gestational diabetes mellitus in pregnancy, unspecified control (principal); Z3A.34 34 weeks gestation of pregnancy
CPT/HCPCS: 59025

== ENCOUNTER 2024-07-31 07:08 | Outpatient (OUT) | payer OTHER, SELFPAY ==
--- OUTSIDE RECORDS SUMMARY | 2024-07-31 07:11 | XMS_ITS | CCD ---
Author Organization [facility] Care Team Providers Care Bookbinding Machine Operator Name Role Phone DR JASON SERVIN Primary [...] UA Negative Negative - 4(70) +++ mg/dL [facility] Blood, UA Negative Negative - 50 Jackson/mcL [facility] Clarity, UA Clear [facility] Healthca re Color, UA Yellow [facility] Healthcar e Glucose, UA Negative Negative - 1999(110) ++++ mg/dL [facility] Interpretation and review of laboratory results Normal [facility] Ketones, UA Negative Negative - 160(16) ++++ mg/dL [facility] Leukocytes, UA Negative Negative - 500+++ Rosana/mcL [facility] Nitrite, UA Negative Negative - Positive [facility] pH, UA 7 5 - 9 [facility] e Protein, UA Negative Negative - 1999(20) ++++ mg/dL [facility] Spec Grav, UA 1.02 1 - 1.03 [facility] Urobilinogen, UA 0.2 0.2 - 12 mg/dL [facility] Urinalysis macro (dipstick) panel (U)on 06-21-2024 Bilirubin, UA Negative Negative - 4(70) +++ mg/dL [facility] Blood, UA Negative Negative - 50 Jackson/mcL [facility] Clarity, UA Clear [facility] Healthca re Color, UA Yellow [facility] Healthcar e Glucose, UA Negative Negative - 1999(110) ++++ mg/dL [facility] Interpretation and review of laboratory results Normal [facility] Ketones, UA Negative Negative - 160(16) ++++ mg/dL [facility] Leukocytes, UA Negative Negative - 500+++ Rosana/mcL [facility] Nitrite, UA Negative Negative - Positive [facility] pH, UA 6.5 5 - 9 [facility], UA Negative Negative - 2000(20) ++++ mg/dL [facility] Spec Grav, UA 1.010 1 - 1.03 [facility] care Urobilinogen, UA 0.2 0.2 - 12 mg/dL [facility] STREPT SCREENon 11-03-2022 STREP SCREEN A Positive Abnormal NEGATIVE [facility] Comment on above: Performed By: #### S SCRN #### [facility] [address] [place], [place] [address] Dr. Luis Harrison Covid-19 PCR ([facility])on 05-22 SARS-CoV-2 (COVID-19) RNA KALYANI+probe Ql (Unsp spec) Not detected Normal NOT DETECTED [facility] Comment on above: Result Comment: When [...] for this test is supported by the [place] of Health and Human Service's declaration that [...] used). Performed By: #### C VDTBH #### [facility] [address] [place], [place] [address] Dr. Luis Harrison GROUP A STREP CULTUREon 05-22 S. pyogenes Ag Ql (Unsp spec) Culture Observations: NEGATIVE FOR GROUP A STREPTOCOCCUS. Normal [facility] Comment on above: Performed By: #### G RASTCX, SSCRN #### [facility] [address] [place] [address] Dr. Luis Harrison STREPT SCREENon 06-18-2022 STREP SCREEN A Negative Normal NEGATIVE [facility] Comment on above: Performed By: #### G RASTCX, SSCRN #### [facility] [address] [place] [address] Dr. Luis Harrison CHLAMYDIA/GONOCOCCUS KALYANI (SW AB/URINE/PAPon 03-13-2022 Chlamydia trachomatis, KALYANI Negative Normal Negative [facility] Comment on above: Performed By: #### C T/NGNA #### [facility] [address] [place] [address] Dr. Luis Harrison Neisseria gonorrhoeae, KALYANI Negative Normal Negative [facility] Comment on above: Performed By: #### C T/NGNA #### [facility] [address] [place] [address] Dr. Luis Harrison VAGINITIS/VAGINOSIS DNA PROB Shantanu 03-13-2022 Alysha species Negative Normal Negative [facility] Comment on above: Performed By: #### V AGINT #### [facility] [address] [place] [address] Dr. Luis Harrison Gardnerella vaginalis Negative Normal Negative [facility] Comment on above: Performed By: #### V AGINT #### [facility] [address] [place] [address] Dr. Luis Harrison Trichomonas vaginalis Negative Normal Negative [facility] Comment on above: Performed By: #### V AGINT #### [facility] [address] [place] [address] Dr. Luis Harrison CULTURE URINEon 01-20-2022 CULTURE URINE Culture Observations: No growth Normal [facility] Comment on above: Performed By: #### U RCX #### [facility] [address] [place] [address] Dr. Luis Harrison ER URINE PROFILEon Bilirubin Ql (U) Negative Normal NEGATIVE [facility] Comment on above: Performed By: #### P REGUABDOULAYE, ERUR #### [facility] [address] [place] [address] [address] Luis Harrison Clarity (U) CLEAR Normal CLEAR [facility] Comment on above: Performed By: #### P ABDOULAYE CUMMINGS, ERUR #### [facility] [address] [place] [address] [address] Luis Harrison Color (U) LT. YELLOW Normal YELLOW [facility] Comment on above: Performed By: #### P ABDOULAYE CUMMINGS, ERUR #### [facility] [address] [place] [address] [address] Luis PACE A micrscopic examination will be performed if indicated. Normal [facility] Comment on above: Performed By: #### ABDOULAYE QUISPE, ERUR #### [facility] [address] [place] [address] Dr. Luis Harrison Glucose Ql (U) Negative Normal NEGATIVE [facility] Comment on above: Performed By: #### P ABDOULAYE CUMMINGS, ERUR #### [facility] [address] [place] [address] Dr. Luis Harrison Hemoglobin Ql (U) TRACE-LYSED Abnormal NEGATIVE [facility] Comment on above: Performed By: #### P ABDOULAYE CUMMINGS, ERUR #### [facility] [address] [place] [address] Dr. Luis Harrison Ketones Ql (U) Negative Normal NEGATIVE [facility] Comment on above: Performed By: #### P NAVARRO CUMMINGSRO, ERUR #### [facility] [address] [place] [address] [address] Luis Harrison LEUKOCYTES Negative Normal NEGATIVE [facility] Comment on above: Performed By: #### P REGUMINDIICRO, ERUR #### [facility] [address] [place] [address] Dr. Luis Harrison Nitrite Ql (U) Negative Normal NEGATIVE [facility] Comment on above: Performed By: #### P REGUABDOULAYE, ERUR #### [facility] [address] [place] [address] Dr. Luis Harrison pH (U) 6.0 [pH] Normal 5-[address] [facility] Comment on above: Performed By: #### P ABDOULAYE CUMMINGS ERUR #### [facility] [address] [place] [address] Dr. Luis Harrison SPEC GRAVITY <=1.005 Abnormal 1.005-<=1.025 [facility] Comment on above: Performed By: #### P ABDOULAYE CUMMINGS, ERUR #### [facility] [address] [place] [address] [address] Luis Harrison UA PROTEIN Negative Normal NEGATIVE/ TRACE [facility] Comment on above: Performed By: #### P ABDOULAYE CUMMINGS ERUR #### [facility] [address] [place] [address] Dr. Luis Harrison UR MICRO IND INDICATED Normal [facility] Comment on above: Performed By: #### ABDOULAYE QUISPE, HONGR #### [facility] [address] [place] [address] Dr. Luis Harrison Urobilinogen Qn (U) 0.2 {Maritza'U}/dL Normal 0.2 - 1. [address] [facility] Comment on above: Performed By: #### ABDOULAYE QUISPE ERUR #### [facility] [address] [place] [address] Dr. Luis Harrison GROUP A STREP CULTUREon S. pyogenes Ag Ql (Unsp spec) Culture Observations: NEGATIVE FOR GROUP A STREPTOCOCCUS. Normal [facility] Comment on above: Performed By: #### S SCRN, GRASTCX #### [facility] [address] [place] [address] Dr. Luis Harrison URon 01-20-2022 , QUAL Negative Normal NEGATIVE [facility] Comment on above: Performed By: #### S SCRN, GRASTCX #### [facility] [address] [place] [address] Dr. Luis Harrison STREPT SCREENon 01-20-2022 STREP SCREEN A Negative Normal NEGATIVE [facility] Comment on above: Performed By: #### S SCRN, GRASTCX #### [facility] [address] [place] [address] Dr. Luis Harrison URINE MICROSCOPIC ONLYon BACTERIA TRACE Abnormal NONE SEEN [facility] Comment on above: Performed By: #### S SCRN, GRASTCX #### [facility] [address] [place] [address] Dr. Luis Harrison Bacteria identified Cx Nom (U) INDICATED Normal [facility] Comment on above: Performed By: #### S SCRN, GRASTCX #### [facility] [address] [place] [address] Dr. Luis Harrison CAST NONE SEEN Normal NONE SEEN [facility] Comment on above: Performed By: #### S SCRN, GRASTCX #### [facility] [address] [place] [address] Dr. Luis Harrison Crystals LM Nom (Urine sed) NONE SEEN Normal NONE SEEN [facility] Comment on above: Performed By: #### S SCRN, GRASTCX #### [facility] [address] [place] [address] Dr. Luis Harrison Epithelial cells LM Ql (Urine sed) RARE Normal NONE SEEN /RARE [facility] Comment on above: Performed By: #### S SCRN, GRASTCX #### [facility] [address] [place] [address] Dr. Luis Harrison MUCOUS NONE SEEN Normal NONE SEEN [facility] Comment on above: Performed By: #### S SCRN, GRASTCX #### [facility] [address] [place] [address] Dr. Luis Harrison RBC 0-2 Normal 0-[address] [facility] Comment on above: Performed By: #### S SCRN, GRASTCX #### [facility] [address] [place] [address] Dr. Luis Harrison WBC 0-2 Abnormal NONE SEEN [facility] Comment on above: Performed By: #### S SCRN, GRASTCX #### [facility] [address] [place] [address] Dr. Luis Harrison Vital Signs Date Time Vital Sign Value Performing Clinician Faci lity 07-18-2024 13:46-0400 Body mass index (BMI) [Ratio] 30.65 kg/m2 Hannah MACKEY Work Phone: [facility] 07-18-2024 13:46-0400 Body weight 78.47 kg Hannah MACKEY Work Phone: [facility] 07-18-2024 13:46-0400 Diastolic blood pressure 68 mm[Hg] Hannah MACKEY Work Phone: [facility] 07-18-2024 13:46-0400 Systolic blood pressure 112 mm[Hg] Hannah MACKEY Work Phone: [facility] 06-21-2024 11:48-0400 Body mass index (BMI) [Ratio] 30.6 kg/m2 Barbie Kaylyn DO Work Phone: [facility] 06-21-2024 11:48-0400 Body weight 78.36 kg Barbie Kaylyn DO Work Phone: [facility] 06-21-2024 11:48-0400 Diastolic blood pressure 76 mm[Hg] Barbie Kaylyn DO Work Phone: [facility] 06-21-2024 11:48-0400 Systolic blood pressure 112 mm[Hg] Barbie Kaylyn DO Work Phone: [facility] Healthcare Encounters Encounter Date Encounter Type Care Provider Facility Start: 07-18-2024 End: 07-18-2024 Office outpatient visit 15 minutes Hannah MACKEY Work Phone: [facility] Comment on above: Third trimester preg otis; 32 weeks gestation of Start: 07-18-2024 End: 07-18-2024 ambulatory HANNAH CERDA Not Available Start: 07-05-2024 End: 07-05-2024 ambulatory HANNAH CERDA Not Available Start: 07-05-2024 End: 07-05-2024 Office outpatient visit 15 minutes Hannah MACKEY Work Phone: [facility] Comment on above: Third trimester [...] Available Start: 02-03-2024 End: 02-03-2024 ambulatory JOSÉ SANOTS Not Available Start: 01-11-2024 End: 01-11-2024 ambulatory [...] EST Ancillary Procedure [facility] [address] [facility] [place] [address] [facility] Start: 08-03-2024 End: 08-03-2024 Patient encounter procedure 08/03/2024 11:40 AM EST Routine [facility] [address] [place] [address] Barbie Patiño, DO [address] [place], [place] [id number] [facility] Start: 07-19-2024 End: 07-19-2024 Professional / ancillary services management 07/19/2024 1:00 PM EDT Ancillary Procedure [facility] [address] [place] [address] [facility] Start: 07-18-2024 End: 07-18-2024 Patient encounter procedure 07/18/2024 2:20 PM EDT Routine [facility] [address] [place] [address] Hannah Cerda PA [address] [place], [place] [id number] [facility] Start: 07-18-2024 End: 07-18-2024 [...] PM EDT Routine [facility] [address] [place] [id number] Hannah Cerda PA [address] [place] [address] [facility] Start: 06-21-2024 End: 06-21-2025 US for US OB SCAN FOR GROWTH Imaging Routine Diet controlled gestational diabetes mellitus (GDM) in third trimester Expected: 06/21/2024 (Approximate), Expires: 06/21/2025 [facility] Work Phone: Comment on above: Expected: 06/21/2024 (Approximate), Expires: 06/21/2025 Start: 05-21-2024 Influenza vaccination Influenza Vacc ine (#1) [facility] Healthcare Payers Date Payer Category Payer Medicaid [employer] [place] [id number] 2017-Present [address] [place] [id number] 2017 Medicaid (Managed Care) [facility] MEDICAID [id number] 1995 Unknown [id number] [id number]. 593 1995 Unknown [id number] 2.16.840.1.071801.3.579.2. 593 1995 Unknown [id number] 2.16.840.1.706806.3.579.2. 593 1995 Unknown [id number] 2.16.840.1.971973.3.579.2. 593 1995 Unknown [id number] 2.16.840.1.775686.3.579.2. 1258 1995 Unknown [id number] 2.16.840.1.812815.3.579.2. 9 1995 Unknown [id number] 2.16840.1.616218.3.579.2. 1258 1995 Unknown [id number] 2.16.840.1.137623.3.579.2. 1258 1995 Unknown [id number] 2.16.840.1.392176.3.579.2. 1258 1995 Unknown [id number] 2.16.840.1.787809.3.579.2. 9 1995 Unknown [id number] 2.16840.1.640819.3.579.2. 1258 1995 Unknown [id number] 2.16.840.1.980941.3.579.2. 1258 1995 Unknown [id number] 2.16.840.1.448849.3.579.2. 1258 1995 Unknown [id number] 2.16.840.1.725874.3.579.2. 1259 1959 Unknown [id number] Social History Date Type Detail Facility Start: 01-07-2024 Tobacco smoking status KSIS Never sm oked tobacco [facility] Start: 01-07-2024 Tobacco use and exposure Smoke less tobacco non-user [facility] Start: 06-07-2024 End: 07-18-2024 Alcoholic beverage intake Lifetime non-drinker (finding) [facility] Start: 01-11-2024 History of Social function [facility] Start: 01-11-2024 Social connection an d isolation panel [facility] Do you belong to any clubs or organizations such as baptism groups, unions, fraternal or athletic groups, or [...] meal for a total of 4times daily. [id number] Start: 06-07-2024 End: 07-07-2024 1 each by In Vit ro route Daily Use to check FSBS four times daily [id number] Start: 06-07-2024 End: 07-07-2024 History of Present [...] to check FSBS. Blood Glucose Monitoring Suppl (Wishery Glucometer) w/Device kit 1 kit, Does not [...] Mild intermittent asthma without complication ([facility]) 01/11/2024 Multiple pigmented nevi 01/11/2024 Thyromegaly ([facility] [...] syndrome 01/11/2024 Generalized anxiety disorder ([facility]) 01/11/2024 Genital herpes in women 01/11/2024 Mild intermittent asthma without complication ([facility]) 01/11/2024 Multiple pigmented nevi 01/11/2024 Thyromegaly ([facility]) 01/11/2024 Umbilical hernia without obstruction or gangrene [...] nursing note reviewed. Exam conducted with a asphalt spreader operator present. Vitals: Estimated body mass index is [...] DATE CREATED AUTHOR AUTHOR'S ORGANIZ ATION 07/20/2024 [facility] Care Teams (unrecognized sec tion and content) Bookbinding Machine Operator Relationship Specialty Start Date End Date Jason Servin MD [address] [place] [phone] PCP - General Family Medicine 01/11/24 Jason Servin MD [address] [place] [address] PCP - [facility] 12/20/23 Bookbinding Machine Operator Relationship Specialty Start Date End Date Jason Servin MD [address] [place] [phone] PCP - General Family Medicine 01/11/24 Jason Servin MD [address] [place] [address] PCP - [facility] 12/20/23 Bookbinding Machine Operator Relationship Specialty Start Date End Date Jason Servin MD [address] [place] [phone] PCP - [facility] 01/11/24 Jason Servin MD [address] [place] [address] [facility] 12/20/23 Bookbinding Machine Operator Relationship Specialty Start Date End Date Jason Servin MD [address] [place] [address] PCP - [facility] 01/11/24 Jason Servin MD [address] [place] [address] [facility] - [facility] 12/20/23 Reason for Visit (unrecogniz ed [...] BE BASED ON THE PRIMARY CLINICAL RECORDS. [facility] [email or web address] [facility]. provides no warranty or guarantee of the accuracy or completeness of information in this document.
--- NOTE | 2024-07-31 16:00 | US_ITS ---
[address] [address] Patient Name: ESTELLA CARRASQUILLO MRN: [facility]:[id number] date: 1995 Sex: F Assigned Patient Location: [facility] Current Patient Location: Accession/Order Number: [id number] Exam Date: 07/31/2024 16:06 Report Date: 08/01/2024 07:46 At the request of: BARBIE BRYAN Procedure: US OB BPP w non-stress EXAMINATION: US OB BPP w non-stress HISTORY: GESTATIONAL DIABETES MELLITUS O24.419 COMPARISON: No relevant comparison available. TECHNIQUE: Ultrasound biophysical profile was performed in the radiology department. non-reactive stress testing was performed by nursing staff in the birthing center. FINDINGS: BREATHING MOVEMENTS: 2 GROSS BODY MOVEMENTS: 2 TONE: 2 QUALITATIVE AMNIOTIC FLUID VOLUME: 2 PRESENTATION: CEPHALIC HEART RATE: 150 bpm AMNIOTIC FLUID VOLUME: 12.7 cm GESTATIONAL AGE: 34 weeks 4 days US/US OB BPP w non-stress IMPRESSION: Total biophysical profile score: 8 Electronically authenticated by: CAREY HUFF Date: 08/01/2024 07:46
[2024-07-31 16:36] VITALS: BP 112/68; PULSE 89
== END 2024-07-31 17:02 | disposition home or self-care (01) ==
LOC: US 07:08 → FBC 16:03
PROVIDERS: PCP Family Medicine; Visit Provider Obstetrics & Gynecology
DX: O24.419 Gestational diabetes mellitus in pregnancy, unspecified control (principal); Z3A.34 34 weeks gestation of pregnancy
CPT/HCPCS: 76818

== ENCOUNTER 2024-08-06 03:13 | Inpatient (IN) | payer OTHER, SELFPAY ==
[2024-08-06] VITALS (32 sets, daily range): BP systolic 114–147; BP diastolic 60–90; PULSE 90–130; TEMP 36.8–37.1
--- OUTSIDE RECORDS SUMMARY | 2024-08-06 03:19 | XMS_ITS | CCD ---
Author Organization [facility] Care Team Providers Care Head Of Training And Development Name Role Phone DR JASON SERVIN Primary [...] UA Negative Negative - 4(70) +++ mg/dL [facility] Blood, UA Negative Negative - 50 Jackson/mcL [facility] Clarity, UA Clear [facility] Color, UA Yellow [facility] Glucose, UA Negative Negative - 1999(110) ++++ mg/dL [facility] Interpretation and review of laboratory results Normal [facility] Ketones, UA Negative Negative - 160(16) ++++ mg/dL [facility] Leukocytes, UA Negative Negative - 500+++ Rosana/mcL [facility] Nitrite, UA Negative Negative - Positive [facility] pH, UA 7 5 - 9 [facility] e Protein, UA Negative Negative - 1999(20) ++++ mg/dL [facility] Spec Grav, UA 1.02 1 - 1.03 [facility] Urobilinogen, UA 0.2 0.2 - 12 mg/dL [facility] Urinalysis macro (dipstick) panel (U)on 06-21-2024 Bilirubin, UA Negative Negative - 4(70) +++ mg/dL [facility] Blood, UA Negative Negative - 50 Jackson/mcL [facility] Clarity, UA Clear [facility] Color, UA Yellow [facility] Glucose, UA Negative Negative - 1999(110) ++++ mg/dL [facility] Interpretation and review of laboratory results Normal [facility] Ketones, UA Negative Negative - 160(16) ++++ mg/dL [facility] Leukocytes, UA Negative Negative - 500+++ Rosana/mcL [facility] Nitrite, UA Negative Negative - Positive [facility] pH, [facility]A 6.5 5 - 9 [facility], [facility]A Negative Negative - 2000(20) ++++ mg/dL [facility] Spec Grav, UA 1.010 1 - 1.03 [facility] care Urobilinogen, UA 0.2 0.2 - 12 mg/dL [facility] STREPT SCREENon 11-03-2022 STREP SCREEN A Positive Abnormal NEGATIVE [facility] Comment on above: Performed By: #### S SCRN #### [facility] [address], [place] [address] Dr. Luis Harrison Covid-19 PCR ([facility])on 05-22 SARS-CoV-2 (COVID-19) RNA KALYANI+probe Ql (Unsp spec) Not detected Normal NOT DETECTED [facility] Comment on above: Result Comment: When [...] for this test is supported by the [place] of [employer] and Human Service's declaration that [...] used). Performed By: #### C VDTBH #### [facility] [address], [place] [address] Dr. Luis Harrison GROUP A STREP CULTUREon 05-22 S. pyogenes Ag Ql (Unsp spec) Culture Observations: NEGATIVE FOR GROUP A STREPTOCOCCUS. Normal [facility] Comment on above: Performed By: #### G RASTCX, SSCRN #### [facility] [address] [place] [address] Dr. Luis Harrison STREPT SCREENon 06-18-2022 STREP SCREEN A Negative Normal NEGATIVE [facility] Comment on above: Performed By: #### G RASTCX, SSCRN #### [facility] [address] [place] [address] Dr. Luis Harrison CHLAMYDIA/GONOCOCCUS KALYANI (SW AB/URINE/PAPon 03-13-2022 Chlamydia trachomatis, KALYANI Negative Normal Negative [facility] Comment on above: Performed By: #### C T/NGNA #### [facility] [address] [place] [address] Dr. Luis Harrison Neisseria gonorrhoeae, KALYANI Negative Normal Negative [facility] Comment on above: Performed By: #### C T/NGNA #### [facility] [address] [place] [address] Dr. Luis Harrison VAGINITIS/VAGINOSIS DNA PROB Shantanu 03-13-2022 Alysha species Negative Normal Negative [facility] Comment on above: Performed By: #### V AGINT #### [facility] [address] [place] [address] Dr. Luis Harrison Gardnerella vaginalis Negative Normal Negative [facility] Comment on above: Performed By: #### V AGINT #### [facility] [address] [place] [address] Dr. Luis Harrison Trichomonas vaginalis Negative Normal Negative [facility] Comment on above: Performed By: #### V AGINT #### [facility] [address] [place] [address] Dr. Luis Harrison CULTURE URINEon 01-20-2022 CULTURE URINE Culture Observations: No growth Normal [facility] Comment on above: Performed By: #### U RCX #### [facility] [address] [place] [address] Dr. Luis Harrison ER URINE PROFILEon Bilirubin Ql (U) Negative Normal NEGATIVE [facility] Comment on above: Performed By: #### P REGUABDOULAYE, ERUR #### [facility] [address] [place] [address] [address] Luis Harrison Clarity (U) CLEAR Normal CLEAR [facility] Comment on above: Performed By: #### P ABDOULAYE CUMMINGS, ERUR #### [facility] [address] [address] [address] Luis Harrison Color (U) LT. YELLOW Normal YELLOW [facility] Comment on above: Performed By: #### P ABDOULAYE CUMMINGS, ERUR #### [facility] [address] [address] [address] Luis PACE A micrscopic examination will be performed if indicated. Normal [facility] Comment on above: Performed By: #### ABDOULAYE QUISPE, ERUR #### [facility] [address] [place] [address] Dr. Luis Harrison Glucose Ql (U) Negative Normal NEGATIVE [facility] Comment on above: Performed By: #### P ABDOULAYE CUMMINGS, ERUR #### [facility] [address] [place] [address] Dr. Luis Harrison Hemoglobin Ql (U) TRACE-LYSED Abnormal NEGATIVE [facility] Comment on above: Performed By: #### P ABDOULAYE CUMMINGS, ERUR #### [facility] [address] [place] [address] Dr. Luis Harrison Ketones Ql (U) Negative Normal NEGATIVE [facility] Comment on above: Performed By: #### P NAVARRO CUMMINGSRO, ERUR #### [facility] [address] [address] [address] Luis Harrison LEUKOCYTES Negative Normal NEGATIVE [facility] Comment on above: Performed By: #### P REGUMINDIICRO, ERUR #### [facility] [address] [place] [address] Dr. Luis Harrison Nitrite Ql (U) Negative Normal NEGATIVE [facility] Comment on above: Performed By: #### P REGUABDOULAYE, ERUR #### [facility] [address] [place] [address] Dr. Luis Harrison pH (U) 6.0 [pH] Normal 5-9 [facility] Comment on above: Performed By: #### P ABDOULAYE CUMMINGS ERUR #### [facility] [address] [place] [address] Dr. Luis Harrison SPEC GRAVITY <=1.005 Abnormal 1.005-<=1.[address] [facility] Comment on above: Performed By: #### P ABDOULAYE CUMMINGS, ERUR #### [facility] [address] [address] [address] Luis Harrison UA PROTEIN Negative Normal NEGATIVE/ TRACE [facility] Comment on above: Performed By: #### P ABDOULAYE CUMMINGS ERUR #### [facility] [address] [place] [address] Dr. Luis Harrison UR MICRO IND INDICATED Normal [facility] Comment on above: Performed By: #### ABDOULAYE QUISPE, HONGR #### [facility] [address] [place] [address] Dr. Luis Harrison Urobilinogen Qn (U) 0.2 {Maritza'U}/dL Normal 0.2 - 1. 0 [facility] Comment on above: Performed By: #### ABDOULAYE QUISPE ERUR #### [facility] [address] [place] [address] Dr. Luis Harrison GROUP A STREP CULTUREon S. pyogenes Ag Ql (Unsp spec) Culture Observations: NEGATIVE FOR GROUP A STREPTOCOCCUS. Normal [facility] Comment on above: Performed By: #### S SCRN, GRASTCX #### [facility] [address] [place] [address] Dr. Luis Harrison URon 01-20-2022 , QUAL Negative Normal NEGATIVE [facility] Comment on above: Performed By: #### S SCRN, GRASTCX #### [facility] [address] [place] [address] Dr. Luis Harrison STREPT SCREENon 01-20-2022 STREP SCREEN A Negative Normal NEGATIVE [facility] Comment on above: Performed By: #### S SCRN, GRASTCX #### [facility] [address] [place] [address] Dr. Luis Harrison URINE MICROSCOPIC ONLYon BACTERIA TRACE Abnormal NONE SEEN [facility] Comment on above: Performed By: #### S SCRN, GRASTCX #### [facility] [address] [place] [address] Dr. Luis Harrison Bacteria identified Cx Nom (U) INDICATED Normal [facility] Comment on above: Performed By: #### S SCRN, GRASTCX #### [facility] [address] [place] [address] Dr. Luis Harrison CAST NONE SEEN Normal NONE SEEN [facility] Comment on above: Performed By: #### S SCRN, GRASTCX #### [facility] [address] [place] [address] Dr. Luis Harrison Crystals LM Nom (Urine sed) NONE SEEN Normal NONE SEEN [facility] Comment on above: Performed By: #### S SCRN, GRASTCX #### [facility] [address] [place] [address] Dr. Luis Harrison Epithelial cells LM Ql (Urine sed) RARE Normal NONE SEEN /RARE [facility] Comment on above: Performed By: #### S SCRN, GRASTCX #### [facility] [address] [place] [address] Dr. Luis Harrison MUCOUS NONE SEEN Normal NONE SEEN [facility] Comment on above: Performed By: #### S SCRN, GRASTCX #### [facility] [address] [place] [address] Dr. Luis Harrison RBC 0-2 Normal 0-2 [facility] Comment on above: Performed By: #### S SCRN, GRASTCX #### [facility] [address] [place] [address] Dr. Luis Harrison WBC 0-2 Abnormal NONE SEEN [facility] Comment on above: Performed By: #### S SCRN, GRASTCX #### [facility] [address] [place] [address] Dr. Luis Harrison Vital Signs Date Time Vital Sign Value Performing Clinician Faci lity 07-18-2024 13:46-0400 Body mass index (BMI) [Ratio] 30.65 kg/m2 Hannah MACKEY Work Phone: [facility] 07-18-2024 13:46-0400 Body weight 78.47 kg Hannah MACKEY Work Phone: [facility] 07-18-2024 13:46-0400 Diastolic blood pressure 68 mm[Hg] Hannah MACKEY Work Phone: [facility] 07-18-2024 13:46-0400 Systolic blood pressure 112 mm[Hg] Hannah MACKEY Work Phone: [facility] 06-21-2024 11:48-0400 Body mass index (BMI) [Ratio] 30.6 kg/m2 Barbie Kaylyn DO Work Phone: [facility] 06-21-2024 11:48-0400 Body weight 78.36 kg Barbie Kaylyn DO Work Phone: [facility] 06-21-2024 11:48-0400 Diastolic blood pressure 76 mm[Hg] Barbie Kaylyn DO Work Phone: [facility] 06-21-2024 11:48-0400 Systolic blood pressure 112 mm[Hg] Barbie Kaylyn DO Work Phone: [facility] Healthcare Encounters Encounter Date Encounter Type Care Provider Facility Start: 07-18-2024 End: 07-18-2024 Office outpatient visit 15 minutes Hannah MACKEY Work Phone: [facility] Comment on above: Third trimester preg otis; 32 weeks gestation of Start: 07-18-2024 End: 07-18-2024 ambulatory HANNAH CERDA Not Available Start: 07-05-2024 End: 07-05-2024 ambulatory HANNAH CERDA Not Available Start: 07-05-2024 End: 07-05-2024 Office outpatient visit 15 minutes Hannah MACKEY Work Phone: [facility] Comment on above: Third [...] EST Ancillary Procedure [facility] [address] [place] [address] [facility] Start: 08-03-2024 End: 08-03-2024 Patient encounter procedure 08/03/2024 11:40 AM EST Routine [facility] [address] [place] [address] Barbie Patiño, DO [address] [place], [place] [id number] [facility] Start: 07-19-2024 End: 07-19-2024 Professional / ancillary services management 07/19/2024 1:00 PM EDT Ancillary Procedure [facility] [address] [place] [address] [facility] Start: 07-18-2024 End: 07-18-2024 Patient encounter procedure 07/18/2024 2:20 PM EDT Routine [facility] [address] [place] [address] Hannah Cerda PA [address] [place], [place] [id number] [facility] Start: 07-18-2024 End: 07-18-2024 [...] PM EDT Routine [facility] [address] [address] Hannah Cerda PA [address] [place] [address] [facility] Start: 06-21-2024 End: 06-21-2025 US for US OB SCAN FOR GROWTH Imaging Routine Diet controlled gestational diabetes mellitus (GDM) in third trimester Expected: 06/21/2024 (Approximate), Expires: 06/21/2025 [facility] Work Phone: Comment on above: Expected: 06/21/2024 (Approximate), Expires: 06/21/2025 Start: 05-21-2024 Influenza vaccination Influenza Vacc ine (#1) [facility] Healthcare Payers Date Payer Category Payer Medicaid [employer] [place] [id number] 2017-Present [address] [place] [id number] 2017 Medicaid (Managed Care) [facility] MEDICAID [id number] 1995 Unknown [id number] [id number]. 593 1995 Unknown [id number] 2.16.840.1.853445.3.579.2. 593 1995 Unknown [id number] 2.16.840.1.618830.3.579.2. 593 1995 Unknown [id number] 2.16.840.1.381212.3.579.2. 593 1995 Unknown [id number] 2.16.840.1.572269.3.579.2. 1258 1995 Unknown [id number] 2.16.840.1.541111.3.579.2. 9 1995 Unknown [id number] 2.16840.1.579310.3.579.2. 1258 1995 Unknown [id number] 2.16.840.1.630016.3.579.2. 1258 1995 Unknown [id number] 2.16.840.1.245076.3.579.2. 1258 1995 Unknown [id number] 2.16.840.1.424471.3.579.2. 9 1995 Unknown [id number] 2.16840.1.629091.3.579.2. 1258 1995 Unknown [id number] 2.16.840.1.573461.3.579.2. 1258 1995 Unknown [id number] 2.16.840.1.796201.3.579.2. 1258 1995 Unknown [id number] 2.16.840.1.186637.3.579.2. 1259 1959 Unknown [id number] Social History Date Type Detail Facility Start: 01-07-2024 Tobacco smoking status AZIS Never sm oked tobacco [facility] Start: 01-07-2024 Tobacco use and exposure Smoke less tobacco non-user [facility] Start: 06-07-2024 End: 07-18-2024 Alcoholic beverage intake Lifetime non-drinker (finding) [facility] Start: 01-11-2024 History of Social function [facility] Start: 01-11-2024 Social connection an d isolation panel [facility] Do you belong to any clubs or organizations such as protestant groups, unions, fraternal or athletic groups, or [...] meal for a total of 4times daily. [id number] Start: 06-07-2024 End: 07-07-2024 1 each by In Vit ro route Daily Use to check FSBS four times daily [id number] Start: 06-07-2024 End: 07-07-2024 History of Present [...] to check FSBS. Blood Glucose Monitoring Suppl ([employer] Glucometer) w/Device kit 1 kit, Does not [...] 01/11/2024 Mild intermittent asthma without complication ([facility]) 01/11/2024 Multiple pigmented nevi 01/11/2024 Thyromegaly ([facility]) 01/11/2024 Umbilical hernia without obstruction or [...] tunnel syndrome 01/11/2024 Generalized anxiety disorder ([facility]) 01/11/2024 Genital herpes in women 01/11/2024 Mild intermittent asthma without complication ([facility]) 01/11/2024 Multiple pigmented nevi 01/11/2024 Thyromegaly ([facility]) 01/11/2024 Umbilical hernia without obstruction or [...] nursing note reviewed. Exam conducted with a aerospace products sales engineer present. Vitals: Estimated body mass index is [...] ORGANIZ ATION 07/20/2024 [facility] Care Teams (unrecognized sec tion and content) Head Of Training And Development Relationship Specialty Start Date End Date Jason Servin MD [address] [place] [address] PCP - General Family Medicine 01/11/24 Jason Servin MD [address] [place] [address] PCP - [facility] 12/20/23 Head Of Training And Development Relationship Specialty Start Date End Date Jason Servin MD [address] [place] [address] PCP - General Family Medicine 01/11/24 Jason Servin MD [address] [place] [address] PCP - [facility] 12/20/23 Head Of Training And Development Relationship Specialty Start Date End Date Jason Servin MD [address] [place] [address] PCP - [facility] 01/11/24 Jason Servin MD [address] [place] [address] [facility] 12/20/23 Head Of Training And Development Relationship Specialty Start Date End Date Jason Servin MD [address] [place] [address] PCP - [facility] 01/11/24 Jason Servin MD [address] [place] [address] [facility] - [facility] 12/20/23 Reason for Visit (unrecogniz ed [...] BE BASED ON THE PRIMARY CLINICAL RECORDS. [facility]. provides no warranty or guarantee of the accuracy or completeness of information in this document.
[2024-08-06 03:51] LABS: Bilirubin Urine NEGATIVE (NEGATIVE); Blood Urine TRACE-I (NEGATIVE); Clarity Urine CLEAR (CLEAR); Color Urine LT. YELLOW (YELLOW); Glucose Urine UA NEGATIVE (NEGATIVE); Ketones Urine NEGATIVE (NEGATIVE); Leukocyte Esterase Urine NEGATIVE (NEGATIVE); Nitrite Urine NEGATIVE (NEGATIVE); Protein Urine NEGATIVE (NEG/TRACE); Specific Gravity Urine 1.025 (1.005-1.025); Urine Microscopic Indicated YES; Urobilinogen Urine 0.2 EU/dL (0.2-1.0)
[2024-08-06 03:58] LABS: Bacteria Urine TRACE #/HPF (NONE SEEN); Cast Seen? NONE SEEN #/LPF (NONE SEEN); Crystals Seen? None Seen #/HPF (None Seen); Mucus Urine NONE SEEN (NONE SEEN); Squamous Epithelial Cell Urine FEW #/LPF (NONE/RARE); Urine Culture Indicated YES
[2024-08-06] MEDS: 0.9 % SODIUM CHLORIDE 1,000 ML 125 ML IV (07:50)
[2024-08-06] MEDS: NALBUPHINE HCL 10 MG/ML AMPULE IV (08:00)
[2024-08-06 08:02] LABS: Hematocrit 40.4 % (36.0-48.0); Hemoglobin 13.5 g/dL (12.0-16.0); Mean Corpuscular HGB Conc 33.4 g/dL (29.9-35.2); Mean Corpuscular Hemoglobin 29.6 pg (26.7-34.0); Mean Corpuscular Volume 88.6 fL (81.0-99.0); Mean Platelet Volume 9.4 fL (9.5-13.5); Platelet Count 200 10^3/uL (150-450); Red Blood Count 4.56 10^6/uL (4.20-5.40); Red Cell Distribution Width 13.6 % (11.0-15.0); White Blood Count 13.7 10^3/uL (4.0-11.0)
[2024-08-06] MEDS: AMPICILLIN SODIUM 2,000 MG in 0.9 % SODIUM CHLORIDE 100 ML 200 MG IV (08:11)
[2024-08-06] MEDS: ROPIVACAINE HCL/PF 400 MG/200 ML PREMIX 10 MG EPIDURAL (08:35)
[2024-08-06] MEDS: 0.9 % SODIUM CHLORIDE 1,000 ML 999 ML IV (09:12)
[2024-08-06] MEDS: OXYTOCIN/0.9 % SODIUM CHLORIDE 20 UNITS/1,000 ML PLAST..BAG 125 UNIT IV (10:33)
--- NOTE | 2024-08-06 10:41 | PM.OBPRCVD ---
Procedure Intrapartal events: None Induction method: none Delivery augmentation: rupture of membranes Delivery monitor: external FHT and external uterine Route of delivery: Episiotomy Description: none L&D Laceration Description: perineal - 1st degree Delivery repair: Vicryl Estimated blood loss (mL): 250 Anesthesia type: Epidural Disposition: floor Delivery date: 08/06/24 Gender: female presentation: vertex Placental delivery description: Spontaneous cord description: 3 Vessels
[2024-08-06] MEDS: IBUPROFEN 600 MG TABLET PO ×2 (11:23→21:05)
[2024-08-06] MEDS: GLYCERIN/WITCH HAZEL PADS 1 PAD TOPICAL (11:23)
[2024-08-06] MEDS: BENZOCAINE/MENTHOL 85 GRAM SPRAY BOTTLE 1 APPLIC TOPICAL (11:24)
[2024-08-06 19:11] LABS: Amphetamine Screen Urine NEGATIVE (NEGATIVE); Barbiturates Screen Urine NEGATIVE (NEGATIVE); Benzodiazepines Screen Urine NEGATIVE (NEGATIVE); Buprenorphine Screen Urine NEGATIVE (NEGATIVE); Cannabinoid Screen Urine NEGATIVE (NEGATIVE); Cocaine Screen Urine NEGATIVE (NEGATIVE); Methadone Screen Urine NEGATIVE (NEGATIVE); Methamphetamines Screen Urine NEGATIVE (NEGATIVE); Opiate Screen Urine NEGATIVE (NEGATIVE); Oxycodone Screen Urine NEGATIVE (NEGATIVE); Phencyclidine Screen Urine NEGATIVE (NEGATIVE); Tricyclic Antidepressant Urine NEGATIVE (NEGATIVE)
[2024-08-07] MEDS: IBUPROFEN 600 MG TABLET PO ×4 (03:44→23:55)
[2024-08-07 06:22] LABS: Basophils Absolute Auto 0.1 10^3/uL (0.0-0.1); Basophils Percent Auto 0.4 % (0.2-2.0); Eosinophils Absolute Auto 0.1 10^3/uL (0.0-0.7); Eosinophils Percent Auto 0.6 % (0.9-7.0); Hematocrit 37.1 % (36.0-48.0); Hemoglobin 12.4 g/dL (12.0-16.0); Immature Granulocytes Abs Auto 0.08 10^3/uL (0.00-0.03); Immature Granulocytes Pct Auto 0.6 % (0.0-0.5); Lymphocytes Absolute Auto 2.9 10^3/uL (1.2-3.8); Lymphocytes Percent Auto 20.8 % (20.5-60.0); Mean Corpuscular HGB Conc 33.4 g/dL (29.9-35.2); Mean Corpuscular Hemoglobin 30.2 pg (26.7-34.0); Mean Corpuscular Volume 90.5 fL (81.0-99.0); Mean Platelet Volume 9.2 fL (9.5-13.5); Monocytes Percent Auto 6.9 % (1.7-12.0); Neutrophils Percent Auto 70.7 % (43.0-75.0); Platelet Count 170 10^3/uL (150-450); Red Cell Distribution Width 13.8 % (11.0-15.0); White Blood Count 14.2 10^3/uL (4.0-11.0)
[2024-08-07 08:30] VITALS: BP 119/81; PULSE 83; TEMP 36.7
[2024-08-07] MEDS: DOCUSATE SODIUM 100 MG CAPSULE PO ×2 (08:34→20:54)
[2024-08-07 15:22] VITALS: BP 120/66; PULSE 79
[2024-08-07 15:27] VITALS: TEMP 37
--- NOTE | 2024-08-07 17:45 | P.OBPN_ITS ---
OB - PN: Subj Subjective Patient comments: no complaints and pain well controlled [place] status: doing well Exam Constitutional Vital Signs, click to edit/add: Last Vital Signs Temp 98.6 F 08/07/24 15:27 Pulse 79 08/07/24 15:22 Resp 15 08/07/24 15:30 BP 120/66 08/07/24 15:22 O2 Del Method Room Air 08/07/24 15:30 Documenting provider has reviewed patient's vital signs: yes Common normals: no apparent distress Respiratory Common normals: clear to auscultation bilaterally Cardio Common normals: regular rate and regular rhythm Extremity Common normals: no clubbing, cyanosis or edema and no calf tenderness Results Labs Labs: Short CBC 08/07/24 Range/Units 06:18 WBC 14.2 H (4.0-11.0) 10^3/uL Hgb 12.4 (12.0-16.0) g/dL Hct 37.1 (36.0-48.0) % Plt Count 170 (150-450) 10^3/uL OB - PN: A/P Plan - Vaginal Delivery day: 1 Plan: routine care Time Spent with Patient Time: Total time spent is greater than 50% in coordination of care (as documented) at patient's floor/unit and/or counseling patient: Total time spent with greater than 50% in coordination of care (as documented) at patient's floor/unit and/or counseling patient: less than 15 minutes
[2024-08-07] MEDS: ACETAMINOPHEN 325 MG TABLET 650 MG PO (20:57)
[2024-08-07 23:56] VITALS: BP 114/72; PULSE 96; TEMP 36.7
[2024-08-08] MEDS: IBUPROFEN 600 MG TABLET PO (05:53)
[2024-08-08 08:10] VITALS: BP 114/66; PULSE 92; TEMP 36.7
[2024-08-08] MEDS: DOCUSATE SODIUM 100 MG CAPSULE PO (08:11)
--- NOTE | 2024-08-08 09:24 | P.OBPN_ITS ---
OB - PN: Subj Subjective Patient comments: no complaints and pain well controlled [place] status: doing well Exam Constitutional Vital Signs, click to edit/add: Last Vital Signs Temp 98.0 F 08/08/24 08:10 Pulse 92 H 08/08/24 08:10 Resp 16 08/08/24 08:10 BP 114/66 08/08/24 08:10 O2 Del Method Room Air 08/08/24 08:17 Documenting provider has reviewed patient's vital signs: yes Common normals: no apparent distress Respiratory Common normals: normal respiratory effort and clear to auscultation bilaterally Cardio Common normals: regular rate and regular rhythm GI Common normals: Normal to inspection, nondistended, normoactive bowel sounds present Extremity Common normals: no clubbing, cyanosis or edema and no calf tenderness OB - PN: A/P Plan - Vaginal Delivery day: 2 Plan: routine care, discharge home and follow up 6 weeks Time Spent with Patient Time: Total time spent is greater than 50% in coordination of care (as documented) at patient's floor/unit and/or counseling patient: Total time spent with greater than 50% in coordination of care (as documented) at patient's floor/unit and/or counseling patient: less than 15 minutes
== END 2024-08-08 13:00 | disposition home or self-care (01) | DRG 560 ==
PROVIDERS: Admitting Provider Obstetrics & Gynecology; PCP Family Medicine; Visit Provider Obstetrics & Gynecology
DX: O70.0 First degree perineal laceration during delivery (principal); Z37.0 Single live birth; Z3A.37 37 weeks gestation of pregnancy
CPT/HCPCS: 36415; 59025; 59050; 59410; 80307; 81001; 85025; 85027; 86850; 86900; 86901; 87086; J0290; J2300; J2795

== ENCOUNTER 2024-08-09 08:14 | Outpatient (OUT) | payer OTHER, SELFPAY ==
[2024-08-09 14:28] VITALS: BP 123/82; PULSE 86; TEMP 36.9; O2SAT 98
--- NOTE | 2024-08-09 14:32 | PC.NURSE ---
Claribel and Gina arrive for follow up care with FOB. Mom states continues to pump and is now seeing an increase in output. Obtains 20 ml last 3 pumping sessions. Mom feels well, VSS and assessment WNL. No complaints offered, light bleeding, light pink in color. Cramping diminished with pumping. Baby with VSS and assessment WNL. Color jaundiced, transcutaneous bili 12.9. Serum level drawn at this time. Specimen to lab. Family has no questions at this time. To private room to wait for results. Results called to Dr Rodrigez and recommends return 08/10/2024 for repeat level. Family encouraged to feed frequently, watch for stools and voids. Will return by 1000 08/10/2024 for out pt lab. Family leaves for home voicing understanding of plan of care.
== END 2024-08-09 13:00 | disposition home or self-care (01) ==
LOC: FBCO 08:15
PROVIDERS: PCP Family Medicine; Visit Provider Obstetrics & Gynecology
DX: Z39.2 Encounter for routine postpartum follow-up (principal)

== ENCOUNTER 2025-04-25 20:11 | Outpatient (REF) | payer OTHER, SELFPAY ==
--- OUTSIDE RECORDS SUMMARY | 2009-12-04 05:45 | XMS_ITS | Continuity of Care Document ---
Author Organization [facility] Address [address] [place] [address] Phone Care Team Providers Care Nursing Home Aide Name Role Phone Parker Hercules Unavailable Unavailable Procedures Procedure Date TB INTRADERMAL TEST TB INTRADERMAL TEST Advance Directives Directive Yes / No Effective Date File Name No Information Encounters Encounter Description Practice Location Reason(s) For Visit Diagnoses Date Provider Providers Copied on Encounter [facility], [address], [place], [id number], tel:[phone] [facility] No Information María FLORES Parker. [address], [place], [id number], [place]. tel:[phone] [facility], [address] [place] [address], [id number], tel:[phone] [facility] No Information María Sen. [address], [place], [id number], [place]. tel:[phone] Family History Family Member Type Diagnosis Age At Onset No Information Payers Payer name Insurance type Covered green party ID Authoriza tion(s) No Information Social History Type Description Quantity Date Captured Comments Sex Female Smoking Status No Information Chief Complaint And Reason For Visit No Information Reason For Referral Reason For Referral No Information History Of Present Illness Encounter Date Complaint History Of Prese nt Illness No Information Functional Status Date Functional Assessmen t No Information Instructions Date Instruction Additional Infor mation No Information Assessments Type Assessment Date No Information Patient Care Teams Name Effective Dates (start - stop) Status Members No Information
--- OUTSIDE RECORDS SUMMARY | 2024-10-23 10:10 | XMS_ITS ---
Author Organization [facility] Serv[facility] es Address [address] [place] [address] Care Team Providers Care News Specialist Name Role Phone Bhargavi Daley Primary Care Provider Dr. Hossein Smith Unavailable [phone] REASON FOR VISIT exam potential cavity per smith Encounters Encounter Location Date Provider Diagnosis [facility] [address] [place] [address] 10/23/2024 Bhargavi Daley Plan Of Treatment No Information Progress Notes * SABAS CARRASQUILLO MDOB:12/1994 (30 yo F)Acc No.[id number]:10/23/2024 Patient: COLLEEN BACONJUANA Natalia Account Number:[id number] Provider: Tyrell Daley DDS :1995 A ge:29 Y S ex:Female Date:10/23/2024 Address:[address], [place], [id number] Subjective: * Chief Complaints: * 1 . Exam potential cavity per smith. * Medical History: Objective: * Vitals: Assessment: Plan: * Treatment: * Images: * Electronic signature of Rony Daley DDS on 04/25/2025 at 08:16 PM EDT Sign off status: Pending * Provider: Tyrell Daley DDS Date: 0 10/23/2024 Generated for Angie barragan/Faxing/eTransmitting on: 0 04/25/2025 08:16 PM EDT
--- OUTSIDE RECORDS SUMMARY | 2024-11-23 11:20 | XMS_ITS ---
Author Organization [facility] Serv[facility] es Address [address] [place] [address] Care Team Providers Care Shipfitter Apprentice Name Role Phone Bhargavi Daley Primary Care Provider Dr. Hossein Smith [facility] [phone] REASON FOR VISIT EXAM POSSIBLE CAVITY PER CARLOS A R/S FROM 2/3 Encounters Encounter Location Date Provider Diagnosis [facility] [address] [place] [address] 11/23/2024 Bhargavi Daley Plan Of Treatment No Information Progress Notes * SABAS CARRASQUILLO MDOB:12/1994 (30 yo F)Acc No.[id number]:11/23/2024 Patient: COLLEEN BACONJUANA Natalia Account Number:[id number] Provider: Tyrell Daley DDS :1995 A ge:29 Y S ex:Female Date:11/23/2024 Address:[address], [place], [id number] Subjective: * Chief Complaints: * 1 . EXAM POSSIBLE CAVITY PER CARLOS A R/S FROM 10/23. * Medical History: Objective: * Vitals: Assessment: Plan: * Treatment: * Images: * Electronic signature of Rony Daley DDS on 04/25/2025 at 08:15 PM EDT Sign off status: Pending * Provider: Tyrell Daley DDS Date: 11/23/2024 Generated for Angie barragan/Lio/Naviitting on: 0 04/25/2025 08:15 PM EDT
--- OUTSIDE RECORDS SUMMARY | 2025-04-25 11:30 | XMS_ITS | Encounter Summary ---
Author Organization [facility] Address [address] [place] [address] Care Team Providers Care Bus Cleaner Name Role Phone Jason Baez MD Primary Care Provider [phone] Jason Baez MD Unavailable Reason for Visit * Reason Comments Well Women Visit Vaginitis/Bacterial Vaginosis Encounter Details Date Type Department Care Team (Latest Contact Info) Description 04/25/2025 11:30 AM EDT Procedure Visit [facility] [address] [place] [id number] Hannah Reyna PA [address] [place], [place] [id number] Well woman exam with routine gynecological exam; Vaginal discharge; Yeast infection; Encounter for surveillance of contraceptive pills; 6 weeks follow-up ([facility]); Herpes genitalis in women; UTI symptoms Social History Tobacco Use Types Packs/Day Years Used Date Smoking Tobacco: Never Smokeless Tobacco: Never Alcohol Use Standard Drinks/Week Comments Never 0 (1 standard drink = 0.6 oz pur e alcohol) Social Connection and Isolation Panel [NHANES] A nswer Date Recorded In a typical week, how many times do you talk on the phone with family, friends, or neighbors? Twice a week 01/11/2024 How often do you get together with friends or re latives? Once a week 01/11/2024 How often do you attend hinduism or temple serv ices? Never 01/11/2024 Do you belong to any clubs o r organizations such as hinduism groups, unions, fraternal or athletic groups, or school groups? No 01/11/2024 How often do you attend meet ings of the clubs or organizations you belong to? Never 01/11/2024 Are you , , di vorced, , never , or living with a partner? Never 01/11/2024 AUDIT-C Answer Date Recorded Q1: How often do you have a drink containing alcohol? Never 01/11/2024 Q2: How many drinks containi ng alcohol do you have on a typical day when you are drinking? Patient does not drink Q3: How often do you have si x or more drinks on one occasion? Never 01/11/2024 Overall Financial Resource Strain (CARDIA) Answe r Date Recorded How hard is it for you to pa y for the very basics like food, housing, medical care, and heating? Not very hard 01/11/2024 [facility] of Occupat ional Health - Occupational Stress Questionnaire Answer Date Recorded Do you feel stress - tense, restless, nervous, or anxious, or unable to sleep at night because your mind is troubled all the time - these days? Only a little 01/11/2024 Exercise Vital Sign Answer Date Recorde d On average, how many days pe r week do you engage in moderate to strenuous exercise (like a brisk walk)? 2 days 01/11/2024 On average, how many minutes do you engage in exercise at this level? 20 min 01/11/2024 Hunger Vital Sign Answer Date Recorded Within the past 12 months, y ou worried that your food would run out before you got the money to buy more. Never true 01/11/20 24 Within the past 12 months, t he food you bought just didn't last and you didn't have money to get more. Never true 01/11/2024 PRAPARE - Transportation Answer Date Re corded In the past 12 months, has l ack of transportation kept you from medical appointments or from getting medications? No 12/20 In the past 12 months, has l ack of transportation kept you from meetings, work, or from getting things needed for daily living? No 01/11/2024 Housing Stability Vital Sign Answer Simone e Recorded In the last 12 months, was t here a time when you were not able to pay the mortgage or rent on time? No 01/11/2024 In the last 12 months, how many places have you lived? 1 01/11/2024 In the last 12 months, was t here a time when you did not have a steady place to sleep or slept in a jail (including now)? No 01/11/2024 Comments Unknown Sex and Gender Information Value Date Recorded Sex Assigned at Not on file Legal Sex Female 7:14 PM EDT Gender Identity Not on file Sexual Orientation Not on file documented as of this encounter Last Filed Vital Signs Vital Sign Reading Time Taken Comments Blood Pressure 100/68 04/25/2025 11:23 AM EDT Pulse - - Temperature - - Respiratory Rate - - Oxygen Saturation - - Inhaled Oxygen Concentration - - Weight 72.5 kg (159 lb 12.8 oz) 025 11:23 AM EDT Height - - Body Mass Index 28.31 01/11/2024 9:23 AM EDT documented in this encounter Progress Notes * NARENDRA Christensen - 04/25/2025 11:30 AM EDT Reason for Appointment: Patient ID: Claribel Buckner is a 30 y.o. female who presents for Well Women Visit and Vaginitis/Bacterial Vaginosis Patient presents today for Annual Exam. MEDICATIONS Current Outpatient Medications Medication Instructions albuterol HFA 90 mcg/act inhaler INHALE 2 PUFFS EVERY 4 HOURS NEEDED FOR SHORTNESS OF BREATH norgestimate-ethinyl estradiol (Sprintec 28) 0.25-35 MG-MCG tablet 1 tablet, Oral, Daily, Take 1 tablet by mouth daily valACYclovir (VALTREX) 1,000 mg, Oral, Daily ALLERGIES No Known Allergies PROBLEMS Active Ambulatory Problems Diagnosis Date Noted Bilateral carpal tunnel syndrome 01/11/2024 Generalized anxiety disorder 01/11/2024 Genital herpes in women 01/11/2024 Mild intermittent asthma without complication (HCC) 01/11/2024 Multiple pigmented nevi 01/11/2024 Thyromegaly 01/11/2024 Umbilical hernia without obstruction or gangrene 01/11/2024 Blepharitis of left upper eyelid 01/11/2024 Seasonal allergic rhinitis due to pollen 01/11/2024 Allergic conjunctivitis 01/11/2024 Nausea and vomiting in ([facility]) 01/11/2024 Resolved Ambulatory Problems Diagnosis Date Noted [...] Constitutional: Appearance: Normal appearance. She is well-developed. Genitourinary: Vulva normal. Right Adnexa: not tender and no mass present. Left Adnexa: not tender and no mass present. No cervical discharge. Breasts: Breasts are soft. Right: Normal. Left: Normal. HENT: Head: Normocephalic. Nose: Nose normal. Mouth/Throat: Mouth: Mucous membranes are moist. Cardiovascular: Rate and Rhythm: Normal rate and regular rhythm. Pulmonary: Effort: Pulmonary effort is normal. Breath sounds: Normal breath sounds. Abdominal: General: Bowel sounds are normal. There is no distension. Palpations: Abdomen is soft. Tenderness: There is no abdominal tenderness. There is no guarding or rebound. Musculoskeletal: General: No swelling. Normal range of motion. Cervical back: Normal range of motion. Right lower leg: No edema. Left lower leg: No edema. Neurological: General: No focal deficit present. Mental Status: She is alert and oriented to person, place, and time. Skin: General: Skin is warm and dry. Psychiatric: Mood and Affect: Mood normal. Behavior: Behavior normal. Vitals and nursing note reviewed. Exam conducted with a senior network security engineer present. Vitals: Estimated body mass index is 28.31 kg/m?? as calculated from the following: Height as of 01/11/24: 5' 3 . Weight as of this encounter: 159 lb 12.8 oz. BP: 100/68 No LMP recorded (within weeks). ASSESSMENT & PLAN ICD-10-CM 1. Well woman exam with routine gynecological exam Z01.419 Pap Smear HPV DNA probe, amplified 2. Vaginal discharge N89.8 SURESWAB(R) ADVANCED VAGINITIS PLUS, TMA CHLAMYDIA TRACHOMATIS (GENITO/STI) Neisseria gonorrhea DNA probe, direct 3. Yeast infection B37.9 SURESWAB(R) ADVANCED VAGINITIS PLUS, TMA CHLAMYDIA TRACHOMATIS (GENITO/STI) Neisseria gonorrhea DNA probe, direct 4. Encounter for surveillance of contraceptive pills Z30.41 5. 6 weeks follow-up ([facility]) Z39.2 6. Herpes genitalis in women A60.09 Annual Exam: Patient presents today for an annual exam. Patient states she is doing well and has no complaints. Pap was obtained without difficulty. Patient will have cultures for yeast and we will star the Terconazole script for her. Patient will need refills on her Sprintec and Valtrex. Vaginal cultures obtained. Pt states recurrent yeast infection we will medicate with terconazole cream Orders Placed This Encounter Procedures HPV DNA probe, amplified CHLAMYDIA TRACHOMATIS (GENITO/STI) Neisseria gonorrhea DNA probe, direct Follow Up: Patient is to return in one year for annual unless needed otherwise. Documented by Karin Dahl LPN on behalf of: NARENDRA Christensen documented in this encounter Plan of Treatment Scheduled Orders Name Type Priority Associated Diagnoses Orde r Schedule SURESWAB(R) ADVANCED VAGINITIS PLUS, TMA Pathology and Cytology Routine Vaginal discharge Yeast infection Ordered: 04/25/2025 CHLAMYDIA TRACHOMATIS (GENITO/STI) Lab Routine Vaginal discharge Yeast infection Ordered: 04/25/2025 Neisseria gonorrhea DNA probe, direct Lab Routine Vaginal discharge Yeast infection Ordered: 04/25/2025 Pap Smear Pathology and Cytology Routine Well woman exam with routine gynecological exam Ordered: 04/25/2025 HPV DNA probe, amplified Microbiology Routine Well woman exam with routine gynecological exam Ordered: 04/25/2025 documented as of this encounter Procedures Procedure Name Priority Date/Time Associated Diagnosis Comments POCT , URINE Routine 04/25/2025 11:36 AM EDT Vaginal discharge POCT URINALYSIS DIPSTICK Routine 04/25/2025 11:36 AM EDT UTI symptoms documented in this encounter Results * (ABNORMAL) POCT urinalysis dipstick manually resulted (04/25/2025 11:36 AM EDT) Color, UA Yellow Clarity, UA Clear Glucose, UA Negative Negative - 1999(110) ++++ mg/dL Bilirubin, UA Negative Negative - 4(70) +++ mg/dL Ketones, UA Negative Negative - 160(16) ++++ mg/dL Spec Grav, UA 1.020 1 - 1.03 Blood, UA Positive Negative - 50 Jackson/mcL pH, UA 6.5 5 - 9 Protein, UA Negative Negative - 1999(20) ++++ mg/dL Urobilinogen, UA 1.0 0.2 - 12 mg/dL Leukocytes, UA Negative Negative - 500+++ Rosana/mcL Nitrite, UA Negative Negative - Positive Urine 04/25/2025 11:3 6 AM EDT us Hannah MACKEY POINT OF CARE TEST ENTER/EDIT OR DERABLES Final Result * POCT , urine manually resulted (04/25/2025 11:36 AM EDT) Preg Test, Ur Negative Negative Urine 04/25/2025 11:3 6 AM EDT us Hannah MACKEY POINT OF CARE TEST ENTER/EDIT OR DERABLES Final Result documented in this encounter Visit Diagnoses Diagnosis Well woman exam with routine gynecological exam Routine gynecological examination Vaginal discharge Leukorrhea, not specified as infective Yeast infection Encounter for surveillance of contraceptive pills 6 weeks follow-up ([facility]) Herpes genitalis in women Unspecified genital herpes UTI symptoms documented in this encounter Care Teams Bus Cleaner Relationship Specialty Start Date End Date Jason Baez MD [address] [place] [address] PCP - General Family Medicine 01/11/24 Jason Baez MD [address] [place] [address] [facility] 12/20/23 documented as of this encounter
--- OUTSIDE RECORDS SUMMARY | 2025-04-25 20:16 | XMS_ITS | Encounter Summary ---
Author Organization [facility] Address [address] [place] [address] Care Team Providers Care Refrigeration Mechanic Helper Name Role Phone Jason Baez MD Primary Care Provider [phone] Jason Baez MD Unavailable Kristie Ibanez BARNWORKER GROOM Unavailable Sandra Celaya BARNWORKER GROOM Unavailable [phone] Encounter Details Date Type Department Care Team (Late st Contact Info) Description 07/19/2024 Clinisync Result Encounter [facility] External Department Unsolicited Provider, Generic External Data Social History Tobacco Use Types Packs/Day Years [...] week 01/11/2024 How often do you attend lutheran or church serv ices? Never 01/11/2024 Do you belong to any clubs o r organizations such as lutheran groups, unions, fraternal or athletic groups, or [...] care, and heating? Not very hard 01/11/2024 [facility] - Occupational Stress Questionnaire Answer Date Recorded [...] place to sleep or slept in a [place] health care facility (including now)? No 01/11/2024 Comments Yes Sex and Gender Information Value Date Recorded Sex Assigned at Not on file Legal Sex Female 7:14 PM EDT Gender Identity Not on file Sexual Orientation Not on file documented as of this encounter Plan of Treatment Not on file documented as of this encounter Procedures Procedure Name Priority Date/Time Associated Diagnosis Comments US OB GROWTH 07/19/2024 5:14 AM EDT documented in this encounter Results * US OB GROWTH (07/19/2024 5:14 AM EDT) Anatomical Region Laterality Modality Other 07/19/2024 5:14 AM EDT Narrative 07/19/2024 5:16 [place] [address] Ultrasound Report Signed Patient: CLARIBEL CARRASQUILLO MR#: [id number] : 1995 Acct:[id number] Age/Sex: 29 / F ADM Date: 07/18/24 Loc: [facility] Attending Dr: Barbie Patiño D.O. Ordering Physician: Barbie Patiño D.O. Date of Service: 07/18/24 Procedure(s): US OB growth Accession Number(s): [id number] cc: Barbie Patiño D.O.; Jason Baez M.D. [place] [address] Patient Name: CLARIBEL CARRASQUILLO MRN: [id number] date: 1995 Sex: F Assigned Patient Location: [facility] Current Patient Location: Accession/Order Number: [id number] Exam Date: 07/18/2024 13:03 Report Date: 07/19/2024 05:14 At the request of: BARBIE PATIÑO Procedure: US OB growth EXAMINATION: US OB growth HISTORY: GESTATIONAL DIABETES COMPARISON: Ultrasound OB growth 06/21/2024 FINDINGS: Heart Rate: 152 bpm Amniotic Fluid Volume: 14.2 cm; normal range. Number: 1 Position: CEPHALIC BIOMETRY: BPD: 8.55 cm; 34 weeks 3 days; 88 % HC: 29.94 cm; 33 weeks 1 day; 24.40 % AC: 28.80 cm; 32 weeks 6 days; 53.30 % FL: 6.34 cm; 32 weeks 5 days; 39.50 % EFW: 2204.70 g; 48.80 % FL/AC: 22.01 FL/BPD: 74.15 HC/AC: 1.04 GESTATIONAL AGE: Age by EDC: 32 weeks 5 days FAROOQ by EDC: 2024-09-07 Age by US: 32 weeks 6 days FAROOQ by US: 2024-09-06 US/US OB growth IMPRESSION: 1. Single live intrauterine with growth detailed above. Electronically authenticated by: HORACE BUTT Date: 07/19/2024 05:14 Dictated By: Horace Butt M.D. Signed By: 07/19/24515 DD/ 3 TD/TT: Cigar Inspector: Procedure Note Radiology, Radiologist, - 07/19/2024 [place] [address] Ultrasound Report Signed Patient: CLARIBEL CARRASQUILLO MMR#: [id number] : 1995Acct:[id number] Age/Sex: 29 M Date: 07/18/24 Loc: [facility] Attending Dr: Barbie Patiño D.O. Ordering Physician: Barbie Patiño D.O. Date of Service: 07/18/24 Procedure(s): US OB growth Accession Number(s): [id number] cc: Barbie Patiño D.O.; Jason Baez M.D. [place] [address] Patient Name: CLARIBEL CARRASQUILLO MRN: [id number] date: 1995 Sex: F Assigned Patient [facility]: [facility] Current Patient Location: Accession/Order Number: [id number] Exam Date: 07/18/2024 13:03 Report Date: 07/19/2024 05:14 At the request of: BARBIE PATIÑO Procedure: US OB growth EXAMINATION: US OB growth HISTORY: GESTATIONAL DIABETES COMPARISON: Ultrasound OB growth 06/21/2024 FINDINGS: Heart Rate: 152 bpm Amniotic Fluid Volume: 14.2 cm; normal range. Number: 1 Position: CEPHALIC BIOMETRY: BPD: 8.55 cm; 34 weeks 3 days; 88 % HC: 29.94 cm; 33 weeks 1 day; 24.40 % AC: 28.80 cm; 32 weeks 6 days; 53.30 % FL: 6.34 cm; 32 weeks 5 days; 39.50 % EFW: 2204.70 g; 48.80 % FL/AC: 22.01 FL/BPD: 74.15 HC/AC: 1.04 GESTATIONAL AGE: Age by EDC: 32 weeks 5 days FAROOQ by EDC: 2024-09-07 Age by US: 32 weeks 6 days FAROOQ by US: 2024-09-06 US/US OB growth IMPRESSION: 1. Single live intrauterine with growth detailed above. Electronically authenticated by: HORACE BUTT Date: 07/19/2024 05:14 Dictated By: Horace Butt M.D. Signed By:07/19/24515 DD/ 3 TD/TT: Cigar Inspector: us Generic External Data Provider [facility] Final Result documented in this encounter Visit Diagnoses Not on filedocumented in this encounter Care Teams Refrigeration Mechanic Helper Relationship Specialty Start Date End Date Jason Baez MD [address] [place] [phone] PCP - General Family Medicine 01/11/24 Jason Baez MD [address] [place] [phone] PCP - [facility] 12/20/23 Kristie Ibanez, [facility] [address] [place] [address] Wildlife Conservation Professor Roofing Sales Representative 10/04/24 10/05/24 Sandra Celaya, BARNWORKER GROOM [address] [facility] [place] [address] Wildlife Conservation Professor Family Medicine 10/05/24 10/24/24 documented as of this encounter
--- OUTSIDE RECORDS SUMMARY | 2025-04-25 20:16 | XMS_ITS | Encounter Summary ---
Author Organization [facility] Address [address] [place] [address] Care Team Providers Care Tub Wash Operator Name Role Phone Jason Baez MD Primary Care Provider [phone] Jason Baez MD Unavailable Kristie Ibanez PERSONALIZED LIVING ASSISTANT Unavailable Sandra Celaya PERSONALIZED LIVING ASSISTANT Unavailable [phone] Encounter Details Date Type Department Care Team (Late st Contact Info) Description 03/06/2024 Orders Only [facility] [address] [place] [address] Jason Baez MD [address] [facility] [address] Social History Tobacco Use Types Packs/Day Years [...] week 01/11/2024 How often do you attend islam or episcopalian serv ices? Never 01/11/2024 Do you belong to any clubs o r organizations such as islam groups, unions, fraternal or athletic groups, or [...] care, and heating? Not very hard 01/11/2024 [facility] - Occupational Stress Questionnaire Answer Date [...] place to sleep or slept in a half-way (including now)? No 01/11/2024 Comments Yes Sex and Gender Information Value Date Recorded Sex Assigned at Not on file Legal Sex Female 7:14 PM EDT Gender Identity Not on file Sexual Orientation Not on file documented as of this encounter Plan of Treatment Not on file documented as of this encounter Procedures Procedure Name Priority Date/Time Associated Diagnosis Comments US HEAD NECK SOFT TISSUE Routine 03/03/2024 9:43 AM EDT documented in this encounter Results * US head neck soft tissue (03/03/2024 9:43 AM EDT) Anatomical Region Laterality Modality Head, Neck Ultrasound Jason Baez MD [facility] US PROCEDURES Final Result documented in this encounter Visit Diagnoses Not on filedocumented in this encounter Care Teams Tub Wash Operator Relationship Specialty Start Date End Date Jason Baez MD [address] [place] [phone] PCP - General Family Medicine 01/11/24 Jason Baez MD [address] [place] [phone] PCP - [facility] 12/20/23 Kristie Ibanez, PERSONALIZED LIVING ASSISTANT [address] [place] [address] Automatic Paint Sprayer Operator Mercerizer Machine Operator 10/04/24 10/05/24 Sandra Celaya, [facility] [address] [facility] [place] [address] Automatic Paint Sprayer Operator Family Medicine 10/05/24 10/24/24 documented as of this encounter
--- OUTSIDE RECORDS SUMMARY | 2025-04-25 20:16 | XMS_ITS | Encounter Summary ---
Author Organization [id number] [address] [place] [address] Care Team Providers Care Production Counter Name Role Phone Jason Baez MD Primary Care Provider [phone] Encounter Details Date Type Department Care Team (Late st Contact Info) Description 12/03/2021 Orders Only [facility] [address] [place] [address] External, Scanning Provider Social History Tobacco Use Types Packs/Day Years Used Date Smoking Tobacco: Never Smokeless Tobacco: Never Alcohol Use Standard Drinks/Week Comments Never 0 (1 standard drink = 0.6 oz pur e alcohol) AUDIT-C Answer Date Recorded Frequency of Alcohol Consumption Never 09/25/2019 Average Number of Drinks Not on file 020 Frequency of Binge Drinking Not on file 02/2020 Childcare Answer Date Recorded Childcare Unknown 02/27/2019 Employment Answer Date Recorded Employment Unknown 02/27/2019 Purpose - Life Answer Date Recorded Purpose and direction in life Unknown Comments No Sex and Gender Information Value Date Recorded Sex Assigned at Not on file Legal Sex Female 1:03 PM EDT Gender Identity Not on file Sexual Orientation Not on file COVID-19 Exposure Response Date Recorded In the last 10 days, have yo u been in contact with someone who was confirmed or suspected to have Coronavirus/COVID-19? No / Unsure 12/04/2021 11:27 AM EDT documented as of this encounter Plan of Treatment Not on file documented as of this encounter Procedures Procedure Name Priority Date/Time Associated Diagnosis Comments CT ABDOMEN AND PELVIS WO CONT Routine 12/03/2021 documented in this encounter Results * CT abdomen and pelvis without contrast (12/03/2021) Anatomical Region Laterality Modality Body, Abdomen, Body Covera N/A Compu sana Tomography us Scanning Provider External IMG CT ORDERABLES Fin al Result documented in this encounter Visit Diagnoses Not on filedocumented in this encounter Additional Health Concerns Infection Onset Date Last Indicated Resolved Time COVID-19 Rule-Out 12/02/2021 12/02/2021 12/03/2021 2:58 AM EDT documented as of this encounter Care Teams Production Counter Relationship Specialty Start Date End Date Jason Baez MD PCP - General Family Medicine 11/20/21 documented as of this encounter
--- OUTSIDE RECORDS SUMMARY | 2025-04-25 20:16 | XMS_ITS | Encounter Summary ---
Author Organization [facility] Address [address] [place] [place] [address] Care Team Providers Care Icing Coater Name Role Phone Jason Baez MD Primary Care Provider [phone] Jason Baez MD Unavailable Kristie Ibanez CASKET TRIMMER Unavailable Sandra Celaya CASKET TRIMMER Unavailable [phone] Encounter Details Date Type Department Care Team (Late st Contact Info) Description 08/07/2024 Abstract [facility] [address] [place] [address] Yassine Patiño DO [address] [place], [place] [id number] Social History Tobacco Use Types Packs/Day Years [...] week 01/11/2024 How often do you attend evangelical or congregational serv ices? Never 01/11/2024 Do you belong to any clubs o r organizations such as evangelical groups, unions, fraternal or athletic groups, or [...] care, and heating? Not very hard 01/11/2024 [facility]at ional Health - Occupational Stress [...] place to sleep or slept in a usp (including now)? No 01/11/2024 Comments Yes Sex and Gender Information Value Date Recorded Sex Assigned at Not on file Legal Sex Female 7:14 PM EDT Gender Identity Not on file Sexual Orientation Not on file documented as of this encounter Plan of Treatment Not on file documented as of this encounter Visit Diagnoses Not on filedocumented in this encounter Care Teams Icing Coater Relationship Specialty Start Date End Date Jason Baez MD [address] [place] [phone] PCP - General Family Medicine 01/11/24 Jason Baez MD [address] [place] [phone] PCP - [facility] 12/20/23 Kristie Ibanez LSW [address] [place] [address] Diamond Cutter Non Destructive Tester 10/04/24 10/05/24 Sandra Celaya, CASKET TRIMMER [address] [place] [address] Diamond Cutter Family Medicine 10/05/24 10/24/24 documented as of this encounter
--- OUTSIDE RECORDS SUMMARY | 2025-04-25 20:16 | XMS_ITS | Encounter Summary ---
Author Organization [facility] Address [address] [place] [address] Care Team Providers Care Space Planner Name Role Phone Jason Baez MD Primary Care Provider [phone] Jason Baez MD Unavailable Reason for Visit * Reason Comments Med Refill Encounter Details Date Type Department Care Team (Late st Contact Info) Description 04/21/2025 [facility] [address] [place] [address] Jason Baez MD [address] [place] [id number] Herpes genitalis in women Social History Tobacco Use Types Packs/Day Years [...] week 01/11/2024 How often do you attend mu-ism or church serv ices? Never 01/11/2024 Do you belong to any clubs o r organizations such as mu-ism groups, unions, fraternal or athletic groups, or [...] care, and heating? Not very hard 01/11/2024 [facility] - Occupational [...] place to sleep or slept in a longterm (including now)? No 01/11/2024 Comments No Sex and Gender Information Value Date Recorded Sex Assigned at Not on file Legal Sex Female 7:14 PM EDT Gender Identity Not on file Sexual Orientation Not on file documented as of this encounter Plan of Treatment Not on file documented as of this encounter Visit Diagnoses Diagnosis Herpes genitalis in women Unspecified genital herpes documented in this encounter Care Teams Space Planner Relationship Specialty Start Date End Date Jason Baez MD [address] [place] [id number] PCP - General Family Medicine 01/11/24 Jason Baez MD [address] [place] [phone] PCP - [facility] 12/20/23 documented as of this encounter
--- OUTSIDE RECORDS SUMMARY | 2025-04-25 20:16 | XMS_ITS | Encounter Summary ---
Author Organization [facility] Address [address] [place] [address] Care Team Providers Care Lodging Manager Name Role Phone Jason Baez MD Primary Care Provider [phone] Jason Baez MD Unavailable Kristie Ibanez RAIL BONDER Unavailable Sandra Celaya RAIL BONDER Unavailable [phone] Encounter Details Date Type Department Care Team (Late st Contact Info) Description 04/27/2024 Orders Only [facility] [address] [place] [address] Dinah Drake MA [address] [place] [address] Social History Tobacco Use Types Packs/Day Years [...] week 01/11/2024 How often do you attend mormonism or orthodox serv ices? Never 01/11/2024 Do you belong to any clubs o r organizations such as mormonism groups, unions, fraternal or athletic groups, or [...] care, and heating? Not very hard 01/11/2024 [facility] - Occupational Stress [...] place to sleep or slept in a detention (including now)? No 01/11/2024 Comments Yes Sex and Gender Information Value Date Recorded Sex Assigned at Not on file Legal Sex Female 7:14 PM EDT Gender Identity Not on file Sexual Orientation Not on file documented as of this encounter Plan of Treatment Not on file documented as of this encounter Procedures Procedure Name Priority Date/Time Associated Diagnosis Comments PAP SMEAR Routine 04/13/2024 12:00 AM EDT documented in this encounter Results * Pap Smear (04/13/2024 12:00 AM EDT) Swab Cervical swab / Unknown us [facility] ORDERABLES Final Re sult EXTERNAL LAB documented in this encounter Visit Diagnoses Not on filedocumented in this encounter Care Teams Lodging Manager Relationship Specialty Start Date End Date Jason Baez MD [address] [place] [phone] PCP - General Family Medicine 01/11/24 Jason Baez MD [address] [place] [phone] PCP - [facility] 12/20/23 Kristie Ibanez [facility] [address] [place] [address] [employer] Coord[employer] 10/04/24 10/05/24 Sandra Celaya, [facility] [address] [place] [address] [facility] [employer] [facility] [facility] 10/05/24 10/24/24 documented as of this encounter
--- OUTSIDE RECORDS SUMMARY | 2025-04-25 20:16 | XMS_ITS | CCD ---
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 Name Role Phone DR JASON SERVIN Primary Care Unavailable ZACHARIAH, DR DONALD Attending Unavailable HAY, DR DONALD Consulting Unavailable HAY, DR DONALD Admitting Unavailable NADVINOD, DR JASON Santillan Primary Care Unavailable KARASIK, DR BAI Attending Unavailable KARASIK, DR BAI Consulting Unavailable KARASIK, DR BAI Admitting Unavailable MARKER, DR KHANNA Admitting Unavailable NADVINOD, DR JASON Santillan Primary Care Unavailable MARKER, DR KHANNA Attending Unavailable MARKER, DR KHANNA Consulting Unavailable GARETH, DR JASON Santillan Primary Care Unavailable LYLE .CLAIR Attending Unavailable LYLE ., CLAIR Consulting Unavailable LYLE ., CLAIR Admitting Unavailable Jason Servin MD Primary Care Provider [phone] Jason Servin MD Unavailable JASON SERVIN Primary Care Unavailable CHERRY BENSNO Attending Unavailable JOSÉ SANTOS Attending Unavailable JASON SERVIN Attending Unavailable BARBIE PATIÑO Attending Unavailable ZAIDA, HANNAH Attending Unavailable BARBIE PATIÑO Attending Unavailable HANNAH CERDA Attending Unavailable BARBIE PATIÑO Attending Unavailable ZAIDA, HANNAH Attending Unavailable ZAIDA, HANNAH Attending Unavailable HANNAH CERDA Attending Unavailable Medications Current Medications Medication Drug Class(es) Dates Sig (Normalized) Sig (Original) [id number] 200 actuat albuterol 0.09 mg/actuat metered dose inhaler (2 sources) beta2-Adrenergic Agonist Start: 04-06-2025 take 2 puff(s) by inhalation every four hours as needed albuterol HFA 90 mcg/act inhaler Indications: Bronchitis INHALE 2 PUFFS EVERY 4 HOURS NEEDED FOR SHORTNESS OF BREATH 18 g 2 04/06/2025 Active ethinyl estradiol 0.035 mg / norgestimate 0.25 mg oral tablet (5 sources) Progestin, Estrogen Start: 09-18-2024 End: 05-23-2025 take 1 tablet by mouth once daily, then take 1 tablet by mouth once daily norgestimate-ethin yl estradiol (Sprintec 28) 0.25-35 MG-MCG tablet Indications: 6 weeks follow-up ([facility]) Take 1 tablet by mouth Daily for 28 days Take 1 tablet by mouth daily 28 tablet 11 04/25/2025 05/23/2025 Active fluconazole 150 mg oral tablet (2 sources) Azole Antifungal Start: 09-18-2024 End: 09-22-2024 take 1 tablet by mouth once fluconazole (Diflucan) 150 MG tablet Indications: 6 weeks follow-up , Yeast infection Take 1 tablet (150 mg) by mouth every 3rd (third) day for 2 doses 2 tablet 09/18/2024 09/22/2024 Active Vit-Fe Fumarate-FA ( Plus/Iron) 27-1 MG tablet (18 sources) Start: 03-01-2024 End: 03-01-2025 take 1 tablet by mouth once daily Vit-Fe Fumarate-FA ( Plus/Iron) 27-1 MG tablet Indications: First trimester Take 1 tablet by mouth Daily 90 tablet 2 03/01/2024 03/01/2025 Active terconazole 4 mg/ml vaginal cream (1 source) Azole Antifungal Start: 04-25-2025 End: 05-02-2025 terconazole (Terazol 7) 0.4 % vaginal cream Indications: Yeast infection Insert 1 applicator into the vagina at bedtime for 7 days 45 g 04/25/2025 05/02/2025 Active valACYclovir 1000 mg oral tablet (20 sources) Herpesvirus Nucleoside Analog DNA Polymerase Inhibitor, Herpes Simplex Virus Nucleoside Analog DNA Polymerase Inhibitor, Herpes Zoster Virus Nucleoside Analog DNA Polymerase Inhibitor Start: 04-25-2025 take 1 tablet by mouth once daily valACYclovir (Valtrex) 1 g tablet Indications: Herpes genitalis in women Take 1 tablet (1,000 mg) by mouth Daily 90 tablet 2 04/25/2025 Active Start: 12-22-2023 End: 04-25-2025 take 1 tablet by mouth once daily valACYclovir (Valtrex) 1 g tablet Indications: Herpes genitalis in women TAKE 1 TABLET BY MOUTH EVERY DAY 90 tablet 2 12/22/2023 04/25/2025 Discontinued (Reorder) Completed/Discontinued Medications Medication Drug Class(es) Dates Sig (Normalized) Sig (Original) Blood Glucose Monitoring Suppl (D-Care Glucometer) w/Device kit (13 sources) Start: 06-07-2024 End: 09-18-2024 Blood Glucose Monitoring Suppl (D-Care Glucometer) w/Device kit Indications: Elevated glucose tolerance test , Gestational diabetes mellitus (GDM), antepartum, gestational diabetes method of control unspecified 1 kit Daily Use four times daily to check FSBS. In the morning prior to breakfast & 1 hour after each meal for a total of 4times daily. 1 kit 06/07/2024 09/18/2024 Discontinued Start: 06-07-2024 End: 06-07-2025 [address] Glucose Monitoring Sup pl (D-Care Glucometer) w/Device kit Indications: Elevated glucose tolerance test , Gestational diabetes mellitus (GDM), antepartum, gestational diabetes method of control unspecified 1 kit Daily Use four times daily to check FSBS. In the morning prior to breakfast & 1 hour after each meal for a total of 4times daily. 1 kit 06/07/2024 06/07/2025 Active isopropyl alcohol 0.7 ml/ml medicated pad (13 sources) Start: 06-07-2024 End: 09-18-2024 Alcohol Swabs (Alcohol Prep Pad) 70 % pads Indications: Elevated glucose tolerance test , Gestational diabetes mellitus (GDM), antepartum, gestational diabetes method of control unspecified Apply 1 Pad topically Daily Use four times daily to check FSBS. 150 each 3 06/07/2024 09/18/2024 Discontinued ondansetron 4 mg disintegrating oral tablet (17 sources) Serotonin-3 Receptor Antagonist Start: 05-16-2024 End: 09-18-2024 ondansetron ODT (Zofran-ODT) 4 MG disintegrating tablet Indications: Vomiting of , unspecified DISSOLVE 1 TABLET UNDER TONGUE EVERY 6 HOURS IF NEEDED FOR NAUSEA OR VOMITING 30 tablet 3 05/16/2024 09/18/2024 Discontinued Start: 04-10-2024 take 1 tablet by rosalba th every eight hours as needed for nausea ondansetron ODT (Zofran-ODT) 4 MG disintegrating tablet Take 4 mg by mouth every 8 (eight) hours if needed for nausea 04/10/2024 Active Problems Active Problems Problem Classification Problem Date Documented Date Episodic/Chronic Anxiety disorders (20 sources) Generalized anxiety disorder; Translations: [Generalized anxiety disorder] Onset: 01-11-2024 01-11-2024 Chronic Asthma (20 sources) Mild intermittent asthma; Translations: [Mild intermittent asthma, uncomplicated] Onset: 01-11-2024 01-11-2024 Chronic Contraceptive and procreative management (1 source) Oral contraception; Translations: [Encounter for surveillance of contraceptive pills] 04-25-2025 Episodic Diabetes mellitus without complication (2 sources) Abnormal glucose tolerance test; Translations: [Other abnormal glucose] 06-07-2024 Episodic Diabetes or abnormal glucose tolerance complicating ; childbirth; or the puerperium (6 sources) Gestational diabetes mellitus; Translations: [Gestational diabetes mellitus in , diet controlled] 06-21-2024 Episodic Fever of unknown origin (1 source) Fever Onset: 08-22-2024 Episodic Genitourinary symptoms and ill-defined conditions (2 sources) Personal history of urinary (tract) infections; Translations: [Urinary symptoms ] Onset: 01-21-2022 04-25-2025 Episodic Mycoses (3 sources) Mycosis; Translations: [Candidiasis, unspecified] 09-18-2024 Episodic Nonmalignant breast conditions (1 source) Mastitis without abscess; Translations: [Mastitis without abscess] Onset: 08-22-2024 Episodic Other complications of (2 sources) size does not accord with dates; Translations: [Uterine size-date discrepancy, unspecified trimester] 06-07-2024 Episodic Other female genital disorders (1 source) Vaginal discharge; Translations: [Other specified noninflammatory disorders of vagina] 04-25-2025 Episodic Other nervous system disorders (20 sources) Bilateral carpal tunnel syndrome; Translations: [Carpal tunnel syndrome, bilateral upper limbs] Onset: 01-11-2024 01-11-2024 Chronic Other and delivery including normal (11 sources) Third trimester ; Translations: [Encounter for supervision of normal , unspecified, third trimester] 06-21-2024 Episodic Other upper respiratory disease (20 sources) Allergic rhinitis due to pollen; Translations: [...] gestation of ] 07-18-2024 Episodic Thyroid disorders (20 sources) Goiter; Translations: [Iodine-deficiency related diffuse (endemic) goiter] Onset: 01-11-2024 01-11-2024 Chronic Unclassified (1 source) CONTACT W/AND (SUSP) EXPOS COVID-19; Translations: [CONTACT W/AND (SUSP) EXPOS COVID-19] Onset: 06-19-2022 Unclassified (1 source) Breast Problem Onset: 08-22-2024 Viral infection (20 sources) Herpes simplex of female genitalia; Translations: [Herpesviral infection of other urogenital tract] Onset: 01-11-2024 01-11-2024 Chronic Past or Other Problems Problem Classification Problem Date Documented Date Episodic/Chronic Abdominal hernia (20 sources) Umbilical hernia; Translations: [Umbilical hernia without obstruction or gangrene] Onset: 01-11-2024 01-11-2024 Episodic Immunizations and screening for infectious disease (4 sources) Encounter for screening for infections with a predominantly sexual mode of transmission; Translations: [ENC SCREEN INFECTIONS SEXL TRANSMS] Onset: 03-11-2022 Episodic Inflammation; infection of eye (except that caused by tuberculosis or sexually transmitteddisease) (20 sources) Blepharitis of left upper eyelid; Translations: [Unspecified blepharitis left upper eyelid] Onset: 01-11-2024 01-11-2024 Episodic Other and unspecified benign neoplasm (20 sources) Melanocytic nevus; Translations: [Melanocytic nevi, unspecified] Onset: 01-11-2024 01-11-2024 Episodic Other complications of (17 sources) Vomiting of , unspecified; Translations: [Unspecified vomiting of , unspecified as to episode of care or not applicable] Onset: 01-11-2024 01-11-2024 Episodic Other complications of (3 sources) Nausea and vomiting; Translations: [Vomiting of , unspecified] Onset: 01-11-2024 01-11-2024 Episodic Other ear and sense organ disorders (3 sources) Otalgia, right ear; Translations: [OTALGIA RIGHT EAR] Onset: 01-20-2022 Episodic Other screening for suspected conditions (not mental disorders or infectious disease) (2 sources) Patient encounter status; Translations: [Encounter for screening for diabetes mellitus] 05-10-2024 Episodic Residual codes; unclassified (2 sources) Gestation period, 22 weeks; Translations: [22 weeks gestation of ] 05-10-2024 Episodic Viral infection (1 source) Viral infection, unspecified; Translations: [VIRAL INFECTION UNSPECIFIED] Onset: 06-19-2022 Episodic Results Test Name Value Interpretation Reference Range Facility HCG ( test) Ql (U)o n 04-25-2025 Interpretation and review of laboratory results Normal [facility] Preg Test, Ur Negative [facility] macro (dipstick) panel (U)on 04-25-2025 Bilirubin, UA Negative Negative - 4(70) +++ mg/dL [facility] Blood, UA Positive Negative - 50 Jackson/mcL [facility] Clarity, UA Clear [facility] re Color, UA Yellow [facility] Gl[facility], [facility] Negative Negative - 1999(110) ++++ mg/dL [facility] Interpretation and review of laboratory results Abnormal [facility] Ketones, UA Negative Negative - 160(16) ++++ mg/dL [facility] Leukocytes, UA Negative Negative - 500+++ Rosana/mcL [facility] Nitrite, UA Negative Negative - Positive [facility] pH, UA 6.5 5 - 9 [facility] Protein, UA Negative Negative - 1999(20) ++++ mg/dL [facility] Spec Grav, UA 1.02 1 - 1.03 [facility] Urobilinogen, UA 1.0 0.2 - 12 mg/dL [facility] URINE CULTURE, ROUTINEon Bacteria identified Cx Nom (U) Urine Culture, Routine [facility] Bacteria identified Cx Nom (U) Culture shows less than 10,000 colony forming units of bacteria per [facility] Bacteria identified Cx Nom (U) milliliter of urine. This colony count is not generally considered [facility] Healthcare Bacteria identified Cx Nom (U) to be clinically significant. [facility] Healthcare Bacteria identified Cx Nom (U) Performed at[facility] Bacteria identified Cx Nom (U) [address], [place] [id number] [facility] Bacteria identified Cx Nom (U) Business Development Manager: Jerry Atkinson PhD, Phone: [phone] [facility]car e ALL CBC WITH AUTO DIFFon BASOPHILS ABSOLUTE AUTO 0.1 [facility] Basophils/100 WBC (Bld) 0.4 % 0.2 - 2.0 % [facility] Eosinophils/100 WBC (Bld) 0.6 % Low 0.9 - 7.0 % [facility] Erythrocyte distribution width (RBC) [Ratio] 13.8 % 11.0 - 15.0 % [facility] Hematocrit (Bld) [Volume fraction] 37.1 % 36.0 - 48.0 % [facility] Hemoglobin (Bld) [Mass/Vol] 12.4 g/dL 12.0 - 16.0 g/dL [facility] IMMATURE GRANULOCYTES ABS AUTO 0.08 High [facility] Immature granulocytes/100 WBC (Bld) 0.6 % High 0.0 - 0.5 % [facility] Interpretation and review of laboratory results Abnormal [facility] LYMPHOCYTES ABSOLUTE AUTO 2.9 [facility] Lymphocytes/100 WBC (Bld) 20.8 % 20.5 - 60.0 % [facility] MCH (RBC) [Entitic mass] 30.2 pg 26.7 - 34.0 pg [facility] MCHC (RBC) [Mass/Vol] 33.4 g/dL 29.9 - 35.2 g/dL [facility] MCV (RBC) [Entitic vol] 90.5 fL 81.0 - 99.0 fL [facility] MONOCYTES ABSOLUTE AUTO 1 High [facility] Monocytes/100 WBC (Bld) 6.9 % 1.7 - 12.0 % [facility] NEUTROPHILS ABSOLUTE AUTO 10 High [facility] Neutrophils/100 WBC (Bld) 70.7 % 43.0 - 75.0 % [facility] Platelet mean volume (Bld) [Entitic vol] 9.2 fL Low 9.5 - 13.5 fL [facility] EO # 0.1 [facility] PLT 170 [facility] RBC 4.1 Low [facility] WBC 14.2 High [facility] HMHP CBC WITH PLATELET NO DI FFERENTIALon 08-06-2024 Erythrocyte distribution width (RBC) [Ratio] 13.6 % 11.0 - 15.0 % [facility] Hematocrit (Bld) [Volume fraction] 40.4 % 36.0 - 48.0 % [facility] Hemoglobin (Bld) [Mass/Vol] 13.5 g/dL 12.0 - 16.0 g/dL [facility] Interpretation and review of laboratory results Abnormal [facility] MCH (RBC) [Entitic mass] 29.6 pg 26.7 - 34.0 pg [facility] MCHC (RBC) [Mass/Vol] 33.4 g/dL 29.9 - 35.2 g/dL [facility] MCV (RBC) [Entitic vol] 88.6 fL 81.0 - 99.0 fL [facility] Platelet mean volume (Bld) [Entitic vol] 9.4 fL Low 9.5 - 13.5 fL [facility] PLT 200 [facility] TB[facility] RBC 4.56 [facility] TB[facility] WBC 13.7 High [facility] No Panel Informationon 08-06 [facility] TB DRUG SCREEN RAPID (URINE )on 08-06-2024 AMPHETAMINE SCREEN URINE Negative NEGATIVE [facility] BARBITURATES SCREEN URINE Negative NEGATIVE [facility] BENZODIAZEPINES SCREEN URINE Negative NEGATIVE [facility] BUPRENORPHINE SCREEN URINE Negative NEGATIVE [facility] Comment on above: DRUG CLASS TEST SYST EM CUT-OFF CONCENTRATIONS ARE FOLLOWS: AMP (Amphetamine): 500 ng/mL BAR (Barbiturates): 200 ng/mL BZO (Benzodiazepines): 150 ng/mL BUP (Buprenorphine): 10 ng/mL RACHELE (Cocaine): 150 ng/mL mAMP (Methamphetamine): 500 ng/mL MTD (Methadone): 200 ng/mL OPI (Opiates): 100 ng/mL OXY (Oxycodone): 100 ng/mL PCP (Phencyclidine): 25 ng/mL THC (Cannabinoids): 50 ng/mL TCA (Trycyclic Antidepressants): 300 ng/mL CANNABINOID SCREEN URINE Negative NEGATIVE [facility] COCAINE SCREEN URINE Negative NEGATIVE [facility] METHADONE SCREEN URINE Negative NEGATIVE NO [facility] METHAMPHETAMINES SCREEN URINE Negative NEGATIVE [facility] OPIATE SCREEN URINE Negative NEGATIVE [facility] OXYCODONE SCREEN URINE Negative NEGATIVE NO [facility] PHENCYCLIDINE SCREEN URINE Negative NEGATIVE [facility] TRICYCLIC ANTIDEPRESSANT URINE Negative NEGATIVE [facility] e TBH UA (CLEAN/CATCH) LEADERSHIP DEVELOPMENT MANAGER/NAIF RO IF IND.on 08-06-2024 BILIRUBIN URINE Negative NEGATIVE [facility] BLOOD URINE TRACE-I NEGATIVE [facility] re Clarity (U) CLEAR CLEAR [facility] Color (U) LT. YELLOW YELLOW [facility] GLUCOSE URINE UA Negative NEGATIVE mg/dL [facility] Ketones Ql (U) Negative NEGATIVE mg/dL [facility] Leukocyte esterase Test strip Ql (U) Negative NEGATIVE [facility] NITRITE URINE Negative NEGATIVE [facility] pH (U) 6.0 [pH] 5.0 - 9.0 [facility] e PROTEIN URINE Negative NEG/TRACE mg/dL [facility] SPECIFIC GRAVITY URINE 1.025 1.005 - 1.025 [facility] URINE MICROSCOPIC INDICATED YES [facility] UROBILINOGEN URINE 0.2 EU/dL 0.2 - 1.0 EU/dL [facility] URINE MICROSCOPIC ONLYon 08-06-2024 BACTERIA URINE TRACE Abnormal NONE SEEN #/HPF [facility] CAST SEEN? NONE SEEN NONE SEEN #/LPF [facility] CRYSTALS SEEN? None Seen None Seen #/HPF [facility] Interpretation and review of laboratory results Abnormal [facility] MUCUS URINE NONE SEEN NONE SEEN [facility] re SQUAMOUS EPITHELIAL CELL URINE FEW Abnormal NONE/RARE #/LPF [facility] TB RBC 2-5 Abnormal [facility] e TBH WBC 5-10 Abnormal NONE SEEN #/HPF [facility] URINE CULTURE INDICATED YES [facility] Urinalysis macro (dipstick) panel (U)on 07-18-2024 Bilirubin, UA Negative Negative - 4(70) +++ mg/dL [facility] Blood, UA Negative Negative - 50 Jackson/mcL [facility] Clarity, UA Clear [facility] re Color, UA Yellow [facility] Glucose, UA Negative Negative - 2000(110) ++++ mg/dL [facility] Interpretation and review of laboratory results Normal [facility] Ketones, UA Negative Negative - 160(16) ++++ mg/dL [facility] Leukocytes, UA Negative Negative - 500+++ Rosana/mcL [facility] Healthcare Nitrite, UA Negative Negative - Positive [facility] pH, UA 7 5 - 9 [facility] Protein, UA Negative Negative - 1999(20) ++++ mg/dL [facility] Healthcare Spec Grav, UA 1.02 1 - 1.03 [facility] Urobilinogen, UA 0.2 0.2 - 12 mg/dL [facility] Urinalysis macro (dipstick) panel (U)on 06-21-2024 Bilirubin, UA Negative Negative - 4(70) +++ mg/dL [facility] Blood, UA Negative Negative - 50 Jackson/mcL [facility] Healthcare Clarity, UA Clear [facility] Color, UA Yellow [facility] e Glucose, UA Negative Negative - 1999(110) ++++ mg/dL [facility] Interpretation and review of laboratory results Normal [facility] Ketones, UA Negative Negative - 160(16) ++++ mg/dL [facility] Leukocytes, UA Negative Negative - 500+++ Rosana/mcL [facility] Healthcare Nitrite, UA Negative Negative - Positive [facility] pH, UA 6.5 5 - 9 [facility] Healthcar e Protein, UA Negative Negative - 1999(20) ++++ mg/dL [facility] Spec Grav, UA 1.010 1 - 1.03 [facility] Urobilinogen, UA 0.2 0.2 - 12 mg/dL [facility] Urinalysis macro (dipstick) panel (U)on 06-07-2024 Bilirubin, UA Negative Negative - 4(70) +++ mg/dL [facility] Blood, UA Negative Negative - 50 Jackson/mcL [facility] Healthcare Clarity, UA Clear [facility] re Color, UA Yellow [facility] Healthcar e Glucose, UA Negative Negative - 1999(110) ++++ mg/dL [facility] Interpretation and review of laboratory results Normal [facility] Ketones, UA Negative Negative - 160(16) ++++ mg/dL [facility] Leukocytes, UA Negative Negative - 500+++ Rosana/mcL [facility] Healthcare Nitrite, UA Negative Negative - Positive [facility] pH, UA 7.0 5 - 9 [facility] e Protein, UA Negative Negative - 1999(20) ++++ mg/dL [facility] Spec Grav, UA 1.015 1 - 1.03 [facility] Urobilinogen, UA 0.2 0.2 - 12 mg/dL [facility] e ALL CBC WITH AUTO DIFFon BASOPHILS ABSOLUTE AUTO 0.0 [facility] Basophils/100 WBC (Bld) 0.3 % 0.2 - 2.0 % [facility] Eosinophils/100 WBC (Bld) 0.1 % Low 0.9 - 7.0 % [facility] Erythrocyte distribution width (RBC) [Ratio] 13.3 % 11.0 - 15.0 % [facility] Hematocrit (Bld) [Volume fraction] 35.9 % Low 36.0 - 48.0 % [facility] e Hemoglobin (Bld) [Mass/Vol] 11.8 g/dL Low 12.0 - 16.0 g/dL [facility] IMMATURE GRANULOCYTES ABS AUTO 0.05 High [facility] Immature granulocytes/100 WBC (Bld) 0.5 % 0.0 - 0.5 % [facility] Interpretation and review of laboratory results Abnormal [facility] LYMPHOCYTES ABSOLUTE AUTO 1.9 [facility] Lymphocytes/100 WBC (Bld) 18.6 % Low 20.5 - 60.0 % [facility] MCH (RBC) [Entitic mass] 29.9 pg 26.7 - 34.0 pg [facility] MCHC (RBC) [Mass/Vol] 32.9 g/dL 29.9 - 35.2 g/dL [facility] MCV (RBC) [Entitic vol] 91.1 fL 81.0 - 99.0 fL [facility] MONOCYTES ABSOLUTE AUTO 0.5 [facility] Monocytes/100 WBC (Bld) 4.7 % 1.7 - 12.0 % [facility] NEUTROPHILS ABSOLUTE AUTO 7.9 High [facility] Neutrophils/100 WBC (Bld) 75.8 % High 43.0 - 75.0 % [facility] Platelet mean volume (Bld) [Entitic vol] 9.1 fL Low 9.5 - 13.5 fL [facility] # 0.0 [facility] PLT 202 [facility] TB[facility] RBC 3.94 Low [facility] Health[facility] e TB WBC 10.4 [facility] e [facility] e Urinalysis macro (dipstick) panel (U)on 05-10-2024 Bilirubin, UA Negative Negative - 4(70) +++ mg/dL [facility] Blood, UA Positive Negative - 50 Jackson/mcL [facility] Comment on above: trace-intact Clarity, UA Clear [facility] re Color, UA Yellow [facility] Glucose, UA Negative Negative - 1999(110) ++++ mg/dL [facility] Interpretation and review of laboratory results Abnormal [facility] Ketones, UA Negative Negative - 160(16) ++++ mg/dL [facility] Leukocytes, UA Negative Negative - 500+++ Rosana/mcL [facility] Nitrite, UA Negative Negative - Positive [facility] pH, UA 7.0 5 - 9 [facility] Protein, UA Negative Negative - 1999(20) ++++ mg/dL [facility] Spec Grav, UA 1.010 1 - 1.03 [facility] Urobilinogen, UA 0.2 0.2 - 12 mg/dL [facility] e STREPT SCREENon 11-03-2022 STREP SCREEN A Positive Abnormal NEGATIVE [facility] Comment on above: Performed By: #### S SCRN #### [facility] [address] [address] [address] Luis Harrison [facility]on 05-22 SARS-CoV-2 (COVID-19) RNA KALYANI+probe Ql (Unsp spec) Not detected Normal NOT DETECTED [facility] Comment on above: Result Comment: [...] for this test is supported by the [place] of Health and Human Service's declaration that [...] used). Performed By: #### C VDTBH #### [facility] [address] [place] [address] Dr. Luis Harrison GROUP A STREP CULTUREon 05-22 S. pyogenes Ag Ql (Unsp spec) Culture Observations: NEGATIVE FOR GROUP A STREPTOCOCCUS. Normal [facility] Comment on above: Performed By: #### G RASTCX, SSCRN #### [facility] [address] [place] [address] Dr. Luis Harrison STREPT SCREENon 06-18-2022 STREP SCREEN A Negative Normal NEGATIVE [facility] Comment on above: Performed By: #### G RASTCX, SSCRN #### [facility] [address] [place] [address] Dr. Luis Harrison CHLAMYDIA/GONOCOCCUS KALYANI (SW AB/URINE/PAPon 03-13-2022 Chlamydia trachomatis, KALYANI Negative Normal Negative [facility] Comment on above: Performed By: #### C T/NGNA #### [facility] [address] [place] [address] Dr. Luis Harrison Neisseria gonorrhoeae, KALYANI Negative Normal Negative [facility] Comment on above: Performed By: #### C T/NGNA #### [facility] [address] [place] [address] Dr. Luis Harrison VAGINITIS/VAGINOSIS DNA PROB Shantanu 03-13-2022 Alysha species Negative Normal Negative [facility] Comment on above: Performed By: #### V AGINT #### [facility] [address] [place] [address] Dr. Luis Harrison Gardnerella vaginalis Negative Normal Negative [facility] Comment on above: Performed By: #### V AGINT #### [facility] [address] [place] [address] Dr. Luis Harrison Trichomonas vaginalis Negative Normal Negative [facility] Comment on above: Performed By: #### V AGINT #### [facility] [address] [address] [address] Luis Harrison CULTURE URINEon 01-20-2022 CULTURE URINE Culture Observations: No growth Normal [facility] Comment on above: Performed By: #### U RCX #### [facility] [address] [address] [address] Luis Harrison ER URINE PROFILEon 2 Bilirubin Ql (U) Negative Normal NEGATIVE [facility] Comment on above: Performed By: #### P REGU, UMICRO, ERUR #### [facility] [address] [address] [address] Luis Harrison Clarity (U) CLEAR Normal CLEAR [facility] Comment on above: Performed By: #### P REGU, UMICRO, ERUR #### [facility] [address] [place] [address] Dr. Luis Harrison Color (U) LT. YELLOW Normal YELLOW [facility] Comment on above: Performed By: #### P REGU, UMICRO, ERUR #### [facility] [address] [address] [address] Luis PACE A micrscopic examination will be performed if indicated. Normal [facility] Comment on above: Performed By: #### P REGU, UMICRO, ERUR #### [facility] [address] [address] [address] Luis Harrison Glucose Ql (U) Negative Normal NEGATIVE [facility] Comment on above: Performed By: #### P REGU, UMICRO, ERUR #### [facility] [address] [address] [address] Luis Harrison Hemoglobin Ql (U) TRACE-LYSED Abnormal NEGATIVE [facility] Comment on above: Performed By: #### P REGU, UMICRO, ERUR #### [facility] [address] [address] [address] Luis Harrison Ketones Ql (U) Negative Normal NEGATIVE [facility] Comment on above: Performed By: #### P REGU, UMICRO, ERUR #### [facility] [address] [address] [address] Luis Harrison LEUKOCYTES Negative Normal NEGATIVE [facility] Comment on above: Performed By: #### P REGU, UMICRO, ERUR #### [facility] [address] [address] [address] Luis Harrison Nitrite Ql (U) Negative Normal NEGATIVE [facility] Comment on above: Performed By: #### P REGU, UMICRO, ERUR #### [facility] [address] [address] [address] Luis Harrison pH (U) 6.0 [pH] Normal 5-9 [facility] Comment on above: Performed By: #### P REGU, UMICRO, ERUR #### [facility] [address] [place] [address] Dr. Luis Harrison SPEC GRAVITY <=1.005 Abnormal 1.005-<=1.025 [facility] Comment on above: Performed By: #### P REGU UMICRO, ERUR #### [facility] [address] [address] [address] Luis Harrison UA PROTEIN Negative Normal NEGATIVE/ TRACE [facility] Comment on above: Performed By: #### P REGU UMICRO, ERUR #### [facility] [address] [address] [address] Luis Harrison UR MICRO IND INDICATED Normal [facility] Comment on above: Performed By: #### P REGU, UMICRO, ERUR #### [facility] [address] [address] [address] Luis Harrison Urobilinogen Qn (U) 0.2 {Maritza'U}/dL Normal 0.2 - 1. 0 [facility] Comment on above: Performed By: #### P REGU, UMICRO, ERUR #### [facility] [address] [place] [address] Dr. Luis Harrison GROUP A STREP CULTUREon 05-0 3-2022 S. pyogenes Ag Ql (Unsp spec) Culture Observations: NEGATIVE FOR GROUP A STREPTOCOCCUS. Normal [facility] Comment on above: Performed By: #### S SCRN, GRASTCX #### [facility] [address] [place] [address] Dr. Luis Harrison URon 01-20-2022 , QUAL Negative Normal NEGATIVE [facility] Comment on above: Performed By: #### S SCRN, GRASTCX #### [facility] [address] [address] [address] Luis Harrison STREPT SCREENon 01-20-2022 STREP SCREEN A Negative Normal NEGATIVE [facility] Comment on above: Performed By: #### S SCRN, GRASTCX #### [facility] [address] [place] [address] Dr. Luis Harrison URINE MICROSCOPIC ONLYon BACTERIA TRACE Abnormal NONE SEEN [facility] Comment on above: Performed By: #### S SCRN, GRASTCX #### [facility] [address] [place] [address] Dr. Luis Harrison Bacteria identified Cx Nom (U) INDICATED Normal [facility] Comment on above: Performed By: #### S SCRN, GRASTCX #### [facility] [address] [place] [address] Dr. Luis Harrison CAST NONE SEEN Normal NONE SEEN [facility] Comment on above: Performed By: #### S SCRN, GRASTCX #### [facility] [address] [place] [address] Dr. Luis Harrison Crystals LM Nom (Urine sed) NONE SEEN Normal NONE SEEN [facility] Comment on above: Performed By: #### S SCRN, GRASTCX #### [facility] [address] [place] [address] Dr. Luis Harrison Epithelial cells LM Ql (Urine sed) RARE Normal NONE SEEN /RARE [facility] Comment on above: Performed By: #### S SCRN, GRASTCX #### [facility] [address] [place] [address] Dr. Luis Harrison MUCOUS NONE SEEN Normal NONE SEEN [facility] Comment on above: Performed By: #### S SCRN, GRASTCX #### [facility] [address] [place], [place] [address] Dr. Luis Harrison RBC 0-2 Normal 0-2 [facility] Comment on above: Performed By: #### S SCRN, GRASTCX #### [facility] [address] [place], [place] [address] Dr. Luis Harrison WBC 0-2 Abnormal NONE SEEN [facility] Comment on above: Performed By: #### S SCRN, GRASTCX #### [facility] [address] [place], [place] [address] Dr. Luis Harrison Vital Signs Date Time Vital Sign Value Performing Clinician Latoya ortiz 04-25-2025 11:23-0400 Body mass index (BMI) [Ratio] 28.31 kg/m2 Hannah Cerda PA Work Phone: [facility] 04-25-2025 11:23-0400 Body weight 72.48 kg Hannah Zaida PA Work Phone: [facility] 04-25-2025 11:23-0400 Diastolic blood pressure 68 mm[Hg] Hannah Zaida PA Work Phone: [facility] 04-25-2025 11:23-0400 Systolic blood pressure 100 mm[Hg] Hannah Zaida PA Work Phone: [facility] 09-18-2024 13:56-0500 Body mass index (BMI) [Ratio] 28.66 kg/m2 Hannah Zaida PA Work Phone: [facility] 09-18-2024 13:56-0500 Body weight 73.39 kg Hannah Zaida PA Work Phone: [facility] 09-18-2024 13:56-0500 Diastolic blood pressure 70 mm[Hg] Hannah Cheyenne PA Work Phone: [facility] 09-18-2024 13:56-0500 Systolic blood pressure 110 mm[Hg] Hannah Zaida PA Work Phone: [facility] 07-18-2024 13:46-0400 Body mass index (BMI) [Ratio] 30.65 kg/m2 Hannah Zaida PA Work Phone: [facility] 07-18-2024 13:46-0400 Body weight 78.47 kg Hannah Cheyenne PA Work Phone: [facility] 07-18-2024 13:46-0400 Diastolic blood pressure 68 mm[Hg] Hannah Cheyenne PA Work Phone: [facility] 07-18-2024 13:46-0400 Systolic blood pressure 112 mm[Hg] Hannah Zaida PA Work Phone: [facility] 06-21-2024 11:48-0400 Body mass index (BMI) [Ratio] 30.6 kg/m2 Barbie Kaylyn DO Work Phone: [facility] 06-21-2024 11:48-0400 Body weight 78.36 kg Barbie Kaylyn DO Work Phone: [facility] 06-21-2024 11:48-0400 Diastolic blood pressure 76 mm[Hg] Barbie Kaylyn DO Work Phone: [facility] 06-21-2024 11:48-0400 Systolic blood pressure 112 mm[Hg] Barbie Kaylyn DO Work Phone: [facility] 06-07-2024 11:35-0400 Body mass index (BMI) [Ratio] 30.03 kg/m2 Hannah Cheyenne PA Work Phone: [facility] 06-07-2024 11:35-0400 Body weight 76.89 kg Hannah Zaida PA Work Phone: [facility] 06-07-2024 11:35-0400 Diastolic blood pressure 78 mm[Hg] Hannah Zaida PA Work Phone: [facility] 06-07-2024 11:35-0400 Systolic blood pressure 118 mm[Hg] Hannah Zaida PA Work Phone: [facility] 05-10-2024 14:33-0400 Body mass index (BMI) [Ratio] 29.55 kg/m2 Barbie Kayyln DO Work Phone: [facility] 05-10-2024 14:33-0400 Body weight 75.66 kg Barbie Kaylyn DO Work Phone: [facility] 05-10-2024 14:33-0400 Diastolic blood pressure 76 mm[Hg] Barbie Kaylyn DO Work Phone: [facility] 05-10-2024 14:33-0400 Systolic blood pressure 120 mm[Hg] Barbie Kaylyn DO Work Phone: [facility] Encounters Encounter Date Encounter Type Care Provider Facility Start: 04-25-2025 End: 04-25-2025 Bamboo flowsheet Hannah MACKEY Work Phone: [facility] Start: 04-25-2025 End: 04-25-2025 Bamboo flowsheet Hannah MACKEY Work Phone: [facility] Start: 04-25-2025 End: 04-25-2025 Patient encounter procedure Hannah MACKEY Work Phone: [facility] Work Phone: Start: 04-25-2025 End: 04-25-2025 Periodic preventive med est patient 18-39 yrs Hannah MACKEY Work Phone: [facility] Comment on above: Well woman exam with routine gynecological exam; Vaginal discharge; Yeast infection; Encounter for surveillance of contraceptive pills; 6 weeks follow-up ([facility]); Herpes genitalis in women; UTI symptoms Start: 09-18-2024 End: 09-18-2024 ambulatory HANNAH CERDA Not Available Start: 09-18-2024 End: 09-18-2024 care visit Hannah MACKEY Work Phone: [facility] Comment on above: 6 weeks f ollow-up; Yeast infection Start: 08-22-2024 End: 08-22-2024 Emergency department patient visit JASON SERVIN [facility] Start: 08-07-2024 End: 08-07-2024 Clinisync Result Encounter Barbie Kaylyn DO Work Phone: [facility] Unsolicited Start: 08-07-2024 End: 08-07-2024 Clinisync Result Encounter Barbie Kaylyn DO Work Phone: [facility] Unsolicited Start: 08-06-2024 End: 08-06-2024 Clinisync Result Encounter Barbie Kaylyn DO Work Phone: [facility] Unsolicited Start: 08-06-2024 End: 08-06-2024 Clinisync Result Encounter Barbie Kaylyn DO Work Phone: [facility] Unsolicited Start: 07-18-2024 End: 07-18-2024 Office outpatient visit 15 minutes Hannah MACKEY Work Phone: [facility] Comment on above: Third trimester preg otis; 32 weeks gestation of Start: 07-18-2024 End: 07-18-2024 ambulatory HANNAH CERDA Not Available Start: 07-05-2024 End: 07-05-2024 ambulatory HANNAH CERDA Not Available Start: 07-05-2024 End: 07-05-2024 Office outpatient visit 15 minutes Hannah MACKEY Work Phone: [facility] Comment on above: Third trimester [...] in third trimester Start: 06-07-2024 End: 06-07-2024 Bamboo flowsheet Hannah MACKEY Work Phone: [facility] Start: 06-07-2024 End: 06-07-2024 Bamboo flowsheet Hannah MACKEY Work Phone: [facility] Start: 06-07-2024 End: 06-07-2024 ambulatory HANNAH CERDA Not Available Start: 06-07-2024 End: 06-07-2024 Office outpatient visit 15 minutes Hannah MACKEY Work Phone: [facility] Comment on above: Second trimester pre gnancy; Elevated glucose tolerance test; Gestational diabetes mellitus (GDM), antepartum, gestational diabetes method of control unspecified; size inconsistent with dates Start: 06-06-2024 End: 06-06-2024 Clinisync Result Encounter Generic External Data Provider [facility] Unsolicited Start: 06-06-2024 End: 06-06-2024 Clinisync Result Encounter Generic External Data Provider [facility] Unsolicited Start: 05-10-2024 End: 05-10-2024 ambulatory BARBIE KAYLYN Not Available Start: 05-10-2024 End: 05-10-2024 Office outpatient visit 15 minutes Barbie Kaylyn DO Work Phone: [facility] Comment on above: 22 weeks gestation o f ; Diabetes mellitus screening Start: 05-10-2024 End: 05-10-2024 Bamboo flowsheet Barbie Kaylyn DO Work Phone: [facility] Start: 05-10-2024 End: 05-10-2024 Bamboo flowsheet Barbie Kaylyn DO Work Phone: [facility] Start: 04-13-2024 End: 04-13-2024 ambulatory HANNAH CERDA [...] Date Procedure Procedure Detail Performing Clinician Start: 04-25-2025 Urnls dip stick/tabl et rgnt non-auto w/o micrscp Hannah MACKEY Work Phone: Start: 08-07-2024 ALL CBC WITH AUTO DIFF Barbie Kaylyn DO Work Phone: Start: 08-06-2024 [facility] CBC WITH PLATEL ET NO DIFFERENTIAL Barbie Kaylyn DO Work Phone: Start: 08-06-2024 Bacteria identified in Urine by Culture Generic External Data Provider Start: 08-06-2024 TB DRUG SCREEN RAPI D (URINE) Barbie Kaylyn DO Work Phone: Start: 08-06-2024 TBH UA (CLEAN/CATCH) LEAD[employer] DEVELOPMENT MANAGER/MICRO IF IND. Barbie Kaylyn DO Work Phone: Start: 08-06-2024 TB URINE MICROSCOPIC ONLY Barbie Kaylyn DO Work Phone: Start: 07-18-2024 Urnls dip stick/tabl et rgnt non-auto w/o micrscp Hannah MACKEY Work Phone: Start: 06-21-2024 Urnls dip stick/tabl et rgnt non-auto w/o micrscp Barbie Kaylyn DO Work Phone: Start: 06-07-2024 Urnls dip stick/tabl et rgnt non-auto w/o micrscp Hannah MACKEY Work Phone: Start: 06-06-2024 ALL CBC WITH AUTO DIFF Barbie Kaylyn DO Work Phone: Start: 05-10-2024 Urnls dip stick/tabl et rgnt non-auto w/o micrscp Barbie Kaylyn DO Work Phone: Start: 04-13-2024 Microscopic observat ion [Identifier] in Cervix by Cyto stain Hannah MACKEY Work Phone: Plan of Treatment Date Care Activity Detail Author Start: 04-13-2027 Screening for malign ant neoplasm of cervix [facility] Start: 05-21-2025 Influenza vaccination Influenza Vacc ine (#1) [facility] Start: 04-25-2025 End: 04-25-2025 Patient encounter procedure 04/25/2025 11:30 AM EDT Procedure Visit BRITTANY LONDONO [address] [place] [id number] Hannah Cerda PA [address] [place] [address] Arrived [facility] Comment on above: Arrived Start: 2025 Screening for malign ant neoplasm of cervix HPV/Cotest [facility] Start: 09-18-2024 End: 09-18-2024 ambulatory 09/18/2024 1:30 PM EST Visit [facility] [address] [place] [id number] Hannah Cerda PA [address] [place] [address] [facility] Start: 08-14-2024 End: 08-14-2024 Professional / ancillary services management 08/14/2024 3:00 PM EST Ancillary Procedure [facility] [address] [place] [phone] [facility] Start: 08-03-2024 End: 08-03-2024 Patient encounter procedure 08/03/2024 11:40 AM EST Routine [facility] [address] [place] [address] Barbie Patiño DO [address] [place], [place] [id number] [facility] Start: 07-19-2024 End: 07-19-2024 Professional / ancillary services management 07/19/2024 1:00 PM EDT Ancillary Procedure [facility] [address] [place] [address] [facility] Start: 07-18-2024 End: 07-18-2024 Patient encounter procedure 07/18/2024 2:20 PM EDT Routine [facility] [address] [place] [address] Hannah Cerda, PA [address] [place] [address] [place], [place] [id number] [facility] Start: 07-18-2024 End: 07-18-2024 Professional / ancillary services management 07/18/2024 1:00 PM EDT Ancillary Procedure [facility] [address] [place] [address] [facility] Start: [...] PM EDT Routine [facility] [address] [place] [phone] Hannah Cerda, PA [address] [place] [address] [facility] Start: 06-21-2024 End: 06-21-2025 US for US OB SCAN FOR GROWTH Imaging Routine Diet controlled gestational diabetes mellitus (GDM) in third trimester Expected: 06/21/2024 (Approximate), Expires: 06/21/2025 [facility] Work Phone: Comment on above: Expected: 06/21/2024 (Approximate), Expires: 06/21/2025 Start: 06-21-2024 End: 06-21-2024 Patient encounter procedure 06/21/2024 11:30 AM EDT Routine [facility] [address] [place] [address] Barbie Patiño DO [address] [place], [place] [id number] [facility] Start: 06-21-2024 End: 06-21-2024 Professional / ancillary services management 06/21/2024 11:00 AM EDT Ancillary Procedure [facility] [address] [place] [address] [facility] Start: 06-07-2024 End: 06-07-2025 US for US OB SCAN FOR GROWTH Imaging Routine size inconsistent with dates Expected: 06/07/2024 (Approximate), Expires: 06/07/2025 [facility] Work Phone: Comment on above: Expected: 06/07/2024 (Approximate), Expires: 06/07/2025 Start: 06-07-2024 End: 06-07-2024 Patient encounter procedure 06/07/2024 11:20 AM EDT Routine [facility] [address] [place] [address] Hannah Cerda PA [address] [place], [place] [id number] [facility] Start: 05-21-2024 Influenza vaccination Influenza Vacc ine (#1) [facility] Start: 05-10-2024 End: 05-10-2025 CBC panel - Blood by Automated count CBC Lab Routine Diabetes mellitus screening Expected: 05/10/2024 (Approximate), Expires: 05/10/2025 [facility] Work Phone: Comment on above: Expected: 05/10/2024 (Approximate), Expires: 05/10/2025 Start: 05-10-2024 End: 05-10-2025 Measurement of glucose 1 hour after glucose challenge for glucose tolerance test Glucose tolerance, 1 hour Lab Routine Diabetes mellitus screening Expected: 05/10/2024 (Approximate), Expires: 05/10/2025 [facility] Comment on above: Expected: 05/10/2024 (Approximate), Expires: 05/10/2025 CHLAMYDIA TRACHOMATI S (GENITO/STI) CHLAMYDIA TRACHOMATIS (GENITO/STI) Lab Routine Vaginal discharge Yeast infection Ordered: 04/25/2025 [facility] Comment on above: Ordered: 04/25/2025 Cytology Cervical or vaginal smear or scraping study Pap Smear Pathology and Cytology Routine Well woman exam with routine gynecological exam Ordered: 04/25/2025 [facility] Comment on above: Ordered: 04/25/2025 Human papilloma viru s DNA [Presence] in Unspecified specimen by Probe with amplification HPV DNA probe, amplified Microbiology Routine Well woman exam with routine gynecological exam Ordered: 04/25/2025 [facility] Comment on above: Ordered: 04/25/2025 Neisseria gonorrhoea e DNA [Presence] in Unspecified specimen by KALYANI with probe detection Neisseria gonorrhea DNA probe, direct Lab Routine Vaginal discharge Yeast infection Ordered: 04/25/2025 [facility] Comment on above: Ordered: 04/25/2025 SURESWAB(R) ADVANCED VAGINITIS PLUS, TMA SURESWAB(R) ADVANCED VAGINITIS PLUS, TMA Pathology and Cytology Routine Vaginal discharge Yeast infection Ordered: 04/25/2025 [facility] Work Phone: Comment on above: Ordered: 04/25/2025 Immunizations Immunization Date Immunization Notes Care Provider Dhaval gr 11-27-2014 influenza virus vacc ine, unspecified formulation Barbie Patiño DO Work Phone: [facility] Payers Date Payer Category Payer Medicaid [facility] MEDICAID [employer] MED[place] [id number] 2017-Present [address] [place] [address] [id number] 2017 Medicaid (Managed Care) [employer] [id number] 1995 Unknown [id number] [id number]. 593 1995 Unknown [id number] 2.16840.1.633342.3.579.2. 593 1995 Unknown [id number] 2.16840.1.357731.3.579.2. 593 1995 Unknown [id number] 2.16.840.1.510520.3.579.2. 593 1995 Unknown [id number] 2.16840.1.506054.3.579.2. 1286 1995 Unknown [id number] 2.16840.1.376423.3.579.2. 1259 1995 Unknown [id number] 2.16.840.1.686548.3.579.2. 1259 1995 Unknown [id number] 2.16840.1.622359.3.579.2. 1259 1995 Unknown [id number] 2.16840.1.827209.3.579.2. 1259 1995 Unknown [id number] 2.16.840.1.222897.3.579.2. 9 1995 Unknown [id number] 2.16.840.1.857360.3.579.2. 9 1995 Unknown [id number] 2.16.840.1.389364.3.579.2. 1258 1995 Unknown [id number] 2.16.840.1.324487.3.579.2. 1258 1995 Unknown [id number] 2.16.840.1.028976.3.579.2. 1258 1995 Unknown [id number] 2.16.840.1.510986.3.579.2. 9 1995 Unknown [id number] 2.16.840.1.115871.3.579.2. 1259 1959 Unknown [id number] Social History Date Type Detail Facility Start: 01-07-2024 Tobacco smoking status [facility] Never sm oked tobacco [facility] Start: 01-07-2024 Tobacco use and exposure Smoke less tobacco non-user [facility] Start: 06-07-2024 End: 04-25-2025 Alcoholic beverage intake Lifetime non-drinker (finding) [facility] Start: 01-11-2024 End: 05-10-2024 [facility] Start: 01-11-2024 End: 05-10-2024 Social connection and isolation panel [facility] Do you belong to any clubs or organizations such as episcopal groups, unions, fraternal or athletic groups, or [...] meal for a total of 4times daily. [id number] Start: 06-07-2024 End: 07-07-2024 1 each by In Vit ro route Daily Use to check FSBS four times daily [id number] Start: 06-07-2024 End: 07-07-2024 Clinical Notes 05-10-2024 to 04-25-2025 NARENDRA Christensen - 04/25/2025 11:30 AM NARENDRA Alfonso - 09/18/2024 1:30 PM NARENDRA Kaye - 07/18/2024 2:20 PM NARENDRA Alfonso - 07/05/2024 1:20 PM EDTUmm Elizondo LPN - 06/21/2024 11:30 AM EDT Note Date & Type Note Facility 04-25-2025 History of Presen t illness Narrative Reason [...] Allergic conjunctivitis 01/11/2024 Nausea and vomiting in ([facility]) 01/11/2024 Resolved Ambulatory Problems Diagnosis Date Noted [...] nursing note reviewed. Exam conducted with a practice nurse present. Vitals: Estimated body mass index is 28.31 kg/m as calculated from the following: Height [...] contraceptive pills Z30.41 5. 6 weeks follow-up ([facility]) Z39.2 6. Herpes genitalis in women [...] of: NARENDRA Christensen documented in this encounter [facility] 09-18-2024 History of Presen t illness Narrative Reason for Appointment: Patient ID: Claribel Buckner is a 29 y.o. female who presents for Follow-up Patient presents today for Post Follow Up appointment. MEDICATIONS Current Outpatient Medications Medication Instructions fluconazole (DIFLUCAN) 150 mg, Oral, Every 72 hours norgestimate-ethinyl estradiol (Sprintec 28) 0.25-35 MG-MCG tablet 1 tablet, Oral, Daily, Take 1 tablet by mouth daily Vit-Fe Fumarate-FA ( Plus/Iron) 27-1 MG [...] Exam Constitutional: Appearance: Normal appearance. She is well-developed and normal weight. HENT: Head: Normocephalic. Cardiovascular: Rate and Rhythm: Normal rate and regular rhythm. Pulses: Normal pulses. Pulmonary: Effort: Pulmonary effort [...] Judgment normal. Vitals and nursing note reviewed. Exam conducted with a practice nurse present. Vitals: Estimated body mass index is 28.66 kg/m as calculated from the following: Height as of 01/11/24: 5' 3 . Weight as of this encounter: 161 lb 12.8 oz. BP: 110/70 Patient's last menstrual period was 09/13/2024. ASSESSMENT & PLAN ICD-10-CM 1. 6 weeks follow-up Z39.2 norgestimate-ethinyl estradiol (Sprintec 28) 0.25-35 MG-MCG tablet fluconazole (Diflucan) 150 MG tablet 2. Yeast infection B37.9 fluconazole (Diflucan) 150 MG tablet Post Follow Up: Patient is doing well but has complaints of yeast infection. Patient presents today for 6 week visit. Patient is s/p Vaginal delivery. Patient denies depression. All options were discussed with the patient regarding control and patient desires oral contraception . Follow Up: Patient is to return for annual unless needed otherwise. Documented by Tamanna Ortiz LPN on behalf of: NARENDRA Christensen documented in this encounter [facility] 07-18-2024 History of Presen t illness Narrative [...] carpal tunnel syndrome 01/11/2024 Generalized anxiety disorder ([facility]/HCC) 01/11/2024 Genital herpes in women 01/11/2024 Mild intermittent asthma without complication ([facility]) 01/11/2024 Multiple pigmented nevi 01/11/2024 Thyromegaly ([facility]) 01/11/2024 Umbilical hernia without obstruction [...] of: NARENDRA Christensen documented in this encounter [facility] 07-05-2024 History of Presen t illness Narrative [...] women 01/11/2024 Mild intermittent asthma without complication ([facility]) 01/11/2024 Multiple pigmented nevi 01/11/2024 Thyromegaly ([facility]) 01/11/2024 Umbilical hernia without obstruction [...] of: NARENDRA Christensen documented in this encounter [facility] 06-21-2024 History of Presen t illness Narrative [...] nursing note reviewed. Exam conducted with a practice nurse present. Vitals: Estimated body mass index is [...] Barbie Patiño DO documented in this encounter [facility] 06-07-2024 History of Presen t illness Narrative Reason for Appointment: Patient ID: Claribel Buckner is a 29 y.o. female who presents for Routine Visit Patient presents today for Return OB appointment. MEDICATIONS Current Outpatient Medications Medication Instructions Alcohol Swabs (Alcohol Prep Pad) 70 % pads 1 Pad, Topical, Daily, Use four times daily to check FSBS. Blood Glucose Monitoring Suppl ([employer] Glucometer) w/Device kit 1 kit, Does not [...] reviewed. Vitals: Estimated body mass index is 30.03 kg/m as calculated from the following: Height as of 01/11/24: 5' 3 . Weight as of this encounter: 169 lb 8 oz. BP: 118/78 Patient's last menstrual period was 12/02/2023. ASSESSMENT & PLAN ICD-10-CM 1. Second trimester Z34.92 POCT urinalysis dipstick manually resulted 2. Elevated glucose tolerance test R73.09 Lancets Ultra Thin misc Alcohol Swabs (Alcohol Prep Pad) 70 % pads Glucose Blood (Blood Glucose Test) strip Blood Glucose Monitoring Suppl ([employer] Glucometer) w/Device kit CANCELED: Glucose tolerance, 3 hours CANCELED: Glucose tolerance, 3 hours CANCELED: Glucose tolerance, 3 hours CANCELED: Glucose tolerance, 3 hours 3. Gestational diabetes mellitus (GDM), antepartum, gestational diabetes method of control unspecified O24.419 Lancets Ultra Thin misc Alcohol Swabs (Alcohol Prep Pad) 70 % pads Glucose Blood (Blood Glucose Test) strip Blood Glucose Monitoring Suppl ([employer] Glucometer) w/Device kit 4. size inconsistent with dates O26.849 US OB SCAN FOR GROWTH Return OB: Patient presents today for a routine obstetrics appointment. Patient is currently 26w6d . Patient states she is doing well but has complaints of being tired due to current . Patient has verbalizes frequent movement. labor precautions was discussed/given and patient was instructed to perform kick counts three times a day. Pt one hr glucose 167, she did not want to do 3 hour. Pt will be sent over for diabetic teachin Orders Placed This Encounter Procedures US OB SCAN FOR GROWTH POCT urinalysis dipstick manually resulted Follow Up: Patient is to return to office in 2 week for routine OB appointment. Documented by NARENDRA Christensen on behalf of: NARENDRA Christensen documented in this encounter [facility] 05-10-2024 History of Presen t illness Narrative Reason for Appointment: Patient ID: Claribel Buckner is a 29 y.o. female who presents for Routine Visit Patient presents today for Return OB appointment. MEDICATIONS Current Outpatient Medications Medication Instructions ondansetron ODT (ZOFRAN-ODT) 4 mg, Oral, Every 8 hours PRN Vit-Fe Fumarate-FA ( Plus/Iron) 27-1 MG tablet [...] nursing note reviewed. Exam conducted with a practice nurse present. Vitals: Estimated body mass index is 29.55 kg/m as calculated from the following: Height as of 01/11/24: 5' 3 . Weight as of this encounter: 166 lb 12.8 oz. BP: 120/76 Patient's last menstrual period was 12/02/2023. ASSESSMENT & PLAN ICD-10-CM 1. 22 weeks gestation of Z3A.22 POCT urinalysis dipstick manually resulted 2. Diabetes mellitus screening Z13.1 CBC Glucose tolerance, 1 hour Patient presents today for a routine obstetrics appointment. Patient is currently 22w6d with a Estimated Date of Delivery: 09/07/24. Pt given glucola order with instructions to have obtained. Pt to return in 4 weeks for scheduled OB appt. Documented by Umm Elizondo LPN on behalf of: Barbie Patiño DO documented in this encounter [facility] Evaluation note Diagnosis 28 weeks gestation of Third trimester state, incidental Diet controlled gestational diabetes mellitus (GDM) in third trimester [facility]* Diagnosis Blepharitis of left upper eyelid, unspecified type- Primary Allergic conjunctivitis of both eyes Other chronic allergic conjunctivitis Nausea and vomiting in Unspecified vomiting of , unspecified as to episode of care Seasonal allergic rhinitis due to pollen Third trimester state, incidental Gestational diabetes mellitus (GDM), antepartum, gestational diabetes method of control unspecified [facility] Diagnosis Blepharitis of left upper eyelid, unspecified type- Primary Allergic conjunctivitis of both eyes Other chronic allergic conjunctivitis Nausea and vomiting in Unspecified vomiting of , unspecified as to episode of care Seasonal allergic rhinitis due to pollen Third trimester state, incidental 32 weeks gestation of [facility]* Diagnosis Second trimester state, incidental Elevated glucose tolerance test Impaired glucose tolerance test Gestational diabetes mellitus (GDM), antepartum, gestational diabetes method of control unspecified size inconsistent with dates [facility]* Diagnosis 22 weeks gestation of Diabetes mellitus screening Screening for diabetes mellitus [facility]* Diagnosis Blepharitis of left upper eyelid, unspecified type- Primary Allergic conjunctivitis of both eyes Other chronic allergic conjunctivitis Nausea and vomiting in Unspecified vomiting of , unspecified as to episode of care Seasonal allergic rhinitis due to pollen 6 weeks follow-up Yeast infection [facility]* Diagnosis Blepharitis of left upper eyelid, unspecified type- Primary Allergic conjunctivitis of both eyes Other chronic allergic conjunctivitis Nausea and vomiting in ([facility]) Unspecified vomiting of , unspecified as to episode of care Seasonal allergic rhinitis due to pollen Well woman exam with routine gynecological exam Routine gynecological examination Vaginal discharge Leukorrhea, not specified as infective Yeast infection Encounter for surveillance of contraceptive pills 6 weeks follow-up ([facility]) Herpes genitalis in women Unspecified genital herpes UTI symptoms documented in this encounter [facility] Summary Purpose Family History No Family History Records FoundNo Family History Records FoundNo Family History Records Found Advance Directives No Advanced Directives Records FoundNo Advanced Directives Records FoundNo Advanced Directives Records Found Reason for Referral Specialty Diagnoses / Procedures Referred By Contac t Referred To Contact Diagnoses Elevated glucose tolerance test Gestational diabetes mellitus (GDM), antepartum, gestational diabetes method of control unspecified Hannah Cerda PA [address] [place] [address] [place] [address] Referral ID Status Reason Start Date Expiration Date Visits Re quested Visits Authorized [id number] Closed 1 1 Additional Source Comments INFORMATION SOURCE (unrecogn ized section and content) DATE CREATED AUTHOR 11/04/[address] [facility] DATE CREATED AUTHOR AUTHOR'S ORGANIZ ATION 08/24/2024 [facility] DATE CREATED AUTHOR AUTHOR'S ORGANIZ ATION 09/19/2024 [facility] dical Specialists EPIC Care Teams (unrecognized sec tion and content) Metal Trim Erector Relationship Specialty Start Date End Date Jason Servin MD [address] [place] [address] PCP - General Family Medicine 01/11/24 Jason Servin MD [address] [place] [address] PCP - [facility] 12/20/23 Metal Trim Erector Relationship Specialty Start Date End Date Jason Servin MD [address] [place] [address] PCP - General [facility] 01/11/24 Jason Servin MD [address] [place] [address] PCP [facility] 12/20/23 Metal Trim Erector Relationship Specialty Start Date End Date Jason Servin MD [address] [place] [address] PCP - [facility] 01/11/24 Jason Servin MD [address] [place] [address] [facility] 12/20/23 Metal Trim Erector Relationship Specialty Start Date End Date Jason Servin MD [address] [place] [address] PCP [facility] 01/11/24 Jason Servin MD [address] [place] [address] [facility] 12/20/23 Metal Trim Erector Relationship Specialty Start Date End Date Jason Servin MD [address] [place] [address] PCP [facility] 01/11/24 Jason Servin MD [address] [place] [address] [facility] 12/20/23 Metal Trim Erector Relationship Specialty Start Date End Date Jason Servin MD [address] [place] [address] PCP - [facility] 01/11/24 Jason Servin MD [address] [place] [address] [facility] 12/20/23 Metal Trim Erector Relationship Specialty Start Date End Date Jason Servin MD [address] [place] [address] [facility] 01/11/24 Jason Servin MD [address] [place] [address] [facility] 12/20/23 Metal Trim Erector Relationship Specialty Start Date End Date Jason Servin MD [address] [place] [address] PCP [facility] 01/11/24 Jason Servin MD [address] [place] [address] [facility] 12/20/23 Metal Trim Erector Relationship Specialty Start Date End Date Jason Servin MD [address] [place] [address] [facility] 01/11/24 Jason Servin MD [address] [place] [address] PCP [facility] 12/20/23 Metal Trim Erector Relationship Specialty Start Date End Date Jason Servin MD [address] [place] [address] [facility] 01/11/24 Jason Servin MD [address] [place] [address] [facility] 12/20/23 Metal Trim Erector Relationship Specialty Start Date End Date Jason Servin MD [address] [place] [address] [facility] 01/11/24 Jason Servin MD [address] [place] [address] [facility] 12/20/23 Metal Trim Erector Relationship Specialty Start Date End Date Jason Servin MD [address] [place] [address] [facility] 01/11/24 Jason Servin MD [address] [place] [address] [facility] 12/20/23 Reason for Visit (unrecogniz ed section and content) Reason Comments Routine Visit Reason Comments Routine Visit Reason Comments Follow-up Reason Comments Well Women Visit Vaginitis/Bacterial Vaginosis FOR RECORDS PERTAINING TO PATIENTS WHO ARE [...] BE BASED ON THE PRIMARY CLINICAL RECORDS. [employer] [facility]. provides no warranty or guarantee of the accuracy or completeness of information in this document.
--- OUTSIDE RECORDS SUMMARY | 2025-04-25 20:16 | XMS_ITS | Encounter Summary ---
Author Organization [facility] Address [address] [place] [address] Care Team Providers Care Landing Worker Name Role Phone Jason Baez MD Primary Care Provider [phone] Jason Baez MD Unavailable Kristie Ibanez COOLER MAN Unavailable Sandra Celaya COOLER MAN Unavailable [phone] Encounter Details Date Type Department Care Team (Late st Contact Info) Description 04/24/2024 Clinisync Result Encounter [facility] Department Unsolicited [...] week 01/11/2024 How often do you attend alevism or religion serv ices? Never 01/11/2024 Do you belong to any clubs o r organizations such as alevism groups, unions, fraternal or athletic groups, or [...] 01/11/2024 [facility] Questionnaire Answer [...] Priority Date/Time Associated Diagnosis Comments US OB CERVICAL LENGTH 04/24/2024 12:29 PM EDT documented in this encounter Results * US OB CERVICAL LENGTH (04/24/2024 12:29 PM EDT) Anatomical Region Laterality Modality Other 04/24/2024 12:2 9 PM EDT Narrative 04/24/2024 12:31 [place] [address] Ultrasound Report Signed Patient: ESTELLA CARRASQUILLO MR#: [id number] : 1995 Acct:[id number] Age/Sex: 29 / F ADM Date: 04/24/24 Loc: [facility] Attending Dr: Melva Cerda Ordering Physician: Melva Cerda Date of Service: 04/24/24 Procedure(s): US OB cervical length Accession Number(s): [id number] cc: Melva Cerda; Jason Baez M.D. The [address] [address] Patient Name: ESTELLA CARRASQUILLO MRN: [id number] date: 1995 Sex: F Assigned Patient Location: [facility] Current Patient Location: [facility] Accession/Order Number: [id number] Exam Date: 04/24/2024 11:05 Report Date: 04/24/2024 12:29 At the request of: MELVA CERDA Procedure: US OB cervical length EXAMINATION: US OB anatomy, US OB cervical length HISTORY: ANATOMY COMPARISON: Ultrasound OB transvaginal 02/03/2024 TECHNIQUE: Transabdominal sonographic examination was performed for obstetrical and evaluation. FINDINGS: Number: 1 Heart Rate: 136 bpm H.B. /min Amniotic Fluid Volume: Subjectively normal Placental Location: POSTERIOR; lower margin 5.6 cm from os. Cervix Length: 4.96 cm , closed. ANATOMY: Normal Structures -cerebellum, choroid plexus, cisterna magna, lateral cerebral ventricles, orbits, midline falx, hard palate, four-chamber heart, RVOT, LVOT, stomach, kidneys, bladder, umbilical cord insertion into abdomen, three-vessel cord, cervical spine, thoracic spine, lumbar spine, sacral spine, right upper extremity, left upper extremity, right lower extremity, left lower extremity. SUBOPTIMALLY SEEN: None ABNORMALITIES: None BIOMETRY: BPD: 4.63 cm; 20 weeks 0 days; 26 % HC: 17.67 cm; 20 weeks 1 day; 23.50 % AC: 16.47 cm; 21 weeks 4 days; 74.30 % FL: 3.61 cm; 21 weeks 3 days; 72 % EFW:376.03 g; 83 % FL/AC: 21.92 FL/BPD: 77.97 HC/AC: 1.07 GESTATIONAL AGE: Age by EDC: 20 weeks 4 days Age by current US: 20 weeks 6 days FAROOQ by current US: 2024-09-05 FAROOQ by EDC: 2024-09-07 US/US OB cervical length IMPRESSION: 1. Single live intrauterine with growth detailed above. Electronically authenticated by: HORACE BUTT Date: 04/24/2024 12:29 Dictated By: Horace Butt M.D. Signed By: 04/24/24 1231 DD/ 1229 TD/TT: Road Tester: Procedure Note Radiology, Radiologist, - 04/24/2024 [place] [address] Ultrasound Report Signed Patient: ESTELLA CARRASQUILLO [facility]#: [id number] : 1995Acct:[id number] Age/Sex: Date: 04/24/24 Loc: [facility] Attending Dr: Melva Cerda Ordering Physician: Melva Cerda Date of Service: 04/24/24 Procedure(s): US OB cervical length Accession Number(s): [id number] cc: Jason Lau M.D. The [address] [address] Patient Name: ESTELLA CARRASQUILLO MRN: [facility]:[id number] date: 1995 Sex: F Assigned [facility] Current Patient Location: [facility] Accession/Order Number: [id number] Exam Date: 04/24/2024 11:05 Report Date: 04/24/2024 12:29 At the request of: MELVA CERDA Procedure: US OB cervical length EXAMINATION: US OB anatomy, US OB cervical length HISTORY: ANATOMY COMPARISON: Ultrasound OB transvaginal 02/03/2024 TECHNIQUE: Transabdominal sonographic examination was performed for obstetrical and evaluation. FINDINGS: Number: 1 Heart Rate: 136 bpm H.B. /min Amniotic Fluid Volume: Subjectively normal Placental Location: POSTERIOR; lower margin 5.6 cm from os. Cervix Length: 4.96 cm , closed. ANATOMY: Normal Structures -cerebellum, choroid plexus, cisterna magna, lateral cerebral ventricles, orbits, midline falx, hard palate, four-chamberheart, RVOT, LVOT, stomach, kidneys, bladder, umbilical cord insertion intoabdomen, three-vessel cord, cervical spine, thoracic spine, lumbar spine, sacralspine, right upper extremity, left upper extremity, right lower extremity, leftlower extremity. SUBOPTIMALLY SEEN: None ABNORMALITIES: None BIOMETRY: BPD: 4.63 cm; 20 weeks 0 days; 26 % HC: 17.67 cm; 20 weeks 1 day; 23.50 % AC: 16.47 cm; 21 weeks 4 days; 74.30 % FL: 3.61 cm; 21 weeks 3 days; 72 % EFW:376.03 g; 83 % FL/AC: 21.92 FL/BPD: 77.97 HC/AC: 1.07 GESTATIONAL AGE: Age by EDC: 20 weeks 4 days Age by current US: 20 weeks 6 days FAROOQ by current US: 2024-09-05 FAROOQ by EDC: 2024-09-07 US/US OB cervical length IMPRESSION: 1. Single live intrauterine with growth detailed above. Electronically authenticated by: HORACE BUTT Date: 04/24/2024 12:29 Dictated By: Horace Butt M.D. Signed By:04/24/24 1231 DD/ 1229 TD/TT: Road Tester: us Generic External Data Provider [facility] Final Result documented in this encounter Visit Diagnoses Not on filedocumented in this encounter Care Teams Landing Worker Relationship Specialty Start Date End Date Jason Baez MD [address] [place] [address] PCP - General Family Medicine 01/11/24 Jason Baez MD [address] [place] [address] PCP - [facility] 12/20/23 Kristie Ibanez, COOLER MAN [address] [place] [address] Button And Buckle Maker Recreational Specialist 10/04/24 10/05/24 Sandra Celaya, COOLER MAN [address] [place] [address] Button And Buckle Maker Family Medicine 10/05/24 10/24/24 documented as of this encounter
--- OUTSIDE RECORDS SUMMARY | 2025-04-25 20:16 | XMS_ITS | Encounter Summary ---
Author Organization [facility] Address [address] [facility] [place] [address] Care Team Providers Care Artillery Officer Name Role Phone Jason Baez MD Primary Care Provider [phone] Jason Baez MD Unavailable Kristie Ibanez TALENT ASSISTANT Unavailable Sandra Celaya TALENT ASSISTANT Unavailable [phone] Encounter Details Date Type Department Care Team (Late st Contact Info) Description 08/01/2024 Clinisync Result Encounter [facility] External Department Unsolicited [...] week 01/11/2024 How often do you attend yazidi or mosque serv ices? Never 01/11/2024 Do you belong to any clubs o r organizations such as yazidi groups, unions, fraternal or athletic groups, or [...] care, and heating? Not very hard 01/11/2024 [facility] - Occupational Stress Questionnaire Answer Date Recorded [...] place to sleep or slept in a retirement (including now)? No 01/11/2024 Comments Yes Sex and Gender Information Value Date Recorded Sex Assigned at Not on file Legal Sex Female 7:14 PM EDT Gender Identity Not on file Sexual Orientation Not on file documented as of this encounter Plan of Treatment Not on file documented as of this encounter Procedures Procedure Name Priority Date/Time Associated Diagnosis Comments US OB BPP W NON-STRESS 08/01/2024 7:46 AM EST documented in this encounter Results * US OB BPP W NON-STRESS (08/01/2024 7:46 AM EST) Anatomical Region Laterality Modality Other 08/01/2024 7:46 AM EST Narrative 08/01/2024 7:49 [place] [address] Ultrasound Report Signed Patient: ESTELLA CARRASQUILLO MR#: [id number] : 1995 Acct:[id number] Age/Sex: 29 / F ADM Date: 07/31/24 Loc: US Attending Dr: Barbie Patiño D.O. Ordering Physician: Barbie Patiño D.O. Date of Service: 07/31/24 Procedure(s): US OB BPP w non-stress Accession Number(s): [id number] cc: Barbie Patiño D.O.; Jason Baez M.D. The [address] [address] Patient Name: ESTELLA CARRASQUILLO MRN: [id number] date: 1995 Sex: F Assigned Patient Location: [facility] Current Patient Location: US Accession/Order Number: [id number] Exam Date: 07/31/2024 16:06 Report Date: 08/01/2024 07:46 At the request of: BARBIE PATIÑO Procedure: US OB BPP w non-stress EXAMINATION: US OB BPP w non-stress HISTORY: GESTATIONAL DIABETES MELLITUS O24.419 COMPARISON: No relevant comparison available. TECHNIQUE: Ultrasound biophysical profile was performed in the radiology department. non-reactive stress testing was performed by nursing staff in the birthing center. FINDINGS: BREATHING MOVEMENTS: 2 GROSS BODY MOVEMENTS: 2 TONE: 2 QUALITATIVE AMNIOTIC FLUID VOLUME: 2 PRESENTATION: CEPHALIC HEART RATE: 150 bpm AMNIOTIC FLUID VOLUME: 12.7 cm GESTATIONAL AGE: 34 weeks 4 days US/US OB BPP w non-stress IMPRESSION: Total biophysical profile score: 8 Electronically authenticated by: CAREY HUFF Date: 08/01/2024 07:46 Dictated By: Carey Huff M.D. Signed By: 08/01/2449 DD/ TD/TT: Cold Press Operator: Procedure Note Radiology, Radiologist, - 08/01/2024 [place] [address] Ultrasound Report Signed Patient: ESTELLA CARRASQUILLO MMR#: [id number] : 1995Acct:[id number] Age/Sex: 29 / FADM Date: 07/31/24 Loc: US Attending Dr: Barbie Patiño D.O. Ordering Physician: Barbie Patiño D.O. Date of Service: 07/31/24 Procedure(s): US OB BPP w non-stress Accession Number(s): [id number] cc: Barbie Patiño D.O.; Jason Baez M.D. The [place] [id number] Patient Name: ESTELLA CARRASQUILLO MRN: [id number] date: 1995 Sex: F Assigned Patient Location: [facility] Current Patient Location: Accession/Order Number: [id number] Exam Date: 07/31/2024 16:06 Report Date: 08/01/2024 07:46 At the request of: BARBIE PATIÑO Procedure: US OB BPP w non-stress EXAMINATION: US OB BPP w non-stress HISTORY: GESTATIONAL DIABETES MELLITUS O24.419 COMPARISON: No relevant comparison available. TECHNIQUE: Ultrasound biophysical profile was performed in the radiology department. non-reactive stress testing was performed by nursingstaff in the birthing center. FINDINGS: BREATHING MOVEMENTS: 2 GROSS BODY MOVEMENTS: 2 TONE: 2 QUALITATIVE AMNIOTIC FLUID VOLUME: 2 PRESENTATION: CEPHALIC HEART RATE: 150 bpm AMNIOTIC FLUID VOLUME: 12.7 cm GESTATIONAL AGE: 34 weeks 4 days US/US OB BPP w non-stress IMPRESSION: Total biophysical profile score: 8 Electronically authenticated by: CAREY HUFF Date: 08/01/2024 07:46 Dictated By: Carey Huff M.D. Signed By:08/01/2449 DD/ TD/TT: Cold Press Operator: us Generic External Data Provider [facility] Final Result documented in this encounter Visit Diagnoses Not on filedocumented in this encounter Care Teams Artillery Officer Relationship Specialty Start Date End Date Jason Baez MD [address] [place] [phone] PCP - General Family Medicine 01/11/24 Jason Baez MD [address] [place] [phone] PCP - [facility] 12/20/23 Kristie Ibanez, [facility] [address] [place] [address] Manager Transfusion Health Commissioner 10/04/24 10/05/24 Sandra Celaya, [facility] [address] [facility] [place] [address] Manager Transfusion Family Medicine 10/05/24 10/24/24 documented as of this encounter
--- OUTSIDE RECORDS SUMMARY | 2025-04-25 20:16 | XMS_ITS | Encounter Summary ---
Author Organization [facility] Address [address] [facility] [place] [address] Care Team Providers Care Cash Posting Specialist Name Role Phone Jason Baez MD Primary Care Provider [phone] Jason Baez MD Unavailable Kristie Ibanez PLASTER AND STUCCO WORKER Unavailable Sandar Celaya PLASTER AND STUCCO WORKER Unavailable [phone] Encounter Details Date Type Department Care Team (Late st Contact Info) Description 02/04/2024 Abstract [facility] [address] [place] [address] Yassine Patiño DO [address] [address] [place], [place] [id number] Social History Tobacco Use Types Packs/Day Years [...] week 01/11/2024 How often do you attend restoration or sabianist serv ices? Never 01/11/2024 Do you belong to any clubs o r organizations such as restoration groups, unions, fraternal or athletic groups, or [...] care, and heating? Not very hard 01/11/2024 [facility]at ional Health - Occupational Stress [...] place to sleep or slept in a custodial (including now)? No 01/11/2024 Comments Yes Sex and Gender Information Value Date Recorded Sex Assigned at Not on file Legal Sex Female 7:14 PM EDT Gender Identity Not on file Sexual Orientation Not on file documented as of this encounter Plan of Treatment Not on file documented as of this encounter Visit Diagnoses Not on filedocumented in this encounter Care Teams Cash Posting Specialist Relationship Specialty Start Date End Date Jason Baez MD [address] [place] [phone] PCP - General Family Medicine 01/11/24 Jason Baez MD [address] [place] [phone] PCP - [facility] 12/20/23 Kristie Ibanez [place] [address] [place] [address] Ad Terminal Makeup Operator Actuarial Technician 10/04/24 10/05/24 Sandra Celaya, PLASTER AND STUCCO WORKER [address] [place] [address] Ad Terminal Makeup Operator Family Medicine 10/05/24 10/24/24 documented as of this encounter
--- OUTSIDE RECORDS SUMMARY | 2025-04-25 20:16 | XMS_ITS | Encounter Summary ---
Author Organization [facility] Address [address] [facility] [place] [address] Care Team Providers Care Framing Mill Operator Helper Name Role Phone Jason Baez MD Primary Care Provider [phone] Jason Baez MD Unavailable Kristie Ibanez IOS PROGRAMMER Unavailable Sandra Celaya IOS PROGRAMMER Unavailable [phone] Encounter Details Date Type Department Care Team (Late st Contact Info) Description 07/18/2024 Clinisync Result Encounter [facility] External Department Unsolicited [...] week 01/11/2024 How often do you attend worship or jewish serv ices? Never 01/11/2024 Do you belong to any clubs o r organizations such as worship groups, unions, fraternal or athletic groups, or [...] care, and heating? Not very hard 01/11/2024 [facility] - Occupational Stress Questionnaire [...] place to sleep or slept in a fpc (including now)? No 01/11/2024 Comments Yes Sex [...] Diagnosis Comments US OB BPP W NON-STRESS 07/18/2024 6:34 AM EDT documented in this encounter Results * US OB BPP W NON-STRESS (07/18/2024 6:34 AM EDT) Anatomical Region Laterality Modality Other 07/18/2024 6:34 AM EDT Narrative 07/18/2024 6:37 [place] [address] Ultrasound Report Signed Patient: ESTELLA CARRASQUILLO MR#: [id number] : 1995 Acct:[id number] Age/Sex: 29 / F ADM Date: 07/17/24 Loc: US Attending Dr: Barbie Patiño D.O. Ordering Physician: Barbie Patiño D.O. Date of Service: 07/17/24 Procedure(s): US OB BPP w non-stress Accession Number(s): [id number] cc: Barbie Patiño D.O.; Jason Baez M.D. [place] [id number] Patient Name: ESTELLA CARRASQUILLO MRN: [id number] date: 1995 Sex: F Assigned Patient Location: [facility] Current Patient Location: Accession/Order Number: [id number] Exam Date: 07/17/2024 17:20 Report Date: 07/18/2024 06:34 At the request of: BARBIE PATIÑO Procedure: US OB BPP w non-stress EXAMINATION: US OB BPP w non-stress HISTORY:DIET CONTROLLED GDM O24.410 COMPARISON: Ultrasound OB growth 06/21/2024 TECHNIQUE: Ultrasound biophysical profile was performed in the radiology department. BREATHING MOVEMENTS: 2 GROSS BODY MOVEMENTS: 0 TONE: 2 QUALITATIVE AMNIOTIC FLUID VOLUME: 2 PRESENTATION: CEPHALIC HEART RATE: 156.98 bpm AMNIOTIC FLUID VOLUME: 11.91 cm GESTATIONAL AGE: 32 weeks 4 days US/US OB BPP w non-stress IMPRESSION: Total biophysical profile score: 6 Electronically authenticated by: HORACE BUTT Date: 07/18/2024 06:34 Dictated By: Horace Butt M.D. Signed By: 07/18/2437 DD/ 3 TD/TT: Shell Freezing Machine Operator: Procedure Note Radiology, Radiologist, - 07/18/2024 [place] [address] Ultrasound Report Signed Patient: ESTELLA CARRASQUILLO MMR#: [id number] : 1995Acct:[id number] Age/Sex: FAD Date: 07/17/24 Loc: US Attending Dr: Barbie Patiño D.O. Ordering Physician: Barbie Patiño D.O. Date of Service: 07/17/24 Procedure(s): US OB BPP w non-stress Accession Number(s): [id number] cc: Barbie Patiño D.O.; Jason Baez M.D. The [place] [address] Patient Name: ESTELLA CARRASQUILLO MRN: [facility]:[id number] date: 1995 Sex: F Assigned Patient Location: [facility] Current Patient Location: Accession/Order Number: [id number] Exam Date: 07/17/2024 17:20 Report Date: 07/18/2024 06:34 At the request of: BARBIE PATIÑO Procedure: US OB BPP w non-stress EXAMINATION: US OB BPP w non-stress HISTORY:DIET CONTROLLED GDM O24.410 COMPARISON: Ultrasound OB growth 06/21/2024 TECHNIQUE: Ultrasound biophysical profile was performed in the radiology department. BREATHING MOVEMENTS: 2 GROSS BODY MOVEMENTS: 0 TONE: 2 QUALITATIVE AMNIOTIC FLUID VOLUME: 2 PRESENTATION: CEPHALIC HEART RATE: 156.98 bpm AMNIOTIC FLUID VOLUME: 11.91 cm GESTATIONAL AGE: 32 weeks 4 days US/US OB BPP w non-stress IMPRESSION: Total biophysical profile score: 6 Electronically authenticated by: HORACE BUTT Date: 07/18/2024 06:34 Dictated By: Horace Butt M.D. Signed By:07/18/24636 DD/ 3 TD/TT: Shell Freezing Machine Operator: us Generic External Data Provider [facility] Final Result documented in this encounter Visit Diagnoses Not on filedocumented in this encounter Care Teams Framing Mill Operator Helper Relationship Specialty Start Date End Date Jason Baez MD [address] [place] [phone] PCP - General Family Medicine 01/11/24 Jason Baez MD [address] [place] [address] PCP - [facility] 12/20/23 Kristie Ibanez, IOS PROGRAMMER [address] [place] [address] Buckle Gluer Gridcap Machine Operator 10/04/24 10/05/24 Sandra Celaya, IOS PROGRAMMER [address] [place], [place] [id number] Buckle Gluer Family Medicine 10/05/24 10/24/24 documented as of this encounter
--- OUTSIDE RECORDS SUMMARY | 2025-04-25 20:16 | XMS_ITS | Encounter Summary ---
Author Organization [facility] Address [address] [facility] [place] [address] Care Team Providers Care Inspector Integrated Circuits Name Role Phone Jason Baez MD Primary Care Provider [phone] Jason Baez MD Unavailable Kristie Ibanez CABINET ABRASIVE SANDBLASTER Unavailable Sandra Celaya CABINET ABRASIVE SANDBLASTER Unavailable [phone] Encounter Details Date Type Department Care Team (Late st Contact Info) Description 07/05/2024 Abstract [facility] [address] [place] [address] Yassine Patiño DO [address] [facility] [address] [place], [place] [id number] Social History Tobacco Use Types Packs/Day Years [...] week 01/11/2024 How often do you attend yarsanism or presybeterian serv ices? Never 01/11/2024 Do you belong to any clubs o r organizations such as yarsanism groups, unions, fraternal or athletic groups, or [...] care, and heating? Not very hard 01/11/2024 [facility] of Occupat ional Health - Occupational Stress [...] place to sleep or slept in a care home (including now)? No 01/11/2024 Comments Yes Sex and Gender Information Value Date Recorded Sex Assigned at Not on file Legal Sex Female 7:14 PM EDT Gender Identity Not on file Sexual Orientation Not on file documented as of this encounter Plan of Treatment Not on file documented as of this encounter Visit Diagnoses Not on filedocumented in this encounter Care Teams Inspector Integrated Circuits Relationship Specialty Start Date End Date Jason Baez MD [address] [place] [address] PCP - General Family Medicine 01/11/24 Jason Baez MD [address] [place] [address] PCP - [facility] 12/20/23 Kristie [place]bane[place] [address] [place] [address] It Security Architect Linen Keeper 10/04/24 10/05/24 Sandra Celaya, CABINET ABRASIVE SANDBLASTER [address] [place] [address] It Security Architect Family Medicine 10/05/24 10/24/24 documented as of this encounter
--- OUTSIDE RECORDS SUMMARY | 2025-04-25 20:16 | XMS_ITS | Encounter Summary ---
Author Organization [facility] Address [address] [facility] [place] [address] Care Team Providers Care Aircraft Engine Mechanic Name Role Phone Jason Baez MD Primary Care Provider [phone] Jason Baez MD Unavailable Kristie Ibanez SCIENCE PROFESSOR Unavailable Sandra Celaya SCIENCE PROFESSOR Unavailable [phone] Encounter Details Date Type Department Care [...] week 01/11/2024 How often do you attend buddhism or baptist serv ices? Never 01/11/2024 Do you belong to any clubs o r organizations such as buddhism groups, unions, fraternal or athletic groups, or [...] care, and heating? Not very hard 01/11/2024 [facility] - Occupational Stress Questionnaire Answer Date Recorded [...] place to sleep or slept in a chcf (including now)? No 01/11/2024 Comments Yes Sex and Gender Information Value Date Recorded Sex Assigned at Not on file Legal Sex Female 7:14 PM EDT Gender Identity Not on file Sexual Orientation Not on file documented as of this encounter Plan of Treatment Not on file documented as of this encounter Procedures Procedure Name Priority Date/Time Associated Diagnosis Comments US OB ANATOMY 04/24/2024 12:29 PM EDT documented in this encounter Results * US OB ANATOMY (04/24/2024 12:29 PM EDT) Anatomical Region Laterality Modality Other 04/24/2024 12:2 9 PM EDT Narrative 04/24/2024 12:32 [place] [address] Ultrasound Report Signed Patient: ESTELLA CARRASQUILLO MR#: [id number] : 1995 Acct:[id number] Age/Sex: 29 / F ADM Date: 04/24/24 Loc: [facility] Attending Dr: Melva Cerda Ordering Physician: Melva Cerda Date of Service: 04/24/24 Procedure(s): US OB anatomy Accession Number(s): [id number] cc: Melva Cerda; Jason Baez M.D. The [address] [address] Patient Name: ESTELLA CARRASQUILLO MRN: [id number] date: 1995 Sex: F Assigned Patient Location: [facility] Current Patient Location: [facility] Accession/Order Number: [id number] Exam Date: 04/24/2024 11:05 Report Date: 04/24/2024 12:29 At the request of: MELVA CERDA Procedure: US OB anatomy EXAMINATION: US OB anatomy, US OB cervical [...] 2024-09-05 FAROOQ by EDC: 2024-09-07 US/US OB anatomy IMPRESSION: 1. Single live intrauterine with growth detailed above. Electronically authenticated by: HORACE BUTT Date: 04/24/2024 12:29 Dictated By: Horace Butt M.D. Signed By: 04/24/24 1232 DD/ 1229 TD/TT: Radiology Physician Assistant: Procedure Note Radiology, Radiologist, - 04/24/2024 [place] [address] Ultrasound Report Signed Patient: ESTELLA CARRASQUILLO [facility]#: [id number] : 1995Acct:[id number] Age/Sex: M Date: 04/24/24 Loc: [facility] Attending Dr: Melva Cerda Ordering Physician: Melva Cerda Date of Service: 04/24/24 Procedure(s): US OB anatomy Accession Number(s): [id number] cc: Melva Cerda; Jason Baez M.D. The [place] [id number] Patient Name: ESTELLA CARRASQUILLO MRN: [facility]:[id number] date: 1995 Sex: F Assigned Patient Location: [facility] Current Patient Location: [facility] Accession/Order Number: [id number] Exam Date: 04/24/2024 11:05 Report Date: 04/24/2024 12:29 At the request of: MELVA CERDA Procedure: US OB anatomy EXAMINATION: US OB anatomy, US OB cervical [...] 2024-09-05 FAROOQ by EDC: 2024-09-07 US/US OB anatomy IMPRESSION: 1. Single live intrauterine with growth detailed above. Electronically authenticated by: HORACE BUTT Date: 04/24/2024 12:29 Dictated By: Horace Butt M.D. Signed By:04/24/24 1232 DD/ 1229 TD/TT: Radiology Physician Assistant: us Generic External Data Provider [facility] Final Result documented in this encounter Visit Diagnoses Not on filedocumented in this encounter Care Teams Aircraft Engine Mechanic Relationship Specialty Start Date End Date Jason Baez MD [address] [place] [phone] PCP - General Family Medicine 01/11/24 Jason Baez MD [address] [place] [address] PCP - [facility] 12/20/23 Kristie Ibanez, SCIENCE PROFESSOR [address] [place] [address] Esl Professor Assembler Erector 10/04/24 10/05/24 Sandra Celaya, SCIENCE PROFESSOR [address] [place] [address] Esl Professor Family Medicine 10/05/24 10/24/24 documented as of this encounter
--- OUTSIDE RECORDS SUMMARY | 2025-04-25 20:16 | XMS_ITS | Encounter Summary ---
Author Organization [facility] Address [address] [facility] [place] [address] Care Team Providers Care Truck Service Manager Name Role Phone Jason Baez MD Primary Care Provider [phone] Jason Baez MD Unavailable Kristie Ibanez COURT MESSENGER Unavailable Sandra Celaya COURT MESSENGER Unavailable [phone] Encounter Details Date Type Department Care Team (Late st Contact Info) Description 02/07/2024 Orders Only [facility] [address] [place] [phone] Yassine Patiño, DO [address] [place] [id number] Social History Tobacco Use Types Packs/Day Years [...] week 01/11/2024 How often do you attend druze or yarsanism serv ices? Never 01/11/2024 Do you belong to any clubs o r organizations such as druze groups, unions, fraternal or athletic groups, or [...] care, and heating? Not very hard 01/11/2024 [facility] of Occupat ional Health - Occupational Stress [...] place to sleep or slept in a group home (including now)? No 01/11/2024 Comments Yes Sex and Gender Information Value Date Recorded Sex Assigned at Not on file Legal Sex Female 7:14 PM EDT Gender Identity Not on file Sexual Orientation Not on file documented as of this encounter Plan of Treatment Not on file documented as of this encounter Procedures Procedure Name Priority Date/Time Associated Diagnosis Comments US OB TRANSVAGINAL Routine 02/03/2024 11:59 AM EDT documented in this encounter Results * US OB transvaginal (02/03/2024 11:59 AM EDT) Anatomical Region Laterality Modality Body Ultrasound us Yassine Kaylyn DO IMG OB US PROCEDURES Final Resul t documented in this encounter Visit Diagnoses Not on filedocumented in this encounter Care Teams Truck Service Manager Relationship Specialty Start Date End Date Jason Baez MD [address] [place] [phone] PCP - General Family Medicine 01/11/24 Jason Baez MD [address] [place] [phone] PCP - [facility] 12/20/23 Kristie Ibanez, COURT MESSENGER [address] [place] [address] Operator Command Support Systems Automation And Controls Instructor 10/04/24 10/05/24 Sandra Celaya, COURT MESSENGER [address] [facility] [place] [address] Operator Command Support Systems Family Medicine 10/05/24 10/24/24 documented as of this encounter
--- OUTSIDE RECORDS SUMMARY | 2025-04-25 20:16 | XMS_ITS | Encounter Summary ---
Author Organization [facility] Address [address] [place] [address] Care Team Providers Care Research Program Intern Name Role Phone Jason Baez MD Primary Care Provider [phone] Jason Baez MD Unavailable Kristie Ibanez DEVELOPMENTAL EDUCATION INSTRUCTOR Unavailable Sandra Celaya DEVELOPMENTAL EDUCATION INSTRUCTOR Unavailable [phone] Encounter Details Date Type Department Care Team (Late st Contact Info) Description 02/03/2024 Clinisync Result Encounter [facility] External Department Unsolicited [...] How often do you attend alevism or scientologist serv ices? Never 01/11/2024 Do you belong [...] 01/11/2024 [facility] - Occupational Stress Questionnaire Answer Date [...] place to sleep or slept in a residential (including now)? No 01/11/2024 Comments Yes Sex and Gender Information Value Date Recorded Sex Assigned at Not on file Legal Sex Female 7:14 PM EDT Gender Identity Not on file Sexual Orientation Not on file documented as of this encounter Plan of Treatment Not on file documented as of this encounter Procedures Procedure Name Priority Date/Time Associated Diagnosis Comments US OB TRANSVAGINAL 02/03/2024 2: 51 PM EDT documented in this encounter Results * US OB TRANSVAGINAL (02/03/2024 2:51 PM EDT) Anatomical Region Laterality Modality Other 02/03/2024 2:51 PM EDT Narrative 02/03/2024 2:54 [place] [address] Ultrasound Report Signed Patient: ESTELLA CARRASQUILLO MR#: [id number] : 1995 Acct:[id number] Age/Sex: 28 / F ADM Date: 02/03/24 Loc: [facility] Attending Dr: Barbie Patiño D.O. Ordering Physician: Barbie Patiño D.O. Date of Service: 02/03/24 Procedure(s): US OB transvaginal Accession Number(s): [id number] cc: Barbie Patiño D.O.; Jason Baez M.D. [address] [address] Patient Name: ESTELLA CARRASQUILLO MRN: [id number] date: 1995 Sex: F Assigned Patient Location: [facility] Current Patient Location: [facility] Accession/Order Number: [id number] Exam Date: 02/03/2024 13:45 Report Date: 02/03/2024 14:51 At the request of: BARBIE PATIÑO Procedure: US OB transvaginal EXAMINATION: US OB transvaginal HISTORY: MISSED MENSES COMPARISON: No relevant comparison available. FINDINGS: GESTATIONAL SAC: Present and normal appearing. YOLK SAC: Present and normal appearing. POLE: Present and normal appearing. CARDIAC: Present. UTERUS: Normal size and appearance. OVARIES: Right: Normal. Left: Normal. CERVIX: 4.7 cm in length and closed. CUL-DE-SAC: Normal. OTHER: None. AGE BY LMP: 9 weeks 2 days FAROOQ BY LMP: 09/05/2024 AGE BY US CRL: 9 weeks 1 day FAROOQ BY US CRL: 09/06/2024 US/US OB transvaginal IMPRESSION: 1. Single live intrauterine . Electronically authenticated by: HORACE BUTT Date: 02/03/2024 14:51 Dictated By: Horace Butt M.D. Signed By: 02/03/24 1454 DD/ 145 TD/TT: Marzipan Molder: Procedure Note Radiology, Radiologist, MD - 02/03/2024 [place] [address] Ultrasound Report Signed Patient: ESTELLA CARRASQUILLO MMR#: [id number] : 1995Acct:[id number] Age/Sex: 28 / FADM Date: 02/03/24 Loc: [facility] Attending Dr: Barbie Patiño D.O. Ordering Physician: Barbie Patiño D.O. Date of Service: 02/03/24 Procedure(s): US OB transvaginal Accession Number(s): [id number] cc: Barbie Patiño D.O.; Jason Baez M.D. The [place] [id number] Patient Name: ESTELLA CARRASQUILLO MRN: [id number] date: 1995 Sex: F Assigned Patient Location: [facility] Current Patient Location: [facility] Accession/Order Number: [id number] Exam Date: 02/03/2024 13:45 Report Date: 02/03/2024 14:51 At the request of: BARBIE PATIÑO Procedure: US OB transvaginal EXAMINATION: US OB transvaginal HISTORY: MISSED MENSES COMPARISON: No relevant comparison available. FINDINGS: GESTATIONAL SAC: Present and normal appearing. YOLK SAC: Present and normal appearing. POLE: Present and normal appearing. CARDIAC: Present. UTERUS: Normal size and appearance. OVARIES: Right: Normal. Left: Normal. CERVIX: 4.7 cm in length and closed. CUL-DE-SAC: Normal. OTHER: None. AGE BY LMP: 9 weeks 2 days FAROOQ BY LMP: 09/05/2024 AGE BY US CRL: 9 weeks 1 day FAROOQ BY US CRL: 09/06/2024 US/US OB transvaginal IMPRESSION: 1. Single live intrauterine . Electronically authenticated by: HORACE BUTT Date: 02/03/2024 14:51 Dictated By: Horace Butt M.D. Signed By:02/03/244 DD/ 50 TD/TT: Marzipan Molder: us Generic External Data Provider [facility] Final Result documented in this encounter Visit Diagnoses Not on filedocumented in this encounter Care Teams Research Program Intern Relationship Specialty Start Date End Date Jason Baez MD [address] [place] [address] PCP - General Family Medicine 01/11/24 Jason Baez MD [address] [place] [address] PCP - [facility] 12/20/23 Kristie Ibanez, [facility] [address] [place] [address] Drying Tumbler Operator Personal Lines Sales Executive 10/04/24 10/05/24 Sandra Celaya, [facility] [address] [facility] [address] Drying Tumbler Operator Family Medicine 10/05/24 10/24/24 documented as of this encounter
--- OUTSIDE RECORDS SUMMARY | 2025-04-25 20:16 | XMS_ITS | Encounter Summary ---
Author Organization [facility] Address [address] [place] [address] Care Team Providers Care Incident Coordinator Name Role Phone Jason Baez MD Primary Care Provider [phone] Jason Baez MD Unavailable Kristie Ibanez REINFORCING IRON WORKER HELPER Unavailable Sandra Celaya REINFORCING IRON WORKER HELPER Unavailable [phone] Encounter Details Date Type Department Care Team (Late st Contact Info) Description 07/21/2024 Clinisync Result Encounter [facility] External Department Unsolicited Barbie Patiño, DO [address] [place] [address] Social History Tobacco Use Types Packs/Day Years [...] week 01/11/2024 How often do you attend anglican or anabaptist serv ices? Never 01/11/2024 Do you belong to any clubs o r organizations such as anglican groups, unions, fraternal or athletic groups, or [...] care, and heating? Not very hard 01/11/2024 [facility] - Occupational [...] Diagnosis Comments US OB BPP W NON-STRESS 07/21/2024 8:01 AM EDT documented in this encounter Results * US OB BPP W NON-STRESS (07/21/2024 8:01 AM EDT) Anatomical Region Laterality Modality Other 07/21/2024 8:01 AM EDT Narrative 07/21/2024 8:03 [place] [address] Ultrasound Report Signed Patient: ESTELLA CARRASQUILLO MR#: [id number] : 1995 Acct:[id number] Age/Sex: 29 / F ADM Date: 07/20/24 Loc: US Attending Dr: Barbie Patiño D.O. Ordering Physician: Barbie Patiño D.O. Date of Service: 07/20/24 Procedure(s): US OB BPP w non-stress Accession Number(s): [id number] cc: Barbie Patiño D.O.; Jason Baez M.D. The [place] [id number] Patient Name: ESTELLA CARRASQUILLO MRN: [id number] date: 1995 Sex: F Assigned Patient Location: [facility] Current Patient Location: Accession/Order Number: [id number] Exam Date: 07/20/2024 16:20 Report Date: 07/21/2024 08:01 At the request of: BARBIE PATIÑO Procedure: US OB BPP w non-stress EXAMINATION: US OB BPP w non-stress HISTORY: REPEAT BPP 02/25 FOR MOVEMENT ON 07/17 COMPARISON: No relevant comparison available. TECHNIQUE: Ultrasound biophysical profile was performed in the radiology department. non-reactive stress testing was performed by nursing staff in the birthing center. FINDINGS: BREATHING MOVEMENTS: 2 GROSS BODY MOVEMENTS: 2 TONE: 2 QUALITATIVE AMNIOTIC FLUID VOLUME: 2 PRESENTATION: CEPHALIC HEART RATE: 148.35 bpm AMNIOTIC FLUID VOLUME: 12.1cm GESTATIONAL AGE: 33 weeks, 0 days US/US OB BPP w non-stress IMPRESSION: Total biophysical profile score: 8 Electronically authenticated by: CAREY HUFF Date: 07/21/2024 08:01 Dictated By: Carey Huff M.D. Signed By: 07/21/24802 DD/ 0 TD/TT: Oracle Developer: Procedure Note Radiology, Radiologist, - 07/21/2024 [place] [address] Ultrasound Report Signed Patient: ESTELLA CARRASQUILLO MMR#: [id number] : 1995Acct:[id number] Age/Sex: 29 / FADM Date: 07/20/24 Loc: US Attending Dr: Barbie Patiño D.O. Ordering Physician: Barbie Patiño D.O. Date of Service: 07/20/24 Procedure(s): US OB BPP w non-stress Accession Number(s): [id number] cc: Barbie Patiño D.O.; Jason Baez M.D. The [place] [id number] Patient Name: ESTELLA CARRASQUILLO MRN: [id number] date: 1995 Sex: F Assigned Patient Location: [facility] Current Patient Location: Accession/Order Number: [id number] Exam Date: 07/20/2024 16:20 Report Date: 07/21/2024 08:01 At the request of: BARBIE PATIÑO Procedure: US OB BPP w non-stress EXAMINATION: US OB BPP w non-stress HISTORY: REPEAT BPP 02/25 FOR MOVEMENT ON 07/17 COMPARISON: No relevant comparison available. TECHNIQUE: Ultrasound biophysical profile was performed in the radiology department. non-reactive stress testing was performed by nursingstaff in the birthing center. FINDINGS: BREATHING MOVEMENTS: 2 GROSS BODY MOVEMENTS: 2 TONE: 2 QUALITATIVE AMNIOTIC FLUID VOLUME: 2 PRESENTATION: CEPHALIC HEART RATE: 148.35 bpm AMNIOTIC FLUID VOLUME: 12.1cm GESTATIONAL AGE: 33 weeks, 0 days US/US OB BPP w non-stress IMPRESSION: Total biophysical profile score: 8 Electronically authenticated by: CAREY HUFF Date: 07/21/2024 08:01 Dictated By: Carey Huff M.D. Signed By:07/21/24802 DD/ 0 TD/TT: Oracle Developer: us Barbie Kaylyn DO [facility] Final Result documented in this encounter Visit Diagnoses Not on filedocumented in this encounter Care Teams Incident Coordinator Relationship Specialty Start Date End Date Jason Baez MD [address] [place] [phone] PCP - General Family Medicine 01/11/24 Jason Baez MD [address] [place] [address] PCP - [facility] 12/20/23 Kristie Ibanez, [facility] [address] [place] [address] Director It Project Transactional Attorney 10/04/24 10/05/24 Sandra Celaya, [facility] [address] [place] [address] Director It Project Family Medicine 10/05/24 10/24/24 documented as of this encounter
--- OUTSIDE RECORDS SUMMARY | 2025-04-25 20:16 | XMS_ITS | Encounter Summary ---
Author Organization [facility] Address [address] [place] [address] Care Team Providers Care Lead Embedded Software Engineer Name Role Phone Jason Baez MD Primary Care Provider [phone] Jason Baez MD Unavailable Kristie Ibanez DRILLING MACHINE RUNNER Unavailable Sandra Celaya DRILLING MACHINE RUNNER Unavailable [phone] Encounter Details Date Type Department Care Team (Late st Contact Info) Description 07/25/2024 Clinisync Result Encounter [facility] External Department Unsolicited [...] week 01/11/2024 How often do you attend yazdanism or orthodox serv ices? Never 01/11/2024 Do you belong to any clubs o r organizations such as yazdanism groups, unions, fraternal or athletic groups, or [...] care, and heating? Not very hard 01/11/2024 [facility] - Occupational Stress Questionnaire Answer Date [...] place to sleep or slept in a long-term (including now)? No 01/11/2024 Comments Yes Sex [...] Diagnosis Comments US OB BPP W NON-STRESS 07/25/2024 7:09 AM EST documented in this encounter Results * US OB BPP W NON-STRESS (07/25/2024 7:09 AM EST) Anatomical Region Laterality Modality Other 07/25/2024 7:09 AM EST Narrative 07/25/2024 7:12 [place] [address] Ultrasound Report Signed Patient: ESTELLA CARRASQUILLO MR#: [id number] : 1995 Acct:[id number] Age/Sex: 29 / F ADM Date: 07/24/24 Loc: US Attending Dr: Barbie Patiño D.O. Ordering Physician: Barbie Patiño D.O. Date of Service: 07/24/24 Procedure(s): US OB BPP w non-stress Accession Number(s): [id number] cc: Barbie Patiño D.O.; Jason Baez M.D. [address] [address] Patient Name: ESTELLA CARRASQUILLO MRN: [id number] date: 1995 Sex: F Assigned Patient Location: [facility] Current Patient Location: Accession/Order Number: [id number] Exam Date: 07/24/2024 17:00 Report Date: 07/25/2024 07:09 At the request of: BARBIE PATIÑO Procedure: [...] FLUID VOLUME: 2 PRESENTATION: CEPHALIC HEART RATE: 139.90 bpm AMNIOTIC FLUID VOLUME: 13.6 cm GESTATIONAL AGE: 33 weeks 4 days US/US OB BPP w non-stress IMPRESSION: Total biophysical profile score: 8 Electronically authenticated by: CAREY HUFF Date: 07/25/2024 07:09 Dictated By: Carey Huff M.D. Signed By: 07/25/24711 DD/ 8 TD/TT: Foundation Coordinator: Procedure Note Radiology, Radiologist, - 07/25/2024 [place] [address] Ultrasound Report Signed Patient: ESTELLA CARRASQUILLO MMR#: [id number] : 1995Acct:[id number] Age/Sex: 29 / FADM Date: 07/24/24 Loc: US Attending Dr: Barbie Patiño D.O. Ordering Physician: Barbie Paitño D.O. Date of Service: 07/24/24 Procedure(s): US OB BPP w non-stress Accession Number(s): [id number] cc: Barbie Patiño D.O.; Jason Baez M.D. The [place] [id number] Patient Name: ESTELLA CARRASQUILLO MRN: [id number] date: 1995 Sex: F Assigned Patient Location: [facility] Current Patient Location: Accession/Order Number: [id number] Exam Date: 07/24/2024 17:00 Report Date: 07/25/2024 07:09 At the request of: BARBIE PATIÑO Procedure: [...] FLUID VOLUME: 2 PRESENTATION: CEPHALIC HEART RATE: 139.90 bpm AMNIOTIC FLUID VOLUME: 13.6 cm GESTATIONAL AGE: 33 weeks 4 days US/US OB BPP w non-stress IMPRESSION: Total biophysical profile score: 8 Electronically authenticated by: CAREY HUFF Date: 07/25/2024 07:09 Dictated By: Carey Huff M.D. Signed By:07/25/24711 DD/ 8 TD/TT: Foundation Coordinator: us Generic External Data Provider [facility] Final Result documented in this encounter Visit Diagnoses Not on filedocumented in this encounter Care Teams Lead Embedded Software Engineer Relationship Specialty Start Date End Date Jason Baez MD [address] [place] [address] PCP - General Family Medicine 01/11/24 Jason Baez MD [address] [place] [address] PCP - [facility] 12/20/23 Kristie Ibanez, [facility] [address] [place] [address] Director Franchise Sales Gripper Installer 10/04/24 10/05/24 Sandra Celaya, [facility] [address] [place] [address] Director Franchise Sales Family Medicine 10/05/24 10/24/24 documented as of this encounter
--- OUTSIDE RECORDS SUMMARY | 2025-04-25 20:16 | XMS_ITS | Encounter Summary ---
Author Organization [facility] Address [address] [place] [address] Care Team Providers Care Safety Intern Name Role Phone Jason Baez MD Primary Care Provider [phone] Jason Baez MD Unavailable Kristie Ibanez LINE ASSEMBLY UTILITY WORKER Unavailable Sandra Celaya LINE ASSEMBLY UTILITY WORKER Unavailable [phone] Encounter Details Date Type Department Care Team (Late st Contact Info) Description 03/03/2024 Clinisync Result Encounter [facility] External Department Unsolicited [...] week 01/11/2024 How often do you attend mormon or restorationist serv ices? Never 01/11/2024 Do you belong to any clubs o r organizations such as mormon groups, unions, fraternal or athletic groups, or [...] care, and heating? Not very hard 01/11/2024 [facility] - Occupational Stress Questionnaire [...] place to sleep or slept in a fci (including now)? No 01/11/2024 Comments Yes Sex and Gender Information Value Date Recorded Sex Assigned at Not on file Legal Sex Female 7:14 PM EDT Gender Identity Not on file Sexual Orientation Not on file documented as of this encounter Plan of Treatment Not on file documented as of this encounter Procedures Procedure Name Priority Date/Time Associated Diagnosis Comments US THYROID 03/03/2024 5:10 PM EDT ALL THYROXINE (T4) FREE Routine 03/03/2024 4:30 PM EDT ALL THYROID STIM HORMONE Routine 03/03/2024 4:30 PM EDT documented in this encounter Results * US thyroid (03/03/2024 5:10 PM EDT) Anatomical Region Laterality Modality Head, Neck Ultrasound 03/03/2024 5:10 PM EDT Narrative 03/03/2024 5:13 [place] [address] Ultrasound Report Signed Patient: ESTELLA CARRASQUILLO MR#: [id number] : 1995 Acct:[id number] Age/Sex: 28 / F ADM Date: 03/03/24 Loc: LAB Attending Dr: Barbie Patiño D.O. Ordering Physician: Barbie Patiño D.O. Date of Service: 03/03/24 Procedure(s): US thyroid Accession Number(s): [id number] cc: Barbie Patiño D.O.; Jason Baez M.D. [address] [address] Patient Name: ESTELLA CARRASQUILLO MRN: [id number] date: 1995 Sex: F Assigned Patient Location: LAB Current Patient Location: LAB Accession/Order Number: [id number] Exam Date: 03/03/2024 15:55 Report Date: 03/03/2024 17:10 At the request of: BARBIE PATIÑO Procedure: US thyroid EXAM: US thyroid HISTORY: ENLARGED THYROID E04.9 COMPARISON: None. TECHNIQUE: Multiple sonographic images of the thyroid gland were obtained, supplemented with Doppler. FINDINGS: The right lobe measures 4.7 x 1.1 x 1.4 cm. Homogeneous echoes are noted throughout. No focal nodule is identified within. The left lobe measures 4.4 x 1.0 x 1.1 cm. Homogeneous echoes are noted throughout. No focal nodule is identified within. The isthmus measures 6 mm in thickness. No focal mass or abnormal fluid collection is seen surrounding the gland. US/US thyroid IMPRESSION: The thyroid gland is at the upper limits of normal in size. No focal abnormality is identified within. TI RADS 1. Electronically authenticated by: JAYESH GONZALES Date: 03/03/2024 17:10 Dictated By: Jayesh Gonzales M.D. Signed By: 03/03/241712 DD/ 09 TD/TT: Billboard Erector: Procedure Note Radiology, Radiologist, - 03/03/2024 [place] [address] Ultrasound Report Signed Patient: ESTELLA CARRASQUILLO MMR#: [id number] : 1995Acct:[id number] Age/Sex: 28 / FADM Date: 03/03/24 Loc: LAB Attending Dr: Barbie Patiño D.O. Ordering Physician: Barbie Patiño D.O. Date of Service: 03/03/24 Procedure(s): US thyroid Accession Number(s): [id number] cc: Barbie Patiño D.O.; Jason Baez M.D. The [place] [id number] Patient Name: ESTELLA CARRASQUILLO MRN: [id number] date: 1995 Sex: F Assigned Patient Location: LAB Current Patient Location: LAB Accession/Order Number: [id number] Exam Date: 03/03/2024 15:55 Report Date: 03/03/2024 17:10 At the request of: BARBIE PATIÑO Procedure: US thyroid EXAM: US thyroid HISTORY: ENLARGED THYROID E04.9 COMPARISON: None. TECHNIQUE: Multiple sonographic images of the thyroid gland were obtained, supplemented with Doppler. FINDINGS: The right lobe measures 4.7 x 1.1 x 1.4 cm. Homogeneous echoesare noted throughout. No focal nodule is identified within. The left lobe measures 4.4 x 1.0 x 1.1 cm. Homogeneous echoes are noted throughout. No focal nodule is identified within. The isthmus measures 6 mm in thickness. No focal mass or abnormal fluid collection is seen surrounding the gland. US/US thyroid IMPRESSION: The thyroid gland is at the upper limits of normal in size. No focal abnormality is identified within. TI RADS 1. Electronically authenticated by: JAYESH GONZALES Date: 03/03/2024 17:10 Dictated By: Jayesh Gonzales M.D. Signed By:03/03/241712 DD/ 09 TD/TT: Billboard Erector: us Generic External Data Provider IMG US PROCEDURES Final Result * ALL THYROID STIM HORMONE (03/03/2024 4:30 PM EDT) THYROID STIMULATING HORMONE 1.643 0.358 - 3.740 uIU/mL [facility] 03/03/2024 4:30 PM EDT 03/03/2024 4:32 PM EDT Narrative [facility] - 03/03/2024 5:47 PM EDT us Barbie Kaylyn DO [facility] Final Result Performing Organization Address [facility] Co de Phone Number [facility] * ALL THYROXINE (T4) FREE (03/03/2024 4:30 PM EDT) FREE T4 0.79 0.76 - 1.46 ng/dL [facility] 03/03/2024 4:30 PM EDT 03/03/2024 4:32 PM EDT Narrative [facility] - 03/03/2024 5:41 PM EDT us Barbie Kaylyn DO [facility] Final Result Performing Organization Address [facility] Co de Phone Number [facility] TB documented in this encounter Visit Diagnoses Not on filedocumented in this encounter Care Teams Safety Intern Relationship Specialty Start Date End Date Jason Baez MD [address] [place] [address] PCP - General Family Medicine 01/11/24 Jason Baez MD [address] [place] [address] PCP - [facility] 12/20/23 Kristie Ibanez LSW [address] [place] [address] Superintendent Water And Sewer Systems Gas Main Fitter 10/04/24 10/05/24 Sandra Celaya, LINE ASSEMBLY UTILITY WORKER [address] [place] [address] Superintendent Water And Sewer Systems Family Medicine 10/05/24 10/24/24 documented as of this encounter
--- OUTSIDE RECORDS SUMMARY | 2025-04-25 20:16 | XMS_ITS | Encounter Summary ---
Author Organization [facility] Address [address] [facility] [place] [address] Care Team Providers Care Coupon And Bond Collection Clerk Name Role Phone Jason Baez MD Primary Care Provider [phone] Jason Baez MD Unavailable Kristie Ibanez MANAGER WINTER Unavailable Sandra Celaya MANAGER WINTER Unavailable [phone] Encounter Details Date Type Department Care Team (Late st Contact Info) Description 02/29/2024 Abstract [facility] [address] [place] [address] Calli Isbell LPN [address] [place] [id number] Social History Tobacco Use Types Packs/Day Years [...] week 01/11/2024 How often do you attend protestant or judaism serv ices? Never 01/11/2024 Do you belong to any clubs o r organizations such as protestant groups, unions, fraternal [...] care, and heating? Not very hard 01/11/2024 [facility] - Occupational Stress [...] place to sleep or slept in a alf (including now)? No 01/11/2024 Comments Yes Sex and Gender Information Value Date Recorded Sex Assigned at Not on file Legal Sex Female 7:14 PM EDT Gender Identity Not on file Sexual Orientation Not on file documented as of this encounter Plan of Treatment Not on file documented as of this encounter Visit Diagnoses Not on filedocumented in this encounter Care Teams Coupon And Bond Collection Clerk Relationship Specialty Start Date End Date Jason Baez MD [address] [place] [phone] PCP - General Family Medicine 01/11/24 Jason Baez MD [address] [phone] PCP - [facility] 12/20/23 Kristie Ibanez LSW [address] [place] [address] Miter Grinder Operator Padded Box Sewer 10/04/24 10/05/24 Sandra Celaya, MANAGER WINTER [address] [place] [address] Miter Grinder Operator Family Medicine 10/05/24 10/24/24 documented as of this encounter
--- OUTSIDE RECORDS SUMMARY | 2025-04-25 20:16 | XMS_ITS | Encounter Summary ---
Author Organization [facility] Address [address] [place] [address] Care Team Providers Care Professor Of Biochemistry Name Role Phone Jason Baez MD Primary Care Provider [phone] Jason aBez MD Unavailable Kristie Ibanez FISCAL ECONOMIST Unavailable Sandra Celaya FISCAL ECONOMIST Unavailable [phone] Encounter Details Date Type Department Care Team (Late st Contact Info) Description 06/01/2024 Abstract [facility] [address] [place] [address] Yassine Patiño DO [address] [place], [place] [address] Social History Tobacco Use Types Packs/Day Years [...] How often do you attend buddhism or bahai serv ices? Never 01/11/2024 Do you belong [...] care, and heating? Not very hard 01/11/2024 [facility] of Occupat ional Health - Occupational [...] on filedocumented in this encounter Care Teams Professor Of Biochemistry Relationship Specialty Start Date End Date Jason Baez MD [address] [place] [address] PCP - General Family Medicine 01/11/24 Jason Baez MD [address] [place] [address] PCP - [facility] 12/20/23 Kristie Ibanez LSW [address] [place] [address] Identity Access Management Architect Edger Machine Helper 10/04/24 10/05/24 Sandra Celaya, FISCAL ECONOMIST [address] [place] [address] Identity Access Management Architect Family Medicine 10/05/24 10/24/24 documented as of this encounter
--- OUTSIDE RECORDS SUMMARY | 2025-04-25 20:16 | XMS_ITS | Encounter Summary ---
Author Organization [facility] Address [address] [place] [address] Care Team Providers Care Felt Cutting Machine Operator Name Role Phone Jason Baez MD Primary Care Provider [phone] Jason Baez MD Unavailable Kristie Ibanez FINANCIAL SYSTEMS DIRECTOR Unavailable Sandra Celaya FINANCIAL SYSTEMS DIRECTOR Unavailable [phone] Encounter Details Date Type Department Care Team (Late st Contact Info) Description 07/04/2024 Abstract [facility] [address] [place] [address] Yassine Patiño DO [address] [place], [place] [address] Social History Tobacco Use Types Packs/Day Years [...] week 01/11/2024 How often do you attend holiness or denominational serv ices? Never 01/11/2024 Do you belong to any clubs o r organizations such as holiness groups, unions, fraternal or athletic groups, or [...] Not very hard 01/11/2024 [facility] of Occupat ional Health - Occupational [...] place to sleep or slept in a senior living (including now)? No 01/11/2024 Comments Yes Sex and Gender Information Value Date Recorded Sex Assigned at Not on file Legal Sex Female 7:14 PM EDT Gender Identity Not on file Sexual Orientation Not on file documented as of this encounter Plan of Treatment Not on file documented as of this encounter Visit Diagnoses Not on filedocumented in this encounter Care Teams Felt Cutting Machine Operator Relationship Specialty Start Date End Date Jason Baez MD [address] [place] [address] PCP - General Family Medicine 01/11/24 Jason Baez MD [address] [place] [address] PCP - [facility] 12/20/23 Kristie Ibanez LSW [address] [place] [address] Visual Manager Genetics Nurse 10/04/24 10/05/24 Sandra Celaya, FINANCIAL SYSTEMS DIRECTOR [address] [place] [address] Visual Manager Family Medicine 10/05/24 10/24/24 documented as of this encounter
--- OUTSIDE RECORDS SUMMARY | 2025-04-25 20:16 | XMS_ITS | Encounter Summary ---
Author Organization [facility] Address [address] [facility] [place] [address] Care Team Providers Care Chief Medical Technologist Name Role Phone Jason Baez MD Primary Care Provider [phone] Jason Baez MD Unavailable Kristie Ibanez E LEARNING DEVELOPER Unavailable Sandra Celaya E LEARNING DEVELOPER Unavailable [phone] Encounter Details Date Type Department Care Team (Late st Contact Info) Description 04/14/2024 Abstract [facility] [address] [place] [address] Yassine Patiño DO [address] [place], [place] [address] Social History Tobacco Use Types Packs/Day Years [...] week 01/11/2024 How often do you attend sikh or baptism serv ices? Never 01/11/2024 Do you belong to any clubs o r organizations such as sikh groups, unions, fraternal or athletic groups, or [...] and heating? Not very hard 01/11/2024 [facility] of Occupat ional Health - [...] on filedocumented in this encounter Care Teams Chief Medical Technologist Relationship Specialty Start Date End Date Jason Baez MD [address] [place] [address] PCP - General Family Medicine 01/11/24 Jason Baez MD [address] [place] [address] PCP - [facility] 12/20/23 Kristie Ibanez LSW [address] [place] [address] Hydroelectric Powerplant Supervisor Dent Remover 10/04/24 10/05/24 Sandra Celaya, E LEARNING DEVELOPER [address] [place] [address] Hydroelectric Powerplant Supervisor Family Medicine 10/05/24 10/24/24 documented as of this encounter
--- OUTSIDE RECORDS SUMMARY | 2025-04-25 20:16 | XMS_ITS | Patient Health Record ---
Author Organization [employer] [facility] Address [address] [place] [address] Care Team Providers Care Slate Roofer Name Role Phone Edi Bhargavi Primary Care Provider Dr. Hossein Smith Unavailable [phone] Ashley Holman Unavailable Mily Green Unavailable [phone] Reason For Referral No Information Encounters Encounter Location Date Provider Diagnosis [address] [address] 12/28/2024 Ashley [place] Acute gingivitis, plaque induced K05.00 ; Encounter for dental examination and cleaning with abnormal findings Z01.21 ; Disturbances in tooth eruption K00.6 and Other dental procedure status Z98.[address] [address] 10/19/2024 Mily Green Dental caries on pit and fissure surface penetrating into dentin K02.52 and Acute gingivitis, plaque induced K05.00 Assessments Encounter Date Diagnosis (ICD Code) Assessment Notes Treatment Notes Treatment Clinical Notes Section Notes 10/19/2024 Dental caries on pit and fissure surface penetrating into dentin (ICD-10 - K02.52) 12/28/2024 Acute gingivitis, plaque induced (ICD-10 - K05.00) 12/28/2024 Encounter for dental examination and cleaning with abnormal findings (ICD-10 - Z01.21) 10/19/2024 Acute gingivitis, plaque induced (ICD-10 - K05.00) 12/28/2024 Disturbances in tooth eruption (ICD-10 - K00.6) 12/28/2024 Other dental procedure status (ICD-10 - Z98.818) Plan Of Treatment No Information Insurance Providers Payer Name Payer Address Payer Phone Subscriber Number Group Number Insured Name Patient Relationship to Insured Coverage Start Date Coverage End Date [facility] [place] [employer] [address] [address] [place] [address] [id number] SABAS CARRASQUILLO Self - patient is the insured [address] [facility] [place] [address] [place] [address] [id number] SABAS CARRASQUILLO Self - patient is the insured 3
--- OUTSIDE RECORDS SUMMARY | 2025-04-25 20:17 | XMS_ITS | Clinical Summary ---
Author Organization [facility] Address [address] [place] [address] Care Team Providers Care Senior Bioinformatics Scientist Name Role Phone Jason Baez MD Primary Care Provider [phone] Jason Baez MD Unavailable Allergies No known active allergies Medications albuterol HFA 90 mcg/act inhalerIndicat ions:Bronchiti s INHALE 2 PUFFS EVERY 4 HOURS NEEDED FOR SHORTNESS OF BREATH 18 g 2 04/06/20 25 Active norgestimate-e thinyl estradiol (Sprintec 28) 0.25-35 MG-MCG tabletIndicati ons:6 weeks follow-up ([facility]) Take 1 tablet by mouth Daily for 28 days Take 1 tablet by mouth daily 28 tablet 11 04/25/20 25 025 Active valACYclovir (Valtrex) 1 g tabletIndicati ons:Herpes genitalis in women Take 1 tablet (1,000 mg) by mouth Daily 90 tablet 2 04/25/20 25 Active terconazole (Terazol 7) 0.4 % vaginal creamIndicatio ns:Yeast infection Insert 1 applicator into the vagina at bedtime for 7 days 45 g 04/25/20 25 025 Active valACYclovir (Valtrex) 1 g tabletIndicati ons:Herpes genitalis in women TAKE 1 TABLET BY MOUTH EVERY DAY 90 tablet 2 12/22/19 24 025 Discontinued(Re order) norgestimate-e thinyl estradiol (Sprintec 28) 0.25-35 MG-MCG tabletIndicati ons:6 weeks follow-up ([facility]) Take 1 tablet by mouth Daily for 28 days Take 1 tablet by mouth daily 28 tablet 11 09/18/20 24 025 Discontinued(Re order) albuterol HFA 90 mcg/act inhalerIndicat ions:Bronchiti s Inhale 2 puffs every 4 (four) hours if needed for shortness of breath 18 g 2 11/13/19 25 025 Discontinued Active Problems Problem Noted Date Diagnosed Date Bilateral carpal tunnel syndrome 01/11/2024 Generalized anxiety disorder 01/11/2024 Genital herpes in women 01/11/2024 Mild intermittent asthma without complication Multiple pigmented nevi 01/11/2024 Thyromegaly 01/11/2024 Umbilical hernia without obstruction or gangrene 01/11/2024 Blepharitis of left upper eyelid 01/11/2024 Assessment & Plan (01/11/2024 9:46 AM EDT): Redness and swelling to eyelid and start erythromycin ointment. Use warm compresses PRN. Seasonal allergic rhinitis due to pollen 024 Assessment & Plan (01/11/2024 9:46 AM EDT): Increased symptoms and use benadryl PRN. Allergic conjunctivitis 01/11/2024 Assessment & Plan (01/11/2024 9:45 AM EDT): Eye red and irritated, start patanol. Nausea and vomiting in ([facility]) 01/10 Assessment & Plan (01/11/2024 9:46 AM EDT): Developed nausea and use phenergan PRN. Encounters Date Type Department Care Team Description 04/25/2025 11:30 AM EDT Procedure Visit [facility] Sara [facility] [address] [place] [address] Hannah Reyna PA Well woman exam with routine gynecological exam; Vaginal discharge; Yeast infection; Encounter for surveillance of contraceptive pills; 6 weeks follow-up ([facility]); Herpes genitalis in women; UTI symptoms 04/25/2025 Bamboo flowsheet [facility]em [facility] [address] [place] [address] Hannah Reyna PA 04/21/2025 Refill [facility] [address] [place] [address] Jason Baez MD Herpes genitalis in women 04/20/2025 Travel 04/05/2025 Refill [facility] [address] [place] [address] Jason Baez MD Bronchitis from Last 3 Months Family History Medical History Relation Name Comments Bipolar disorder Mother Diabetes Other Relation Name Status Comments Mother Other Social History Tobacco Use Types Packs/Day Years Used Date Smoking Tobacco: Never Smokeless Tobacco: Never Tobacco Cessation:Counseling Given: Not Answered Alcohol Use Standard Drinks/Week Comments Never 0 [...] week 01/11/2024 How often do you attend methodist or congregation serv ices? Never 01/11/2024 Do you belong to any clubs o r organizations such as methodist groups, unions, fraternal or athletic groups, or [...] care, and heating? Not very hard 01/11/2024 [facility] of Occupat ional Health - Occupational Stress [...] to sleep or slept in a senior care (including now)? No 01/11/2024 Comments Unknown Sex and Gender Information Value Date Recorded Sex Assigned at Not on file Legal Sex Female 7:14 PM EDT Gender Identity Not on file Sexual Orientation Not on file Last Filed Vital Signs Vital Sign Reading Time Taken Comments Blood Pressure 100/68 04/25/2025 11:23 AM EDT Pulse 108 01/11/2024 9:23 AM EDT Temperature 36.7 C (98 F) 01/11/2024 9:23 AM EDT Respiratory Rate 20 01/11/2024 9:23 AM EDT Oxygen Saturation 98% 01/11/2024 9:23 AM EDT Inhaled Oxygen Concentration - - Weight 72.5 kg (159 lb 12.8 oz) 025 11:23 AM EDT Height 160 cm (5' 3 ) 01/11/2024 9:23 AM EDT Body Mass Index 28.31 01/11/2024 9:23 AM EDT Plan of Treatment Health Maintenance Due Date Last Done Comments HPV/Cotest 2025 Influenza Vaccine (#1) 2025 11/27/2014, 2010 Cervical Cancer Screening 04/13/2027 Pap Smear 04/13/2027 04/13/2024 Procedures Procedure Name Priority Date/Time Associated Diagnosis Comments POCT URINALYSIS DIPSTICK Routine 04/25/2025 11:36 AM EDT UTI symptoms POCT , URINE Routine 04/25/2025 11:36 AM EDT Vaginal discharge PAP SMEAR Routine 04/13/2024 12:00 AM EDT from Last 3 Months or Most Recently Relevant to Health Maintenance Results * POCT , urine manually resulted (04/25/2025 11:36 AM EDT) Preg Test, Ur Negative Negative Urine 04/25/2025 11:3 6 AM EDT Hannah MACKEY POINT OF CARE TEST ENTER/EDIT OR DERABLES Final Result * (ABNORMAL) POCT urinalysis dipstick manually resulted (04/25/2025 11:36 AM EDT) Color, UA Yellow Clarity, UA Clear Glucose, UA Negative Negative - 2000(110) ++++ mg/dL Bilirubin, UA Negative Negative - [...] Positive Urine 04/25/2025 11:3 6 AM EDT Hannah MACKEY POINT OF CARE TEST ENTER/EDIT OR DERABLES Final Result * Pap Smear (04/13/2024 12:00 AM EDT) Swab Cervical swab / Unknown Hannah MACKEY LAB CYTOLOGY ORDERABLES Final Re sult EXTERNAL LAB from Last 3 Months or Most Recently Relevant to Health Maintenance Insurance [employer] Care Teams Senior Bioinformatics Scientist Relationship Specialty Start Date End Date Jason Baez MD [address] [place] [address] PCP - General Family Medicine 01/11/24 Jason Baez MD [address] [place] [phone] PCP - [facility] 12/20/23
--- OUTSIDE RECORDS SUMMARY | 2025-04-25 20:17 | XMS_ITS | Encounter Summary ---
Author Organization [facility] Address [address] [facility] [place] [address] Care Team Providers Care Narcotics Investigator Name Role Phone Jason Baez MD Primary Care Provider [phone] Jason Baez MD Unavailable Kristie Ibanez SALES PROJECT COORDINATOR Unavailable Sandra Celaya SALES PROJECT COORDINATOR Unavailable [phone] Encounter Details Date Type Department Care Team (Late st Contact Info) Description 06/21/2024 Clinisync Result Encounter [facility] External Department Unsolicited [...] How often do you attend hinduism or protestant serv ices? Never 01/11/2024 Do you belong [...] care, and heating? Not very hard 01/11/2024 [facility] - Occupational Stress Questionnaire [...] Date/Time Associated Diagnosis Comments US OB GROWTH 06/21/2024 11:50 AM EDT documented in this encounter Results * US OB GROWTH (06/21/2024 11:50 AM EDT) Anatomical Region Laterality Modality Other 06/21/2024 11:5 0 AM EDT Narrative 06/21/2024 11:[place] [address] Ultrasound Report Signed Patient: ESTELLA CARRASQUILLO MR#: [id number] : 1995 Acct:[id number] Age/Sex: 29 / F ADM Date: 06/21/24 Loc: [facility] Attending Dr: Melva Cerda Ordering Physician: Melva Cerda Date of Service: 06/21/24 Procedure(s): US OB growth Accession Number(s): [id number] cc: Melva Cerda; Jason Baez M.D. [place] [id number] Patient Name: ESTELLA CARRASQUILLO MRN: [id number] date: 1995 Sex: F Assigned Patient Location: [facility] Current Patient Location: [facility] Accession/Order Number: [id number] Exam Date: 06/21/2024 11:14 Report Date: 06/21/2024 11:50 At the request of: MELVA CERDA Procedure: US OB growth EXAMINATION: US OB growth HISTORY: SIZE INCONSISTENT WITH DATES COMPARISON: No relevant comparison available. FINDINGS: Heart Rate: 143 bpm Amniotic Fluid Volume: 14.1 cm, largest fluid pocket 5.6 cm Number: 1 Position: CEPHALIC BIOMETRY: BPD: 7.66 cm; 30 weeks 5 days; 89.40 % HC: 26.73 cm; 29 weeks 1 day; 24.70 % AC: 26.05 cm; 30 weeks 1 day; 81.50 % FL: 5.74 cm; 30 weeks 1 day; 70.30 % EFW: 1558.37 g; 81.50 %, 3 lbs. 5 oz. FL/AC: 22.03 FL/BPD: 74.93 HC/AC: 1.03 GESTATIONAL AGE: Age by EDC: 28 weeks 6 days FAROOQ by EDC: 2024-09-07 Age by US: 30 weeks 0 days FAROOQ by US: 2024-08-30 US/US OB growth IMPRESSION: Normal interval growth Electronically authenticated by: CAREY HUFF Date: 06/21/2024 11:50 Dictated By: Carey Huff M.D. Signed By: 06/21/24 1152 DD/ 1150 TD/TT: Wet Sander: Procedure Note Radiology, Radiologist, MD - 06/21/2024 The [place] [id number] Ultrasound Report Signed Patient: ESTELLA CARRASQUILLO MMR#: [id number] : 1995Acct:[id number] Age/Sex: 29 / FADM Date: 06/21/24 Loc: [facility] Attending Dr: Melva Cerda Ordering Physician: Melva Cerda Date of Service: 06/21/24 Procedure(s): US OB growth Accession Number(s): [id number] cc: Melva Cerda; Jason aBez M.D. The [address] [address] Patient Name: ESTELLA CARRASQUILLO MRN: [id number] date: 1995 Sex: F Assigned Patient Location: [facility] Current Patient Location: [facility] Accession/Order Number: [id number] Exam Date: 06/21/2024 11:14 Report Date: 06/21/2024 11:50 At the request of: MELVA CERDA Procedure: US OB growth EXAMINATION: US OB growth HISTORY: SIZE INCONSISTENT WITH DATES COMPARISON: No relevant comparison available. FINDINGS: Heart Rate: 143 bpm Amniotic Fluid Volume: 14.1 cm, largest fluid pocket 5.6 cm Number: 1 Position: CEPHALIC BIOMETRY: BPD: 7.66 cm; 30 weeks 5 days; 89.40 % HC: 26.73 cm; 29 weeks 1 day; 24.70 % AC: 26.05 cm; 30 weeks 1 day; 81.50 % FL: 5.74 cm; 30 weeks 1 day; 70.30 % EFW: 1558.37 g; 81.50 %, 3 lbs. 5 oz. FL/AC: 22.03 FL/BPD: 74.93 HC/AC: 1.03 GESTATIONAL AGE: Age by EDC: 28 weeks 6 days FAROOQ by EDC: 2024-09-07 Age by US: 30 weeks 0 days FAROOQ by US: 2024-08-30 US/US OB growth IMPRESSION: Normal interval growth Electronically authenticated by: CAREY HUFF Date: 06/21/2024 11:50 Dictated By: Carey Huff M.D. Signed By:06/21/24 1152 DD/ 1150 TD/TT: Wet Sander: us Generic External Data Provider [facility] Final Result documented in this encounter Visit Diagnoses Not on filedocumented in this encounter Care Teams Narcotics Investigator Relationship Specialty Start Date End Date Jason Baez MD [address] [place] [address] PCP - General Family Medicine 01/11/24 Jason Baez MD [address] [place] [phone] PCP - [facility] 12/20/23 Kristie Ibanez LSW [address] [place] [address] Filling And Stapling Machine Operator Returned Item Clerk 10/04/24 10/05/24 Sandra Celaya, SALES PROJECT COORDINATOR [address] [facility] [place] [address] Filling And Stapling Machine Operator Family Medicine 10/05/24 10/24/24 documented as of this encounter
--- OUTSIDE RECORDS SUMMARY | 2025-04-25 20:17 | XMS_ITS | Encounter Summary ---
Author Organization [facility] Address [address] [facility] [place] [address] Care Team Providers Care Industrial Maintenance Millwright Name Role Phone Jason Baez MD Primary Care Provider [phone] Jason Baez MD Unavailable Kristie Ibanez CERTIFIED SCRUM MASTER Unavailable Sandra Celaya CERTIFIED SCRUM MASTER Unavailable [phone] Encounter Details Date Type Department Care Team (Late st Contact Info) Description 06/07/2024 Abstract [facility] [address] [place] [address] Yassine Patiño DO [address] [place] [place], [place] [id number] Social History Tobacco Use Types Packs/Day Years [...] week 01/11/2024 How often do you attend sabianist or protestant serv ices? Never 01/11/2024 Do you belong to any clubs o r organizations such as sabianist groups, unions, fraternal or athletic groups, or [...] care, and heating? Not very hard 01/11/2024 [facility] of Occupat ional Health - Occupational [...] on filedocumented in this encounter Care Teams Industrial Maintenance Millwright Relationship Specialty Start Date End Date Jason Baez MD [address] [place] [address] PCP - General Family Medicine 01/11/24 Jason Baez MD [address] [place] [address] PCP - [facility] 12/20/23 Kristie Ibanez LSW [address] [place] [address] Manager Media Relations Configuration Management Administrator 10/04/24 10/05/24 Sandra Celaya, CERTIFIED SCRUM MASTER [address] [place] [address] Manager Media Relations Family Medicine 10/05/24 10/24/24 documented as of this encounter
--- OUTSIDE RECORDS SUMMARY | 2025-04-25 20:17 | XMS_ITS | Clinical Summary ---
Author Organization [facility] tem Address [id number] [address] [place] [address] Care Team Providers Care Mgmt Specialist Name Role Phone Jason Baez MD Primary Care Provider [phone] Allergies No known active allergies Medications medroxyPROGESTE Francisco (DEPO-PROVERA) 150 mg/mL injection Inject 150 mg into the appropriate muscle every 3 (three) months. Active cetirizine (ZyrTEC) 10 mg tablet Take 10 mg by mouth in the morning. 2 Active omeprazole (PriLOSEC) 40 mg capsule Take 40 mg by mouth in the morning. Active diphenhydrAMINE (BENADRYL) 25 mg capsule Take 25 mg by mouth every 6 (six) hours as needed for itching. Active ondansetron (ZOFRAN) 4 mg tablet Take 1 tablet (4 mg total) by mouth every 8 (eight) hours as needed for nausea or vomiting. 20 tablet 2 Active Family History Medical History Relation Name Comments Diabetes Maternal Grandfather Heart attack Maternal Grandfather Hypertension Maternal Grandfather Relation Name Status Comments Father Alive Maternal Grandfather Mother Alive Social History Tobacco Use Types Packs/Day Years Used Date Smoking Tobacco: Never Smokeless Tobacco: Never Alcohol Use Standard Drinks/Week Comments Yes 0 (1 standard drink = 0.6 oz pur e alcohol) OCCASSIONAL AUDIT-C Answer Date Recorded Frequency of Alcohol Consumption Never 09/25/2019 Average Number of Drinks Not on file 020 Frequency of Binge Drinking Not on file 02/2020 Childcare Answer Date Recorded Childcare Unknown 02/27/2019 Employment Answer Date Recorded Employment Unknown 02/27/2019 Hunger Screening Answer Date Recorded Within the past 12 months we worried whether our food would run out before we got money to buy more. Never True 08/22/2024 Within the past 12 months th e food we bought just didn't last and we didn't have money to get more. Never True 08/22/2024 Purpose - Life Answer Date Recorded Purpose and direction in life Unknown Comments No Sex and Gender Information Value Date Recorded Sex Assigned at Not on file Legal Sex Female 1:03 PM EDT Gender Identity Not on file Sexual Orientation Not on file Last Filed Vital Signs Vital Sign Reading Time Taken Comments Blood Pressure 105/69 08/22/2024 7:46 PM EST Pulse 126 08/22/2024 7:46 PM EST Temperature 38.2 C (100.7 F) 08/22/2024 7:46 PM EST Respiratory Rate 16 08/22/2024 7:46 PM EST Oxygen Saturation 96% 08/22/2024 7:56 PM EST Inhaled Oxygen Concentration - - Weight 73.5 kg (162 lb) 08/22/2024 7:46 PM EST Height 160 cm (5' 3 ) 12/23/2021 1:23 PM EDT Body Mass Index 28.7 12/23/2021 1:23 PM EDT Plan of Treatment Health Maintenance Due Date Last Done Comments Depression Screening 2007 Pap Smear 2016 DTaP,Tdap and Td Vaccines (7 - Td or Tdap) 06/13/2020 06/13/2010, 01/01/2000, 06/26/1996, Additional history exists COVID-19 Vaccine (2 - 2023-2 5 season) 2024 09/09/2021 Influenza Vaccine 05/21/2025 11/27/2014, 06/18/2011 Adult BMI Screening 08/22/2025 08/22/2024 Tobacco Screening 08/22/2025 08/22/2024 Medical Devices Implanted Type Area Account Support Manager Device Identifier Shelf Expiration Date Model / Serial / Lot Ernesto As/Mesh 15x9cm Parietex Progrip Slf Fx Srg Phs Ias [id number] - Sna - [id number] Implanted:Qty: 1 on 12/04/2021 by Macario Stoll MD at [facility] Mesh N/A: Abdomen [employer] [place] 11/17/2025 [id number] / NA / [id number] Insurance [employer] Care Teams Mgmt Specialist Relationship Specialty Start Date End Date Jason Baez MD PCP - General Family Medicine 11/20/21
--- OUTSIDE RECORDS SUMMARY | 2025-04-25 20:17 | XMS_ITS | Encounter Summary ---
Author Organization [facility] Address [address] [place] [address] Care Team Providers Care Php Developer Name Role Phone Jason Baez MD Primary Care Provider [phone] Jason Baez MD Unavailable Kristie Ibanez DISPLAY DESIGNER Unavailable Sandra Celaya DISPLAY DESIGNER Unavailable [phone] Encounter Details Date Type Department Care Team (Late st Contact Info) Description 06/07/2024 Abstract [facility] [address] [address] Yassine Patiño DO [address] [place], [place] [id number] Social History Tobacco Use Types Packs/Day Years [...] week 01/11/2024 How often do you attend rastafarian or anabaptist serv ices? Never 01/11/2024 Do you belong to any clubs o r organizations such as rastafarian groups, unions, fraternal [...] care, and heating? Not very hard 01/11/2024 [facility] - Occupational [...] on filedocumented in this encounter Care Teams Php Developer Relationship Specialty Start Date End Date Jason Baez MD [address] [place] [phone] PCP - General Family Medicine 01/11/24 Jason Baez MD [address] [place] [phone] PCP - [facility] 12/20/23 Kristie Ibanez LSW [address] [place] [address] Train Conductor Manager Urology 10/04/24 10/05/24 Sandra Celaya, DISPLAY DESIGNER [address] [place] [address] Train Conductor Family Medicine 10/05/24 10/24/24 documented as of this encounter
--- OUTSIDE RECORDS SUMMARY | 2025-04-25 20:17 | XMS_ITS | Encounter Summary ---
Author Organization [facility] Address [address] [place] [address] Care Team Providers Care Airport Utility Worker Name Role Phone Jason Baez MD Primary Care Provider [phone] Jason Baez MD Unavailable Encounter Details Date Type Department Care Team (Late st Contact Info) Description 04/25/2025 Bamboo flowsheet [facility] [address] [place] [address] Hannah Reyna PA [address] [facility] [place], [facility] Social History Tobacco Use Types Packs/Day Years [...] How often do you attend hinduism or mormonism serv ices? Never 01/11/2024 Do you belong [...] care, and heating? Not very hard 01/11/2024 [facility] - [...] place to sleep or slept in a [facility] (including now)? No 01/11/2024 Comments Unknown Sex and Gender Information Value Date Recorded Sex Assigned at Not on file Legal Sex Female 7:14 PM EDT Gender Identity Not on file Sexual Orientation Not on file documented as of this encounter Plan of Treatment Not on file documented as of this encounter Visit Diagnoses Not on filedocumented in this encounter Care Teams Airport Utility Worker Relationship Specialty Start Date End Date Jason Baez MD [address] [place] [phone] PCP - General Family Medicine 01/11/24 Jason Baez MD [address] [place] [phone] PCP - [facility] 12/20/23 documented as of this encounter
[2025-04-30 13:09] LABS: Age Gdln ACOG Testing Note (.); IGP, Aptima HPV, rfx 16/18,45 Note (.)
== END 2025-04-25 20:12 | disposition home or self-care (01) ==
LOC: LAB 20:11
PROVIDERS: PCP Family Medicine; Visit Provider Physician Assistant
DX: Z01.419 Encounter for gynecological examination (general) (routine) without abnormal findings (principal)
CPT/HCPCS: 87624; 88175